=== PATIENT | male | born 1940 | race Caucasian/White ===

== ENCOUNTER → 2023-08-17 | Outpatient (CLI) | payer MEDICARE ==
[2023-08-17 09:48] LABS: Potassium 5.9 mmol/L (3.5-5.1)
== END | disposition home or self-care (01) ==
LOC: LABWHC1 08:18
PROVIDERS: ATTEND Family Medicine
DX: E87.5 Hyperkalemia (principal)
CPT/HCPCS: 36415; 80051

== ENCOUNTER 2023-11-08 14:11 | Inpatient (IN) | payer MEDICARE ==
--- NOTE | 2023-11-08 14:54 | ED ---
Recheck HPI - General Chief Complaint: Recheck/Abnormal Lab/Rx Stated Complaint: abn labs Time Seen by Provider: 11/08/23 14:37 Source: patient, family, RN notes reviewed Mode of arrival: wheelchair Limitations: no limitations - History of Present Illness Initial Comments: This is an 83-year-old male who presents to the emergency department for abnormal blood work. Patient had a follow-up appointment with his computer terminal operator today, and received a call stating that his hemoglobin was low, and he needed to come to the emergency department. Blood work was done earlier today. States that he has been feeling increasingly weak and dizzy over the last 1 to 2 weeks. He has started to use his walker at home again so he does not fall. He does report darker stools than normal. He had abdominal pain at one point that has since resolved. He has not had much of an appetite. Denies any history of blood transfusions. Patient does take warfarin. MD Complaint: abnormal lab - Related Data Home Medications Medication Instructions Recorded Confirmed Simvastatin [Zocor] 40 mg PO HS 10/26/14 11/08/23 Empagliflozin [Jardiance] 10 mg PO DAILY 11/08/23 11/08/23 Sacubitril/Valsartan [Entresto 24 1 tab PO BID 11/08/23 11/08/23 mg-26 mg Tablet] carvediloL [Coreg] 12.5 mg PO BID 11/08/23 11/08/23 Allergies Allergy/AdvReac Type Severity Reaction Status Date / Time cephalexin monohydrate Allergy Severe Rash/Hives Verified 11/08/23 17:24 [From Keflex] Penicillins Allergy Severe Rash/Hives Verified 11/08/23 17:24 propylene glycol Allergy Severe Anaphylaxis Verified 11/08/23 17:24 bacitracin Allergy Rash/Hives Verified 11/08/23 17:24 [From Neosporin ([id number])] bacitracin zinc Allergy Rash/Hives Verified 11/08/23 17:24 [From Neosporin ([id number])] chloramphenicol Allergy Rash/Hives Verified 11/08/23 17:24 [From Chloromycetin] chloramphenicol sod succ Allergy Rash/Hives Verified 11/08/23 17:24 [From Chloromycetin] ciprofloxacin [From Cipro] Allergy Rash/Hives Verified 11/08/23 17:24 ciprofloxacin HCl Allergy Rash/Hives Verified 11/08/23 17:24 [From Cipro] mercury (elemental) Allergy Rash/Hives Verified 11/08/23 17:24 neomycin Allergy Rash/Hives Verified 11/08/23 17:24 neomycin sulfate Allergy Rash/Hives Verified 11/08/23 17:24 [From Neosporin ([id number])] polymyxin B Allergy Rash/Hives Verified 11/08/23 17:24 [From Neosporin ([id number])] Review of Systems ROS Statement: Those systems with pertinent positive or pertinent negative responses have been documented in the HPI. ROS Other: All systems not noted in ROS Statement are negative. Past Medical History Past Medical History: Atrial Fibrillation, Coronary Artery Disease (CAD), Hyperlipidemia, Mitral Valve Prolapse (MVP), Osteoarthritis (OA) History of Any Multi-Drug Resistant Organisms: None Reported Past Surgical History: Cardiac Ablation, Cardiac Valve Replacement, Heart Catheterization Additional Past Surgical History / Comment(s): CARIOVERSIONS. AORTA VALVE REPLACED/MITRAL VALVE REPAIRED @ [facility] ON JANUARY [id number]. Past Anesthesia/Blood Transfusion Reactions: No Reported Reaction Past Psychological History: No Psychological Hx Reported Smoking Status: Never smoker Past Alcohol Use History: Rare Past Drug Use History: None Reported - Past Family History Mother Family Medical History: CVA/TIA, Myocardial Infarction ([place]) Father Family Medical History: Myocardial Infarction ([place]) Brother(s) Family Medical History: CVA/TIA General Exam Limitations: no limitations General appearance: alert, in no apparent distress Head exam: Present: atraumatic, normocephalic, normal inspection Respiratory exam: Present: normal lung sounds bilaterally. Absent: respiratory distress, wheezes, rales, rhonchi, stridor Cardiovascular Exam: Present: regular rate, normal rhythm, normal heart sounds. Absent: systolic murmur, diastolic murmur, rubs, gallop, clicks Neurological exam: Present: alert, oriented X3, CN II-XII intact Psychiatric exam: Present: normal affect, normal mood Skin exam: Present: warm, dry, intact Course Vital Signs 11/08/23 11/08/23 11/08/23 14:12 15:30 16:33 Temperature 97.5 F L 97.6 F Pulse Rate 68 75 75 Respiratory 18 16 18 Rate Blood Pressure 86/46 94/45 96/44 O2 Sat by Pulse 100 98 100 Oximetry 11/08/23 11/08/23 16:46 17:06 Temperature 97.7 F 97.8 F Pulse Rate 75 73 Respiratory 18 16 Rate Blood Pressure 93/44 99/49 O2 Sat by Pulse 100 100 Oximetry Medical Decision Making - Medical Decision Making This is an 83-year-old male who presents to the emergency department for weakness and low hemoglobin. Was pt. sent in by a medical professional or institution? @ -His computer terminal operator Did you speak to anyone other than the patient for history? @ -No Did you review nursing and triage notes? @ -Yes, and I agree, it is accurate with regards to the patient's symptoms. Were old charts reviewed? @ -No Differential Diagnosis? @ -Differential Weakness: Hypoglycemia, shock, sepsis, hyponatremia, anemia, infection, DC, ETOH, adverse medicine reaction, overdose, stroke, this is not meant to be an all-inclusive list. EKG interpreted by me (3pts min.)? @ -EKG interpreted by me demonstrating the following: Electronic ventricular pacemaker. Ventricular rate 61 bpm, QRS duration 167 ms, QTc 462 ms. X-rays interpreted by me (1pt min.)? @ -Not obtained CT interpreted by me (1pt min.)? @ -Not obtained U/S interpreted by me (1pt. min.)? @ -Not obtained What testing was considered but not performed? (CT, X-rays, U/S, labs)? Why? @ -None What meds were considered but not given? Why? @ -None Did you discuss the management of the patient with other professionals? @ -Yes, Dr. Coelho, who accepts the patient for admission. Did you reconcile home meds? @ -Yes Was smoking cessation discussed for >3mins.? @ -No Was critical care preformed (if so, how long)? @ -No Were there social determinants of health that impacted care today? How? (Dima elessness, low income, unemployed, alcoholism, drug addiction, transportation, low edu. Level, literacy, decrease access to med. care, fci, rehab)? @ -No Was there de-escalation of care discussed even if they declined? (Discuss DNR or withdrawal of care, Hospice)? @ -No What co-morbidities impacted this encounter? (DM, HTN, Smoking, COPD, CAD, C ancer, CVA, Hep., AIDS, mental health diagnosis, sleep apnea, morbid obesity)? @ -A-fib, CAD, HLD Was patient admitted / discharged? @ -Admitted. Lab work demonstrates a hemoglobin of 6.7 and INR of 6.5. He has mild hyperkalemia with a potassium of 5.3. Stool occult positive. Patient also hypotensive in the emergency department with blood pressures ranging from the 80s to 90s over 40s. 2.5 mg of vitamin K administered for warfarin reversal. He was also given 10 g of Lokelma for hyperkalemia. Patient transfused with one unit of packed red blood cells. Patient admitted to medicine for anemia, elevated INR, and positive stool occult. Consult placed for gastroenterology. Undiagnosed new problem with uncertain prognosis? @ -None Drug Therapy requiring intensive monitoring for toxicity (Heparin, Nitro, Insul in, Cardizem)? @ -None Were any procedures done? @ -None Diagnosis/symptom? @ -Anemia, elevated INR, positive stool occult Acute, or Chronic, or Acute on Chronic? @ -Acute Uncomplicated (without systemic symptoms) or Complicated (systemic symptoms)? @ -Complicated Side effects of treatment? @ -None Exacerbation, Progression, or Severe Exacerbation] @ -Not applicable Poses a threat to life or bodily function? @ -Yes This case was discussed in detail with the attending ED physician, Dr. Franklin. Presentation, findings, and treatment plan discussed in detail as well. - Lab Data Result diagrams: 11/08/23 14:54 11/08/23 14:54 Lab Results 11/08/23 11/08/23 11/08/23 Range/Units 14:29 14:54 14:54 WBC 7.9 (3.8-10.6) k/uL RBC 2.27 L (4.30-5.90) m/uL Hgb 6.7 L* (13.0-17.5) gm/dL Hct 21.6 L (39.0-53.0) % MCV 94.9 (80.0-100.0) fL MCH 29.5 (25.0-35.0) pg MCHC 31.1 (31.0-37.0) g/dL RDW 14.3 (11.5-15.5) % Plt Count 261 (150-450) k/uL MPV 7.4 Neutrophils % 75 % Lymphocytes % 10 % Monocytes % 7 % Eosinophils % 4 % Basophils % 1 % Neutrophils # 6.0 (1.3-7.7) k/uL Lymphocytes # 0.8 L (1.0-4.8) k/uL Monocytes # 0.5 (0-1.0) k/uL Eosinophils # 0.3 (0-0.7) k/uL Basophils # 0.1 (0-0.2) k/uL Hypochromasia Marked PT 64.0 H (10.0-12.5) sec INR 6.5 H* (<1.2) APTT 38.5 H (22.0-30.0) sec Sodium (137-145) mmol/L Potassium (3.5-5.1) mmol/L Chloride (98-107) mmol/L Carbon Dioxide (22-30) mmol/L Anion Gap mmol/L BUN (9-20) mg/dL Creatinine (0.66-1.25) mg/dL Est GFR (CKD-EPI)AfAm (>60 ml/min/1.73 sqM) Est GFR (CKD-EPI)NonAf (>60 ml/min/1.73 sqM) Glucose (74-99) mg/dL Calcium (8.4-10.2) mg/dL Phosphorus (2.5-4.5) mg/dL Magnesium (1.6-2.3) mg/dL Total Bilirubin (0.2-1.3) mg/dL AST (17-59) U/L ALT (4-49) U/L Alkaline Phosphatase (38-126) U/L Total Protein (6.3-8.2) g/dL Albumin (3.5-5.0) g/dL Stool Occult Blood (Negative) Blood Type Blood Type Confirm A Positive Blood Type Recheck Bld Type Recheck Status Antibody Screen Crossmatch Spec Expiration Date 11/08/23 11/08/23 11/08/23 Range/Units 14:54 14:54 15:22 WBC (3.8-10.6) k/uL RBC (4.30-5.90) m/uL Hgb (13.0-17.5) gm/dL Hct (39.0-53.0) % MCV (80.0-100.0) fL MCH (25.0-35.0) pg MCHC (31.0-37.0) g/dL RDW (11.5-15.5) % Plt Count (150-450) k/uL MPV Neutrophils % % Lymphocytes % % Monocytes % % Eosinophils % % Basophils % % Neutrophils # (1.3-7.7) k/uL Lymphocytes # (1.0-4.8) k/uL Monocytes # (0-1.0) k/uL Eosinophils # (0-0.7) k/uL Basophils # (0-0.2) k/uL Hypochromasia PT (10.0-12.5) sec INR (<1.2) APTT (22.0-30.0) sec Sodium 145 (137-145) mmol/L Potassium 5.3 H (3.5-5.1) mmol/L Chloride 117 H (98-107) mmol/L Carbon Dioxide 23 (22-30) mmol/L Anion Gap 5 mmol/L BUN 53 H (9-20) mg/dL Creatinine 2.28 H (0.66-1.25) mg/dL Est GFR (CKD-EPI)AfAm 29 (>60 ml/min/1.73 sqM) Est GFR (CKD-EPI)NonAf 25 (>60 ml/min/1.73 sqM) Glucose 157 H (74-99) mg/dL Calcium 8.4 (8.4-10.2) mg/dL Phosphorus 3.9 (2.5-4.5) mg/dL Magnesium 2.4 H (1.6-2.3) mg/dL Total Bilirubin 0.6 (0.2-1.3) mg/dL AST 18 (17-59) U/L ALT 11 (4-49) U/L Alkaline Phosphatase 80 (38-126) U/L Total Protein 6.1 L (6.3-8.2) g/dL Albumin 3.3 L (3.5-5.0) g/dL Stool Occult Blood Positive (Negative) Blood Type A Positive Blood Type Confirm Blood Type Recheck No Previous Record Bld Type Recheck Status CABO Indicated Antibody Screen NEGATIVE Crossmatch See Detail Spec Expiration Date 11/11/2023 - 8332 Disposition Clinical Impression: Anemia, Positive occult stool blood test, Elevated INR Disposition: ADMITTED IP TO THIS HOSP Referrals: Bruno Coelho DO [Primary Care Provider] - 1-2 days Time of Disposition: 16:38
[2023-11-08 15:10] LABS: Basophils # (A) 0.1 k/uL (0-0.2); Basophils % (A) 1 %; Eosinophils # (A) 0.3 k/uL (0-0.7); Eosinophils % (A) 4 %; HCT 21.6 % (39.0-53.0); Hypochromasia Marked; Lymphocytes # (A) 0.8 k/uL (1.0-4.8); Lymphocytes % (A) 10 %; MCH 29.5 pg (25.0-35.0); MCHC 31.1 g/dL (31.0-37.0); MCV 94.9 fL (80.0-100.0); Mean Platelet Volume 7.4; Monocytes # (A) 0.5 k/uL (0-1.0); Monocytes % (A) 7 %; Neutrophils % (A) 75 %; Platelet Count 261 k/uL (150-450); RBC 2.27 m/uL (4.30-5.90); RDW 14.3 % (11.5-15.5); WBC 7.9 k/uL (3.8-10.6)
[2023-11-08 15:15] LABS: HGB 6.7 gm/dL (13.0-17.5)
[2023-11-08 15:24] LABS: Partial Thromboplastin Time 38.5 sec (22.0-30.0)
[2023-11-08 15:28] LABS: INR 6.5 (<1.2)
[2023-11-08 15:34] LABS: ALT 11 U/L (4-49); AST 18 U/L (17-59); African American GFR (CKD) 29 (>60 ml/min/1.73 sqM); Albumin 3.3 g/dL (3.5-5.0); Alkaline Phosphatase 80 U/L (38-126); Anion Gap 5 mmol/L; Blood Urea Nitrogen 53 mg/dL (9-20); Calcium 8.4 mg/dL (8.4-10.2); Carbon Dioxide 23 mmol/L (22-30); Chloride 117 mmol/L (98-107); Glucose 157 mg/dL (74-99); Magnesium 2.4 mg/dL (1.6-2.3); Non-African American GFR(CKD) 25 (>60 ml/min/1.73 sqM); Phosphorus 3.9 mg/dL (2.5-4.5); Potassium 5.3 mmol/L (3.5-5.1); Sodium 145 mmol/L (137-145); Total Bilirubin 0.6 mg/dL (0.2-1.3); Total Protein 6.1 g/dL (6.3-8.2)
[2023-11-08] MEDS: SODIUM CHLORIDE 0.9% 1,000 ML IV STA (15:50)
[2023-11-08] MEDS: SODIUM ZIRCONIUM CYCLOSILICATE 10 GM PACKET PO ONE (15:50)
[2023-11-08] MEDS: PHYTONADIONE ORAL 5 MG/5 ML ORAL.SYRG PO STA (15:50)
[2023-11-08] MEDS ORDERED: NALOXONE 0.4 MG/ML 1 ML VIAL IV PRN (16:41)
[2023-11-08] MEDS ORDERED: ONDANSETRON 4 MG/2 ML VIAL IVP PRN (16:41)
[2023-11-08] MEDS: carvediloL 12.5 MG TAB PO SCH (17:54)
[2023-11-08] MEDS: ATORVASTATIN 20 MG TAB PO SCH (20:25)
[2023-11-08] MEDS: SACUBITRIL/VALSARTAN 24 MG-26 MG TABLET PO SCH (21:21)
[2023-11-09] MEDS: PANTOPRAZOLE 40 MG/10 ML VIAL IVP SCH (08:59)
[2023-11-09] MEDS: DAPAGLIFLOZIN PROPANEDIOL 5 MG TABLET PO SCH (08:59)
--- NOTE | 2023-11-09 10:02 | P.CONS ---
History of Present Illness - Reason for Consult Consult date: 11/09/23 Anemia Requesting physician: Yanni Miller - Chief Complaint Abnormal labs - History of Present Illness This is a pleasant 83-year-old male who presented to the emergency department directed by his transmitter tester. States that he was having blood work done and was noted to have a low hemoglobin and was told to come to the emergency department for further evaluation. He also reports that he has been feeling a little bit more weak and dizzy over the last week or 2. He denies any abdominal pain, nausea or vomiting. He states that his stools have been a little darker over the last week. He does not recall his last colonoscopy he states that he does recall having a more recent Cologuard which he believes was negative. He does take anticoagulation in the form of warfarin for atrial fibrillation history of coronary artery disease, hyperlipidemia, mitral valve prolapse with a cardiac valve replacement and history of heart cath authorization and cardiac ablation. Patient was admitted with a hemoglobin of 6.6 and was transfused 1 unit of blood. Admitting labs WBC 7.9 hemoglobin 6.7 hematocrit 21 platelet count 261,000 INR 6.5 sodium 145 potassium 5.3 BUN 53 creatinine 2.2 magnesium 2.4 total bilirubin 0.6 AST 18 ALT 11 alkaline phosphatase 80 stool occult blood positive Review of Systems REVIEW OF SYSTEMS: CARDIOPULMONARY: No chest pain or shortness of breath. Gastrointestinal: No abdominal pain. No nausea or vomiting. No hematemesis, coffee-ground emesis. Reports darker stools for last 1 week duration. GENITOURINARY: No dysuria or hematuria. MUSCULOSKELETAL: Reports normal range of motion., Joint pain. SKIN: No rashes. No jaundice. ENDOCRINE: No chills, fevers. No excessive weight gain or loss. No polydipsia or polyuria. PSYCHIATRIC: Unremarkable. NEUROLOGY: No change in mental status. Denies dizziness, headache. ENT: Vision unremarkable. CONSTITUTIONAL: No recent weight loss. No fever, chills, night sweats. Patient reports increased weakness and some lightheadedness/dizziness. Past Medical History Past Medical History: Atrial Fibrillation, Coronary Artery Disease (CAD), Hyperlipidemia, Mitral Valve Prolapse (MVP), Osteoarthritis (OA) History of Any Multi-Drug Resistant Organisms: None Reported Past Surgical History: Cardiac Ablation, Cardiac Valve Replacement, Heart Catheterization Additional Past Surgical History / Comment(s): CARIOVERSIONS. AORTA VALVE REPLACED/MITRAL VALVE REPAIRED @ [facility] ON JANUARY [id number]. pacer, EF 30% Past Anesthesia/Blood Transfusion Reactions: No Reported Reaction Past Psychological History: No Psychological Hx Reported Smoking Status: Never smoker Past Alcohol Use History: Rare Past Drug Use History: None Reported - Past Family History Mother Family Medical History: CVA/TIA, Myocardial Infarction ([place]) Father Family Medical History: Myocardial Infarction ([place]) Brother(s) Family Medical History: CVA/TIA Medications and Allergies Home Medications Medication Instructions Recorded Confirmed Type Simvastatin [Zocor] 40 mg PO HS 10/26/14 11/08/23 History Empagliflozin [Jardiance] 10 mg PO DAILY 11/08/23 11/08/23 History Sacubitril/Valsartan [Entresto 24 1 tab PO BID 11/08/23 11/08/23 History mg-26 mg Tablet] carvediloL [Coreg] 12.5 mg PO BID 11/08/23 11/08/23 History Allergies Allergy/AdvReac Type Severity Reaction Status Date / Time cephalexin monohydrate Allergy Severe Rash/Hives Verified 11/08/23 17:24 [From Keflex] Penicillins Allergy Severe Rash/Hives Verified 11/08/23 17:24 propylene glycol Allergy Severe Anaphylaxis Verified 11/08/23 17:24 bacitracin Allergy Rash/Hives Verified 11/08/23 17:24 [From Neosporin ([id number])] bacitracin zinc Allergy Rash/Hives Verified 11/08/23 17:24 [From Neosporin ([id number])] chloramphenicol Allergy Rash/Hives Verified 11/08/23 17:24 [From Chloromycetin] chloramphenicol sod succ Allergy Rash/Hives Verified 11/08/23 17:24 [From Chloromycetin] ciprofloxacin [From Cipro] Allergy Rash/Hives Verified 11/08/23 17:24 ciprofloxacin HCl Allergy Rash/Hives Verified 11/08/23 17:24 [From Cipro] mercury (elemental) Allergy Rash/Hives Verified 11/08/23 17:24 neomycin Allergy Rash/Hives Verified 11/08/23 17:24 neomycin sulfate Allergy Rash/Hives Verified 11/08/23 17:24 [From Neosporin ([id number])] polymyxin B Allergy Rash/Hives Verified 11/08/23 17:24 [From Neosporin ([id number]-[id number])] Physical Exam Vitals: Vital Signs Temp Pulse Pulse Resp BP BP Pulse Ox 11/09/23 03:28 98 F 65 19 90/49 100 11/08/23 23:38 98.0 F 59 L 19 90/48 97 11/08/23 21:01 98.1 F 55 L 19 112/64 100 11/08/23 19:13 55 L 18 108/54 100 11/08/23 19:08 97.6 F 61 18 105/52 11/08/23 17:30 97.6 F 80 18 103/60 100 11/08/23 17:06 97.8 F 73 16 99/49 100 11/08/23 16:46 97.7 F 75 18 93/44 100 11/08/23 16:33 97.6 F 75 18 96/44 100 11/08/23 15:30 75 16 94/45 98 11/08/23 14:12 97.5 F L 68 18 86/46 100 Intake and Output 11/08/23 11/09/23 11/09/23 22:59 06:59 14:59 Intake Total 310 Balance 310 Intake: Blood Product 310 Rc As-1 Unit 310 [id number] Other: Voiding Method Toilet Toilet # Voids 1 Weight 84.368 kg General appearance: The patient is alert, oriented, appears in no acute distress. HET: Head is normocephalic and atraumatic. Conjunctiva pink. Sclera anicteric. Neck: Supple without lymphadenopathy. Trachea midline. Heart: Regular. Lungs: Equal expansion, normal respiratory effort. Abdomen: Soft, nontender, nondistended with bowel sounds. No guarding or rigidity. Skin: No rashes. No jaundice. Extremities: Normal skin color and turgor. No pedal edema. Neurological: No focal deficits. Alert and oriented x3. Results CBC & Chem 7: 11/08/23 14:54 11/08/23 14:54 Labs: Abnormal Lab Results - Last 24 Hours (Table) 11/08/23 11/08/23 11/08/23 Range/Units 14:54 14:54 14:54 RBC 2.27 L (4.30-5.90) m/uL Hgb 6.7 L* (13.0-17.5) gm/dL Hct 21.6 L (39.0-53.0) % Lymphocytes # 0.8 L (1.0-4.8) k/uL PT 64.0 H (10.0-12.5) sec INR 6.5 H* (<1.2) APTT 38.5 H (22.0-30.0) sec Potassium 5.3 H (3.5-5.1) mmol/L Chloride 117 H (98-107) mmol/L BUN 53 H (9-20) mg/dL Creatinine 2.28 H (0.66-1.25) mg/dL Glucose 157 H (74-99) mg/dL Magnesium 2.4 H (1.6-2.3) mg/dL Total Protein 6.1 L (6.3-8.2) g/dL Albumin 3.3 L (3.5-5.0) g/dL Crossmatch 11/08/23 Range/Units 14:54 RBC (4.30-5.90) m/uL Hgb (13.0-17.5) gm/dL Hct (39.0-53.0) % Lymphocytes # (1.0-4.8) k/uL PT (10.0-12.5) sec INR (<1.2) APTT (22.0-30.0) sec Potassium (3.5-5.1) mmol/L Chloride (98-107) mmol/L BUN (9-20) mg/dL Creatinine (0.66-1.25) mg/dL Glucose (74-99) mg/dL Magnesium (1.6-2.3) mg/dL Total Protein (6.3-8.2) g/dL Albumin (3.5-5.0) g/dL Crossmatch See Detail Assessment and Plan (1) Anemia Narrative/Plan: 83-year-old man with coronary artery disease with a history of atrial fibrillation and heart valve replacement on Coumadin noted to have elevated INR and anemia. Patient does state that he has had some darker stools over the last 1 week duration. Denies any abdominal pain, nausea or vomiting. Unclear when last colonoscopy was no history of former GI bleed. Need to consider possible upper or lower GI bleed however with dark stools likely were dealing with an upper GI bleed. Recommend holding anticoagulation, repeat INR. Will schedule patient for EGD and colonoscopy on Sunday as there will be no GI present during the weekend. Need to consider possible etiologies including peptic ulcer disease, AVM, gastritis, esophagitis, or other possible etiologies. Current Visit: Yes Status: Acute Code(s): D64.9 - ANEMIA, UNSPECIFIED SNOMED Code(s): 429731713 (2) Coagulopathy Current Visit: Yes Status: Acute Code(s): D68.9 - COAGULATION DEFECT, UNSPECIFIED SNOMED Code(s): 68582885 (3) Atrial fibrillation by electrocardiography Current Visit: Yes Status: Acute Code(s): I48.91 - UNSPECIFIED ATRIAL FIBRILLATION SNOMED Code(s): 216847573 (4) History of heart valve replacement Current Visit: Yes Status: Acute Code(s): Z95.2 - PRESENCE OF PROSTHETIC HEART VALVE SNOMED Code(s): 824976787 Plan: 1. Continue symptomatic and supportive care 2. Daily CBC, transfuse for hemoglobin less than 7 3. Hold anticoagulation 4. Patient may have regular diet 5. N.p.o. after midnight on Sunday 6. Patient to start bowel prep Sunday afternoon 7. Plan for EGD and colonoscopy 11/12/2023 Thank you for allowing us to participate in the care of the patient, the GI service will sign off, gastroenterology will not be available at the hospital this weekend. If further evaluation by gastroenterology is required the patient will need transfer as per the primary team's discretion. Dr. Jose Shrestha I agree with the dictator's note, documented as a scribe by Earnestine Markham.
[2023-11-09 10:22] LABS: HCT 21.8 % (39.0-53.0); Hypochromasia Marked; MCH 29.5 pg (25.0-35.0); MCV 95.2 fL (80.0-100.0); Mean Platelet Volume 7.6; Platelet Count 217 k/uL (150-450); Poikilocytosis Slight; RBC 2.29 m/uL (4.30-5.90); RDW 14.7 % (11.5-15.5)
[2023-11-09 10:30] LABS: INR 2.4 (<1.2); Prothrombin Time 23.9 sec (10.0-12.5)
[2023-11-09 10:33] LABS: HGB 6.8 gm/dL (13.0-17.5)
[2023-11-09 10:46] LABS: African American GFR (CKD) 37 (>60 ml/min/1.73 sqM); Anion Gap 5 mmol/L; Blood Urea Nitrogen 44 mg/dL (9-20); Calcium 8.1 mg/dL (8.4-10.2); Carbon Dioxide 21 mmol/L (22-30); Chloride 116 mmol/L (98-107); Glucose 123 mg/dL (74-99); Non-African American GFR(CKD) 32 (>60 ml/min/1.73 sqM); Potassium 4.7 mmol/L (3.5-5.1); Sodium 142 mmol/L (137-145)
--- NOTE | 2023-11-09 13:12 | P.CRDCN ---
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 His INR was elevated and he was severely anemic. He was admitted to the hospital with evidence of GI bleeding. His echocardiogram performed June 2023 revealed an ejection fraction of 40 to 45% with moderate tricuspid regurgitation, his aortic valve had a mean gradient of 6 mmHg and his mitral valve repair showed mild valvular regurgitation. The patient denies any chest discomfort, he feels fatigue and mildly dyspneic. He has no significant peripheral edema no PND no orthopnea. He had an episode of diarrhea but no tiffanie blood. He has a prior permanent pacemaker implantation and his predominantly ventricular pacing. His current factors are positive for hyperlipidemia and hypertension he is a non- smoker, nondiabetic. He received transfusion yesterday as well as vitamin K. Medications: Carvedilol 12.5 twice daily, Farxiga 5 mg daily, Entresto 2426 twice a day, Protonix, simvastatin 40 mg daily Review of Systems: Respiratory: He has dyspnea on exertion but no recent wheezing or cough GI: No nausea or vomiting . No history of peptic ulcer disease. He had dark stool . : No hematuria or dysuria. Nervous System: No stroke or seizure. Physical Examination: 83-year-old male, pale, alert oriented no apparent distress,Blood pressure 91/50, Heart rate 57 Head: Normocephalic. Eyes: Sclerae nonicteric. Neck: Good carotid upstroke, no bruit, no jugular venous distention. Lungs: Clear to auscultation. Heart: Regular rate and rhythm, S1-S2, no S3, no rub. Systolic ejection murmur. Abdomen: Soft nontender, positive bowel sounds no organomegaly. Extremities: Trace edema, intact distal pulses. Chronic discoloration bilaterally Labs: INR on presentation 6.5, hemoglobin 6.7. His INR today is 2.4. BUN and creatinine yesterday 53 and 2.28, down to 44 and 1.9. Potassium 4.7. He is heme positive. EKG: Atrial fibrillation with 100% ventricular pacing Impression: 1. Acute GI bleeding with severe anemia 2. Chronic persistent atrial fibrillation with supra therapeutic INR 3. Status post mitral valve repair and aortic valve replacement 4. History of cardiomyopathy, nonischemic 5. Status post permanent pacemaker implantation 6. History of hyperlipidemia 7. History of hypertension Plan: 1. Continue to hold Coumadin, no need for IV heparin 2. Transfuse as needed 3. Endoscopy on Sunday 4. Follow hemoglobin 5. Decrease the dose of carvedilol because of low blood pressure. The drop in the blood pressure most likely secondary to the anemia 6. Continue other medications 7. Depending on his progress further recommendations will be made, thank you for this consult we will follow with you. Past Medical History Past Medical History: Atrial Fibrillation, Coronary Artery Disease (CAD), Hyperlipidemia, Mitral Valve Prolapse (MVP), Osteoarthritis (OA) History of Any Multi-Drug Resistant Organisms: None Reported Past Surgical History: Cardiac Ablation, Cardiac Valve Replacement, Heart C atheterization Additional Past Surgical History / Comment(s): CARIOVERSIONS. AORTA VALVE REPLACED/MITRAL VALVE REPAIRED @ [facility] ON JANUARY [id number]. pacer, EF 30% Past Anesthesia/Blood Transfusion Reactions: No Reported Reaction Past Psychological History: No Psychological Hx Reported Smoking Status: Never smoker Past Alcohol Use History: Rare Past Drug Use History: None Reported - Past Family History Mother Family Medical History: CVA/TIA, Myocardial Infarction ([place]) Father Family Medical History: Myocardial Infarction ([place]) Brother(s) Family Medical History: CVA/TIA Medications and Allergies Home Medications Medication Instructions Recorded Confirmed Type Simvastatin [Zocor] 40 mg PO HS 10/26/14 11/08/23 History Empagliflozin [Jardiance] 10 mg PO DAILY 11/08/23 11/08/23 History Sacubitril/Valsartan [Entresto 24 1 tab PO BID 11/08/23 11/08/23 History mg-26 mg Tablet] carvediloL [Coreg] 12.5 mg PO BID 11/08/23 11/08/23 History Allergies Allergy/AdvReac Type Severity Reaction Status Date / Time cephalexin monohydrate Allergy Severe Rash/Hives Verified 11/08/23 17:24 [From Keflex] Penicillins Allergy Severe Rash/Hives Verified 11/08/23 17:24 propylene glycol Allergy Severe Anaphylaxis Verified 11/08/23 17:24 bacitracin Allergy Rash/Hives Verified 11/08/23 17:24 [From Neosporin ([id number])] bacitracin zinc Allergy Rash/Hives Verified 11/08/23 17:24 [From Neosporin ([id number])] chloramphenicol Allergy Rash/Hives Verified 11/08/23 17:24 [From Chloromycetin] chloramphenicol sod succ Allergy Rash/Hives Verified 11/08/23 17:24 [From Chloromycetin] ciprofloxacin [From Cipro] Allergy Rash/Hives Verified 11/08/23 17:24 ciprofloxacin HCl Allergy Rash/Hives Verified 11/08/23 17:24 [From Cipro] mercury (elemental) Allergy Rash/Hives Verified 11/08/23 17:24 neomycin Allergy Rash/Hives Verified 11/08/23 17:24 neomycin sulfate Allergy Rash/Hives Verified 11/08/23 17:24 [From Neosporin ([id number])] polymyxin B Allergy Rash/Hives Verified 11/08/23 17:24 [From Neosporin ([id number])] Physical Exam Vitals: Vital Signs Temp Pulse Pulse Resp BP BP Pulse Ox 11/09/23 12:04 54 L 18 91/49 98 11/09/23 10:18 57 L 18 11/09/23 08:00 98.2 F 57 L 18 101/59 99 11/09/23 03:28 98 F 65 19 90/49 100 11/08/23 23:38 98.0 F 59 L 19 90/48 97 11/08/23 21:01 98.1 F 55 L 19 112/64 100 11/08/23 19:13 55 L 18 108/54 100 11/08/23 19:08 97.6 F 61 18 105/52 11/08/23 17:30 97.6 F 80 18 103/60 100 11/08/23 17:06 97.8 F 73 16 99/49 100 11/08/23 16:46 97.7 F 75 18 93/44 100 11/08/23 16:33 97.6 F 75 18 96/44 100 11/08/23 15:30 75 16 94/45 98 11/08/23 14:12 97.5 F L 68 18 86/46 100 Intake and Output 11/08/23 11/09/23 11/09/23 22:59 06:59 14:59 Intake Total 310 240 Balance 310 240 Intake: Oral 240 Blood Product 310 Rc As-1 Unit 310 [id number] Other: Voiding Method Toilet Toilet Toilet # Voids 1 Weight 84.368 kg Results 11/09/23 10:08 11/09/23 10:08 Cardiac Enzymes 11/08/23 Range/Units 14:54 AST 18 (17-59) U/L Coagulation 11/08/23 11/09/23 Range/Units 14:54 10:08 PT 64.0 H 23.9 H (10.0-12.5) sec APTT 38.5 H (22.0-30.0) sec CBC 11/08/23 11/09/23 Range/Units 14:54 10:08 WBC 7.9 7.0 (3.8-10.6) k/uL RBC 2.27 L 2.29 L (4.30-5.90) m/uL Hgb 6.7 L* 6.8 L* (13.0-17.5) gm/dL Hct 21.6 L 21.8 L (39.0-53.0) % Plt Count 261 217 (150-450) k/uL Comprehensive Metabolic Panel 11/08/23 11/09/23 Range/Units 14:54 10:08 Sodium 145 142 (137-145) mmol/L Potassium 5.3 H 4.7 (3.5-5.1) mmol/L Chloride 117 H 116 H (98-107) mmol/L Carbon Dioxide 23 21 L (22-30) mmol/L BUN 53 H 44 H (9-20) mg/dL Creatinine 2.28 H 1.90 H (0.66-1.25) mg/dL Glucose 157 H 123 H (74-99) mg/dL Calcium 8.4 8.1 L (8.4-10.2) mg/dL AST 18 (17-59) U/L ALT 11 (4-49) U/L Alkaline Phosphatase 80 (38-126) U/L Total Protein 6.1 L (6.3-8.2) g/dL Albumin 3.3 L (3.5-5.0) g/dL Current Medications Generic Name Dose Route Start Last Admin Trade Name Freq PRN Reason Stop Dose Admin Acetaminophen 650 mg 11/08/23 16:41 Acetaminophen Tab 325 Mg Tab PO Q6HR PRN Mild Pain or Fever > 100.5 Hydrocodone Bitart/Acetaminophen 1 each 11/08/23 16:41 Hydrocodone/Apap 5-325mg 1 Each Tab PO Q4HR PRN Moderate Pain (Scale 4 to 6) Atorvastatin Calcium 20 mg 11/08/23 21:00 11/08/23 20:25 Atorvastatin 20 Mg Tab PO Not Given HS ALONDRA Carvedilol 12.5 mg 11/08/23 17:30 11/09/23 06:00 Carvedilol 12.5 Mg Tab PO Not Given AC-BID ALONDRA Dapagliflozin 5 mg 11/09/23 09:00 11/09/23 08:59 Dapagliflozin Propanediol 5 Mg Tablet PO 5 mg DAILY ALONDRA Administration Morphine Sulfate 4 mg 11/08/23 16:41 Morphine Sulfate 4 Mg/Ml Syringe IV Q4HR PRN Severe Pain (Scale 7 to 10) Naloxone HCl 0.2 mg 11/08/23 16:41 Naloxone 0.4 Mg/Ml 1 Ml Vial IV Q2M PRN Opioid Reversal Ondansetron HCl 4 mg 11/08/23 16:41 Ondansetron 4 Mg/2 Ml Vial IVP Q8HR PRN Nausea And Vomiting Pantoprazole Sodium 40 mg 11/09/23 09:00 11/09/23 08:59 Pantoprazole 40 Mg/10 Ml Vial IVP 40 mg BID ALONDRA Administration Polyethylene Glycol/Electrolytes 4,000 ml 11/11/23 16:00 Peg 3350 (236 Gm/Btl) + Lytes 4,000 Ml Bottle PO 11/11/23 16:01 ONCE ONE Sacubitril/Valsartan 1 each 11/08/23 21:00 11/09/23 09:00 Sacubitril/Valsartan 24 Mg-26 Mg Tablet PO 1 each BID [facility] Administration Intake and Output 11/08/23 11/09/23 11/09/23 22:59 06:59 14:59 Intake Total 310 240 Balance 310 240 Intake: Oral 240 Blood Product 310 Rc As-1 Unit 310 [id number] Other: Voiding Method Toilet Toilet Toilet # Voids 1 Weight 84.368 kg 11/09/23 10:08 11/09/23 10:08
--- NOTE | 2023-11-09 14:35 | P.HPIM ---
History of Present Illness H&P Date: 11/09/23 Chief Complaint: Anemia, hypercoagulopathy This is an 83-year-old female past medical history significant for chronic persistent atrial fibrillation, CAD, hyperlipidemia, mitral valve prolapse, aortic valve replacement,PPM, cardiac ablation, cardiomyopathy, presented to the hospital with complaints of increasing generalized weakness, mild shortness of breath ;vague historian. discovered to have a hemoglobin of 6.7, INR 6.5. BUN 53, creatinine 2.28, bicarb 23 transfused with 1 unit packed RBCs as well as vitamin K in the ER. Repeat labs pending. denies nausea or vomiting but reported diarrhea dark black stools X months. Blood pressure soft, maintain O2 sats in the 90s on room air. Denies chest pain, palpitations or shortness of breath. Review of Systems ROS Statement: Those systems with pertinent positive or pertinent negative responses have been documented in the HPI. ROS Other: All systems not noted in ROS Statement are negative. Past Medical History Past Medical History: Atrial Fibrillation, Coronary Artery Disease (CAD), Hyperlipidemia, Mitral Valve Prolapse (MVP), Osteoarthritis (OA) History of Any Multi-Drug Resistant Organisms: None Reported Past Surgical History: Cardiac Ablation, Cardiac Valve Replacement, Heart Catheterization Additional Past Surgical History / Comment(s): CARIOVERSIONS. AORTA VALVE REPLACED/MITRAL VALVE REPAIRED @ [facility] ON JANUARY [id number]. pacer, EF 30% Past Anesthesia/Blood Transfusion Reactions: No Reported Reaction Past Psychological History: No Psychological Hx Reported Smoking Status: Never smoker Past Alcohol Use History: Rare Past Drug Use History: None Reported - Past Family History Mother Family Medical History: CVA/TIA, Myocardial Infarction ([place]) Father Family Medical History: Myocardial Infarction ([place]) Brother(s) Family Medical History: CVA/TIA Medications and Allergies Home Medications Medication Instructions Recorded Confirmed Type Simvastatin [Zocor] 40 mg PO HS 10/26/14 11/08/23 History Empagliflozin [Jardiance] 10 mg PO DAILY 11/08/23 11/08/23 History Sacubitril/Valsartan [Entresto 24 1 tab PO BID 11/08/23 11/08/23 History mg-26 mg Tablet] carvediloL [Coreg] 12.5 mg PO BID 11/08/23 11/08/23 History Allergies Allergy/AdvReac Type Severity Reaction Status Date / Time cephalexin monohydrate Allergy Severe Rash/Hives Verified 11/08/23 17:24 [From Keflex] Penicillins Allergy Severe Rash/Hives Verified 11/08/23 17:24 propylene glycol Allergy Severe Anaphylaxis Verified 11/08/23 17:24 bacitracin Allergy Rash/Hives Verified 11/08/23 17:24 [From Neosporin ([id number])] bacitracin zinc Allergy Rash/Hives Verified 11/08/23 17:24 [From Neosporin ([id number])] chloramphenicol Allergy Rash/Hives Verified 11/08/23 17:24 [From Chloromycetin] chloramphenicol sod succ Allergy Rash/Hives Verified 11/08/23 17:24 [From Chloromycetin] ciprofloxacin [From Cipro] Allergy Rash/Hives Verified 11/08/23 17:24 ciprofloxacin HCl Allergy Rash/Hives Verified 11/08/23 17:24 [From Cipro] mercury (elemental) Allergy Rash/Hives Verified 11/08/23 17:24 neomycin Allergy Rash/Hives Verified 11/08/23 17:24 neomycin sulfate Allergy Rash/Hives Verified 11/08/23 17:24 [From Neosporin ([id number])] polymyxin B Allergy Rash/Hives Verified 11/08/23 17:24 [From Neosporin ([id number])] Physical Exam Vitals: Vital Signs Temp Pulse Pulse Resp BP BP Pulse Ox 11/09/23 13:42 54 L 18 11/09/23 12:04 54 L 18 91/49 98 11/09/23 10:18 57 L 18 11/09/23 08:00 98.2 F 57 L 18 101/59 99 11/09/23 03:28 98 F 65 19 90/49 100 11/08/23 23:38 98.0 F 59 L 19 90/48 97 11/08/23 21:01 98.1 F 55 L 19 112/64 100 11/08/23 19:13 55 L 18 108/54 100 11/08/23 19:08 97.6 F 61 18 105/52 11/08/23 17:30 97.6 F 80 18 103/60 100 11/08/23 17:06 97.8 F 73 16 99/49 100 11/08/23 16:46 97.7 F 75 18 93/44 100 11/08/23 16:33 97.6 F 75 18 96/44 100 11/08/23 15:30 75 16 94/45 98 Intake and Output 11/08/23 11/09/23 11/09/23 22:59 06:59 14:59 Intake Total 310 598 Balance 310 598 Intake: Oral 598 Blood Product 310 Rc As-1 Unit 310 [id number] Other: Voiding Method Toilet Toilet Toilet # Voids 1 1 Weight 84.368 kg PHYSICAL EXAM: VITAL SIGNS: [As above] GENERAL: Alert and oriented x 3, sitting up in bed, no acute distress HEENT: Normocephalic, conjunctivae normal. eyes normal. NECK: Supple, no JVD. No thyroid enlargement. No LNs CARDIOVASCULAR: S1, S2 regular. Systolic murmur RESPIRATION: Unlabored, equal air entry, essentially clear with breath sounds diminished in the bases. No rhonchi or crackles. No bronchial breathing. ABDOMEN: Soft, nondistended, nontender . No guarding. no masses palpable. No ascites, No hepatosplenomegaly.Bowel sounds heard. LEGS: No edema. no swelling NERVOUS SYSTEM: Cranial N 2-12 grossly normal.Diffuse weakness No focal deficits. Strength and sensation grossly intact.. Skin: Warm and dry, no rash Results CBC & Chem 7: 11/09/23 10:08 11/09/23 10:08 Labs: Abnormal Lab Results - Last 24 Hours (Table) 11/08/23 11/08/23 11/08/23 Range/Units 14:54 14:54 14:54 RBC 2.27 L (4.30-5.90) m/uL Hgb 6.7 L* (13.0-17.5) gm/dL Hct 21.6 L (39.0-53.0) % Lymphocytes # 0.8 L (1.0-4.8) k/uL PT 64.0 H (10.0-12.5) sec INR 6.5 H* (<1.2) APTT 38.5 H (22.0-30.0) sec Potassium 5.3 H (3.5-5.1) mmol/L Chloride 117 H (98-107) mmol/L Carbon Dioxide (22-30) mmol/L BUN 53 H (9-20) mg/dL Creatinine 2.28 H (0.66-1.25) mg/dL Glucose 157 H (74-99) mg/dL Calcium (8.4-10.2) mg/dL Magnesium 2.4 H (1.6-2.3) mg/dL Total Protein 6.1 L (6.3-8.2) g/dL Albumin 3.3 L (3.5-5.0) g/dL Crossmatch 11/08/23 11/09/23 11/09/23 Range/Units 14:54 10:08 10:08 RBC 2.29 L (4.30-5.90) m/uL Hgb 6.8 L* (13.0-17.5) gm/dL Hct 21.8 L (39.0-53.0) % Lymphocytes # (1.0-4.8) k/uL PT 23.9 H (10.0-12.5) sec INR 2.4 H (<1.2) APTT (22.0-30.0) sec Potassium (3.5-5.1) mmol/L Chloride (98-107) mmol/L Carbon Dioxide (22-30) mmol/L BUN (9-20) mg/dL Creatinine (0.66-1.25) mg/dL Glucose (74-99) mg/dL Calcium (8.4-10.2) mg/dL Magnesium (1.6-2.3) mg/dL Total Protein (6.3-8.2) g/dL Albumin (3.5-5.0) g/dL Crossmatch See Detail 11/09/23 Range/Units 10:08 RBC (4.30-5.90) m/uL Hgb (13.0-17.5) gm/dL Hct (39.0-53.0) % Lymphocytes # (1.0-4.8) k/uL PT (10.0-12.5) sec INR (<1.2) APTT (22.0-30.0) sec Potassium (3.5-5.1) mmol/L Chloride 116 H (98-107) mmol/L Carbon Dioxide 21 L (22-30) mmol/L BUN 44 H (9-20) mg/dL Creatinine 1.90 H (0.66-1.25) mg/dL Glucose 123 H (74-99) mg/dL Calcium 8.1 L (8.4-10.2) mg/dL Magnesium (1.6-2.3) mg/dL Total Protein (6.3-8.2) g/dL Albumin (3.5-5.0) g/dL Crossmatch Thrombosis Risk Factor Assmnt - Choose All That Apply Any of the Below Risk Factors Present?: Yes Each Factor Represents 1 point: Obesity (BMI >25) Each Risk Factor Represents 3 Points: Age 75 years or older Thrombosis Risk Factor Assessment Total Risk Factor Score: 4 Thrombosis Risk Factor Assessment Level: Moderate Risk Assessment and Plan Assessment: Severe anemia secondary to acute GI bleed Chronic persistent atrial fibrillation, INR supra therapeutic History of mitral valve repair and aortic valve replacement Cardiomyopathy, nonischemic PPM Hypertension Hyperlipidemia Plan: Continue on current medication regimen ,monitoring and symptomatic treatment. Anticoagulation on hold with further recommendations regarding heparin drip as per cardiology. PPI for GI prophylaxis. Transfuse for hemoglobin less than 7. Repeat labs ordered and pending. Close monitoring of hemoglobin, platelets, renal function with repeat labs ordered for a.m. GI and cardiology consult in place with recommendations pending, including EGD and colonoscopy on Sunday. The impression and plan of care has been dictated as directed. : I performed a history and examination of this patient, discussed the same with the dictator. I agree with the dictator's note ,documented as a scribe. Any additional findings or plans will be noted.
[2023-11-09] MEDS: carvediloL 6.25 MG TAB PO SCH (17:14)
[2023-11-10 09:26] LABS: African American GFR (CKD) 35 (>60 ml/min/1.73 sqM); Anion Gap 8 mmol/L; Blood Urea Nitrogen 39 mg/dL (9-20); Carbon Dioxide 17 mmol/L (22-30); Chloride 114 mmol/L (98-107); Glucose 125 mg/dL (74-99); Non-African American GFR(CKD) 31 (>60 ml/min/1.73 sqM); Sodium 139 mmol/L (137-145)
[2023-11-10 09:27] LABS: INR 1.5 (<1.2); Prothrombin Time 15.5 sec (10.0-12.5)
[2023-11-10 12:51] LABS: HCT 22.8 % (39.0-53.0); Hypochromasia Marked; MCH 29.1 pg (25.0-35.0); MCHC 29.9 g/dL (31.0-37.0); MCV 97.4 fL (80.0-100.0); Mean Platelet Volume 8.2; Platelet Count 232 k/uL (150-450); RBC 2.34 m/uL (4.30-5.90); RDW 14.5 % (11.5-15.5); WBC 7.6 k/uL (3.8-10.6)
[2023-11-10 12:52] LABS: HGB 6.8 gm/dL (13.0-17.5)
--- NOTE | 2023-11-10 13:26 | P.PN ---
Subjective Progress Note Date: 11/10/23 * 83-year-old female past medical history significant for chronic persistent atrial fibrillation, CAD, hyperlipidemia, mitral valve prolapse, aortic valve replacement,PPM, cardiac ablation, cardiomyopathy, presented to the hospital with complaints of increasing generalized weakness, mild shortness of breath ;vague historian. discovered to have a hemoglobin of 6.7, INR 6.5. BUN 53, creatinine 2.28, bicarb 23 transfused with 1 unit packed RBCs as well as vitamin K in the ER. * 11/10/23: Patient seen and evaluated bedside, blood work reviewed, hemoglobin less than 7, patient denies active gastrointestinal bleed at this point. Abdominal pain has improved. Patient to be transfused additional 1 unit of packed RBC and follow-up H&H ordered hemodynamically patient appears stable we will follow-up on INR PHYSICAL EXAMINATION: GENERAL: The patient is alert and oriented x3, ill appearance, pale appearance HEENT: Pupils are round and equally reacting to light. EOMI. CARDIOVASCULAR: S1 and S2 present. No murmurs, rubs, or gallops. PULMONARY: Chest is clear to auscultation, no wheezing or crackles. ABDOMEN: Soft, nontender, nondistended, normoactive bowel sounds. No palpable organomegaly. MUSCULOSKELETAL: No joint swelling or deformity. EXTREMITIES: No cyanosis, clubbing, or pedal edema. NEUROLOGICAL: Gross neurological examination did not reveal any focal deficits. SKIN: No rashes. Assessment and plan * Acute gastrointestinal bleed with severe anemia * Supratherapeutic INR on presentation * Persistent chronic atrial fibrillation * Valvular heart disease s/p aortic valve replacement, mitral valve repair * Nonischemic cardiomyopathy, s/p pacemaker in place * History of hypertension history of hyperlipidemia * In regards to gastrointestinal bleed, Coumadin on hold, continue to monitor H&H, continue patient on Protonix * Gastroenterology consulted plan for EGD and colonoscopy scheduled for 11/12/2023 * In regards to atrial fibrillation continue patient on Coreg, * secondary to hypotension Entresto placed on hold * Continue to hold Coumadin, follow-up on INR levels Objective - Vital Signs Vital signs: Vital Signs Temp 98.4 F 11/10/23 08:08 Pulse 58 L 11/10/23 09:12 Resp 18 11/10/23 09:12 BP 107/66 11/10/23 09:47 Pulse Ox 99 11/10/23 08:08 FiO2 Intake & Output 11/09/23 11/10/23 11/10/23 18:59 06:59 18:59 Intake Total 838 240 Output Total 450 Balance 838 -450 240 Weight 85.1 kg Intake: Oral 838 240 Output: Urine 450 Other: Voiding Method Toilet Toilet Toilet # Voids 1 1 - Labs CBC & Chem 7: 11/10/23 07:46 11/10/23 07:46 Labs: Abnormal Lab Results - Last 24 Hours (Table) 11/09/23 11/09/23 11/09/23 Range/Units 10:08 10:08 10:08 RBC 2.29 L (4.30-5.90) m/uL Hgb 6.8 L* (13.0-17.5) gm/dL Hct 21.8 L (39.0-53.0) % PT 23.9 H (10.0-12.5) sec INR 2.4 H (<1.2) Chloride 116 H (98-107) mmol/L Carbon Dioxide 21 L (22-30) mmol/L BUN 44 H (9-20) mg/dL Creatinine 1.90 H (0.66-1.25) mg/dL Glucose 123 H (74-99) mg/dL Calcium 8.1 L (8.4-10.2) mg/dL 11/10/23 11/10/23 Range/Units 07:46 07:46 RBC (4.30-5.90) m/uL Hgb (13.0-17.5) gm/dL Hct (39.0-53.0) % PT 15.5 H (10.0-12.5) sec INR 1.5 H (<1.2) Chloride 114 H (98-107) mmol/L Carbon Dioxide 17 L (22-30) mmol/L BUN 39 H (9-20) mg/dL Creatinine 1.96 H (0.66-1.25) mg/dL Glucose 125 H (74-99) mg/dL Calcium 8.0 L (8.4-10.2) mg/dL
--- NOTE | 2023-11-10 13:49 | P.PN ---
Subjective Progress Note Date: 11/10/23 The patient is an 83-year-old male with a known history of chronic persistent atrial fibrillation, history of nonischemic or myopathy status post aortic valve replacement and mitral valve repair in 2014 who presented to the office yesterday with symptoms of progressive fatigue and dyspnea. His INR was destinee vated and he was severely anemic. He was admitted to the hospital with evidence of GI bleeding. His echocardiogram performed June 2023 revealed an ejection fraction of 40 to 45% with moderate tricuspid regurgitation, his aortic valve had a mean gradient of 6 mmHg and his mitral valve repair showed mild valvular regurgitation. The patient denies any chest discomfort, he feels fatigue and mildly dyspneic. He has no significant peripheral edema no PND no orthopnea. He had an episode of diarrhea but no tiffanie blood. He has a prior permanent pacemaker implantation and his predominantly ventricular pacing. His current factors are positive for hyperlipidemia and hypertension he is a non-smoker, nondiabetic. He received transfusion yesterday as well as vitamin K. Medications: Carvedilol 12.5 twice daily, Farxiga 5 mg daily, Entresto 2426 twice a day, Protonix, simvastatin 40 mg daily 11/10/2023 The patient was seen and examined resting comfortably in bed with the at the bedside. He is overall feeling a bit better. Blood pressure remains low and carvedilol was decreased. Home dose of Aldactone remains on hold. We are awaiting endoscopy to be done on Sunday. Labs from this morning are pending. Objective - Vital Signs Vital signs: Vital Signs Temp 98.4 F 11/10/23 08:08 Pulse 52 L 11/10/23 11:03 Resp 18 11/10/23 11:03 BP 96/48 11/10/23 11:03 Pulse Ox 100 11/10/23 11:03 FiO2 Intake & Output 11/09/23 11/10/23 11/10/23 18:59 06:59 18:59 Intake Total 838 240 Output Total 450 Balance 838 -450 240 Weight 85.1 kg Intake: Oral 838 240 Output: Urine 450 Other: Voiding Method Toilet Toilet Toilet # Voids 1 1 - Exam Head: Normocephalic. Eyes: Sclerae nonicteric. Neck: Good carotid upstroke, no bruit, no jugular venous distention. Lungs: Clear to auscultation. Heart: Regular rate and rhythm, S1-S2, no S3, no rub. Systolic ejection murmur. Abdomen: Soft nontender, positive bowel sounds no organomegaly. Extremities: Trace edema, intact distal pulses. Chronic discoloration bilate rally - Labs CBC & Chem 7: 11/10/23 07:46 11/10/23 07:46 Labs: Abnormal Lab Results - Last 24 Hours (Table) 11/08/23 11/10/23 11/10/23 Range/Units 14:54 07:46 07:46 RBC (4.30-5.90) m/uL Hgb (13.0-17.5) gm/dL Hct (39.0-53.0) % MCHC (31.0-37.0) g/dL PT 15.5 H (10.0-12.5) sec INR 1.5 H (<1.2) Chloride 114 H (98-107) mmol/L Carbon Dioxide 17 L (22-30) mmol/L BUN 39 H (9-20) mg/dL Creatinine 1.96 H (0.66-1.25) mg/dL Glucose 125 H (74-99) mg/dL Calcium 8.0 L (8.4-10.2) mg/dL Crossmatch See Detail 11/10/23 Range/Units 07:46 RBC 2.34 L (4.30-5.90) m/uL Hgb 6.8 L* (13.0-17.5) gm/dL Hct 22.8 L (39.0-53.0) % MCHC 29.9 L (31.0-37.0) g/dL PT (10.0-12.5) sec INR (<1.2) Chloride (98-107) mmol/L Carbon Dioxide (22-30) mmol/L BUN (9-20) mg/dL Creatinine (0.66-1.25) mg/dL Glucose (74-99) mg/dL Calcium (8.4-10.2) mg/dL Crossmatch Assessment and Plan Assessment: 1. Acute GI bleeding with severe anemia 2. Chronic persistent atrial fibrillation with supra therapeutic INR 3. Status post mitral valve repair and aortic valve replacement 4. History of cardiomyopathy, nonischemic 5. Status post permanent pacemaker implantation 6. History of hyperlipidemia 7. History of hypertension Plan: From cardiology's perspective we will continue to hold Coumadin. No need for IV heparin. Continue to transfuse as needed. Endoscopy scheduled to be done on Sunday. We will resume o. Continue to follow the patient and provide further recommendations accordingly. MANAGER DATABASE note has been reviewed, I agree with a documented findings and plan of care. Patient was seen and examined.
[2023-11-10] MEDS: SACUBITRIL/VALSARTAN 24 MG-26 MG TABLET PO SCH (22:14)
[2023-11-11 07:58] LABS: HCT 25.2 % (39.0-53.0); HGB 7.7 gm/dL (13.0-17.5); Hypochromasia Marked; MCH 28.9 pg (25.0-35.0); MCHC 30.4 g/dL (31.0-37.0); MCV 94.9 fL (80.0-100.0); Platelet Count 207 k/uL (150-450); Poikilocytosis Slight; RBC 2.65 m/uL (4.30-5.90); RDW 14.6 % (11.5-15.5); WBC 7.3 k/uL (3.8-10.6)
[2023-11-11 08:06] LABS: INR 1.4 (<1.2); Prothrombin Time 14.4 sec (10.0-12.5)
[2023-11-11 08:20] LABS: African American GFR (CKD) 40 (>60 ml/min/1.73 sqM); Anion Gap 6 mmol/L; Blood Urea Nitrogen 30 mg/dL (9-20); Calcium 8.3 mg/dL (8.4-10.2); Carbon Dioxide 18 mmol/L (22-30); Chloride 113 mmol/L (98-107); Glucose 93 mg/dL (74-99); Non-African American GFR(CKD) 34 (>60 ml/min/1.73 sqM); Potassium 5.2 mmol/L (3.5-5.1); Sodium 137 mmol/L (137-145)
--- NOTE | 2023-11-11 12:20 | P.PN ---
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 His INR was destinee vated and he was severely anemic. He was admitted to the hospital with evidence of GI bleeding. His echocardiogram performed June 2023 revealed an ejection fraction of 40 to 45% with moderate tricuspid regurgitation, his aortic valve had a mean gradient of 6 mmHg and his mitral valve repair showed mild valvular regurgitation. The patient denies any chest discomfort, he feels fatigue and mildly dyspneic. He has no significant peripheral edema no PND no orthopnea. He had an episode of diarrhea but no tiffanie blood. He has a prior permanent pacemaker implantation and his predominantly ventricular pacing. His current factors are positive for hyperlipidemia and hypertension he is a non-smoker, nondiabetic. He received transfusion yesterday as well as vitamin K. Medications: Carvedilol 12.5 twice daily, Farxiga 5 mg daily, Entresto 2426 twice a day, Protonix, simvastatin 40 mg daily 11/10/2023 The patient was seen and examined resting comfortably in bed with the at the bedside. He is overall feeling a bit better. Blood pressure remains low and carvedilol was decreased. Home dose of Aldactone remains on hold. We are awaiting endoscopy to be done on Sunday. Labs from this morning are pending. 11/11/2023 The patient was seen and examined sitting up in a chair. He is feeling a bit better. Hemoglobin is stable. Renal function shows some improvement. Objective - Vital Signs Vital signs: Vital Signs Temp 98.2 F 11/11/23 04:00 Pulse 64 11/11/23 11:37 Resp 18 11/11/23 11:37 BP 101/53 11/11/23 11:37 Pulse Ox 97 11/11/23 11:37 FiO2 Intake & Output 11/10/23 11/11/23 11/11/23 18:59 06:59 18:59 Intake Total 1266 Output Total 225 Balance 1041 Intake: Oral 956 Blood Product 310 Rc As-1 Unit 310 [id number] Output: Urine 225 Other: Voiding Method Toilet Toilet Toilet # Voids 3 1 1 # Bowel Movements 2 - Exam Head: Normocephalic. Eyes: Sclerae nonicteric. Neck: Good carotid upstroke, no bruit, no jugular venous distention. Lungs: Clear to auscultation. Heart: Regular rate and rhythm, S1-S2, no S3, no rub. Systolic ejection murmur. Abdomen: Soft nontender, positive bowel sounds no organomegaly. Extremities: Trace edema, intact distal pulses. Chronic discoloration bilaterally - Labs CBC & Chem 7: 11/11/23 07:19 11/11/23 07:19 Labs: Abnormal Lab Results - Last 24 Hours (Table) 11/08/23 11/10/23 11/11/23 Range/Units 14:54 07:46 07:19 RBC 2.34 L 2.65 L (4.30-5.90) m/uL Hgb 6.8 L* 7.7 L (13.0-17.5) gm/dL Hct 22.8 L 25.2 L (39.0-53.0) % MCHC 29.9 L 30.4 L (31.0-37.0) g/dL PT (10.0-12.5) sec INR (<1.2) Potassium (3.5-5.1) mmol/L Chloride (98-107) mmol/L Carbon Dioxide (22-30) mmol/L BUN (9-20) mg/dL Creatinine (0.66-1.25) mg/dL Calcium (8.4-10.2) mg/dL Crossmatch See Detail 11/11/23 11/11/23 Range/Units 07:19 07:19 RBC (4.30-5.90) m/uL Hgb (13.0-17.5) gm/dL Hct (39.0-53.0) % MCHC (31.0-37.0) g/dL PT 14.4 H (10.0-12.5) sec INR 1.4 H (<1.2) Potassium 5.2 H (3.5-5.1) mmol/L Chloride 113 H (98-107) mmol/L Carbon Dioxide 18 L (22-30) mmol/L BUN 30 H (9-20) mg/dL Creatinine 1.79 H (0.66-1.25) mg/dL Calcium 8.3 L (8.4-10.2) mg/dL Crossmatch Assessment and Plan Assessment: 1. Acute GI bleeding with severe anemia 2. Chronic persistent atrial fibrillation with supra therapeutic INR 3. Status post mitral valve repair and aortic valve replacement 4. History of cardiomyopathy, nonischemic 5. Status post permanent pacemaker implantation 6. History of hyperlipidemia 7. History of hypertension Plan: From cardiology's perspective we will continue to hold Coumadin. Continue to transfuse as needed. Endoscopy scheduled to be done tomorrow. Further recommendations regarding anticoagulation depending on the findings. Continue to follow the patient and provide further recommendations accordingly. [employer] note has been reviewed, I agree with a documented findings and plan of care. Patient was seen and examined.
--- NOTE | 2023-11-11 12:29 | P.PN ---
Subjective Progress Note Date: 11/11/23 * 83-year-old female past medical history significant for chronic persistent atrial fibrillation, CAD, hyperlipidemia, mitral valve prolapse, aortic valve replacement,PPM, cardiac ablation, cardiomyopathy, presented to the hospital with complaints of increasing generalized weakness, mild shortness of breath ;vague historian. discovered to have a hemoglobin of 6.7, INR 6.5. BUN 53, creatinine 2.28, bicarb 23 transfused with 1 unit packed RBCs as well as vitamin K in the ER. * 11/10/23: Patient seen and evaluated bedside, blood work reviewed, hemoglobin less than 7, patient denies active gastrointestinal bleed at this point. Abdominal pain has improved. Patient to be transfused additional 1 unit of packed RBC and follow-up H&H ordered hemodynamically patient appears stable we will follow-up on INR * 11/11/2023: Patient seen and evaluated bedside. Patient will go for EGD colonoscopy tomorrow. Confirmed with pharmacy patient okay to take prep for colonoscopy. However secondary to history of allergy to propylene glycol pharmacy recommends not to use HurriCaine spray. Hemoglobin noted to be 7.7 patient denies gastrointestinal bleed as of now PHYSICAL EXAMINATION: GENERAL: The patient is alert and oriented x3, ill appearance, pale appearance HEENT: Pupils are round and equally reacting to light. EOMI. CARDIOVASCULAR: S1 and S2 present. No murmurs, rubs, or gallops. PULMONARY: Chest is clear to auscultation, no wheezing or crackles. ABDOMEN: Soft, nontender, nondistended, normoactive bowel sounds. No palpable organomegaly. MUSCULOSKELETAL: No joint swelling or deformity. EXTREMITIES: No cyanosis, clubbing, or pedal edema. NEUROLOGICAL: Gross neurological examination did not reveal any focal deficits. SKIN: No rashes. Assessment and plan * Acute gastrointestinal bleed with severe anemia * Supratherapeutic INR on presentation * Persistent chronic atrial fibrillation * Valvular heart disease s/p aortic valve replacement, mitral valve repair * Nonischemic cardiomyopathy, s/p pacemaker in place * History of hypertension history of hyperlipidemia * In regards to gastrointestinal bleed, Coumadin on hold, continue to monitor H&H, continue patient on Protonix * Gastroenterology consulted plan for EGD and colonoscopy scheduled for 11/12/2023 * In regards to atrial fibrillation continue patient on Coreg, * In regards to congestive heart failure continue to monitor for hypotension, hold Entresto if blood pressure drops * Continue to hold Coumadin, follow-up on INR levels Objective - Vital Signs Vital signs: Vital Signs Temp 98.2 F 11/11/23 04:00 Pulse 64 11/11/23 11:37 Resp 18 11/11/23 11:37 BP 101/53 11/11/23 11:37 Pulse Ox 97 11/11/23 11:37 FiO2 Intake & Output 11/10/23 11/11/23 11/11/23 18:59 06:59 18:59 Intake Total 1266 Output Total 225 Balance 1041 Intake: Oral 956 Blood Product 310 Rc As-1 Unit 310 [id number] Output: Urine 225 Other: Voiding Method Toilet Toilet Toilet # Voids 3 1 1 # Bowel Movements 2 - Labs CBC & Chem 7: 11/11/23 07:19 11/11/23 07:19 Labs: Abnormal Lab Results - Last 24 Hours (Table) 11/08/23 11/10/23 11/11/23 Range/Units 14:54 07:46 07:19 RBC 2.34 L 2.65 L (4.30-5.90) m/uL Hgb 6.8 L* 7.7 L (13.0-17.5) gm/dL Hct 22.8 L 25.2 L (39.0-53.0) % MCHC 29.9 L 30.4 L (31.0-37.0) g/dL PT (10.0-12.5) sec INR (<1.2) Potassium (3.5-5.1) mmol/L Chloride (98-107) mmol/L Carbon Dioxide (22-30) mmol/L BUN (9-20) mg/dL Creatinine (0.66-1.25) mg/dL Calcium (8.4-10.2) mg/dL Crossmatch See Detail 11/11/23 11/11/23 Range/Units 07:19 07:19 RBC (4.30-5.90) m/uL Hgb (13.0-17.5) gm/dL Hct (39.0-53.0) % MCHC (31.0-37.0) g/dL PT 14.4 H (10.0-12.5) sec INR 1.4 H (<1.2) Potassium 5.2 H (3.5-5.1) mmol/L Chloride 113 H (98-107) mmol/L Carbon Dioxide 18 L (22-30) mmol/L BUN 30 H (9-20) mg/dL Creatinine 1.79 H (0.66-1.25) mg/dL Calcium 8.3 L (8.4-10.2) mg/dL Crossmatch
[2023-11-11] MEDS: PEG 3350 (236 GM/BTL) + LYTES 4,000 ML BOTTLE PO ONE (17:49)
[2023-11-12 08:03] LABS: INR 1.4 (<1.2); Prothrombin Time 14.7 sec (10.0-12.5)
[2023-11-12 08:08] LABS: HCT 24.4 % (39.0-53.0); HGB 7.6 gm/dL (13.0-17.5); Hypochromasia Marked; MCH 29.2 pg (25.0-35.0); MCHC 31.1 g/dL (31.0-37.0); Mean Platelet Volume 7.5; Platelet Count 182 k/uL (150-450); Poikilocytosis Slight; RBC 2.59 m/uL (4.30-5.90); RDW 14.5 % (11.5-15.5); WBC 6.8 k/uL (3.8-10.6)
[2023-11-12 08:12] LABS: African American GFR (CKD) 44 (>60 ml/min/1.73 sqM); Anion Gap 7 mmol/L; Blood Urea Nitrogen 24 mg/dL (9-20); Calcium 8.3 mg/dL (8.4-10.2); Carbon Dioxide 18 mmol/L (22-30); Chloride 112 mmol/L (98-107); Glucose 84 mg/dL (74-99); Non-African American GFR(CKD) 38 (>60 ml/min/1.73 sqM); Potassium 5.3 mmol/L (3.5-5.1); Sodium 137 mmol/L (137-145)
--- NOTE | 2023-11-12 11:00 | P.PN ---
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 His INR was elevated and he was severely anemic. He was admitted to the hospital with evidence of GI bleeding. His echocardiogram performed June 2023 revealed an ejection fraction of 40 to 45% with moderate tricuspid regurgitation, his aortic valve had a mean gradient of 6 mmHg and his mitral valve repair showed mild v alvular regurgitation. The patient denies any chest discomfort, he feels fatigue and mildly dyspneic. He has no significant peripheral edema no PND no orthopnea. He had an episode of diarrhea but no tiffanie blood. He has a prior permanent pacemaker implantation and his predominantly ventricular pacing. His current factors are positive for hyperlipidemia and hypertension he is a non- smoker, nondiabetic. He received transfusion yesterday as well as vitamin K. Medications: Carvedilol 12.5 twice daily, Farxiga 5 mg daily, Entresto 2426 twice a day, Protonix, simvastatin 40 mg daily 11/10/2023 The patient was seen and examined resting comfortably in bed with the at the bedside. He is overall feeling a bit better. Blood pressure remains low and carvedilol was decreased. Home dose of Aldactone remains on hold. We are awaiting endoscopy to be done on Sunday. Labs from this morning are pending. 11/11/2023 The patient was seen and examined sitting up in a chair. He is feeling a bit better. Hemoglobin is stable. Renal function shows some improvement. 11/12/2023 Patient examined this morning at the bedside. Patient denies chest pain or pressure. Denies SOB. Patient's Coumadin remains on hold. INR today is 1.4. PHYSICAL EXAM: VITAL SIGNS: Reviewed. GENERAL: Well-developed in no acute distress. NECK: Supple. No JVD or thyromegaly LUNGS: Respirations even and unlabored. Lungs essentially clear to auscultation bilaterally. HEART: Regular rate and rhythm. S1 and S2 heard. Systolic murmur noted. EXTREMITIES: Normal range of motion. No clubbing or cyanosis. Peripheral pulses intact. Trace bilateral lower extremity edema ASSESSMENT: 1. Acute GI bleeding with severe anemia 2. Persistent atrial fibrillation with supra therapeutic INR 3. 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 History of cardiomyopathy, nonischemic 5. Status post permanent pacemaker implantation 6. History of hyperlipidemia 7. History of hypertension PLAN: Coumadin remains on hold Continue additional cardiac medications Patient scheduled for endoscopy today Further recommendations pending patient course Nurse practitioner note has been reviewed by physician. Signing provider agrees with the documented findings, assessment, and plan of care documented by BANK TELLER as a scribe. Objective - Vital Signs Vital signs: Vital Signs Temp 98.2 F 11/12/23 07:53 Pulse 55 L 11/12/23 07:58 Resp 16 11/12/23 07:58 BP 101/58 11/12/23 07:53 Pulse Ox 98 11/12/23 07:53 FiO2 Intake & Output 11/11/23 11/12/23 11/12/23 18:59 06:59 18:59 Other: Voiding Method Toilet Toilet Toilet # Voids 1 2 # Bowel Movements 2 1 - Labs CBC & Chem 7: 11/12/23 07:18 11/12/23 07:18 Labs: Abnormal Lab Results - Last 24 Hours (Table) 11/12/23 11/12/23 11/12/23 Range/Units 07:18 07:18 07:18 RBC 2.59 L (4.30-5.90) m/uL Hgb 7.6 L (13.0-17.5) gm/dL Hct 24.4 L (39.0-53.0) % PT 14.7 H (10.0-12.5) sec INR 1.4 H (<1.2) Potassium 5.3 H (3.5-5.1) mmol/L Chloride 112 H (98-107) mmol/L Carbon Dioxide 18 L (22-30) mmol/L BUN 24 H (9-20) mg/dL Creatinine 1.64 H (0.66-1.25) mg/dL Calcium 8.3 L (8.4-10.2) mg/dL
[2023-11-12] MEDS ORDERED: PROPOFOL 10 MG/ML 20 ML VIAL IV ONE (12:07)
[2023-11-12] MEDS ORDERED: LIDOCAINE 1% INJ 10MG/ML (20 ML MDV) ONE (12:07)
[2023-11-12] MEDS ORDERED: ONDANSETRON 4 MG/2 ML VIAL ONE (12:07)
[2023-11-12] MEDS: LACTATED RINGERS 1,000 ML IV ONE (12:13)
--- NOTE | 2023-11-12 12:44 | P.PCN ---
Date of Procedure: 11/12/23 Procedure(s) Performed: Brief history: Patient is a pleasant 83-year-old white male admitted to the hospital with severe synthetic anemia and hemoglobin of 6.4 g/dL. He is on Coumadin for history of right valve replacement and INR was 6.5. The Coumadin is on hold and he was given 2 units of PRBC transition. Last hemoglobin is 8 g/dL. Last INR is 1.4. He scheduled for an upper endoscopy as well as colonoscopy to evaluate further. Procedure performed: Esophagogastroduodenoscopy with snare polypectomy Colonoscopy with biopsy and tattooing with Pao ink Preoperative diagnosis: Anesthesia: MAC Procedure: After informed consent was obtained from the patient was brought into the endoscopy unit and IV sedation was administered by anesthesia under continuous monitoring. Initially upper endoscopy was done. The Olympus GF 160 video endoscope was inserted inserted into the mouth and esophagus intubated without any difficulty and was gradually advanced into the stomach and duodenum and carefully examined. The bulb of the duodenum appeared normal. In the second part of the duodenum just opposite to the major papula there was a 2.5 and admitted broad-based polyp identified and this was removed in a piecemeal fashion by snare polypectomy. Almost complete polypectomy performed. The scope was then withdrawn into the stomach adequately insufflated with air and upon careful examination the antrum and body, cardia and fundus appeared normal. The scope was then withdrawn into the esophagus. Small hiatal hernia noted. The GE junction was located at 40 cm to the incisors. It appeared regular with no erythema erosions or ulcerations. Rest of the esophagus appeared normal. Patient tolerated the procedure well. At this time the patient continued to remain sedation. Initial digital rectal examination was normal. Olympus CF 160 video colonoscope was then inserted into the rectum and gradually advanced to the mid transverse colon where there was an ulcerated apple core lesion identified with a tight stricture. The scope could not be advanced beyond the lesion. At this time multiple biopsies were done from the ulcerated lesion followed by tattooing with Pao ink. Rest of the , descending colon, sigmoid colon and rectum appeared normal. Retroflexion was performed in the rectum and no lesions were noted. Patient tolerated the procedure well. Impression: 1. Upper endoscopy revealed 2.5 cm broad-based duodenal polyp in the second part of the duodenum opposite to the i ampullary orifice status post snare polypectomy and almost complete polypectomy performed. Small hiatal hernia 2. Colonoscopy revealed an tightapple core ulcerated lesion in the mid transver se colon with significant luminal narrowing status post multiple biopsies followed by tattooing with Pao ink. The scope could not be advanced beyond the lesion. Recommendations: Findings of this examination were discussed with the patient as well as his family. He was advised to follow with the biopsy results. will obtain CT of abdomen and pelvis and obtain surgical consultation with Dr Brewer. Patient will be placed on clear liquid diet.
[2023-11-12] MEDS: METOCLOPRAMIDE 5 MG/ML 2 ML VIAL IVP ONE (13:09)
--- NOTE | 2023-11-12 14:02 | P.PN ---
Subjective Progress Note Date: 11/12/23 H&P Date: 11/09/23 Chief Complaint: Anemia, hypercoagulopathy This is an 83-year-old female past medical history significant for chronic persistent atrial fibrillation, CAD, hyperlipidemia, mitral valve prolapse, aortic valve replacement,PPM, cardiac ablation, cardiomyopathy, presented to the hospital with complaints of increasing generalized weakness, mild shortness of breath ;vague historian. discovered to have a hemoglobin of 6.7, INR 6.5. BUN 53, creatinine 2.28, bicarb 23 transfused with 1 unit packed RBCs as well as vitamin K in the ER. Repeat labs pending. denies nausea or vomiting but reported diarrhea dark black stools X months. Blood pressure soft, maintain O2 sats in the 90s on room air. Denies chest pain, palpitations or shortness of breath. 11/12/2023 NPO, completed prep, EGD and colonoscopy scheduled for early this afternoon. Anticoagulation remains on hold, continues on PPI. Reports no further bleeding or black, dark rectal output. Reports over the last 2 years he has lost 50 pounds, on a healthier diet. Hemoglobin with 7.6, platelet 182. renal function slowly improving, BUN 24, creatinine 1.64 denies chest pain, p alpitations or shortness of breath. Objective - Vital Signs Vital signs: Vital Signs Temp 98.2 F 11/12/23 07:53 Pulse 57 L 11/12/23 11:27 Resp 16 11/12/23 11:27 BP 123/54 11/12/23 11:27 Pulse Ox 100 11/12/23 11:27 FiO2 Intake & Output 11/11/23 11/12/23 11/12/23 18:59 06:59 18:59 Other: Voiding Method Toilet Toilet Toilet # Voids 1 2 # Bowel Movements 2 1 - Exam PHYSICAL EXAM: VITAL SIGNS: [As above] GENERAL: Alert and oriented x 3, sitting up in chair, no acute distress HEENT: Normocephalic, conjunctivae normal. eyes normal. NECK: Supple, no JVD. No thyroid enlargement. No LNs CARDIOVASCULAR: S1, S2 regular. Systolic murmur RESPIRATION: Unlabored, equal air entry, essentially clear with breath sounds diminished in the bases. ABDOMEN: Soft, nondistended, nontender . No guarding. Positive bowel sounds. LEGS: No edema. no swelling NERVOUS SYSTEM: Cranial N 2-12 grossly normal. No focal deficits. Strength and sensation grossly intact.. Skin: Warm and dry, no rash - Labs CBC & Chem 7: 11/12/23 07:18 11/12/23 07:18 Labs: Abnormal Lab Results - Last 24 Hours (Table) 11/12/23 11/12/23 11/12/23 Range/Units 07:18 07:18 07:18 RBC 2.59 L (4.30-5.90) m/uL Hgb 7.6 L (13.0-17.5) gm/dL Hct 24.4 L (39.0-53.0) % PT 14.7 H (10.0-12.5) sec INR 1.4 H (<1.2) Potassium 5.3 H (3.5-5.1) mmol/L Chloride 112 H (98-107) mmol/L Carbon Dioxide 18 L (22-30) mmol/L BUN 24 H (9-20) mg/dL Creatinine 1.64 H (0.66-1.25) mg/dL Calcium 8.3 L (8.4-10.2) mg/dL Assessment and Plan Assessment: Severe anemia secondary to acute GI bleed Chronic persistent atrial fibrillation, INR supra therapeutic History of mitral valve repair and aortic valve replacement Cardiomyopathy, nonischemic PPM Hypertension Hyperlipidemia Plan: Continue on current medication regimen ,monitoring and symptomatic treatment. Anticoagulation on hold . Continues on PPI . N.p.o., EGD and colonoscopy pending. The impression and plan of care has been dictated as directed. : I performed a history and examination of this patient, discussed the same with the dictator. I agree with the dictator's note ,documented as a scribe. Any additional findings or plans will be noted.
[2023-11-12] MEDS ORDERED: IOPAMIDOL CONTRAST (ORAL USE) VIAL PO PRN (15:18)
--- NOTE | 2023-11-12 15:29 | P.GSCN ---
History of Present Illness Consult date: 11/12/23 Reason for Consult: Colon obstruction History of present illness: This is an 83-year-old male who underwent colonoscopy by Dr. Shrestha. I was ca lled to the room during his procedure. Patient has a near obstructing colon lesion described in the mid transverse colon. The patient states that he has had constipation symptoms for the last several months. The patient states he has never had a colonoscopy. Past Medical History Past Medical History: Atrial Fibrillation, Coronary Artery Disease (CAD), Hyp erlipidemia, Mitral Valve Prolapse (MVP), Osteoarthritis (OA) History of Any Multi-Drug Resistant Organisms: None Reported Past Surgical History: Cardiac Ablation, Cardiac Valve Replacement, Heart Catheterization Additional Past Surgical History / Comment(s): CARIOVERSIONS. AORTA VALVE REPLACED/MITRAL VALVE REPAIRED @ [facility] ON JANUARY [id number]. pacer, EF 30% Past Anesthesia/Blood Transfusion Reactions: No Reported Reaction Past Psychological History: No Psychological Hx Reported Smoking Status: Never smoker Past Alcohol Use History: Rare Past Drug Use History: None Reported - Past Family History Mother Family Medical History: CVA/TIA, Myocardial Infarction ([place]) Father Family Medical History: Myocardial Infarction ([place]) Brother(s) Family Medical History: CVA/TIA Medications and Allergies Home Medications Medication Instructions Recorded Confirmed Type Simvastatin [Zocor] 40 mg PO HS 10/26/14 11/08/23 History Empagliflozin [Jardiance] 10 mg PO DAILY 11/08/23 11/08/23 History Sacubitril/Valsartan [Entresto 24 1 tab PO BID 11/08/23 11/08/23 History mg-26 mg Tablet] carvediloL [Coreg] 12.5 mg PO BID 11/08/23 11/08/23 History Allergies Allergy/AdvReac Type Severity Reaction Status Date / Time cephalexin monohydrate Allergy Severe Rash/Hives Verified 11/08/23 17:24 [From Keflex] Penicillins Allergy Severe Rash/Hives Verified 11/08/23 17:24 propylene glycol Allergy Severe Anaphylaxis Verified 11/08/23 17:24 bacitracin Allergy Rash/Hives Verified 11/08/23 17:24 [From Neosporin ([id number])] bacitracin zinc Allergy Rash/Hives Verified 11/08/23 17:24 [From Neosporin ([id number])] chloramphenicol Allergy Rash/Hives Verified 11/08/23 17:24 [From Chloromycetin] chloramphenicol sod succ Allergy Rash/Hives Verified 11/08/23 17:24 [From Chloromycetin] ciprofloxacin [From Cipro] Allergy Rash/Hives Verified 11/08/23 17:24 ciprofloxacin HCl Allergy Rash/Hives Verified 11/08/23 17:24 [From Cipro] mercury (elemental) Allergy Rash/Hives Verified 11/08/23 17:24 neomycin Allergy Rash/Hives Verified 11/08/23 17:24 neomycin sulfate Allergy Rash/Hives Verified 11/08/23 17:24 [From Neosporin ([id number])] polymyxin B Allergy Rash/Hives Verified 11/08/23 17:24 [From Neosporin ([id number])] Surgical - Exam Vital Signs Temp Pulse Resp BP Pulse Ox 97.5 F L 68 18 86/46 100 11/08/23 14:12 11/08/23 14:12 11/08/23 14:12 11/08/23 14:12 11/08/23 14:12 - General well developed, well nourished, no distress - Eyes PERRL - ENT normal pinna, normal nares - Neck no masses - Respiratory normal expansion - Cardiovascular Rhythm: regular - Abdomen Obese Abdomen: soft, non tender Results - Labs 11/12/23 07:18 11/12/23 07:18 Abnormal Lab Results - Last 24 Hours (Table) 11/12/23 11/12/23 11/12/23 Range/Units 07:18 07:18 07:18 RBC 2.59 L (4.30-5.90) m/uL Hgb 7.6 L (13.0-17.5) gm/dL Hct 24.4 L (39.0-53.0) % PT 14.7 H (10.0-12.5) sec INR 1.4 H (<1.2) Potassium 5.3 H (3.5-5.1) mmol/L Chloride 112 H (98-107) mmol/L Carbon Dioxide 18 L (22-30) mmol/L BUN 24 H (9-20) mg/dL Creatinine 1.64 H (0.66-1.25) mg/dL Calcium 8.3 L (8.4-10.2) mg/dL Diabetes panel 11/12/23 Range/Units 07:18 Sodium 137 (137-145) mmol/L Potassium 5.3 H (3.5-5.1) mmol/L Chloride 112 H (98-107) mmol/L Carbon Dioxide 18 L (22-30) mmol/L BUN 24 H (9-20) mg/dL Creatinine 1.64 H (0.66-1.25) mg/dL Glucose 84 (74-99) mg/dL Calcium 8.3 L (8.4-10.2) mg/dL Calcium panel 11/12/23 Range/Units 07:18 Calcium 8.3 L (8.4-10.2) mg/dL Pituitary panel 11/12/23 Range/Units 07:18 Sodium 137 (137-145) mmol/L Potassium 5.3 H (3.5-5.1) mmol/L Chloride 112 H (98-107) mmol/L Carbon Dioxide 18 L (22-30) mmol/L BUN 24 H (9-20) mg/dL Creatinine 1.64 H (0.66-1.25) mg/dL Glucose 84 (74-99) mg/dL Calcium 8.3 L (8.4-10.2) mg/dL Adrenal panel 11/12/23 Range/Units 07:18 Sodium 137 (137-145) mmol/L Potassium 5.3 H (3.5-5.1) mmol/L Chloride 112 H (98-107) mmol/L Carbon Dioxide 18 L (22-30) mmol/L BUN 24 H (9-20) mg/dL Creatinine 1.64 H (0.66-1.25) mg/dL Glucose 84 (74-99) mg/dL Calcium 8.3 L (8.4-10.2) mg/dL - Imaging Comments: Computed tomography scan of the abdomen is pending Assessment and Plan Assessment: Transverse near obstructing colon lesion. Patient undergo computed tomography scan the abdomen with oral contrast in a. We will tentatively plan for possible surgery tomorrow.
[2023-11-12] MEDS: IOPAMIDOL CONTRAST (ORAL USE) VIAL PO PRN (15:32)
--- NOTE | 2023-11-12 17:48 | CT ---
EXAMINATION TYPE: CT abdomen pelvis wo con CT DLP: 772 mGycm, Automated exposure control for dose reduction was used. DATE OF EXAM: 11/12/2023 4:59 PM COMPARISON: 09/17/2013 CLINICAL INDICATION:Male, 83 years old with history of mid transverse lesion; abdominal pain TECHNIQUE: Axial CT abdomen pelvis wo con;Sagittal and coronal reformats were created on a separate workstation. Contrast used: mL of , (none if empty) Oral contrast used: with Oral Contrast (none if empty) FINDINGS: LOWER CHEST: Mild cardiomegaly with cardiac conduction leads present. Mitral valve annular cusp patie nt's are present. Trace bilateral pleural effusions. ABDOMEN LIVER: Unremarkable GALLBLADDER AND BILE DUCTS: Layering increased densities within the lumen consistent with gallstones are present. PANCREAS: Unremarkable. SPLEEN: Unremarkable. ADRENAL GLANDS: Unremarkable. KIDNEYS AND URETERS: No evidence of hydronephrosis or renal calculus. The ureters are unremarkable. Simple appearing right renal cyst in the inferior margin of the kidney. PELVIS BLADDER: Unremarkable REPRODUCTIVE: Unremarkable. ABDOMEN & PELVIS STOMACH AND BOWEL: Focal area of circumferential wall thickening of the transverse colon best appreci ated on series 202 image 18 with adjacent free air. Multiple prominent lymph nodes are immediate near by mesentery. PERITONEUM/RETROPERITONEUM: No evidence of pneumoperitoneum or free fluid. VASCULATURE: Moderate atherosclerotic calcifications are present throughout the abdominal aorta and i ts branches. Infrarenal abdominal aorta dilation up to 3.2 cm. MUSCULOSKELETAL: No acute osseous abnormalities LYMPH NODES: Lymph nodes next to the transverse colon in area of circumferential apple core bowel wal l thickening. Measuring up to 9 mm in short axis. SOFT TISSUE/ABDOMINAL WALL: Unremarkable IMPRESSION: 1. Apple core lesion in the mid transverse colon with adjacent lymph nodes which are prominent kevon rning for primary adenocarcinoma with local metastatic disease. There is free air immediately adjacen t to the lumen compatible with recent catheter tattoo during colonoscopy. Surgical consultation recom mended. Correlation for metastases in the liver is limited due to lack of IV contrast. 2. Circumferential Duodenal wall thickening correlate for duodenitis. 3. Cholelithiasis. 4. Infrarenal abdominal aortic aneurysm up to 3.2 cm. 5. Right renal cyst. Findings communicated to Dr. Bruno Coelho DO on 11/12/2023 5:[address] Wayne Kennedy.
[2023-11-13 09:03] LABS: Basophils # (A) 0.1 k/uL (0-0.2); Basophils % (A) 1 %; Eosinophils # (A) 0.2 k/uL (0-0.7); Eosinophils % (A) 3 %; HCT 24.4 % (39.0-53.0); HGB 7.4 gm/dL (13.0-17.5); Hypochromasia Marked; Lymphocytes # (A) 0.7 k/uL (1.0-4.8); Lymphocytes % (A) 9 %; MCH 28.6 pg (25.0-35.0); MCHC 30.4 g/dL (31.0-37.0); MCV 93.9 fL (80.0-100.0); Mean Platelet Volume 7.8; Monocytes # (A) 0.6 k/uL (0-1.0); Monocytes % (A) 7 %; Neutrophils # (A) 6.2 k/uL (1.3-7.7); Neutrophils % (A) 78 %; Platelet Count 213 k/uL (150-450); Poikilocytosis Slight; RDW 14.5 % (11.5-15.5)
[2023-11-13 09:13] LABS: African American GFR (CKD) 38 (>60 ml/min/1.73 sqM); Anion Gap 8 mmol/L; Blood Urea Nitrogen 19 mg/dL (9-20); Calcium 8.4 mg/dL (8.4-10.2); Carbon Dioxide 18 mmol/L (22-30); Chloride 112 mmol/L (98-107); Glucose 87 mg/dL (74-99); Non-African American GFR(CKD) 33 (>60 ml/min/1.73 sqM); Potassium 5.3 mmol/L (3.5-5.1); Sodium 138 mmol/L (137-145)
[2023-11-13 09:17] LABS: INR 1.3 (<1.2); Partial Thromboplastin Time 26.1 sec (22.0-30.0); Prothrombin Time 13.3 sec (10.0-12.5)
--- NOTE | 2023-11-13 09:41 | P.PN ---
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 His INR was elevated and he was severely anemic. He was admitted to the hospital with evidence of GI bleeding. His echocardiogram performed June 2023 revealed an ejection fraction of 40 to 45% with moderate tricuspid regurgitation, his aortic valve had a mean gradient of 6 mmHg and his mitral valve repair showed mild v alvular regurgitation. The patient denies any chest discomfort, he feels fatigue and mildly dyspneic. He has no significant peripheral edema no PND no orthopnea. He had an episode of diarrhea but no tiffanie blood. He has a prior permanent pacemaker implantation and his predominantly ventricular pacing. His current factors are positive for hyperlipidemia and hypertension he is a non- smoker, nondiabetic. He received transfusion yesterday as well as vitamin K. Medications: Carvedilol 12.5 twice daily, Farxiga 5 mg daily, Entresto 2426 twice a day, Protonix, simvastatin 40 mg daily 11/10/2023 The patient was seen and examined resting comfortably in bed with the at the bedside. He is overall feeling a bit better. Blood pressure remains low and carvedilol was decreased. Home dose of Aldactone remains on hold. We are awaiting endoscopy to be done on Sunday. Labs from this morning are pending. 11/11/2023 The patient was seen and examined sitting up in a chair. He is feeling a bit better. Hemoglobin is stable. Renal function shows some improvement. 11/12/2023 Patient examined this morning at the bedside. Patient denies chest pain or pressure. Denies SOB. Patient's Coumadin remains on hold. INR today is 1.4. 11/13/2023 Patient is status post EGD revealing 2.5 cm broad-based duodenal polyp in the second part of the duodenum, small hiatal hernia. Patient also underwent colonoscopy revealing a tight apple core ulcerated lesion in the mid transverse colon with significant lumen or narrowing status post multiple biopsies. The scope could not be advanced beyond this lesion. General surgery was consulted for evaluation and the patient is scheduled for transverse colectomy today with Dr. Brewer. Patient currently denies shortness of breath. He denies chest pain or pressure. Vital signs are stable. PHYSICAL EXAM: VITAL SIGNS: Reviewed. GENERAL: Well-developed in no acute distress. NECK: Supple. No JVD or thyromegaly LUNGS: Respirations even and unlabored. Lungs essentially clear to auscultation bilaterally. HEART: Regular rate and rhythm. S1 and S2 heard. Systolic murmur noted. EXTREMITIES: Normal range of motion. No clubbing or cyanosis. Peripheral pulses intact. Trace bilateral lower extremity edema ASSESSMENT: 1. Acute GI bleeding with severe anemia 2. Persistent atrial fibrillation with supra therapeutic INR 3. 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 Status post permanent pacemaker implantation 6. History of hyperlipidemia 7. History of hypertension 8. Status post EGD and colonoscopy 9. Bowel obstruction secondary to transverse colon lesion PLAN: Coumadin remains on hold Patient scheduled for transverse colectomy today with general surgery There are no absolute contraindications for patient to proceed with surgery today from a cardiac standpoint Further recommendations pending patient course Nurse practitioner note has been reviewed by physician. Signing provider agrees with the documented findings, assessment, and plan of care documented by PRODUCTION ENGINE REPAIRER as a scribe. Objective - Vital Signs Vital signs: Vital Signs Temp 98.3 F 11/13/23 08:00 Pulse 68 11/13/23 08:19 Resp 18 11/13/23 08:19 BP 93/56 11/13/23 08:00 Pulse Ox 99 11/13/23 08:00 FiO2 Intake & Output 11/12/23 11/13/23 11/13/23 18:59 06:59 18:59 Intake Total 250 Balance 250 Intake: IV 250 Other: Voiding Method Toilet Toilet Toilet # Voids 1 1 # Bowel Movements 1 - Labs CBC & Chem 7: 11/13/23 08:43 11/13/23 08:43
[2023-11-13] MEDS: CALCIUM GLUCONATE IN NACL 1 GM in SALINE 1 100ML.BAG IVPB ONE (09:55)
[2023-11-13] MEDS: INSULIN REGULAR 100 UNIT/ML VIAL (IV) IV ONE (10:56)
[2023-11-13] MEDS: DEXTROSE 50% SYRINGE 50 ML IVP STA (10:56)
--- NOTE | 2023-11-13 11:25 | P.PN ---
Subjective Progress Note Date: 11/13/23 Principal diagnosis: Anemia This is a pleasant 83-year-old male who presented to the emergency department directed by his title one reading teacher. States that he was having blood work done and was noted to have a low hemoglobin and was told to come to the emergency department for further evaluation. He also reports that he has been feeling a little bit more weak and dizzy over the last week or 2. He denies any abdominal pain, nausea or vomiting. He states that his stools have been a little darker over the last week. He does not recall his last colonoscopy he states that he does recall having a more recent Cologuard which he believes was negative. He does take anticoagulation in the form of warfarin for atrial fibrillation history of coronary artery disease, hyperlipidemia, mitral valve prolapse with a cardiac valve replacement and history of heart cath authorization and cardiac ablation. Patient was admitted with a hemoglobin of 6.6 and was transfused 1 unit of blood. Admitting labs WBC 7.9 hemoglobin 6.7 hematocrit 21 platelet count 261,000 INR 6.5 sodium 145 potassium 5.3 BUN 53 creatinine 2.2 magnesium 2.4 total bilirubin 0.6 AST 18 ALT 11 alkaline phosphatase 80 stool occult blood positive 11/13/2023 Patient seen and examined today as a follow-up. Yesterday he underwent upper and lower endoscopy. Upper endoscopy revealed 2.5 cm broad-based duodenal polyp in the second part of the duodenum opposite the ampullary orifice status post snare polypectomy and almost complete polypectomy performed. Small hiatal hernia. Colonoscopy revealed tight apple core ulcerated lesion in the mid transverse colon with significant luminal narrowing status post biopsy and tattooing. Scope could not be advanced beyond the lesion. General surgery was consulted and a CT of the abdomen pelvis was ordered without contrast due to patient's kidney function. 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 There is free air immediately adjacent to the lumen compatible with recent catheter tattoo during colonoscopy. Surgical consultation recommended. Correlation for metastasis in the liver is limited due to lack of IV contrast. Circumferential duodenal wall thickening correlate for duodenitis. Cholelit hiasis. Infrarenal abdominal aortic aneurysm up to 3.2 cm. Right renal cyst. He denies any abdominal pain, nausea or vomiting at this time. He is scheduled to undergo transverse colectomy with Dr. Brewer today. Today's hemoglobin stable at 7.4. Objective - Vital Signs Vital signs: Vital Signs Temp 98.3 F 11/13/23 08:00 Pulse 68 11/13/23 08:19 Resp 18 11/13/23 08:19 BP 93/56 11/13/23 08:00 Pulse Ox 99 11/13/23 08:00 FiO2 Intake & Output 11/12/23 11/13/23 11/13/23 18:59 06:59 18:59 Intake Total 250 Balance 250 Intake: IV 250 Other: Voiding Method Toilet Toilet Toilet # Voids 1 1 # Bowel Movements 1 - Exam General appearance: The patient is alert, oriented, appears in no acute distress. HET: Head is normocephalic and atraumatic. Conjunctiva pink. Sclera anicteric. Neck: Supple without lymphadenopathy. Abdomen: Soft, nontender, nondistended with bowel sounds. No guarding or rigidity. Extremities: Normal skin color and turgor. No pedal edema Skin: No rashes, no jaundice Neurological: No focal deficits. Alert and oriented. - Labs CBC & Chem 7: 11/13/23 08:43 11/13/23 08:43 Labs: Abnormal Lab Results - Last 24 Hours (Table) 11/13/23 11/13/23 11/13/23 Range/Units 08:43 08:43 08:43 RBC 2.60 L (4.30-5.90) m/uL Hgb 7.4 L (13.0-17.5) gm/dL Hct 24.4 L (39.0-53.0) % MCHC 30.4 L (31.0-37.0) g/dL Lymphocytes # 0.7 L (1.0-4.8) k/uL PT 13.3 H (10.0-12.5) sec INR 1.3 H (<1.2) Potassium 5.3 H (3.5-5.1) mmol/L Chloride 112 H (98-107) mmol/L Carbon Dioxide 18 L (22-30) mmol/L Creatinine 1.84 H (0.66-1.25) mg/dL Assessment and Plan (1) Anemia Narrative/Plan: 83-year-old man with coronary artery disease with a history of atrial fibrillation and heart valve replacement on Coumadin noted to have elevated INR and anemia. Patient does state that he has had some darker stools over the last 1 week duration. Denies any abdominal pain, nausea or vomiting. Unclear when last colonoscopy was no history of former GI bleed. Need to consider possible upper or lower GI bleed however with dark stools likely were dealing with an upper GI bleed. Recommend holding anticoagulation, repeat INR. Will schedule patient for EGD and colonoscopy on Sunday as there will be no GI present during the weekend. Need to consider possible etiologies including peptic ulcer disease, AVM, gastritis, esophagitis, or other possible etiologies. 04/14/2024 patient status post EGD and colonoscopy. See HPI for details. Patient was noted to have apple core lesion in the transverse colon. Anemia likely secondary to lesion. General surgery consulted and a CT abdomen and pelvis without contrast completed with concerns for transverse: Lesion with surrounding enlarged lymph nodes. Patient to undergo transverse colectomy with general surgery today. Current Visit: Yes Status: Acute Code(s): D64.9 - ANEMIA, UNSPECIFIED SNOMED Code(s): 484376810 (2) Coagulopathy Current Visit: Yes Status: Acute Code(s): D68.9 - COAGULATION DEFECT, UNSPECIFIED SNOMED Code(s): 09129594 (3) Atrial fibrillation by electrocardiography Current Visit: Yes Status: Acute Code(s): I48.91 - UNSPECIFIED ATRIAL FIBRILLATION SNOMED Code(s): 503548567 (4) History of heart valve replacement Current Visit: Yes Status: Acute Code(s): Z95.2 - PRESENCE OF PROSTHETIC HEART VALVE SNOMED Code(s): 419082965 (5) Lesion of colon Current Visit: Yes Status: Acute Code(s): K63.9 - DISEASE OF INTESTINE, UNSPECIFIED SNOMED Code(s): 76696899012258 (6) Polyp of duodenum Current Visit: Yes Status: Acute Code(s): K31.7 - POLYP OF STOMACH AND DU ODENUM SNOMED Code(s): 43574802 Plan: 1. Continue symptomatic and supportive care 2. Daily CBC, transfuse for hemoglobin less than 7 3. Patient is scheduled for transverse colectomy today with general surgery 4. Patient will need outpatient follow-up to review duodenal polyp biopsies 5. Patient will need consultation with oncology 6. Continue with further recommendations from general surgery Thank you for this consultation, we will continue to follow. Dr. Jose Shrestha I agree with the dictator's note, documented as a scribe by Earnestine Markham.
--- NOTE | 2023-11-13 11:54 | P.PN ---
Subjective Progress Note Date: 11/13/23 CHIEF COMPLAINT: Colon obstruction HISTORY OF PRESENT ILLNESS: Patient status post colonoscopy with Dr. Shrestha that had reported a near obstructing colon lesion at the mid transverse colon. Patient has been cleared by cardiology for surgery today. He is currently in the shower. He has received medication to correct his potassium. Afebrile. WBC 8.0 Hgb 7.4 platelets 213 INR 1.3 sodium is 138 potassium 5.3 creatinine 1.84 PHYSICAL EXAM: VITAL SIGNS: Reviewed. GENERAL: Well-developed in no acute distress. ABDOMEN: Soft. Nondistended. NEUROLOGIC: Alert and oriented. Cranial nerves II through XII grossly intact. ASSESSMENT: 1. Transverse near obstructing colon lesion PLAN: -Patient scheduled for transverse colectomy today with Dr. Brewer -Correcting hyperkalemia. Repeat potassium level pending -Hemoglobin 7.3 prior to surgery. Patient receiving 1 unit of blood Physician Multi Operation Forming Machine Setter note has been reviewed by physician. Signing provider agrees with the documented findings, assessment, and plan of care. Objective - Vital Signs Vital signs: Vital Signs Temp 98.3 F 11/13/23 11:37 Pulse 68 11/13/23 11:37 Resp 18 11/13/23 11:37 BP 93/56 11/13/23 11:37 Pulse Ox 99 11/13/23 11:37 FiO2 Intake & Output 11/12/23 11/13/23 11/13/23 18:59 06:59 18:59 Intake Total 250 Balance 250 Intake: IV 250 Other: Voiding Method Toilet Toilet Toilet # Voids 1 1 # Bowel Movements 1 - Labs CBC & Chem 7: 11/13/23 08:43 11/13/23 08:43 Labs: Abnormal Lab Results - Last 24 Hours (Table) 11/13/23 11/13/23 11/13/23 Range/Units 08:43 08:43 08:43 RBC 2.60 L (4.30-5.90) m/uL Hgb 7.4 L (13.0-17.5) gm/dL Hct 24.4 L (39.0-53.0) % MCHC 30.4 L (31.0-37.0) g/dL Lymphocytes # 0.7 L (1.0-4.8) k/uL PT 13.3 H (10.0-12.5) sec INR 1.3 H (<1.2) Potassium 5.3 H (3.5-5.1) mmol/L Chloride 112 H (98-107) mmol/L Carbon Dioxide 18 L (22-30) mmol/L Creatinine 1.84 H (0.66-1.25) mg/dL
[2023-11-13 13:11] LABS: African American GFR (CKD) 38 (>60 ml/min/1.73 sqM); Anion Gap 5 mmol/L; Blood Urea Nitrogen 20 mg/dL (9-20); Calcium 8.6 mg/dL (8.4-10.2); Carbon Dioxide 17 mmol/L (22-30); Chloride 114 mmol/L (98-107); Non-African American GFR(CKD) 33 (>60 ml/min/1.73 sqM); Potassium 5.1 mmol/L (3.5-5.1); Sodium 136 mmol/L (137-145)
[2023-11-13 13:54] LABS: Glucose 37 mg/dL (74-99)
[2023-11-13 13:59] LABS: Glucose,Whole Blood 67 mg/dL (70-110)
[2023-11-13] MEDS: DEXTROSE 50% SYRINGE 50 ML IVP ONE (14:03)
[2023-11-13 14:42] LABS: Glucose,Whole Blood 113 mg/dL (70-110)
[2023-11-13 14:43] LABS: INR 1.3 (<1.2); Prothrombin Time 13.6 sec (10.0-12.5)
[2023-11-13] MEDS: MIDAZOLAM 2 MG/2 ML VIAL IVP ONE (15:15)
[2023-11-13 15:37] LABS: Glucose,Whole Blood 111 mg/dL (70-110)
[2023-11-13] MEDS: LACTATED RINGERS 1,000 ML IV ONE (15:39)
--- NOTE | 2023-11-13 15:40 | P.ANPRN ---
Procedure Note - Anesthesia - Invasive Line Left Arterial Line Time Out Performed: Yes Date of Procedure: 11/13/23 Time of Procedure: 15:15 Location of Patient: PreOp Preparation: Sterile Prep Arterial Line Location: Briachial Image Stored and Saved: Yes Narrative: Invasive line placement per sterile protocol utilized. very narrow and unthreadable lumen of radial artery both side even with ultrasound. Decided to go for bracheal artery.
[2023-11-13] MEDS ORDERED: ceFAZolin 1 GM/50 ML BAG (PMX) ONE (16:06)
[2023-11-13] MEDS ORDERED: LIDOCAINE 1% INJ 10MG/ML (20 ML MDV) ONE (16:06)
[2023-11-13] MEDS ORDERED: HEPARIN SODIUM,PORCINE 5,000 UNIT/ML 1 ML VIAL ONE (16:06)
[2023-11-13] MEDS ORDERED: HYDROmorphone (PF) 1 MG/ML ONE (16:06)
[2023-11-13] MEDS ORDERED: GLYCOPYRROLATE 0.2 MG/ML 2 ML VIAL ONE (16:06)
[2023-11-13] MEDS ORDERED: fentaNYL (PF) 50 MCG/ML 2 ML AMP ONE (16:06)
[2023-11-13] MEDS ORDERED: ROCURONIUM 10 MG/ML (5 ML VIAL) IV ONE (16:06)
[2023-11-13] MEDS ORDERED: ePHEDrine 50 MG/ML 1 ML VIAL ONE (16:06)
[2023-11-13] MEDS ORDERED: NEOSTIGMINE 1 MG/ML 10 ML VIAL ONE (16:06)
[2023-11-13] MEDS ORDERED: PROPOFOL 10 MG/ML 20 ML VIAL IV ONE (16:06)
[2023-11-13] MEDS ORDERED: SUCCINYLCHOLINE CHLORIDE 200 MG/10 ML VIAL IV ONE (16:06)
[2023-11-13] MEDS ORDERED: ALBUMIN HUMAN 5% (25gm) 500 ML VIAL IVPB ONE (16:06)
[2023-11-13] MEDS ORDERED: PHENYLEPHRINE-0.9% NACL SYG 1,000 MCG/10 ML SYRINGE ONE (16:06)
[2023-11-13] MEDS: SODIUM CHLORIDE 0.9% 50 ML with ceFAZolin 2 GM IV ONE (16:24)
[2023-11-13] MEDS ORDERED: ONDANSETRON 4 MG/2 ML VIAL IVP PRN (17:04)
--- NOTE | 2023-11-13 17:04 | P.OP ---
Date of Procedure: 11/13/23 Preoperative Diagnosis: Colon mass obstructing Postoperative Diagnosis: Colon mass obstructing suspicious for adenocarcinoma Procedure(s) Performed: Transverse colectomy Partial omentectomy Anesthesia: JANEE Surgeon: Rell Brewer Estimated Blood Loss (ml): 50 Pathology: other (Transverse colon, omentum) Condition: stable Disposition: PACU Description of Procedure: The patient's placed on the operating table in the supine position. He received general endotracheal tube anesthesia. His abdomen was prepped and draped in usual sterile fashion. And was entered through midline incision. The abdominal wall was divided with left cautery. The Bookwalter tract with wound. Abdomen was explored. There is an obstructing tumor seen in the mid transverse colon. This was previously tattooed by the endoscopist. The liver is palpated this appeared normal. There appeared to be no other lesions of the colon or small bowel. At this point the right colon was mobilized by dividing the white line of Toldt. And then the transverse colon was transected proximally and distally with the CHERIE stapler. The sutures placed on the proximal end. The mesentery the colon was then divided with the LigaSure device. The specimens of pathology. The transverse omentum was also dissected and sent with the specimen. The abdomen was irrigated there is no bleeding seen. A [id number] functional end-to-end staple anastomosis was then created using CHERIE and TA staplers. 3-0 GI silk sutures using a crotch stitch. The abdomen was irrigated there is no bleeding seen. The fascia was then closed with looped #1 PDS suture. The skin was closed saran. Patient top she will was sent to recovery room in stable condition.
[2023-11-13 17:12] LABS: Basophils % (A) 1 %; Eosinophils # (A) 0.2 k/uL (0-0.7); Eosinophils % (A) 2 %; HCT 24.8 % (39.0-53.0); Hypochromasia Moderate; Lymphocytes # (A) 1.1 k/uL (1.0-4.8); Lymphocytes % (A) 15 %; MCH 29.2 pg (25.0-35.0); MCHC 32.2 g/dL (31.0-37.0); MCV 90.6 fL (80.0-100.0); Mean Platelet Volume 7.8; Monocytes # (A) 0.6 k/uL (0-1.0); Monocytes % (A) 8 %; Neutrophils # (A) 5.3 k/uL (1.3-7.7); Neutrophils % (A) 71 %; Platelet Count 207 k/uL (150-450); Poikilocytosis Slight; RBC 2.73 m/uL (4.30-5.90); RDW 15.2 % (11.5-15.5); WBC 7.5 k/uL (3.8-10.6)
[2023-11-13] MEDS: HYDROmorphone 0.5 MG/0.5 ML SYRINGE IVP ONE (17:21)
[2023-11-13] MEDS: D5-0.45% NACL WITH KCL 20MEQ/L 1,000 ML IV SCH (18:24)
[2023-11-13] MEDS: ACETAMINOPHEN TAB 325 MG TAB PO PRN (20:48)
[2023-11-13] MEDS: MORPHINE SULFATE 4 MG/ML SYRINGE IV PRN (20:49)
[2023-11-13 21:06] LABS: Glucose,Whole Blood 131 mg/dL (70-110)
[2023-11-13] MEDS: HEPARIN SODIUM,PORCINE 5,000 UNIT/ML 1 ML VIAL SQ SCH (23:28)
[2023-11-14] MEDS: HYDROcodone/APAP 5-325MG 1 EACH TAB PO PRN (06:21)
[2023-11-14 06:28] LABS: Glucose,Whole Blood 180 mg/dL (70-110)
[2023-11-14 08:40] LABS: African American GFR (CKD) 39 (>60 ml/min/1.73 sqM); Anion Gap 6 mmol/L; Blood Urea Nitrogen 18 mg/dL (9-20); Calcium 8.3 mg/dL (8.4-10.2); Carbon Dioxide 17 mmol/L (22-30); Chloride 113 mmol/L (98-107); Glucose 164 mg/dL (74-99); Non-African American GFR(CKD) 33 (>60 ml/min/1.73 sqM); Potassium 5.7 mmol/L (3.5-5.1); Sodium 136 mmol/L (137-145)
[2023-11-14 08:44] LABS: HCT 28.2 % (39.0-53.0); HGB 8.9 gm/dL (13.0-17.5); Hypochromasia Marked; MCH 29.8 pg (25.0-35.0); MCHC 31.4 g/dL (31.0-37.0); MCV 94.9 fL (80.0-100.0); Mean Platelet Volume 8.1; Platelet Count 195 k/uL (150-450); Poikilocytosis Slight; RBC 2.97 m/uL (4.30-5.90); RDW 15.6 % (11.5-15.5); WBC 10.7 k/uL (3.8-10.6)
[2023-11-14] MEDS: ALVIMOPAN 12 MG CAPSULE PO SCH (09:02)
--- NOTE | 2023-11-14 11:45 | P.PN ---
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 His INR was elevated and he was severely anemic. He was admitted to the hospital with evidence of GI bleeding. His echocardiogram performed June 2023 revealed an ejection fraction of 40 to 45% with moderate tricuspid regurgitation, his aortic valve had a mean gradient of 6 mmHg and his mitral valve repair showed mild v alvular regurgitation. The patient denies any chest discomfort, he feels fatigue and mildly dyspneic. He has no significant peripheral edema no PND no orthopnea. He had an episode of diarrhea but no tiffanie blood. He has a prior permanent pacemaker implantation and his predominantly ventricular pacing. His current factors are positive for hyperlipidemia and hypertension he is a non- smoker, nondiabetic. He received transfusion yesterday as well as vitamin K. Medications: Carvedilol 12.5 twice daily, Farxiga 5 mg daily, Entresto 2426 twice a day, Protonix, simvastatin 40 mg daily 11/10/2023 The patient was seen and examined resting comfortably in bed with the at the bedside. He is overall feeling a bit better. Blood pressure remains low and carvedilol was decreased. Home dose of Aldactone remains on hold. We are awaiting endoscopy to be done on Sunday. Labs from this morning are pending. 11/11/2023 The patient was seen and examined sitting up in a chair. He is feeling a bit better. Hemoglobin is stable. Renal function shows some improvement. 11/12/2023 Patient examined this morning at the bedside. Patient denies chest pain or pressure. Denies SOB. Patient's Coumadin remains on hold. INR today is 1.4. 11/13/2023 Patient is status post EGD revealing 2.5 cm broad-based duodenal polyp in the second part of the duodenum, small hiatal hernia. Patient also underwent colonoscopy revealing a tight apple core ulcerated lesion in the mid transverse colon with significant lumen or narrowing status post multiple biopsies. The scope could not be advanced beyond this lesion. General surgery was consulted for evaluation and the patient is scheduled for transverse colectomy today with Dr. Brewer. Patient currently denies shortness of breath. He denies chest pain or pressure. Vital signs are stable. 11/14/2023 Patient is status post transverse colectomy and partial omentectomy. Postop day #1. Patient is evaluated today sitting up in the chair. Patient denies chest pain or pressure. He denies shortness of breath. He remains on IV fluids. He is tolerating clear liquid diet. His Coumadin remains on hold. PHYSICAL EXAM: VITAL SIGNS: Reviewed. GENERAL: Well-developed in no acute distress. NECK: Supple. No JVD or thyromegaly LUNGS: Respirations even and unlabored. Lungs essentially clear to auscultation bilaterally. HEART: Regular rate and rhythm. S1 and S2 heard. Systolic murmur noted. EXTREMITIES: Normal range of motion. No clubbing or cyanosis. Peripheral pulses intact. Trace bilateral lower extremity edema ASSESSMENT: 1. Acute GI bleeding with severe anemia 2. Persistent atrial fibrillation with supra therapeutic INR 3. 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 Status post permanent pacemaker implantation 6. History of hyperlipidemia 7. History of hypertension 8. Status post EGD and colonoscopy 9. Bowel obstruction secondary to transverse colon lesion PLAN: Continue current cardiac medications Case discussed with general surgery. Dr. Brewer states okay to resume Coumadin tomorrow. From a cardiology standpoint recommend discontinuation of IV fluids. However Dr. Brewer would like to continue these at this time. Will defer IVF management to general surgery. Further recommendations pending patient course Nurse practitioner note has been reviewed by physician. Signing provider agrees with the documented findings, assessment, and plan of care documented by CRYSTAL GAZER as a scribe. Objective - Vital Signs Vital signs: Vital Signs Temp 98.0 F 11/14/23 11:18 Pulse 70 11/14/23 11:18 Resp 17 11/14/23 11:18 BP 91/56 11/14/23 11:18 Pulse Ox 99 11/14/23 11:18 FiO2 Intake & Output 11/13/23 11/14/23 11/14/23 18:59 06:59 18:59 Intake Total 1060 Output Total 450 200 Balance 610 -200 Intake: IV 750 Blood Product 310 Rc As-1 Unit 310 [id number] Output: Urine 400 200 Estimated Blood Loss 50 Other: Voiding Method Toilet Indwelling Catheter Indwelling Catheter # Voids 1 - Labs CBC & Chem 7: 11/14/23 07:11 11/14/23 07:11 Labs: Abnormal Lab Results - Last 24 Hours (Table) 11/13/23 11/13/23 11/13/23 Range/Units 08:45 12:37 13:58 WBC (3.8-10.6) k/uL RBC (4.30-5.90) m/uL Hgb (13.0-17.5) gm/dL Hct (39.0-53.0) % RDW (11.5-15.5) % PT (10.0-12.5) sec INR (<1.2) Sodium 136 L (137-145) mmol/L Potassium (3.5-5.1) mmol/L Chloride 114 H (98-107) mmol/L Carbon Dioxide 17 L (22-30) mmol/L Creatinine 1.83 H (0.66-1.25) mg/dL Glucose 37 L* (74-99) mg/dL POC Glucose (mg/dL) 67 L (70-110) mg/dL Calcium (8.4-10.2) mg/dL Crossmatch See Detail 11/13/23 11/13/23 11/13/23 Range/Units 14:31 14:40 15:35 WBC (3.8-10.6) k/uL RBC (4.30-5.90) m/uL Hgb (13.0-17.5) gm/dL Hct (39.0-53.0) % RDW (11.5-15.5) % PT 13.6 H (10.0-12.5) sec INR 1.3 H (<1.2) Sodium (137-145) mmol/L Potassium (3.5-5.1) mmol/L Chloride (98-107) mmol/L Carbon Dioxide (22-30) mmol/L Creatinine (0.66-1.25) mg/dL Glucose (74-99) mg/dL POC Glucose (mg/dL) 113 H 111 H (70-110) mg/dL Calcium (8.4-10.2) mg/dL Crossmatch 11/13/23 11/13/23 11/14/23 Range/Units 16:57 21:04 06:27 WBC (3.8-10.6) k/uL RBC 2.73 L (4.30-5.90) m/uL Hgb 8.0 L (13.0-17.5) gm/dL Hct 24.8 L (39.0-53.0) % RDW (11.5-15.5) % PT (10.0-12.5) sec INR (<1.2) Sodium (137-145) mmol/L Potassium (3.5-5.1) mmol/L Chloride (98-107) mmol/L Carbon Dioxide (22-30) mmol/L Creatinine (0.66-1.25) mg/dL Glucose (74-99) mg/dL POC Glucose (mg/dL) 131 H 180 H (70-110) mg/dL Calcium (8.4-10.2) mg/dL Crossmatch 11/14/23 11/14/23 Range/Units 07:11 07:11 WBC 10.7 H (3.8-10.6) k/uL RBC 2.97 L (4.30-5.90) m/uL Hgb 8.9 L (13.0-17.5) gm/dL Hct 28.2 L (39.0-53.0) % RDW 15.6 H (11.5-15.5) % PT (10.0-12.5) sec INR (<1.2) Sodium 136 L (137-145) mmol/L Potassium 5.7 H (3.5-5.1) mmol/L Chloride 113 H (98-107) mmol/L Carbon Dioxide 17 L (22-30) mmol/L Creatinine 1.82 H (0.66-1.25) mg/dL Glucose 164 H (74-99) mg/dL POC Glucose (mg/dL) (70-110) mg/dL Calcium 8.3 L (8.4-10.2) mg/dL Crossmatch
--- NOTE | 2023-11-14 12:54 | P.PN ---
Subjective Progress Note Date: 11/14/23 Principal diagnosis: Anemia This is a pleasant 83-year-old male who presented to the emergency department directed by his managing consultant. States that he was having blood work done and was noted to have a low hemoglobin and was told to come to the emergency department for further evaluation. He also reports that he has been feeling a little bit more weak and dizzy over the last week or 2. He denies any abdominal pain, nausea or vomiting. He states that his stools have been a little darker over the last week. He does not recall his last colonoscopy he states that he does recall having a more recent Cologuard which he believes was negative. He does take anticoagulation in the form of warfarin for atrial fibrillation history of coronary artery disease, hyperlipidemia, mitral valve prolapse with a cardiac valve replacement and history of heart cath authorization and cardiac ablation. Patient was admitted with a hemoglobin of 6.6 and was transfused 1 unit of blood. Admitting labs WBC 7.9 hemoglobin 6.7 hematocrit 21 platelet count 261,000 INR 6.5 sodium 145 potassium 5.3 BUN 53 creatinine 2.2 magnesium 2.4 total bilirubin 0.6 AST 18 ALT 11 alkaline phosphatase 80 stool occult blood positive 11/13/2023 Patient seen and examined today as a follow-up. Yesterday he underwent upper and lower endoscopy. Upper endoscopy revealed 2.5 cm broad-based duodenal polyp in the second part of the duodenum opposite the ampullary orifice status post snare polypectomy and almost complete polypectomy performed. Small hiatal hernia. Colonoscopy revealed tight apple core ulcerated lesion in the mid transverse colon with significant luminal narrowing status post biopsy and tattooing. Scope could not be advanced beyond the lesion. General surgery was consulted and a CT of the abdomen pelvis was ordered without contrast due to patient's kidney function. 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 There is free air immediately adjacent to the lumen compatible with recent catheter tattoo during colonoscopy. Surgical consultation recommended. Correlation for metastasis in the liver is limited due to lack of IV contrast. Circumferential duodenal wall thickening correlate for duodenitis. Cholelit hiasis. Infrarenal abdominal aortic aneurysm up to 3.2 cm. Right renal cyst. He denies any abdominal pain, nausea or vomiting at this time. He is scheduled to undergo transverse colectomy with Dr. Brewer today. Today's hemoglobin stable at 7.4. 11/14/2023 Patient seen and examined today as a follow-up. Yesterday he underwent surgery and had transverse colectomy done. He is currently sitting up in the bedside chair. He is on clear liquid diet and tolerating well. No nausea or vomiting. No complaints at this time. He is afebrile. Objective - Vital Signs Vital signs: Vital Signs Temp 98.6 F 11/14/23 07:50 Pulse 75 11/14/23 07:50 Resp 17 11/14/23 07:50 BP 94/54 11/14/23 07:50 Pulse Ox 97 11/14/23 07:50 FiO2 Intake & Output 11/13/23 11/14/23 11/14/23 18:59 06:59 18:59 Intake Total 1060 Output Total 450 200 Balance 610 -200 Intake: IV 750 Blood Product 310 Rc As-1 Unit 310 [id number] Output: Urine 400 200 Estimated Blood Loss 50 Other: Voiding Method Toilet Indwelling Catheter Indwelling Catheter # Voids 1 - Exam General appearance: The patient is alert, oriented, appears in no acute distress. HET: Head is normocephalic and atraumatic. Conjunctiva pink. Sclera anicteric. Neck: Supple without lymphadenopathy. Abdomen: Soft, nontender, nondistended with bowel sounds. No guarding or rigidity. Extremities: Normal skin color and turgor. No pedal edema Skin: No rashes, no jaundice Neurological: No focal deficits. Alert and oriented. - Labs CBC & Chem 7: 11/14/23 07:11 11/14/23 07:11 Labs: Abnormal Lab Results - Last 24 Hours (Table) 11/13/23 11/13/23 11/13/23 Range/Units 08:43 08:45 12:37 WBC (3.8-10.6) k/uL RBC (4.30-5.90) m/uL Hgb (13.0-17.5) gm/dL Hct (39.0-53.0) % RDW (11.5-15.5) % PT 13.3 H (10.0-12.5) sec INR 1.3 H (<1.2) Sodium 136 L (137-145) mmol/L Potassium (3.5-5.1) mmol/L Chloride 114 H (98-107) mmol/L Carbon Dioxide 17 L (22-30) mmol/L Creatinine 1.83 H (0.66-1.25) mg/dL Glucose 37 L* (74-99) mg/dL POC Glucose (mg/dL) (70-110) mg/dL Calcium (8.4-10.2) mg/dL Crossmatch See Detail 11/13/23 11/13/23 11/13/23 Range/Units 13:58 14:31 14:40 WBC (3.8-10.6) k/uL RBC (4.30-5.90) m/uL Hgb (13.0-17.5) gm/dL Hct (39.0-53.0) % RDW (11.5-15.5) % PT 13.6 H (10.0-12.5) sec INR 1.3 H (<1.2) Sodium (137-145) mmol/L Potassium (3.5-5.1) mmol/L Chloride (98-107) mmol/L Carbon Dioxide (22-30) mmol/L Creatinine (0.66-1.25) mg/dL Glucose (74-99) mg/dL POC Glucose (mg/dL) 67 L 113 H (70-110) mg/dL Calcium (8.4-10.2) mg/dL Crossmatch 11/13/23 11/13/23 11/13/23 Range/Units 15:35 16:57 21:04 WBC (3.8-10.6) k/uL RBC 2.73 L (4.30-5.90) m/uL Hgb 8.0 L (13.0-17.5) gm/dL Hct 24.8 L (39.0-53.0) % RDW (11.5-15.5) % PT (10.0-12.5) sec INR (<1.2) Sodium (137-145) mmol/L Potassium (3.5-5.1) mmol/L Chloride (98-107) mmol/L Carbon Dioxide (22-30) mmol/L Creatinine (0.66-1.25) mg/dL Glucose (74-99) mg/dL POC Glucose (mg/dL) 111 H 131 H (70-110) mg/dL Calcium (8.4-10.2) mg/dL Crossmatch 11/14/23 11/14/23 11/14/23 Range/Units 06:27 07:11 07:11 WBC 10.7 H (3.8-10.6) k/uL RBC 2.97 L (4.30-5.90) m/uL Hgb 8.9 L (13.0-17.5) gm/dL Hct 28.2 L (39.0-53.0) % RDW 15.6 H (11.5-15.5) % PT (10.0-12.5) sec INR (<1.2) Sodium 136 L (137-145) mmol/L Potassium 5.7 H (3.5-5.1) mmol/L Chloride 113 H (98-107) mmol/L Carbon Dioxide 17 L (22-30) mmol/L Creatinine 1.82 H (0.66-1.25) mg/dL Glucose 164 H (74-99) mg/dL POC Glucose (mg/dL) 180 H (70-110) mg/dL Calcium 8.3 L (8.4-10.2) mg/dL Crossmatch Assessment and Plan (1) Anemia Narrative/Plan: 83-year-old man with coronary artery disease with a history of atrial fibrillation and heart valve replacement on Coumadin noted to have elevated INR and anemia. Patient does state that he has had some darker stools over the last 1 week duration. Denies any abdominal pain, nausea or vomiting. Unclear when last colonoscopy was no history of former GI bleed. Need to consider possible upper or lower GI bleed however with dark stools likely were dealing with an upper GI bleed. Recommend holding anticoagulation, repeat INR. Will schedule patient for EGD and colonoscopy on Sunday as there will be no GI present during the weekend. Need to consider possible etiologies including peptic ulcer d isease, AVM, gastritis, esophagitis, or other possible etiologies. 04/14/2024 patient status post EGD and colonoscopy. See HPI for details. Patient was noted to have apple core lesion in the transverse colon. Anemia likely secondary to lesion. General surgery consulted and a CT abdomen and pelvis without contrast completed with concerns for transverse: Lesion with surrounding enlarged lymph nodes. Patient to undergo transverse colectomy with general surgery today. Current Visit: Yes Status: Acute Code(s): D64.9 - ANEMIA, UNSPECIFIED SNOMED Code(s): 482472894 (2) Coagulopathy Current Visit: Yes Status: Acute Code(s): D68.9 - COAGULATION DEFECT, UNSPECIFIED SNOMED Code(s): 20019795 (3) Atrial fibrillation by electrocardiography Current Visit: Yes Status: Acute Code(s): I48.91 - UNSPECIFIED ATRIAL FIBRILLATION SNOMED Code(s): 968940713 (4) History of heart valve replacement Current Visit: Yes Status: Acute Code(s): Z95.2 - PRESENCE OF PROSTHETIC HEART VALVE SNOMED Code(s): 934122850 (5) Lesion of colon Current Visit: Yes Status: Acute Code(s): K63.9 - DISEASE OF INTESTINE, UNSPECIFIED SNOMED Code(s): 40143721969976 (6) Polyp of duodenum Current Visit: Yes Status: Acute Code(s): K31.7 - POLYP OF STOMACH AND DUODENUM SNOMED Code(s): 11300480 Plan: 1. Continue symptomatic and supportive care 2. Patient is status post transverse colectomy 3. Diet per recommendations from surgical team 4. Patient and instructed to follow-up with gastroenterology for biopsy results thank you for this consultation, we will sign off at this time. Dr. Jose Shrestha I agree with the dictator's note, documented as a scribe by Earnestine Markham.
--- NOTE | 2023-11-14 15:11 | P.PN ---
Subjective Progress Note Date: 11/14/23 CHIEF COMPLAINT: Colon obstruction HISTORY OF PRESENT ILLNESS: Patient is postop day #1 status post transverse colectomy and partial omentectomy. Patient sitting at bedside chair. He reports his pain is controlled. Denies any nausea or vomiting. He is tolerating clear liquids. Afebrile. Urine output is marginal. WBC 10.7 Hgb 8.9 platelets 195 sodium is 136 potassium is 5.7 creatinine 1.82 patient received 1 unit of blood yesterday PHYSICAL EXAM: VITAL SIGNS: Reviewed. GENERAL: Well-developed in no acute distress. ABDOMEN: Soft. Nondistended. Incisional dressing with blood saturation noted NEUROLOGIC: Alert and oriented. Cranial nerves II through XII grossly intact. ASSESSMENT: 1. Colon mass obstructing suspicious for adenocarcinoma PLAN: -Continue liquid diet -Continue IV fluids but change to normal saline. Remove potassium from fluids -Continue to hold Coumadin -Hyperkalemia management per medicine service Physician Panelboard Operator note has been reviewed by physician. Signing provider agrees with the documented findings, assessment, and plan of care. Objective - Vital Signs Vital signs: Vital Signs Temp 98.0 F 11/14/23 11:18 Pulse 70 11/14/23 11:18 Resp 17 11/14/23 11:18 BP 91/56 11/14/23 11:18 Pulse Ox 99 11/14/23 11:18 FiO2 Intake & Output 11/13/23 11/14/23 11/14/23 18:59 06:59 18:59 Intake Total 1060 Output Total 450 200 Balance 610 -200 Intake: IV 750 Blood Product 310 Rc As-1 Unit 310 [id number] Output: Urine 400 200 Estimated Blood Loss 50 Other: Voiding Method Toilet Indwelling Catheter Indwelling Catheter # Voids 1 - Labs CBC & Chem 7: 11/14/23 07:11 11/14/23 07:11 Labs: Abnormal Lab Results - Last 24 Hours (Table) 11/13/23 11/13/23 11/13/23 Range/Units 08:45 15:35 16:57 WBC (3.8-10.6) k/uL RBC 2.73 L (4.30-5.90) m/uL Hgb 8.0 L (13.0-17.5) gm/dL Hct 24.8 L (39.0-53.0) % RDW (11.5-15.5) % Sodium (137-145) mmol/L Potassium (3.5-5.1) mmol/L Chloride (98-107) mmol/L Carbon Dioxide (22-30) mmol/L Creatinine (0.66-1.25) mg/dL Glucose (74-99) mg/dL POC Glucose (mg/dL) 111 H (70-110) mg/dL Calcium (8.4-10.2) mg/dL Crossmatch See Detail 11/13/23 11/14/23 11/14/23 Range/Units 21:04 06:27 07:11 WBC 10.7 H (3.8-10.6) k/uL RBC 2.97 L (4.30-5.90) m/uL Hgb 8.9 L (13.0-17.5) gm/dL Hct 28.2 L (39.0-53.0) % RDW 15.6 H (11.5-15.5) % Sodium (137-145) mmol/L Potassium (3.5-5.1) mmol/L Chloride (98-107) mmol/L Carbon Dioxide (22-30) mmol/L Creatinine (0.66-1.25) mg/dL Glucose (74-99) mg/dL POC Glucose (mg/dL) 131 H 180 H (70-110) mg/dL Calcium (8.4-10.2) mg/dL Crossmatch 11/14/23 Range/Units 07:11 WBC (3.8-10.6) k/uL RBC (4.30-5.90) m/uL Hgb (13.0-17.5) gm/dL Hct (39.0-53.0) % RDW (11.5-15.5) % Sodium 136 L (137-145) mmol/L Potassium 5.7 H (3.5-5.1) mmol/L Chloride 113 H (98-107) mmol/L Carbon Dioxide 17 L (22-30) mmol/L Creatinine 1.82 H (0.66-1.25) mg/dL Glucose 164 H (74-99) mg/dL POC Glucose (mg/dL) (70-110) mg/dL Calcium 8.3 L (8.4-10.2) mg/dL Crossmatch
[2023-11-14] MEDS: SODIUM CHLORIDE 0.9% 1,000 ML IV SCH (15:38)
[2023-11-14] MEDS ORDERED: IPRATROPIUM-ALBUTEROL 3 ML NEB INHALATION STA (16:13)
[2023-11-14] MEDS: CALCIUM GLUCONATE IN NACL 1 GM in SALINE 1 100ML.BAG IVPB ONE (17:52)
[2023-11-14] MEDS: TAMSULOSIN 0.4 MG CAP.ER.24H PO SCH (17:52)
[2023-11-14] MEDS: DEXTROSE 50% SYRINGE 50 ML IVP STA (17:53)
[2023-11-14] MEDS: SODIUM BICARB 8.4% 50 ML SYR (1 MEQ/ML) IV STA (17:53)
--- NOTE | 2023-11-14 18:01 | P.PN ---
Subjective Progress Note Date: 11/14/23 H&P Date: 11/09/23 Chief Complaint: Anemia, hypercoagulopathy This is an 83-year-old female past medical history significant for chronic persistent atrial fibrillation, CAD, hyperlipidemia, mitral valve prolapse, aortic valve replacement,PPM, cardiac ablation, cardiomyopathy, presented to the hospital with complaints of increasing generalized weakness, mild shortness of breath ;vague historian. discovered to have a hemoglobin of 6.7, INR 6.5. BUN 53, creatinine 2.28, bicarb 23 transfused with 1 unit packed RBCs as well as vitamin K in the ER. Repeat labs pending. denies nausea or vomiting but reported diarrhea dark black stools X months. Blood pressure soft, maintain O2 sats in the 90s on room air. Denies chest pain, palpitations or shortness of breath. 11/12/2023 NPO, completed prep, EGD and colonoscopy scheduled for early this afternoon. Anticoagulation remains on hold, continues on PPI. Reports no further bleeding or black, dark rectal output. Reports over the last 2 years he has lost 50 pounds, on a healthier diet. Hemoglobin with 7.6, platelet 182. renal function slowly improving, BUN 24, creatinine 1.64 denies chest pain, p alpitations or shortness of breath. 11/14/2023 status post transverse colectomy and partial omentectomy, postop day #1. Reports "sore abdomen". Anticoagulation remains on hold. Receiving IV fluid hydration .reports occasional productive cough of phlegm .sitting up in chair.not passing flatus, advanced to clear liquids. Denies nausea or vomiting. Villasenor catheter recently DC'd this morning at 0600, not yet spontaneous voiding, bladder scan pending. BUN 18, creatinine 1.82. Received 1 unit packed RBCs yesterday for hemoglobin of 7.4, hemoglobin currently 8.9. Afebrile, WBC increased to 10.7. Sodium 136, potassium 5.7, bicarb 17. Pathology pending. Objective - Vital Signs Vital signs: Vital Signs Temp 98.0 F 11/14/23 11:18 Pulse 70 11/14/23 15:48 Resp 17 11/14/23 15:48 BP 109/61 11/14/23 15:28 Pulse Ox 99 11/14/23 15:28 FiO2 Intake & Output 11/13/23 11/14/2311/13/24 18:59 06:59 18:59 Intake Total 1060 Output Total 450 200 500 Balance 610 -200 -500 Intake: IV 750 Blood Product 310 Rc As-1 Unit 310 [id number] Output: Urine 400 200 500 Uretheral (Villasenor) 250 Estimated Blood Loss 50 Other: Voiding Method Toilet Indwelling Catheter Indwelling Catheter # Voids 1 - Exam PHYSICAL EXAM: VITAL SIGNS: [As above] GENERAL: Alert and oriented x 3, sitting up in chair, no acute distress HEENT: Normocephalic, conjunctivae normal. eyes normal. NECK: Supple, no JVD. No thyroid enlargement. No LNs CARDIOVASCULAR: S1, S2 regular. Systolic murmur RESPIRATION: Unlabored, equal air entry, essentially clear with breath sounds diminished in the bases. ABDOMEN: Soft, status post surgery, midline surgical dressing with shadowing ,no guarding. LEGS: No edema. no swelling NERVOUS SYSTEM: Cranial N 2-12 grossly normal. No focal deficits. Strength and sensation grossly intact. Skin: Warm and dry, no rash - Labs CBC & Chem 7: 11/14/23 07:11 11/14/23 07:11 Labs: Abnormal Lab Results - Last 24 Hours (Table) 11/13/23 11/14/23 11/14/23 Range/Units 21:04 06:27 07:11 WBC 10.7 H (3.8-10.6) k/uL RBC 2.97 L (4.30-5.90) m/uL Hgb 8.9 L (13.0-17.5) gm/dL Hct 28.2 L (39.0-53.0) % RDW 15.6 H (11.5-15.5) % Sodium (137-145) mmol/L Potassium (3.5-5.1) mmol/L Chloride (98-107) mmol/L Carbon Dioxide (22-30) mmol/L Creatinine (0.66-1.25) mg/dL Glucose (74-99) mg/dL POC Glucose (mg/dL) 131 H 180 H (70-110) mg/dL Calcium (8.4-10.2) mg/dL 11/14/23 Range/Units 07:11 WBC (3.8-10.6) k/uL RBC (4.30-5.90) m/uL Hgb (13.0-17.5) gm/dL Hct (39.0-53.0) % RDW (11.5-15.5) % Sodium 136 L (137-145) mmol/L Potassium 5.7 H (3.5-5.1) mmol/L Chloride 113 H (98-107) mmol/L Carbon Dioxide 17 L (22-30) mmol/L Creatinine 1.82 H (0.66-1.25) mg/dL Glucose 164 H (74-99) mg/dL POC Glucose (mg/dL) (70-110) mg/dL Calcium 8.3 L (8.4-10.2) mg/dL Assessment and Plan Assessment: Severe anemia secondary to acute GI bleed, status post EGD and colonoscopy; Upper endoscopy revealed 2.5 cm broad-based duodenal polyp in the second part of the duodenum opposite the ampullary orifice status post snare polypectomy and almost complete polypectomy performed. Small hiatal hernia. Colonoscopy revealed tight apple core ulcerated lesion in the mid transverse colon with significant luminal narrowing status post biopsy and tattooing. Scope could not be advanced beyond the lesion. 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 There is free air immediately adjacent to the lumen compatible with recent catheter tattoo during colonoscopy. Correlation for metastasis in the liver limited due to lack of IV contrast.Circumferential duodenal wall thick ening correlate for duodenitis. Cholelithiasis. Infrarenal abdominal aortic aneurysm up to 3.2 cm. Right renal cyst. Status post transverse colectomy and partial omentectomy. Pathology pending. Chronic persistent atrial fibrillation, INR supra therapeutic History of mitral valve repair and aortic valve replacement Cardiomyopathy, nonischemic, EF 40 to 45% PPM Hypertension Hyperlipidemia Plan: Continue on current medication regimen ,monitoring and symptomatic treatment. Hyperkalemic, remove potassium from IV bag, hyperkalemic cocktail ordered. Villasenor catheter recently removed , close monitoring of spontaneous voiding with bladder scan pending .Flomax added to med regimen .close monitoring of hemoglobin, renal function and electrolytes with repeat potassium level later this afternoon and repeat labs ordered for a.m.Anticoagulation on hold as per surgery. Continues on PPI . Pathology pending The impression and plan of care has been dictated as directed. : I performed a history and examination of this patient, discussed the same with the dictator. I agree with the dictator's note ,documented as a scribe. Any additional findings or plans will be noted.
[2023-11-14] MEDS: INSULIN REGULAR 100 UNIT/ML VIAL (IV) IV ONE (18:16)
[2023-11-14] MEDS: ALBUTEROL NEBULIZED 2.5 MG/3 ML INHALATION STA (22:09)
[2023-11-15 08:42] LABS: Basophils % (A) 0 %; Eosinophils # (A) 0.1 k/uL (0-0.7); Eosinophils % (A) 1 %; HCT 25.2 % (39.0-53.0); HGB 7.9 gm/dL (13.0-17.5); Hypochromasia Marked; Lymphocytes # (A) 0.5 k/uL (1.0-4.8); Lymphocytes % (A) 8 %; MCH 29.1 pg (25.0-35.0); MCHC 31.3 g/dL (31.0-37.0); MCV 93.2 fL (80.0-100.0); Mean Platelet Volume 7.7; Monocytes # (A) 0.6 k/uL (0-1.0); Monocytes % (A) 10 %; Neutrophils # (A) 5.1 k/uL (1.3-7.7); Neutrophils % (A) 78 %; Platelet Count 187 k/uL (150-450); Poikilocytosis Slight; RDW 15.3 % (11.5-15.5); WBC 6.5 k/uL (3.8-10.6)
[2023-11-15 08:54] LABS: African American GFR (CKD) 36 (>60 ml/min/1.73 sqM); Anion Gap 5 mmol/L; Blood Urea Nitrogen 17 mg/dL (9-20); Calcium 8.1 mg/dL (8.4-10.2); Carbon Dioxide 16 mmol/L (22-30); Chloride 112 mmol/L (98-107); Glucose 105 mg/dL (74-99); Magnesium 1.9 mg/dL (1.6-2.3); Non-African American GFR(CKD) 31 (>60 ml/min/1.73 sqM); Potassium 5.9 mmol/L (3.5-5.1); Sodium 133 mmol/L (137-145)
--- NOTE | 2023-11-15 12:46 | P.PN ---
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 His INR was elevated and he was severely anemic. He was admitted to the hospital with evidence of GI bleeding. His echocardiogram performed June 2023 revealed an ejection fraction of 40 to 45% with moderate tricuspid regurgitation, his aortic valve had a mean gradient of 6 mmHg and his mitral valve repair showed mild v alvular regurgitation. The patient denies any chest discomfort, he feels fatigue and mildly dyspneic. He has no significant peripheral edema no PND no orthopnea. He had an episode of diarrhea but no tiffanie blood. He has a prior permanent pacemaker implantation and his predominantly ventricular pacing. His current factors are positive for hyperlipidemia and hypertension he is a non- smoker, nondiabetic. He received transfusion yesterday as well as vitamin K. Medications: Carvedilol 12.5 twice daily, Farxiga 5 mg daily, Entresto 2426 twice a day, Protonix, simvastatin 40 mg daily 11/10/2023 The patient was seen and examined resting comfortably in bed with the at the bedside. He is overall feeling a bit better. Blood pressure remains low and carvedilol was decreased. Home dose of Aldactone remains on hold. We are awaiting endoscopy to be done on Sunday. Labs from this morning are pending. 11/11/2023 The patient was seen and examined sitting up in a chair. He is feeling a bit better. Hemoglobin is stable. Renal function shows some improvement. 11/12/2023 Patient examined this morning at the bedside. Patient denies chest pain or pressure. Denies SOB. Patient's Coumadin remains on hold. INR today is 1.4. 11/13/2023 Patient is status post EGD revealing 2.5 cm broad-based duodenal polyp in the second part of the duodenum, small hiatal hernia. Patient also underwent colonoscopy revealing a tight apple core ulcerated lesion in the mid transverse colon with significant lumen or narrowing status post multiple biopsies. The scope could not be advanced beyond this lesion. General surgery was consulted for evaluation and the patient is scheduled for transverse colectomy today with Dr. Brewer. Patient currently denies shortness of breath. He denies chest pain or pressure. Vital signs are stable. 11/14/2023 Patient is status post transverse colectomy and partial omentectomy. Postop day #1. Patient is evaluated today sitting up in the chair. Patient denies chest pain or pressure. He denies shortness of breath. He remains on IV fluids. He is tolerating clear liquid diet. His Coumadin remains on hold. 11/15/2023 Patient examined this morning. Patient is sitting up in the chair. Patient currently denies any chest pain or pressure. He denies any shortness of breath. Telemetry reveals paced rhythm. Potassium today 5.9. Creatinine 1.94. Patie nt states he has been having issues urinating and required straight catheterization x 2. Blood pressures are on the soft side with a recent reading of 96/52. PHYSICAL EXAM: VITAL SIGNS: Reviewed. GENERAL: Well-developed in no acute distress. NECK: Supple. No JVD or thyromegaly LUNGS: Respirations even and unlabored. Lungs essentially clear to auscultation bilaterally. HEART: Regular rate and rhythm. S1 and S2 heard. Systolic murmur noted. EXTREMITIES: Normal range of motion. No clubbing or cyanosis. Peripheral pulses intact. Trace bilateral lower extremity edema ASSESSMENT: 1. Acute GI bleeding with severe anemia 2. Persistent atrial fibrillation with supra therapeutic INR 3. 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 Status post permanent pacemaker implantation 6. History of hyperlipidemia 7. History of hypertension 8. Status post EGD and colonoscopy 9. Bowel obstruction secondary to transverse colon lesion 10. Acute on chronic kidney disease 11. Hyperkalemia 12. Urinary retention requiring straight cath PLAN: Continue current cardiac medications Resume Coumadin tonight Decrease IV fluids down to 60 cc an hour secondary to bilateral crackles Will temporarily hold Entresto secondary to hyperkalemia Further recommendations pending patient course Nurse practitioner note has been reviewed by physician. Signing provider agrees with the documented findings, assessment, and plan of care documented by INVOICING SPECIALIST as a scribe. Objective - Vital Signs Vital signs: Vital Signs Temp 98.1 F 11/15/23 11:02 Pulse 71 11/15/23 11:02 Resp 18 11/15/23 11:02 BP 96/52 11/15/23 11:02 Pulse Ox 92 L 11/15/23 11:02 FiO2 Intake & Output 11/14/23 11/15/23 11/15/23 18:59 06:59 18:59 Intake Total 300 Output Total 500 500 Balance -500 -500 300 Intake: Oral 300 Output: Urine 500 500 Uretheral (Villasenor) 250 500 Other: Voiding Method Toilet Toilet - Labs CBC & Chem 7: 11/15/23 07:50 11/15/23 07:50 Labs: Abnormal Lab Results - Last 24 Hours (Table) 11/14/23 11/15/23 11/15/23 Range/Units 17:41 07:50 07:50 RBC 2.70 L (4.30-5.90) m/uL Hgb 7.9 L (13.0-17.5) gm/dL Hct 25.2 L (39.0-53.0) % Lymphocytes # 0.5 L (1.0-4.8) k/uL Sodium 133 L (137-145) mmol/L Potassium 6.0 H 5.9 H (3.5-5.1) mmol/L Chloride 112 H (98-107) mmol/L Carbon Dioxide 16 L (22-30) mmol/L Creatinine 1.94 H (0.66-1.25) mg/dL Glucose 105 H (74-99) mg/dL Calcium 8.1 L (8.4-10.2) mg/dL
--- NOTE | 2023-11-15 14:32 | P.PN ---
Subjective Progress Note Date: 11/15/23 CHIEF COMPLAINT: Colon obstruction HISTORY OF PRESENT ILLNESS: Patient is postop day #2 status post transverse colectomy and partial omentectomy. Patient sitting at bedside chair. He reports his pain is controlled. Denies any nausea or vomiting. He is tolerating clear liquids. Surgical incision dressing changed yesterday to Optifoam. Afebrile. Patient having issues with urinary retention. Had to be straight cathed x 2. Patient denies any flatus. WBC 6.5 Hgb 7.9 platelets 187 sodium is 133 potassium is 5.9 creatinine 1.94. Cardiology decreased rate of IV fluids due to fluid overload PHYSICAL EXAM: VITAL SIGNS: Reviewed. GENERAL: Well-developed in no acute distress. ABDOMEN: Soft. Nondistended. Minimal tenderness with palpation around incision site Optifoam incisional dressing with small area of saturation noted NEUROLOGIC: Alert and oriented. Cranial nerves II through XII grossly intact. ASSESSMENT: 1. Colon mass obstructing suspicious for adenocarcinoma 2. Urinary retention PLAN: -Continue clear liquid diet -Continue IV fluids -Hyperkalemia management per medicine service -Continue to monitor for urinary retention Physician Wood Gouger note has been reviewed by physician. Signing provider agrees with the documented findings, assessment, and plan of care. Objective - Vital Signs Vital signs: Vital Signs Temp 98.1 F 11/15/23 11:02 Pulse 71 11/15/23 11:02 Resp 18 11/15/23 11:02 BP 96/52 11/15/23 11:02 Pulse Ox 92 L 11/15/23 11:02 FiO2 Intake & Output 11/14/23 11/15/23 11/15/23 18:59 06:59 18:59 Intake Total 300 Output Total 500 500 Balance -500 -500 300 Intake: Oral 300 Output: Urine 500 500 Uretheral (Villasenor) 250 500 Other: Voiding Method Toilet Toilet - Labs CBC & Chem 7: 11/15/23 07:50 11/15/23 07:50 Labs: Abnormal Lab Results - Last 24 Hours (Table) 11/14/23 11/15/23 11/15/23 Range/Units 17:41 07:50 07:50 RBC 2.70 L (4.30-5.90) m/uL Hgb 7.9 L (13.0-17.5) gm/dL Hct 25.2 L (39.0-53.0) % Lymphocytes # 0.5 L (1.0-4.8) k/uL Sodium 133 L (137-145) mmol/L Potassium 6.0 H 5.9 H (3.5-5.1) mmol/L Chloride 112 H (98-107) mmol/L Carbon Dioxide 16 L (22-30) mmol/L Creatinine 1.94 H (0.66-1.25) mg/dL Glucose 105 H (74-99) mg/dL Calcium 8.1 L (8.4-10.2) mg/dL
--- NOTE | 2023-11-15 17:29 | P.PN ---
Subjective Progress Note Date: 11/15/23 H&P Date: 11/09/23 Chief Complaint: Anemia, hypercoagulopathy This is an 83-year-old female past medical history significant for chronic persistent atrial fibrillation, CAD, hyperlipidemia, mitral valve prolapse, aortic valve replacement,PPM, cardiac ablation, cardiomyopathy, presented to the hospital with complaints of increasing generalized weakness, mild shortness of breath ;vague historian. discovered to have a hemoglobin of 6.7, INR 6.5. BUN 53, creatinine 2.28, bicarb 23 transfused with 1 unit packed RBCs as well as vitamin K in the ER. Repeat labs pending. denies nausea or vomiting but reported diarrhea dark black stools X months. Blood pressure soft, maintain O2 sats in the 90s on room air. Denies chest pain, palpitations or shortness of breath. 11/12/2023 NPO, completed prep, EGD and colonoscopy scheduled for early this afternoon. Anticoagulation remains on hold, continues on PPI. Reports no further bleeding or black, dark rectal output. Reports over the last 2 years he has lost 50 pounds, on a healthier diet. Hemoglobin with 7.6, platelet 182. renal function slowly improving, BUN 24, creatinine 1.64 denies chest pain, p alpitations or shortness of breath. 11/14/2023 status post transverse colectomy and partial omentectomy, postop day #1. Reports "sore abdomen". Anticoagulation remains on hold. Receiving IV fluid hydration .reports occasional productive cough of phlegm .sitting up in chair.not passing flatus, advanced to clear liquids. Denies nausea or vomiting. Villasenor catheter recently DC'd this morning at 0600, not yet spontaneous voiding, bladder scan pending. BUN 18, creatinine 1.82. Received 1 unit packed RBCs yesterday for hemoglobin of 7.4, hemoglobin currently 8.9. Afebrile, WBC increased to 10.7. Sodium 136, potassium 5.7, bicarb 17. Pathology pending. 11/15/2023 IV fluid hydration. Blood pressure soft. Urinary retention, straight cath x 2 ,worsening renal function, creatinine up to 1.94, nephrology consulted. Hyperkalemic, potassium 5.9. Pain controlled. Reports not passing flatus. No bowel movement. Telemetry reporting paced rhythm .anticoagulation/Coumadin resuming tonight. 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 Objective - Vital Signs Vital signs: Vital Signs Temp 98 F 11/15/23 16:38 Pulse 80 11/15/23 16:38 Resp 16 11/15/23 16:38 BP 105/67 11/15/23 16:38 Pulse Ox 99 11/15/23 16:26 FiO2 Intake & Output 11/14/23 11/15/23 11/15/23 18:59 06:59 18:59 Intake Total 300 Output Total 500 500 150 Balance -500 -500 150 Weight 85.1 kg Intake: Oral 300 Output: Urine 500 500 150 Uretheral (Villasenor) 250 500 Other: Voiding Method Toilet Indwelling Catheter # Voids 0 # Bowel Movements 0 - Labs CBC & Chem 7: 11/15/23 07:50 11/15/23 07:50 Labs: Abnormal Lab Results - Last 24 Hours (Table) 11/14/23 11/15/23 11/15/23 Range/Units 17:41 07:50 07:50 RBC 2.70 L (4.30-5.90) m/uL Hgb 7.9 L (13.0-17.5) gm/dL Hct 25.2 L (39.0-53.0) % Lymphocytes # 0.5 L (1.0-4.8) k/uL Sodium 133 L (137-145) mmol/L Potassium 6.0 H 5.9 H (3.5-5.1) mmol/L Chloride 112 H (98-107) mmol/L Carbon Dioxide 16 L (22-30) mmol/L Creatinine 1.94 H (0.66-1.25) mg/dL Glucose 105 H (74-99) mg/dL Calcium 8.1 L (8.4-10.2) mg/dL Assessment and Plan Assessment: Severe anemia secondary to acute GI bleed, status post EGD and colonoscopy; Upper endoscopy revealed 2.5 cm broad-based duodenal polyp in the second part of the duodenum opposite the ampullary orifice status post snare polypectomy and almost complete polypectomy performed. Small hiatal hernia. Colonoscopy revealed tight apple core ulcerated lesion in the mid transverse colon with significant luminal narrowing status post biopsy and tattooing. Scope could not be advanced beyond the lesion. 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 There is free air immediately adjacent to the lumen compatible with recent catheter tattoo during colonoscopy. Correlation for metastasis in the liver limited due to lack of IV contrast.Circumferential duodenal wall thickening correlate for duodenitis. Cholelithiasis. Infrarenal abdominal aortic aneurysm up to 3.2 cm. Right renal cyst. Status post transverse colectomy and partial omentectomy. 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 Urinary retention, post operative Chronic persistent atrial fibrillation, INR supra therapeutic History of mitral valve repair and aortic valve replacement Cardiomyopathy, nonischemic, EF 40 to 45% PPM Hypertension Hyperlipidemia Plan: Continue on current medication regimen ,monitoring and symptomatic treatment. Maintain IV fluid hydration. Soft blood pressures, worsening renal function, nephrology consulted. hyperkalemic cocktail ordered, Entresto on hold. Repeat potassium level in 5 hours with repeat labs to be called -ordered in "communication". close monitoring of hemoglobin, renal function and electrolytes with repeat labs ordered for a.m. Anticoagulation resumed as per cardiology. Maintain PPI. Endoscopy pathology noted, surgical pathology pending. The impression and plan of care has been dictated as directed. : I performed a history and examination of this patient, discussed the same with the dictator. I agree with the dictator's note ,documented as a scribe. Any additional findings or plans will be noted.
[2023-11-15] MEDS: CALCIUM GLUCONATE IN NACL 1 GM in SALINE 1 100ML.BAG IVPB ONE (18:43)
[2023-11-15] MEDS: WARFARIN 5 MG TAB PO ONE (18:44)
[2023-11-15] MEDS: INSULIN REGULAR 100 UNIT/ML VIAL (IV) IV ONE ×2 (18:44→20:13)
[2023-11-15] MEDS: SODIUM BICARB 8.4% 50 ML SYR (1 MEQ/ML) IV STA (18:45)
[2023-11-15] MEDS: DEXTROSE 50% SYRINGE 50 ML IVP STA (18:45)
--- NOTE | 2023-11-15 20:27 | US ---
EXAMINATION TYPE: US kidneys/renal and bladder DATE OF EXAM: 11/15/2023 COMPARISON: CT:11/12/23 CLINICAL INDICATION: Male, 83 years old with history of Worsening renal function; worsening renal fun ction FINDINGS: RIGHT KIDNEY: 10.9 x 6.7 x 5.7 cm. Renal parenchyma isoechoic to liver parenchyma. There is no hydron ephrosis. Large cyst seen in lower pole measuring 7.3 x 6.0 x 7.8 cm. No calcifications. LEFT KIDNEY: 11.2 x 4.9 x 6.6 cm. Renal parenchyma isoechoic to splenic parenchyma. No hydronephrosis or masses. No calcifications. BLADDER: Not seen. Pt has a valencia catheter in place. Bilateral Doppler ureteral jets seen during the examination: No IMPRESSION: Negative for obstructive uropathy.
[2023-11-15] MEDS: ALBUTEROL NEBULIZED 2.5 MG/3 ML INHALATION STA (21:14)
[2023-11-15 21:34] LABS: Glucose,Whole Blood 139 mg/dL (70-110)
[2023-11-16 08:56] LABS: INR 1.5 (<1.2); Prothrombin Time 15.5 sec (10.0-12.5)
--- NOTE | 2023-11-16 08:56 | P.PN ---
Subjective Progress Note Date: 11/16/23 Patient's complaints of some nausea. He's had no significant flatus. On exam vital signs appear stable. Abdomen soft. Incisions clean dry intact. Status post transverse colectomy. Patient will continue receive supportive care. We'll advance his diet once his bowel function returns. Objective - Vital Signs Vital signs: Vital Signs Temp 98.3 F 11/16/23 04:00 Pulse 89 11/16/23 04:00 Resp 22 11/16/23 04:00 BP 106/68 11/16/23 04:00 Pulse Ox 95 11/16/23 04:00 FiO2 Intake & Output 11/15/23 11/16/23 11/16/23 18:59 06:59 18:59 Intake Total 300 Output Total 150 400 250 Balance 150 -400 -250 Weight 85.1 kg Intake: Oral 300 Output: Urine 150 400 250 Other: Voiding Method Indwelling Catheter Indwelling Catheter # Voids 0 # Bowel Movements 0 0 - Labs CBC & Chem 7: 11/15/23 07:50 11/15/23 22:11 Labs: Abnormal Lab Results - Last 24 Hours (Table) 11/15/23 11/15/23 11/15/23 Range/Units 07:50 21:32 22:11 Sodium 133 L (137-145) mmol/L Potassium 5.9 H 5.5 H (3.5-5.1) mmol/L Chloride 112 H (98-107) mmol/L Carbon Dioxide 16 L (22-30) mmol/L Creatinine 1.94 H (0.66-1.25) mg/dL Glucose 105 H (74-99) mg/dL POC Glucose (mg/dL) 139 H (70-110) mg/dL Calcium 8.1 L (8.4-10.2) mg/dL
[2023-11-16 08:59] LABS: Basophils % (A) 0 %; Eosinophils % (A) 1 %; HCT 25.6 % (39.0-53.0); HGB 7.9 gm/dL (13.0-17.5); Hypochromasia Marked; Lymphocytes # (A) 0.4 k/uL (1.0-4.8); Lymphocytes % (A) 14 %; MCH 28.7 pg (25.0-35.0); MCHC 30.8 g/dL (31.0-37.0); Monocytes # (A) 0.3 k/uL (0-1.0); Monocytes % (A) 10 %; Neutrophils # (A) 2.1 k/uL (1.3-7.7); Neutrophils % (A) 70 %; Platelet Count 210 k/uL (150-450); Poikilocytosis Slight; RBC 2.75 m/uL (4.30-5.90); RDW 15.2 % (11.5-15.5)
[2023-11-16 09:21] LABS: African American GFR (CKD) 32 (>60 ml/min/1.73 sqM); Anion Gap 7 mmol/L; Blood Urea Nitrogen 22 mg/dL (9-20); Calcium 8.1 mg/dL (8.4-10.2); Carbon Dioxide 15 mmol/L (22-30); Chloride 114 mmol/L (98-107); Glucose 112 mg/dL (74-99); Non-African American GFR(CKD) 28 (>60 ml/min/1.73 sqM); Potassium 5.7 mmol/L (3.5-5.1); Sodium 136 mmol/L (137-145)
[2023-11-16] MEDS: ZINC OXIDE PASTE (Z-GUARD) 1 APPLIC TOPICAL SCH (10:10)
--- NOTE | 2023-11-16 10:43 | P.NPCON ---
History of Present Illness - Reason for Consult acute renal failure - History of Present Illness Patient is an 83-year-old male with history of chronic A. fib, Coronary Artery Disease, Valvular Heart Disease Who Was Admitted to the Hospital with Increased Weakness and Shortness of Breath. Patient Was Noted to Have GI Bleed with a Hemoglobin of 6.5 on Admission. He Has Been Transfused Packed RBCs. Status post EGD which did not show any evidence of active bleeding. Colonoscopy showed tight apple core ulcerated lesion which has been biopsied. CT of the abdomen suggests underlying metastatic process. Patient is status post transverse colectomy and partial omentectomy on 11/13/2023 for colon mass. Serum creatinine was 2.2 on initial admission and decreased to about 1.8 mg/dL. Today it is up to 2.1. 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 Most recently blood pressure noted to be low with systolic in the 90s. Patient was also noted to have urine retention and he has an indwelling Villasenor catheter. Maintained on IV fluids at 60 mL an hour. Serum potassium was elevated at 6.0 and down to 5.7 now. Blood sugar not significantly elevated. Hemoglobin staying at 7.9 g/dL. Review of Systems As per HPI Past Medical History Past Medical History: Atrial Fibrillation, Coronary Artery Disease (CAD), Hyperlipidemia, Mitral Valve Prolapse (MVP), Osteoarthritis (OA) History of Any Multi-Drug Resistant Organisms: None Reported Past Surgical History: Cardiac Ablation, Cardiac Valve Replacement, Heart Catheterization Additional Past Surgical History / Comment(s): CARIOVERSIONS. AORTA VALVE REPLACED/MITRAL VALVE REPAIRED @ [facility] ON JANUARY [id number]. pacer, EF 30% Past Anesthesia/Blood Transfusion Reactions: No Reported Reaction Past Psychological History: No Psychological Hx Reported Smoking Status: Never smoker Past Alcohol Use History: Rare Past Drug Use History: None Reported - Past Family History Mother Family Medical History: CVA/TIA, Myocardial Infarction ([place]) Father Family Medical History: Myocardial Infarction ([place]) Brother(s) Family Medical History: CVA/TIA Medications and Allergies Home Medications Medication Instructions Recorded Confirmed Type Simvastatin [Zocor] 40 mg PO HS 10/26/14 11/08/23 History Empagliflozin [Jardiance] 10 mg PO DAILY 11/08/23 11/08/23 History Sacubitril/Valsartan [Entresto 24 1 tab PO BID 11/08/23 11/08/23 History mg-26 mg Tablet] carvediloL [Coreg] 12.5 mg PO BID 11/08/23 11/08/23 History Allergies Allergy/AdvReac Type Severity Reaction Status Date / Time cephalexin monohydrate Allergy Severe Rash/Hives Verified 11/13/23 14:43 [From Keflex] Penicillins Allergy Severe Rash/Hives Verified 11/13/23 14:43 propylene glycol Allergy Severe Anaphylaxis Verified 11/13/23 14:43 bacitracin Allergy Rash/Hives Verified 11/13/23 14:43 [From Neosporin ([id number])] bacitracin zinc Allergy Rash/Hives Verified 11/13/23 14:43 [From Neosporin ([id number])] chloramphenicol Allergy Rash/Hives Verified 11/13/23 14:43 [From Chloromycetin] chloramphenicol sod succ Allergy Rash/Hives Verified 11/13/23 14:43 [From Chloromycetin] ciprofloxacin [From Cipro] Allergy Rash/Hives Verified 11/13/23 14:43 ciprofloxacin HCl Allergy Rash/Hives Verified 11/13/23 14:43 [From Cipro] mercury (elemental) Allergy Rash/Hives Verified 11/13/23 14:43 neomycin Allergy Rash/Hives Verified 11/13/23 14:43 neomycin sulfate Allergy Rash/Hives Verified 11/13/23 14:43 [From Neosporin ([id number])] polymyxin B Allergy Rash/Hives Verified 11/13/23 14:43 [From Neosporin ([id number])] Physical Exam Vitals: Vital Signs Temp Pulse Resp BP BP Pulse Ox 11/16/23 10:31 97.9 F 87 18 102/61 99 11/16/23 04:00 98.3 F 89 22 106/68 95 11/16/23 00:00 98.4 F 70 15 119/57 96 11/15/23 20:00 98.6 F 79 20 115/67 97 11/15/23 18:19 98 F 88 16 106/70 98 11/15/23 16:38 98 F 80 16 105/67 11/15/23 16:26 98 F 80 16 105/67 99 11/15/23 11:02 98.1 F 71 18 96/52 92 L Intake and Output 11/15/23 11/16/23 11/16/23 22:59 06:59 14:59 Intake Total 5 Output Total 400 250 Balance -400 -245 Intake: IV 5 Invasive Line 4 5 Output: Urine 400 250 Other: Voiding Method Indwelling Catheter Indwelling Catheter # Bowel Movements 0 0 Patient is awake and comfortable. No acute distress Examination of the heart S1 and S2 Examination of the lungs bilateral breath sounds are heard Abdomen is soft nontender Examination of lower extremities shows no significant edema ELECTRICAL INSTRUMENT TECHNICIAN exam grossly intact Results - Lab Results Most recent lab results Calcium 8.1 mg/dL (8.4-10.2) L 11/16/23 07:51 Phosphorus 3.9 mg/dL (2.5-4.5) 11/08/23 14:54 Magnesium 1.9 mg/dL (1.6-2.3) 11/15/23 07:50 11/16/23 07:51 11/16/23 07:51 Assessment and Plan Assessment: 1. Acute kidney injury ATN secondary to hypotension and urine retention. Currently with indwelling Villasenor catheter and maintained on IV fluids. Blood pressure has improved. No evidence of obstruction noted on CT of the abdomen. 2. Hyperkalemia associated with acute kidney injury and metabolic acidosis and urine retention. Also related to underlying GI bleed. 3. Metabolic acidosis non-gap secondary to acute kidney injury 4. Colon mass status post transverse colectomy and partial omentectomy Plan: Continue with IV fluids. Change to IV bicarb Check UA Continue with Villasenor catheter Add lokelma if patient can take oral meds Repeat labs in a.m. Thank you for the consultation. We will continue to follow the patient with you during his hospitalization.
--- NOTE | 2023-11-16 11:36 | P.PN ---
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 His INR was elevated and he was severely anemic. He was admitted to the hospital with evidence of GI bleeding. His echocardiogram performed June 2023 revealed an ejection fraction of 40 to 45% with moderate tricuspid regurgitation, his aortic valve had a mean gradient of 6 mmHg and his mitral valve repair showed mild v alvular regurgitation. The patient denies any chest discomfort, he feels fatigue and mildly dyspneic. He has no significant peripheral edema no PND no orthopnea. He had an episode of diarrhea but no tiffanie blood. He has a prior permanent pacemaker implantation and his predominantly ventricular pacing. His current factors are positive for hyperlipidemia and hypertension he is a non- smoker, nondiabetic. He received transfusion yesterday as well as vitamin K. Medications: Carvedilol 12.5 twice daily, Farxiga 5 mg daily, Entresto 2426 twice a day, Protonix, simvastatin 40 mg daily 11/10/2023 The patient was seen and examined resting comfortably in bed with the at the bedside. He is overall feeling a bit better. Blood pressure remains low and carvedilol was decreased. Home dose of Aldactone remains on hold. We are awaiting endoscopy to be done on Sunday. Labs from this morning are pending. 11/11/2023 The patient was seen and examined sitting up in a chair. He is feeling a bit better. Hemoglobin is stable. Renal function shows some improvement. 11/12/2023 Patient examined this morning at the bedside. Patient denies chest pain or pressure. Denies SOB. Patient's Coumadin remains on hold. INR today is 1.4. 11/13/2023 Patient is status post EGD revealing 2.5 cm broad-based duodenal polyp in the second part of the duodenum, small hiatal hernia. Patient also underwent colonoscopy revealing a tight apple core ulcerated lesion in the mid transverse colon with significant lumen or narrowing status post multiple biopsies. The scope could not be advanced beyond this lesion. General surgery was consulted for evaluation and the patient is scheduled for transverse colectomy today with Dr. Brewer. Patient currently denies shortness of breath. He denies chest pain or pressure. Vital signs are stable. 11/14/2023 Patient is status post transverse colectomy and partial omentectomy. Postop day #1. Patient is evaluated today sitting up in the chair. Patient denies chest pain or pressure. He denies shortness of breath. He remains on IV fluids. He is tolerating clear liquid diet. His Coumadin remains on hold. 11/15/2023 Patient examined this morning. Patient is sitting up in the chair. Patient currently denies any chest pain or pressure. He denies any shortness of breath. Telemetry reveals paced rhythm. Potassium today 5.9. Creatinine 1.94. Patie nt states he has been having issues urinating and required straight catheterization x 2. Blood pressures are on the soft side with a recent reading of 96/52. 11/16/2023 Patient examined this morning at the bedside. Patient currently denies chest pain or pressure. He denies shortness of breath. Patient remains on a liquid diet and does not report any significant flatus. Patient's Coumadin was resumed yesterday. INR this morning 1.5. Creatinine today 2.1. PHYSICAL EXAM: VITAL SIGNS: Reviewed. GENERAL: Well-developed in no acute distress. NECK: Supple. No JVD or thyromegaly LUNGS: Respirations even and unlabored. Lungs essentially clear to auscultation bilaterally. HEART: Regular rate and rhythm. S1 and S2 heard. Systolic murmur noted. EXTREMITIES: Normal range of motion. No clubbing or cyanosis. Peripheral pulses intact. Trace bilateral lower extremity edema ASSESSMENT: 1. Acute GI bleeding with severe anemia 2. Persistent atrial fibrillation with supra therapeutic INR 3. 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 Status post permanent pacemaker implantation 6. History of hyperlipidemia 7. History of hypertension 8. Status post EGD and colonoscopy 9. Bowel obstruction secondary to transverse colon lesion 10. Acute on chronic kidney disease 11. Hyperkalemia 12. Urinary retention requiring straight cath PLAN: Continue current cardiac medications Continue Coumadin. Pharmacy to dose. Monitor INR. Continue IV fluids. Continue to temporarily hold Entresto secondary to hyperkalemia. May reevaluate on an outpatient basis to resume Entresto No further inpatient recommendations from a cardiac standpoint. We will sign off. Please reconsult if needed. Nurse practitioner note has been reviewed by physician. Signing provider agrees with the documented findings, assessment, and plan of care documented by [employer] as a scribe. Objective - Vital Signs Vital signs: Vital Signs Temp 98.3 F 11/16/23 04:00 Pulse 89 11/16/23 04:00 Resp 22 11/16/23 04:00 BP 106/68 11/16/23 04:00 Pulse Ox 95 11/16/23 04:00 FiO2 Intake & Output 11/15/23 11/16/23 11/16/23 18:59 06:59 18:59 Intake Total 300 Output Total 150 400 250 Balance 150 -400 -250 Weight 85.1 kg Intake: Oral 300 Output: Urine 150 400 250 Other: Voiding Method Indwelling Catheter Indwelling Catheter # Voids 0 # Bowel Movements 0 0 - Labs CBC & Chem 7: 11/16/23 07:51 11/16/23 07:51 Labs: Abnormal Lab Results - Last 24 Hours (Table) 11/15/23 11/15/23 11/16/23 Range/Units 21:32 22:11 07:51 WBC (3.8-10.6) k/uL RBC (4.30-5.90) m/uL Hgb (13.0-17.5) gm/dL Hct (39.0-53.0) % MCHC (31.0-37.0) g/dL Lymphocytes # (1.0-4.8) k/uL PT 15.5 H (10.0-12.5) sec INR 1.5 H (<1.2) Potassium 5.5 H (3.5-5.1) mmol/L POC Glucose (mg/dL) 139 H (70-110) mg/dL 11/16/23 Range/Units 07:51 WBC 3.0 L (3.8-10.6) k/uL RBC 2.75 L (4.30-5.90) m/uL Hgb 7.9 L (13.0-17.5) gm/dL Hct 25.6 L (39.0-53.0) % MCHC 30.8 L (31.0-37.0) g/dL Lymphocytes # 0.4 L (1.0-4.8) k/uL PT (10.0-12.5) sec INR (<1.2) Potassium (3.5-5.1) mmol/L POC Glucose (mg/dL) (70-110) mg/dL
--- NOTE | 2023-11-16 12:07 | XR ---
EXAMINATION TYPE: XR chest 1V DATE OF EXAM: 11/16/2023 COMPARISON: 09/15/2014 HISTORY: Shortness of breath TECHNIQUE: Single frontal view of the chest is obtained. FINDINGS: Aortic valve replacement surgery with single lead cardiac device in post sternotomy change s. Limited inspiration with basilar subsegmental consolidation. No overt failure pneumothorax. Diffus e osteopenia and arthropathy of the shoulders. IMPRESSION: 1. Bibasilar atelectasis favored over pneumonia correlate clinically.
[2023-11-16] MEDS: DEXTROSE 5% IN WATER 1,000 ML with SODIUM BICARB (1 MEQ/ML) 150 ML IV SCH (12:54)
[2023-11-16] MEDS: SODIUM ZIRCONIUM CYCLOSILICATE 10 GM PACKET PO ONE (12:56)
--- NOTE | 2023-11-16 15:52 | P.PN ---
Subjective Progress Note Date: 11/16/23 H&P Date: 11/09/23 Chief Complaint: Anemia, hypercoagulopathy This is an 83-year-old female past medical history significant for chronic persistent atrial fibrillation, CAD, hyperlipidemia, mitral valve prolapse, aortic valve replacement,PPM, cardiac ablation, cardiomyopathy, presented to the hospital with complaints of increasing generalized weakness, mild shortness of breath ;vague historian. discovered to have a hemoglobin of 6.7, INR 6.5. BUN 53, creatinine 2.28, bicarb 23 transfused with 1 unit packed RBCs as well as vitamin K in the ER. Repeat labs pending. denies nausea or vomiting but reported diarrhea dark black stools X months. Blood pressure soft, maintain O2 sats in the 90s on room air. Denies chest pain, palpitations or shortness of breath. 11/12/2023 NPO, completed prep, EGD and colonoscopy scheduled for early this afternoon. Anticoagulation remains on hold, continues on PPI. Reports no further bleeding or black, dark rectal output. Reports over the last 2 years he has lost 50 pounds, on a healthier diet. Hemoglobin with 7.6, platelet 182. renal function slowly improving, BUN 24, creatinine 1.64 denies chest pain, p alpitations or shortness of breath. 11/14/2023 status post transverse colectomy and partial omentectomy, postop day #1. Reports "sore abdomen". Anticoagulation remains on hold. Receiving IV fluid hydration .reports occasional productive cough of phlegm .sitting up in chair.not passing flatus, advanced to clear liquids. Denies nausea or vomiting. Villasenor catheter recently DC'd this morning at 0600, not yet spontaneous voiding, bladder scan pending. BUN 18, creatinine 1.82. Received 1 unit packed RBCs yesterday for hemoglobin of 7.4, hemoglobin currently 8.9. Afebrile, WBC increased to 10.7. Sodium 136, potassium 5.7, bicarb 17. Pathology pending. 11/15/2023 IV fluid hydration. Blood pressure soft. Urinary retention, straight cath x 2 ,worsening renal function, creatinine up to 1.94, nephrology consulted. Hyperkalemic, potassium 5.9. Pain controlled. Reports not passing flatus. No bowel movement. Telemetry reporting paced rhythm .anticoagulation/Coumadin resuming tonight. 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 11/16/2023 Hemoglobin remains 7.9. Continues on IV fluid hydration .Maintained on Clear Liquid Diet, nauseated this morning. Blood sugars controlled. pain controlled. Passing minimal flatus, no bowel movement. Villasenor catheter placed yesterday secondary to urinary retention .renal ultrasound reported negative for obstructive uropathy, no hydronephrosis .blood pressures soft, improving. Renal function worsening, bicarb 15, BUN 22, creatinine 2.1, potassium decreased to currently 5.7. Anticoagulation with Coumadin resumed yesterday, INR 1.5. Objective - Vital Signs Vital signs: Vital Signs Temp 98.2 F 11/16/23 13:35 Pulse 86 11/16/23 13:35 Resp 18 11/16/23 13:35 BP 107/68 11/16/23 13:35 Pulse Ox 97 11/16/23 13:35 FiO2 Intake & Output 11/15/23 11/16/23 11/16/23 18:59 06:59 18:59 Intake Total 300 10 Output Total 150 400 250 Balance 150 -400 -240 Weight 85.1 kg Intake: IV 10 Invasive Line 4 10 Oral 300 Output: Urine 150 400 250 Other: Voiding Method Indwelling Catheter Indwelling Catheter Indwelling Catheter # Voids 0 # Bowel Movements 0 0 - Exam PHYSICAL EXAM: VITAL SIGNS: [As above] GENERAL: Alert and oriented x 3, sitting up in bed, no acute distress HEENT: Normocephalic, conjunctivae normal. eyes normal. NECK: Supple, no JVD. No thyroid enlargement. No LNs CARDIOVASCULAR: S1, S2 regular. Systolic murmur RESPIRATION: Unlabored, equal air entry, essentially clear with breath sounds diminished in the bases. ABDOMEN: Soft, status post surgery, midline surgical dressing with shadowing ,no guarding. LEGS: No edema. no swelling NERVOUS SYSTEM: Cranial N 2-12 grossly normal. No focal deficits. Strength and sensation grossly intact. Skin: Warm and dry, no rash - Labs CBC & Chem 7: 11/16/23 07:51 11/16/23 07:51 Labs: Abnormal Lab Results - Last 24 Hours (Table) 11/15/23 11/15/23 11/16/23 Range/Units 21:32 22:11 07:51 WBC (3.8-10.6) k/uL RBC (4.30-5.90) m/uL Hgb (13.0-17.5) gm/dL Hct (39.0-53.0) % MCHC (31.0-37.0) g/dL Lymphocytes # (1.0-4.8) k/uL PT 15.5 H (10.0-12.5) sec INR 1.5 H (<1.2) Sodium (137-145) mmol/L Potassium 5.5 H (3.5-5.1) mmol/L Chloride (98-107) mmol/L Carbon Dioxide (22-30) mmol/L BUN (9-20) mg/dL Creatinine (0.66-1.25) mg/dL Glucose (74-99) mg/dL POC Glucose (mg/dL) 139 H (70-110) mg/dL Calcium (8.4-10.2) mg/dL 11/16/23 11/16/23 Range/Units 07:51 07:51 WBC 3.0 L (3.8-10.6) k/uL RBC 2.75 L (4.30-5.90) m/uL Hgb 7.9 L (13.0-17.5) gm/dL Hct 25.6 L (39.0-53.0) % MCHC 30.8 L (31.0-37.0) g/dL Lymphocytes # 0.4 L (1.0-4.8) k/uL PT (10.0-12.5) sec INR (<1.2) Sodium 136 L (137-145) mmol/L Potassium 5.7 H (3.5-5.1) mmol/L Chloride 114 H (98-107) mmol/L Carbon Dioxide 15 L (22-30) mmol/L BUN 22 H (9-20) mg/dL Creatinine 2.10 H (0.66-1.25) mg/dL Glucose 112 H (74-99) mg/dL POC Glucose (mg/dL) (70-110) mg/dL Calcium 8.1 L (8.4-10.2) mg/dL Assessment and Plan Assessment: Severe anemia secondary to acute GI bleed, status post EGD and colonoscopy; Upper endoscopy revealed 2.5 cm broad-based duodenal polyp in the second part of the duodenum opposite the ampullary orifice status post snare polypectomy and almost complete polypectomy performed. Small hiatal hernia. Colonoscopy revealed tight apple core ulcerated lesion in the mid transverse colon with significant luminal narrowing status post biopsy and tattooing. Scope could not be advanced beyond the lesion. CT abdomen pelvis without contrast reported a pple core lesion in the mid transverse colon with adjacent lymph nodes which are prominent concerning for primary adenocarcinoma with local metastatic disease. There is free air immediately adjacent to the lumen compatible with recent catheter tattoo during colonoscopy. Correlation for metastasis in the liver limited due to lack of IV contrast.Circumferential duodenal wall thickening correlate for duodenitis. Cholelithiasis. Infrarenal abdominal aortic aneurysm up to 3.2 cm. Right renal cyst. Status post transverse colectomy and partial omentectomy. 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 Surgical pathology pending. Urinary retention, post operative, requiring Villasenor catheter Acute renal failure, ATN secondary to the above as well as hypotension. Hyperkalemia secondary to all the above Metabolic acidosis secondary to acute renal failure Chronic persistent atrial fibrillation, INR supra therapeutic History of mitral valve repair and aortic valve replacement Cardiomyopathy, nonischemic, EF 40 to 45% PPM Hypertension Hyperlipidemia Plan: Continue on current medication regimen ,monitoring and symptomatic treatment. Bicarb drip -nephrology consult in place, recommendations pending. Entresto on hold related to hyperkalemia. Close monitoring of renal function with repeat labs ordered for a.m. Coumadin as per pharmacy dosing. Maintain PPI. Surgical pathology pending. The impression and plan of care has been dictated as directed. : I performed a history and examination of this patient, discussed the same with the dictator. I agree with the dictator's note ,documented as a scribe. Any additional findings or plans will be noted.
[2023-11-16] MEDS: WARFARIN 5 MG TAB PO ONE (16:40)
[2023-11-17 08:30] LABS: Basophils % (A) 0 %; Eosinophils % (A) 1 %; HCT 23.8 % (39.0-53.0); HGB 7.4 gm/dL (13.0-17.5); Hypochromasia Marked; Lymphocytes # (A) 0.4 k/uL (1.0-4.8); Lymphocytes % (A) 10 %; MCH 28.4 pg (25.0-35.0); MCHC 30.9 g/dL (31.0-37.0); MCV 91.9 fL (80.0-100.0); Mean Platelet Volume 7.5; Monocytes # (A) 0.5 k/uL (0-1.0); Monocytes % (A) 11 %; Neutrophils # (A) 3.1 k/uL (1.3-7.7); Neutrophils % (A) 75 %; Platelet Count 188 k/uL (150-450); Poikilocytosis Slight; RBC 2.59 m/uL (4.30-5.90); RDW 15.1 % (11.5-15.5); WBC 4.1 k/uL (3.8-10.6)
[2023-11-17 08:44] LABS: INR 2.4 (<1.2); Prothrombin Time 23.7 sec (10.0-12.5)
[2023-11-17 08:50] LABS: African American GFR (CKD) 35 (>60 ml/min/1.73 sqM); Anion Gap 4 mmol/L; Blood Urea Nitrogen 30 mg/dL (9-20); Calcium 7.7 mg/dL (8.4-10.2); Carbon Dioxide 22 mmol/L (22-30); Chloride 109 mmol/L (98-107); Glucose 137 mg/dL (74-99); Non-African American GFR(CKD) 30 (>60 ml/min/1.73 sqM); Sodium 135 mmol/L (137-145)
[2023-11-17] MEDS: carvediloL 3.125 MG TAB PO SCH (10:07)
--- NOTE | 2023-11-17 10:32 | P.PN ---
Subjective Patient is seen in follow-up for acute kidney injury on chronic kidney disease. Tolerating clear liquid diet. Renal function stable. Potassium level 5.0. Currently on bicarb drip. Has a Villasenor catheter. Nonoliguric. Vital signs are stable. General: No acute distress. HEENT: Head exam is unremarkable. LUNGS: No audible rhonchi or wheezes. HEART: Rate and Rhythm are regular. ABDOMEN: Nontender. Dressing noted. No drainage. EXTREMITITES: No edema. Chronic changes noted. Objective - Vital Signs Vital signs: Vital Signs Temp 98.4 F 11/17/23 07:52 Pulse 77 11/17/23 07:52 Resp 20 11/17/23 07:52 BP 99/61 11/17/23 07:52 Pulse Ox 96 11/17/23 07:52 FiO2 Intake & Output 11/16/23 11/17/23 11/17/23 18:59 06:59 18:59 Intake Total 10 200 Output Total 575 125 Balance -565 -125 200 Intake: IV 10 Invasive Line 4 10 Oral 200 Output: Urine 575 125 Other: Voiding Method Indwelling Catheter Indwelling Catheter - Labs CBC & Chem 7: 11/17/23 08:18 11/17/23 08:18 Labs: Abnormal Lab Results - Last 24 Hours (Table) 11/17/23 11/17/23 11/17/23 Range/Units 08:18 08:18 08:18 RBC 2.59 L (4.30-5.90) m/uL Hgb 7.4 L (13.0-17.5) gm/dL Hct 23.8 L (39.0-53.0) % MCHC 30.9 L (31.0-37.0) g/dL Lymphocytes # 0.4 L (1.0-4.8) k/uL PT 23.7 H (10.0-12.5) sec INR 2.4 H (<1.2) Sodium 135 L (137-145) mmol/L Chloride 109 H (98-107) mmol/L BUN 30 H (9-20) mg/dL Creatinine 1.97 H (0.66-1.25) mg/dL Glucose 137 H (74-99) mg/dL Calcium 7.7 L (8.4-10.2) mg/dL Assessment and Plan Plan: Assessment: 1. Acute kidney injury secondary to ATN secondary to hypotension and component of urinary retention. Renal function stable. No hydronephrosis noted on CAT scan. 2. Chronic kidney disease stage IIIa with baseline creatinine near 1.4 secondary to nephrosclerosis. 3. Hyperkalemia secondary to acute kidney injury, acidosis and Entresto. Better. 4. Metabolic acidosis secondary to acute kidney injury maintained on bicarb drip. Better. 5. Colon mass status post transverse colectomy and partial omentectomy. 6. Urinary retention. Has Villasenor catheter. On Flomax. 7. Acute GI bleed. 8. Chronic systolic CHF with ejection fraction of 40 to 45%. 9. Anemia of chronic kidney disease. Plan: Decrease rate of bicarb drip to 50 cc an hour. Diet to be advanced per surgery. Avoid nephrotoxins. Continue to monitor renal function and urine output. Check iron studies. Will add Aranesp if iron replete.
--- NOTE | 2023-11-17 12:09 | P.PN ---
Subjective Progress Note Date: 11/17/23 No acute events overnight. Patient states that his abdominal pain is improved. Admits to flatus but no bowel movement. Out of bed and up to chair this morning. No fevers or chills. No nausea or vomiting Objective - Vital Signs Vital signs: Vital Signs Temp 98.4 F 11/17/23 07:52 Pulse 77 11/17/23 07:52 Resp 20 11/17/23 07:52 BP 99/61 11/17/23 07:52 Pulse Ox 96 11/17/23 07:52 FiO2 Intake & Output 11/16/23 11/17/23 11/17/23 18:59 06:59 18:59 Intake Total 10 200 Output Total 575 125 Balance -565 -125 200 Intake: IV 10 Invasive Line 4 10 Oral 200 Output: Urine 575 125 Other: Voiding Method Indwelling Catheter Indwelling Catheter Indwelling Catheter - Exam Gen: AxO, NAD Pulm: non-labored respirations Abd: soft, mildly tender around incisions, mildly distended. No guarding/rebound/rigidity Extrem: no edema seen - Labs CBC & Chem 7: 11/17/23 08:18 11/17/23 08:18 Labs: Abnormal Lab Results - Last 24 Hours (Table) 11/17/23 11/17/23 11/17/23 Range/Units 08:18 08:18 08:18 RBC 2.59 L (4.30-5.90) m/uL Hgb 7.4 L (13.0-17.5) gm/dL Hct 23.8 L (39.0-53.0) % MCHC 30.9 L (31.0-37.0) g/dL Lymphocytes # 0.4 L (1.0-4.8) k/uL PT 23.7 H (10.0-12.5) sec INR 2.4 H (<1.2) Sodium 135 L (137-145) mmol/L Chloride 109 H (98-107) mmol/L BUN 30 H (9-20) mg/dL Creatinine 1.97 H (0.66-1.25) mg/dL Glucose 137 H (74-99) mg/dL Calcium 7.7 L (8.4-10.2) mg/dL Assessment and Plan Assessment: Patient is a 83-year-old male who is status post transverse colectomy with postoperative ileus Plan: -CLD as tolerated -IVF hydration -Encourage ambulation -PRN pain and nausea control -DVT/Gi PPx -No acute surgical intervention Francisco Javier Pierre MD General Surgery
--- NOTE | 2023-11-17 13:11 | P.PN ---
Subjective Progress Note Date: 11/17/23 This is an 83-year-old female past medical history significant for chronic persistent atrial fibrillation, CAD, hyperlipidemia, mitral valve prolapse, aortic valve replacement,PPM, cardiac ablation, cardiomyopathy, presented to the hospital with complaints of increasing generalized weakness, mild shortness of breath ;vague historian. discovered to have a hemoglobin of 6.7, INR 6.5. BUN 53, creatinine 2.28, bicarb 23 transfused with 1 unit packed RBCs as well as vitamin K in the ER. Repeat labs pending. denies nausea or vomiting but reported diarrhea dark black stools X months. Blood pressure soft, maintain O2 sats in the 90s on room air. Denies chest pain, palpitations or shortness of breath. 11/12/2023 NPO, completed prep, EGD and colonoscopy scheduled for early this afternoon. Anticoagulation remains on hold, continues on PPI. Reports no further bleeding or black, dark rectal output. Reports over the last 2 years he has lost 50 pounds, on a healthier diet. Hemoglobin with 7.6, platelet 182. renal function slowly improving, BUN 24, creatinine 1.64 denies chest pain, palpitations or shortness of breath. 11/14/2023 status post transverse colectomy and partial omentectomy, postop day #1. Reports "sore abdomen". Anticoagulation remains on hold. Receiving IV fluid hydration .reports occasional productive cough of phlegm .sitting up in chair.not passing flatus, advanced to clear liquids. Denies nausea or vomiting. Villasenor catheter recently DC'd this morning at 0600, not yet spontaneous voiding, bladder scan pending. BUN 18, creatinine 1.82. Received 1 unit packed RBCs y esterday for hemoglobin of 7.4, hemoglobin currently 8.9. Afebrile, WBC increased to 10.7. Sodium 136, potassium 5.7, bicarb 17. Pathology pending. 11/15/2023 IV fluid hydration. Blood pressure soft. Urinary retention, straight cath x 2 ,worsening renal function, creatinine up to 1.94, nephrology consulted. Hyperkalemic, potassium 5.9. Pain controlled. Reports not passing flatus. No bowel movement. Telemetry reporting paced rhythm .anticoagulation/Coumadin resuming tonight. 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 11/16/2023 Hemoglobin remains 7.9. Continues on IV fluid hydration .Maintained on Clear Liquid Diet, nauseated this morning. Blood sugars controlled. pain controlled. Passing minimal flatus, no bowel movement. Villasenor catheter placed yesterday secondary to urinary retention .renal ultrasound reported negative for obstructive uropathy, no hydronephrosis .blood pressures soft, improving. Renal function worsening, bicarb 15, 11/16. Patient seen and examined. Blood work done this morning showed WBC 4.1, hemoglobin 7.4, platelet count 188, sodium 135, potassium 5, BUN 30, creatinine 1.97. INR is 2.4. Patient sitting upright in the chair, passing gas, no bowel movement yet. Patient admits to poor appetite Physical exam Is alert and oriented x3, not in any acute distress. Well developed, well nourished. HEENT: Pupils are round and equally reacting to light. EOMI. No scleral icterus. No conjunctival pallor. Normocephalic, atraumatic. No pharyngeal erythema. No thyromegaly. CARDIOVASCULAR: S1 and S2 present. No murmurs, rubs, or gallops. PULMONARY: Chest is clear to auscultation, no wheezing or crackles. ABDOMEN: Soft, tender, surgical incision seen. No palpable organomegaly. MUSCULOSKELETAL: No joint swelling or deformity. EXTREMITIES: No cyanosis, clubbing, or pedal edema. NEUROLOGICAL: Gross neurological examination did not reveal any focal deficits. SKIN: No rashes. Assessment and plan Severe anemia secondary to acute GI bleed, status post EGD and colonoscopy; Upper endoscopy revealed 2.5 cm broad-based duodenal polyp in the second part of the duodenum opposite the ampullary orifice status post snare polypectomy and almost complete polypectomy performed. Small hiatal hernia. Colonoscopy revealed tight apple core ulcerated lesion in the mid transverse colon with significant luminal narrowing status post biopsy and tattooing. Status post transverse colectomy and partial omentectomy. 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 Surgical pathology pending. Urinary retention, post operative, requiring Villasenor catheter Acute renal failure, ATN secondary to the above as well as hypotension. Hyperkalemia secondary to all the above Metabolic acidosis secondary to acute renal failure Chronic persistent atrial fibrillation, INR supra therapeutic History of mitral valve repair and aortic valve replacement Cardiomyopathy, nonischemic, EF 40 to 45% PPM Hypertension Hyperlipidemia Monitor vital signs Monitor CBC Monitor CMP Continue telemetry monitoring Continue with IV fluids. Continue Coumadin pharmacy to dose Continue with Villasenor catheter Cardiology following Nephrology following Labs and medication were reviewed.. Continue same treatment. Continue with symptomatic treatment. Resume home medication. Monitor labs and vitals. DVT and GI prophylaxis. Further recommendations as per clinical course of the patient Dictation was produced using [employer] dictation software. please excuse any grammatical, word or spelling errors. Objective - Vital Signs Vital signs: Vital Signs Temp 98.4 F 11/17/23 07:52 Pulse 77 11/17/23 07:52 Resp 20 11/17/23 07:52 BP 99/61 11/17/23 07:52 Pulse Ox 96 11/17/23 07:52 FiO2 Intake & Output 11/16/23 11/17/23 11/17/23 18:59 06:59 18:59 Intake Total 10 200 Output Total 575 125 Balance -565 -125 200 Intake: IV 10 Invasive Line 4 10 Oral 200 Output: Urine 575 125 Other: Voiding Method Indwelling Catheter Indwelling Catheter - Labs CBC & Chem 7: 11/17/23 08:18 11/17/23 08:18 Labs: Abnormal Lab Results - Last 24 Hours (Table) 11/17/23 11/17/23 11/17/23 Range/Units 08:18 08:18 08:18 RBC 2.59 L (4.30-5.90) m/uL Hgb 7.4 L (13.0-17.5) gm/dL Hct 23.8 L (39.0-53.0) % MCHC 30.9 L (31.0-37.0) g/dL Lymphocytes # 0.4 L (1.0-4.8) k/uL PT 23.7 H (10.0-12.5) sec INR 2.4 H (<1.2) Sodium 135 L (137-145) mmol/L Chloride 109 H (98-107) mmol/L BUN 30 H (9-20) mg/dL Creatinine 1.97 H (0.66-1.25) mg/dL Glucose 137 H (74-99) mg/dL Calcium 7.7 L (8.4-10.2) mg/dL
[2023-11-17] MEDS ORDERED: carvediloL 3.125 MG TAB PO SCH (17:30)
[2023-11-17] MEDS: WARFARIN 3 MG TAB PO ONE (18:01)
[2023-11-17] MEDS: IPRATROPIUM-ALBUTEROL 3 ML NEB IH STA (21:00)
[2023-11-17 21:01] LABS: Glucose,Whole Blood 93 mg/dL (70-110)
--- NOTE | 2023-11-17 21:22 | P.EN ---
Paged by floor nurse regarding increased work of breathing. Saturations 98% on 2L NC but labored respirations. No emesis per nurse but increased abdominal distention. Hypotension with SBP ranging from 80-100s. Will order CTA chest for evaluation of pulmonary embolism. Insert NGT for decompression. Plan to transfer to ICU for monitoring. 1L bolus provided for hypotension. Francisco Javier Pierre MD General Surgery
--- NOTE | 2023-11-17 21:36 | XR ---
EXAMINATION TYPE: XR chest 1V portable DATE OF EXAM: 11/17/2023 9:32 PM CLINICAL INDICATION:Male, 83 years old with history of shortness of breath; [facility] COMPARISON: Chest radiographs from 11/16/2023 TECHNIQUE: XR chest 1V portable Frontal view of the chest. FINDINGS: Lungs/Pleura: Subsegmental atelectasis is identified. Subtle obscuration of the left costophrenic sul cus. No evidence of pneumothorax. Pulmonary vascularity: Mild pulmonary vascular congestion. Heart/mediastinum: Cardiomediastinal silhouette is enlarged and stable. Musculoskeletal: No acute osseous pathology. Midline sternotomy wires are noted. IMPRESSION: Trace left pleural effusion with stable cardiomegaly. Correlate with signs/symptoms of fluid overload .
[2023-11-17] MEDS: SODIUM CHLORIDE 0.9% 1,000 ML IV ONE (21:46)
[2023-11-17 22:33] LABS: Glucose,Whole Blood 85 mg/dL (70-110)
--- NOTE | 2023-11-17 22:50 | CT ---
EXAMINATION TYPE: CT chest angio for PE DATE OF EXAM: 11/17/2023 COMPARISON: NONE HISTORY: Hypotension and chest pain. Pulmonary embolism. CT DLP: 1980.9 mGycm. Automated Exposure Control for Dose Reduction was Utilized. CONTRAST: CTA scan of the thorax is performed with IV Contrast, patient injected with 100 mL of Isovue 370, pul monary embolism protocol. MIP Images are created on CT scanner and reviewed. FINDINGS: Exam is suboptimal as patient unable to hold breath, this limits evaluation particularly fo r subcentimeter nodule LUNGS: There is small right pleural effusion and tiny left pleural effusion. There is associated comp ressive atelectasis. No pneumothorax is seen bilaterally. MEDIASTINUM: There is satisfactory enhancement of the pulmonary artery and its branches, there is no CT evidence for pulmonary embolism. Some enhancement of the aorta without aneurysm or dissection. Ove rlying sternal wires are seen. Surgical change at level of aortic valve is noted. There is a single-l ead pacemaker identified. Cardiomegaly is present. No pericardial effusion is seen. Coronary artery c alcification is present. OTHER: Please refer to same day CT abdomen and pelvis report for complete details on the upper lungs. Small degree of bilateral subareolar gynecomastia is noted. IMPRESSION: 1. No CT evidence for acute pulmonary embolism. 2. Cardiomegaly with small to tiny right greater than left pleural effusions.
[2023-11-17 23:04] LABS: % Iron Saturation 3.38 (15.00-50.00)
--- NOTE | 2023-11-17 23:21 | CT ---
EXAMINATION TYPE: CT abdomen pelvis wo con DATE OF EXAM: 11/17/2023 HISTORY: Abdominal pain and hypotension CT DLP: 997.1 mGycm. Automated Exposure Control for Dose Reduction was Utilized. TECHNIQUE: CT scan of the abdomen and pelvis is performed without oral or IV contrast. COMPARISON: Recent CT 5 days earlier FINDINGS: Within the limitations of a non-contrast study, the following observations are made. LUNG BASES: Please refer to same day CTA chest report for complete details on the lung bases. LIVER/GB: Increasing adjacent ascites is seen. Single calcification in the liver axial image 23 redem onstrated PANCREAS: Mild generalized atrophy redemonstrated. SPLEEN: Increasing adjacent ascites. ADRENALS: No significant abnormality is seen. KIDNEYS: Cortical thinning bilaterally redemonstrated. Large exophytic thin-walled cyst lower pole of the right kidney redemonstrated. Villasenor catheter decompresses bladder on current study. BOWEL: Oral contrast from prior study is progressed to level of the colon. No abnormal small or large bowel dilatation. Mild to moderate fluid distended stomach on current study. Duodenal jejunal juncti on does not extend to level of the gastric antrum on current study consistent with underlying malrota tion. There is fecal prominent proximal jejunal loop in the left mid to lower abdomen with vasa engor gement. Suspected apple core type lesion in the mid transverse colon is less well seen on current carson dy. Interval surgery to this level is noted. New significant free air is identified greatest in the m id to lower abdomen. There is note of recent surgery with overlying vertical oriented skin saran. GENITAL ORGANS: No gross abnormality seen. LYMPH NODES: No greater than 1cm abdominal or pelvic lymph nodes are appreciated. OSSEOUS STRUCTURES: No significant abnormality is seen. OTHER: Moderate to severe calcified plaque of the aorta extends into branch vessels is redemonstrated . Aneurysm up to 3.5 cm AP diameter axial image 49 is redemonstrated. Moderate diffuse subcutaneous e chalo on current study IMPRESSION: 1. Increasing subcutaneous edema and upper abdominal ascites likely corresponds to desired fluid over load state. 2. Free air is present but patient has interval open abdominal surgery which could account for findin gs. Overall nonobstructive bowel gas pattern. Cannot exclude enteritis and/or partial proximal small bowel obstruction.
[2023-11-17 23:37] LABS: ALT 12 U/L (4-49); AST 17 U/L (17-59); African American GFR (CKD) 28 (>60 ml/min/1.73 sqM); Albumin 2.1 g/dL (3.5-5.0); Alkaline Phosphatase 80 U/L (38-126); Anion Gap 10 mmol/L; Blood Urea Nitrogen 35 mg/dL (9-20); Calcium 7.4 mg/dL (8.4-10.2); Carbon Dioxide 17 mmol/L (22-30); Chloride 106 mmol/L (98-107); Glucose 84 mg/dL (74-99); Non-African American GFR(CKD) 25 (>60 ml/min/1.73 sqM); Potassium 5.2 mmol/L (3.5-5.1); Sodium 133 mmol/L (137-145); Total Bilirubin 1.7 mg/dL (0.2-1.3); Total Protein 4.6 g/dL (6.3-8.2)
--- NOTE | 2023-11-17 23:41 | XR ---
EXAMINATION TYPE: XR chest 1V portable DATE OF EXAM: 11/17/2023 CLINICAL HISTORY: NG tube placement. TECHNIQUE: Single AP portable upright view of the chest is obtained. COMPARISON: Chest x-ray from earlier today FINDINGS: There is a new nasogastric tube projecting just below diaphragm. Gas-distended stomach is partially imaged. Free air consistent with recent surgery is noted below the diaphragm. Overlying st ernal wires are redemonstrated. Persistent cardiomegaly and single lead pacemaker and atherosclerotic thoracic aorta. Persistent left basilar opacity. Osseous structures are intact. IMPRESSION: New nasogastric tube extends below diaphragm.
[2023-11-17 23:42] LABS: Basophils % (A) 0 %; Eosinophils % (A) 0 %; HCT 25.1 % (39.0-53.0); HGB 7.7 gm/dL (13.0-17.5); Hypochromasia Marked; Lymphocytes # (A) 0.3 k/uL (1.0-4.8); Lymphocytes % (A) 7 %; MCH 28.3 pg (25.0-35.0); MCHC 30.6 g/dL (31.0-37.0); MCV 92.6 fL (80.0-100.0); Mean Platelet Volume 7.8; Monocytes # (A) 0.4 k/uL (0-1.0); Monocytes % (A) 9 %; Neutrophils # (A) 3.4 k/uL (1.3-7.7); Neutrophils % (A) 80 %; Platelet Count 184 k/uL (150-450); Poikilocytosis Slight; RBC 2.71 m/uL (4.30-5.90); RDW 15.1 % (11.5-15.5); WBC 4.3 k/uL (3.8-10.6)
[2023-11-17] MEDS: MIDODRINE 5 MG TAB PO SCH (23:44)
[2023-11-18] MEDS: SODIUM CHLORIDE 0.9% 1,000 ML IV ONE (00:38)
[2023-11-18] MEDS: ALBUMIN HUMAN 25% 50 ML in EMPTY BAG 1 BAG IVPB ONE (03:25)
[2023-11-18] MEDS: NOREPINEPHRINE 4 MG in SODIUM CHLORIDE 0.9% 250 ML IV SCH (04:03)
[2023-11-18 04:47] LABS: Basophils % (A) 0 %; Eosinophils % (A) 0 %; HGB 7.4 gm/dL (13.0-17.5); Hypochromasia Marked; Lymphocytes # (A) 0.3 k/uL (1.0-4.8); Lymphocytes % (A) 6 %; MCH 28.4 pg (25.0-35.0); MCHC 30.7 g/dL (31.0-37.0); MCV 92.4 fL (80.0-100.0); Mean Platelet Volume 7.8; Monocytes # (A) 0.4 k/uL (0-1.0); Monocytes % (A) 8 %; Neutrophils # (A) 4.2 k/uL (1.3-7.7); Neutrophils % (A) 83 %; Platelet Count 172 k/uL (150-450); Poikilocytosis Slight
[2023-11-18 04:59] LABS: INR 3.5 (<1.2); Prothrombin Time 34.5 sec (10.0-12.5)
[2023-11-18 05:17] LABS: African American GFR (CKD) 32 (>60 ml/min/1.73 sqM); Anion Gap 10 mmol/L; Blood Urea Nitrogen 37 mg/dL (9-20); Calcium 7.4 mg/dL (8.4-10.2); Carbon Dioxide 17 mmol/L (22-30); Chloride 108 mmol/L (98-107); Glucose 95 mg/dL (74-99); Magnesium 1.6 mg/dL (1.6-2.3); Non-African American GFR(CKD) 28 (>60 ml/min/1.73 sqM); Potassium 5.5 mmol/L (3.5-5.1); Sodium 135 mmol/L (137-145)
[2023-11-18 05:20] LABS: ALT 12 U/L (4-49); AST 21 U/L (17-59); African American GFR (CKD) 31 (>60 ml/min/1.73 sqM); Albumin 2.2 g/dL (3.5-5.0); Alkaline Phosphatase 75 U/L (38-126); Anion Gap 8 mmol/L; Blood Urea Nitrogen 37 mg/dL (9-20); Calcium 7.4 mg/dL (8.4-10.2); Carbon Dioxide 17 mmol/L (22-30); Chloride 109 mmol/L (98-107); Glucose 95 mg/dL (74-99); Lipase 35 U/L (23-300); Non-African American GFR(CKD) 27 (>60 ml/min/1.73 sqM); Potassium 5.5 mmol/L (3.5-5.1); Sodium 134 mmol/L (137-145); Total Bilirubin 1.6 mg/dL (0.2-1.3); Total Protein 4.7 g/dL (6.3-8.2)
--- NOTE | 2023-11-18 09:05 | XR ---
EXAMINATION TYPE: XR chest 1V DATE OF EXAM: 11/18/2023 COMPARISON: 11/16/2023 HISTORY: Abdominal distention post colectomy TECHNIQUE: Single frontal view of the chest is obtained. FINDINGS: There is an NG tube within the stomach. There is a single-lead cardiac pacemaker. The heart is moderately enlarged and there is mild pulmonary vascular congestion. There is no large pleural effusion and no pneumothorax. The osseous structures are intact. There is air beneath the right hemidiaphragm which could represent colonic interposition but free int raperitoneal air is not excluded. IMPRESSION: 1. Findings most consistent with mild CHF. 2. Interval placement of an NG tube which is within the stomach. 3. Air beneath the right hemidiaphragm possibly indicating colonic interposition with free air not ex cluded.
--- NOTE | 2023-11-18 09:07 | XR ---
Comment: HISTORY: Abdominal distention COMPARISON: None TECHNIQUE: 2 supine AP views of the abdomen were obtained. FINDINGS: Lung bases are clear. There is an NG tube within the stomach. There are skin saran in the midline abdomen indicating recent abdominal surgery. There is contrast within the descending colon, sigmoid colon and rectum. The bowel gas pattern is nonspecific and there is no evidence of obstruction. IMPRESSION: 1. NG tube within the stomach. 2. Contrast in the mid and distal colon from prior CT abdomen and pelvis. 3. Nonspecific bowel gas pattern without evidence of obstruction.
[2023-11-18] MEDS: ERTAPENEM 0.5 GM in SODIUM CHLORIDE 0.9% 50 ML IVPB SCH (10:23)
--- NOTE | 2023-11-18 10:49 | P.PN ---
Subjective Patient is seen in follow-up for acute kidney injury on chronic kidney disease. Renal function fairly stable. Patient became hypotensive yesterday and was transferred to the ICU. Currently on Levophed. Has an NG tube for bowel obstruction. Vital signs are stable. General: No acute distress. HEENT: Head exam is unremarkable. NG tube noted. LUNGS: No audible rhonchi or wheezes. HEART: Rate and Rhythm are regular. ABDOMEN: Nontender. Dressing noted. No drainage. EXTREMITITES: 1+ edema. Chronic changes noted. Objective - Vital Signs Vital signs: Vital Signs Temp 97.9 F 11/18/23 08:00 Pulse 74 11/18/23 10:30 Resp 18 11/18/23 10:30 BP 101/47 11/18/23 10:30 Pulse Ox 98 11/18/23 10:30 FiO2 Intake & Output 11/17/23 11/18/23 11/18/23 18:59 06:59 18:59 Intake Total 400 2400 230.802 Output Total 300 680 82 Balance 100 1720 148.802 Weight 99.2 kg Intake: IV 2400 200 Albumin Human 25% 50 ml 50 In Empty Bag 1 bag @ 50 mls/hr IVPB ONCE ONE Rx#: [id number] Dextrose 5% in Water 1, 350 200 000 ml @ 50 mls/hr IV . Q23H ALONDRA with Sodium Bicarb (1 Meq/ml) 150 ml Rx#:[id number] Sodium Chloride 0.9% 1, 1000 000 ml @ 999 mls/hr IV . Q1H1M ONE Rx#:[id number] Sodium Chloride 0.9% 1, 1000 000 ml @ 999 mls/hr IV . Q1H1M ONE Rx#:[id number] Intake, IV Titration 30.802 Amount Norepinephrine 4 mg In 30.802 Sodium Chloride 0.9% 250 ml @ 0.03 MCG/KG/MIN 9. 727 mls/hr IV .Q24H ALONDRA Rx#:[id number] Oral 400 Output: Gastric Drainage 600 Urine 300 80 82 Other: Voiding Method Indwelling Catheter Indwelling Catheter - Labs CBC & Chem 7: 11/18/23 04:02 11/18/23 04:02 Labs: Abnormal Lab Results - Last 24 Hours (Table) 11/17/23 11/17/23 11/17/23 Range/Units 08:18 23:05 23:05 RBC 2.71 L (4.30-5.90) m/uL Hgb 7.7 L (13.0-17.5) gm/dL Hct 25.1 L (39.0-53.0) % MCHC 30.6 L (31.0-37.0) g/dL Lymphocytes # 0.3 L (1.0-4.8) k/uL PT (10.0-12.5) sec INR (<1.2) Sodium 133 L (137-145) mmol/L Potassium 5.2 H (3.5-5.1) mmol/L Chloride (98-107) mmol/L Carbon Dioxide 17 L (22-30) mmol/L BUN 35 H (9-20) mg/dL Creatinine 2.34 H (0.66-1.25) mg/dL Calcium 7.4 L (8.4-10.2) mg/dL Iron 9 L (65-175) UG/DL % Saturation 3.38 L (15.00-50.00) Transferrin 190.0 L (204.0-354.0) mg/dL Total Bilirubin 1.7 H (0.2-1.3) mg/dL Total Protein 4.6 L (6.3-8.2) g/dL Albumin 2.1 L (3.5-5.0) g/dL 11/18/23 11/18/23 11/18/23 Range/Units 04:02 04:02 04:02 RBC 2.60 L (4.30-5.90) m/uL Hgb 7.4 L (13.0-17.5) gm/dL Hct 24.0 L (39.0-53.0) % MCHC 30.7 L (31.0-37.0) g/dL Lymphocytes # 0.3 L (1.0-4.8) k/uL PT 34.5 H (10.0-12.5) sec INR 3.5 H (<1.2) Sodium 135 L (137-145) mmol/L Potassium 5.5 H (3.5-5.1) mmol/L Chloride 108 H (98-107) mmol/L Carbon Dioxide 17 L (22-30) mmol/L BUN 37 H (9-20) mg/dL Creatinine 2.11 H (0.66-1.25) mg/dL Calcium 7.4 L (8.4-10.2) mg/dL Iron (65-175) UG/DL % Saturation (15.00-50.00) Transferrin (204.0-354.0) mg/dL Total Bilirubin (0.2-1.3) mg/dL Total Protein (6.3-8.2) g/dL Albumin (3.5-5.0) g/dL 11/18/23 Range/Units 04:02 RBC (4.30-5.90) m/uL Hgb (13.0-17.5) gm/dL Hct (39.0-53.0) % MCHC (31.0-37.0) g/dL Lymphocytes # (1.0-4.8) k/uL PT (10.0-12.5) sec INR (<1.2) Sodium 134 L (137-145) mmol/L Potassium 5.5 H (3.5-5.1) mmol/L Chloride 109 H (98-107) mmol/L Carbon Dioxide 17 L (22-30) mmol/L BUN 37 H (9-20) mg/dL Creatinine 2.17 H (0.66-1.25) mg/dL Calcium 7.4 L (8.4-10.2) mg/dL Iron (65-175) UG/DL % Saturation (15.00-50.00) Transferrin (204.0-354.0) mg/dL Total Bilirubin 1.6 H (0.2-1.3) mg/dL Total Protein 4.7 L (6.3-8.2) g/dL Albumin 2.2 L (3.5-5.0) g/dL Assessment and Plan Plan: Assessment: 1. Acute kidney injury secondary to ATN secondary to hypotension and component of urinary retention. Also received IV contrast on November 17, 2023. Renal function stable. No hydronephrosis noted on CAT scan. 2. Chronic kidney disease stage IIIa with baseline creatinine near 1.4 secondary to nephrosclerosis. 3. Hyperkalemia secondary to acute kidney injury, acidosis and Entresto. 4. Metabolic acidosis secondary to acute kidney injury maintained on bicarb drip. 5. Colon mass status post transverse colectomy and partial omentectomy. 6. Urinary retention. Has Villasenor catheter. On Flomax. 7. Acute GI bleed. 8. Chronic systolic CHF with ejection fraction of 40 to 45%. 9. Anemia of chronic kidney disease. Iron deficiency noted. 10. Volume overload. Plan: Lasix 40 mg IV once today. 2 g sodium bicarb IV push now. Repeat BMP this evening. Diet to be advanced per surgery. Avoid nephrotoxins. Continue to monitor renal function and urine output. Add Aranesp. Hold off on IV iron at this time.
--- NOTE | 2023-11-18 10:52 | P.PN ---
Subjective Progress Note Date: 11/18/23 Patient has been transferred to the ICU due to hemodynamic instability on the floor. He is in the ICU a nasogastric tube. Over 700 cc bilious content. He is more comfortable today than last night. He had passage of flatus prior to transfer to the ICU. He denies diffuse abdominal pain. He is status post transverse colectomy. CT of the abdomen pelvis independently reviewed demonstrates moderate ileus. Contrast extends to the colon. This is my independent or potation. Abdominal x-ray also reviewed demonstrates no diffuse large free air. Overall, patient clinically stable and comfortable. Clinical features more consistent with moderate to severe ileus. Continue bowel rest. Continue nasog astric tube. May have lozenges including Chloraseptic spray for NG tube irritation as well as ice chips. Recommend avoid Reglan due to recent cardiac instability Objective - Vital Signs Vital signs: Vital Signs Temp 97.9 F 11/18/23 08:00 Pulse 74 11/18/23 10:30 Resp 18 11/18/23 10:30 BP 101/47 11/18/23 10:30 Pulse Ox 98 11/18/23 10:30 FiO2 Intake & Output 11/17/23 11/18/23 11/18/23 18:59 06:59 18:59 Intake Total 400 2400 230.802 Output Total 300 680 82 Balance 100 1720 148.802 Weight 99.2 kg Intake: IV 2400 200 Albumin Human 25% 50 ml 50 In Empty Bag 1 bag @ 50 mls/hr IVPB ONCE ONE Rx#: [id number] Dextrose 5% in Water 1, 350 200 000 ml @ 50 mls/hr IV . Q23H ALONDRA with Sodium Bicarb (1 Meq/ml) 150 ml Rx#:[id number] Sodium Chloride 0.9% 1, 1000 000 ml @ 999 mls/hr IV . Q1H1M ONE Rx#:[id number] Sodium Chloride 0.9% 1, 1000 000 ml @ 999 mls/hr IV . Q1H1M ONE Rx#:[id number] Intake, IV Titration 30.802 Amount Norepinephrine 4 mg In 30.802 Sodium Chloride 0.9% 250 ml @ 0.03 MCG/KG/MIN 9. 727 mls/hr IV .Q24H ALONDRA Rx#:[id number] Oral 400 Output: Gastric Drainage 600 Urine 300 80 82 Other: Voiding Method Indwelling Catheter Indwelling Catheter - Labs CBC & Chem 7: 11/18/23 04:02 11/18/23 04:02 Labs: Abnormal Lab Results - Last 24 Hours (Table) 11/17/23 11/17/23 11/17/23 Range/Units 08:18 23:05 23:05 RBC 2.71 L (4.30-5.90) m/uL Hgb 7.7 L (13.0-17.5) gm/dL Hct 25.1 L (39.0-53.0) % MCHC 30.6 L (31.0-37.0) g/dL Lymphocytes # 0.3 L (1.0-4.8) k/uL PT (10.0-12.5) sec INR (<1.2) Sodium 133 L (137-145) mmol/L Potassium 5.2 H (3.5-5.1) mmol/L Chloride (98-107) mmol/L Carbon Dioxide 17 L (22-30) mmol/L BUN 35 H (9-20) mg/dL Creatinine 2.34 H (0.66-1.25) mg/dL Calcium 7.4 L (8.4-10.2) mg/dL Iron 9 L (65-175) UG/DL % Saturation 3.38 L (15.00-50.00) Transferrin 190.0 L (204.0-354.0) mg/dL Total Bilirubin 1.7 H (0.2-1.3) mg/dL Total Protein 4.6 L (6.3-8.2) g/dL Albumin 2.1 L (3.5-5.0) g/dL 11/18/23 11/18/23 11/18/23 Range/Units 04:02 04:02 04:02 RBC 2.60 L (4.30-5.90) m/uL Hgb 7.4 L (13.0-17.5) gm/dL Hct 24.0 L (39.0-53.0) % MCHC 30.7 L (31.0-37.0) g/dL Lymphocytes # 0.3 L (1.0-4.8) k/uL PT 34.5 H (10.0-12.5) sec INR 3.5 H (<1.2) Sodium 135 L (137-145) mmol/L Potassium 5.5 H (3.5-5.1) mmol/L Chloride 108 H (98-107) mmol/L Carbon Dioxide 17 L (22-30) mmol/L BUN 37 H (9-20) mg/dL Creatinine 2.11 H (0.66-1.25) mg/dL Calcium 7.4 L (8.4-10.2) mg/dL Iron (65-175) UG/DL % Saturation (15.00-50.00) Transferrin (204.0-354.0) mg/dL Total Bilirubin (0.2-1.3) mg/dL Total Protein (6.3-8.2) g/dL Albumin (3.5-5.0) g/dL 11/18/23 Range/Units 04:02 RBC (4.30-5.90) m/uL Hgb (13.0-17.5) gm/dL Hct (39.0-53.0) % MCHC (31.0-37.0) g/dL Lymphocytes # (1.0-4.8) k/uL PT (10.0-12.5) sec INR (<1.2) Sodium 134 L (137-145) mmol/L Potassium 5.5 H (3.5-5.1) mmol/L Chloride 109 H (98-107) mmol/L Carbon Dioxide 17 L (22-30) mmol/L BUN 37 H (9-20) mg/dL Creatinine 2.17 H (0.66-1.25) mg/dL Calcium 7.4 L (8.4-10.2) mg/dL Iron (65-175) UG/DL % Saturation (15.00-50.00) Transferrin (204.0-354.0) mg/dL Total Bilirubin 1.6 H (0.2-1.3) mg/dL Total Protein 4.7 L (6.3-8.2) g/dL Albumin 2.2 L (3.5-5.0) g/dL
[2023-11-18] MEDS: SODIUM BICARB 8.4% 50 ML SYR (1 MEQ/ML) IV STA (11:32)
[2023-11-18] MEDS: FUROSEMIDE 10 MG/ML 4 ML VIAL IV STA (11:33)
--- NOTE | 2023-11-18 11:34 | P.CNPUL ---
History of Present Illness Consult date: 11/18/23 Chief complaint: Abdominal pain/distention History of present illness: This is a 83-year-old male patient was transferred to the intensive care unit yesterday as the patient developed significant abdominal distention and hypotension. The patient has a colonic mass and the patient has undergone transverse colectomy and surgery was done on 11/13/2023.. For now, the patient is postop day #4. The abdomen was firm and quite distended. Immediately, a stat CAT scan of the abdomen was done and the patient was found to have pneumoperitoneum and this was suspected to be related to previous surgery. There was also nonobstructive bowel gas pattern with significant gastric distention and partial small bowel obstruction cannot be completely excluded. At that point, NG tube was inserted and immediately 600 cc of output was obtained. Abdomen is still distended although less compared to yesterday. No flatus. Bowel sounds are absent. General surgery is on the case. White cell count not elevated. Lactic acid level is low at 1.3. Note that postop, the patient's renal function remained stable. The patient has chronic stage III kidney disease and the creatinine today is up to 2.17 and a sodium levels at 134 with a potassium level of 5.5. Serum bicarb is at 17. Nephrology on the case. The patient is currently on a bicarb infusion which is running at 50 cc an hour. He has history of paroxysmal atrial fibrillation. He is on anticoagulation with warfarin. Coumadin is on hold and the patient's INR today is at 3.5. The respiratory status is stable. No significant shortness of breath. The patient is currently on 3 L of oxygen by nasal cannula with a pulse ox of 98%. Repeat chest film of the abdomen was done today that showed NG tube being in place. There is contrast in the mid and the distal colon and nonspecific bowel gas pattern and the patient's chest x-ray from today is showing cardiomegaly. NG tube is in place. There is air under the right hemidiaphragm. The patient was seen by 2 separate general surgeons and no surgical intervention is required at this point in time. Will monitor and will put the bowel to rest. The patient has likely small bowel ileus. Review of Systems Constitutional: Reports fatigue, Reports weakness Eyes: denies as per HPI, denies blurred vision, denies bulging eye, denies decreased vision, denies diplopia, denies discharge, denies dry eye, denies irritation, denies itching, denies pain, denies photophobia, denies loss of peripheral vision, denies loss of vision, denies tunnel vision/blind spots Ears: deny: decreased hearing, ear discharge, earache, tinnitus Ears, nose, mouth and throat: Reports as per HPI Breasts: absent: as per HPI, gynecomastia Cardiovascular: Reports decreased exercise tolerance, Reports dyspnea on exertion, Reports irregular heart beat, Reports shortness of breath Respiratory: Reports as per HPI, Reports dyspnea Gastrointestinal: Reports as per HPI (Abdominal distention and NG tube in place), Reports abdominal pain Genitourinary: Reports as per HPI Musculoskeletal: Reports as per HPI Musculoskeletal: bilateral: ankle swelling, absent: ankle pain, ankle stiffness Integumentary: Reports as per HPI Neurological: Reports as per HPI Psychiatric: Reports as per HPI Endocrine: Reports as per HPI Hematologic/Lymphatic: Reports as per HPI Allergic/Immunologic: Reports as per HPI Past Medical History Past Medical History: Atrial Fibrillation, Coronary Artery Disease (CAD), Heart Failure, Hyperlipidemia, Hypertension, Mitral Valve Prolapse (MVP), Osteoarthritis (OA), Renal Disease (CKD stage 3) Additional Past Medical History / Comment(s): pacemaker, valvular heart disease and the patient is undergoing aortic valve replacement and mitral valve repair in 2018. Anemia of chronic disease and blood loss. Ischemic cardiomyopathy with impaired left-ventricular ejection fraction of 40 to 45% based on echocardiogram that was done June 2023. The patient also has moderate tricuspid regurgitation. He has undergone previous aortic valve replacement and mitral valve repair History of Any Multi-Drug Resistant Organisms: None Reported Past Surgical History: Cardiac Ablation, Cardiac Valve Replacement, Heart Catheterization Additional Past Surgical History / Comment(s): CARIOVERSIONS. AORTA VALVE REPLACED/MITRAL VALVE REPAIRED @ [facility] ON JANUARY [id number]. pacer, EF 30% Past Anesthesia/Blood Transfusion Reactions: No Reported Reaction Past Psychological History: No Psychological Hx Reported Smoking Status: Never smoker Past Alcohol Use History: Rare Past Drug Use History: None Reported - Past Family History Mother Family Medical History: CVA/TIA, Myocardial Infarction ([place]) Father Family Medical History: Myocardial Infarction ([place]) Brother(s) Family Medical History: CVA/TIA Medications and Allergies Home Medications Medication Instructions Recorded Confirmed Type Simvastatin [Zocor] 40 mg PO HS 10/26/14 11/08/23 History Empagliflozin [Jardiance] 10 mg PO DAILY 11/08/23 11/08/23 History Sacubitril/Valsartan [Entresto 24 1 tab PO BID 11/08/23 11/08/23 History mg-26 mg Tablet] carvediloL [Coreg] 12.5 mg PO BID 11/08/23 11/08/23 History Allergies Allergy/AdvReac Type Severity Reaction Status Date / Time cephalexin monohydrate Allergy Severe Rash/Hives Verified 11/13/23 14:43 [From Keflex] Penicillins Allergy Severe Rash/Hives Verified 11/13/23 14:43 propylene glycol Allergy Severe Anaphylaxis Verified 11/13/23 14:43 bacitracin Allergy Rash/Hives Verified 11/13/23 14:43 [From Neosporin ([id number])] bacitracin zinc Allergy Rash/Hives Verified 11/13/23 14:43 [From Neosporin ([id number])] chloramphenicol Allergy Rash/Hives Verified 11/13/23 14:43 [From Chloromycetin] chloramphenicol sod succ Allergy Rash/Hives Verified 11/13/23 14:43 [From Chloromycetin] ciprofloxacin [From Cipro] Allergy Rash/Hives Verified 11/13/23 14:43 ciprofloxacin HCl Allergy Rash/Hives Verified 11/13/23 14:43 [From Cipro] mercury (elemental) Allergy Rash/Hives Verified 11/13/23 14:43 neomycin Allergy Rash/Hives Verified 11/13/23 14:43 neomycin sulfate Allergy Rash/Hives Verified 11/13/23 14:43 [From Neosporin ([id number])] polymyxin B Allergy Rash/Hives Verified 11/13/23 14:43 [From Neosporin ([id number])] Physical Exam Vitals: Vital Signs Temp Pulse Pulse Resp BP BP BP 11/18/23 07:00 75 18 97/46 11/18/23 06:45 81 24 100/53 11/18/23 06:30 73 16 95/52 11/18/23 06:15 22 103/48 11/18/23 06:00 74 18 99/53 03/24/24 05:45 100 27 H 93/40 11/18/23 05:30 67 20 91/53 11/18/23 05:15 84 13 100/44 11/18/23 05:00 90 14 90/45 11/18/23 04:45 81 17 95/47 11/18/23 04:30 74 12 99/50 11/18/23 04:15 77 26 H 89/48 11/18/23 04:00 98.0 F 83 18 82/40 11/18/23 03:45 75 22 90/45 11/18/23 03:30 72 20 90/47 11/18/23 03:15 76 13 84/54 11/18/23 03:00 89 18 82/57 11/18/23 02:45 66 22 82/51 11/18/23 02:30 74 19 86/46 11/18/23 02:15 84 23 84/46 11/18/23 02:00 84 23 87/43 11/18/23 01:45 82 20 90/43 11/18/23 01:30 85 24 96/44 11/18/23 00:02 79 22 79/45 11/18/23 00:00 92 24 95/50 11/17/23 21:12 65 11/17/23 21:05 94/51 11/17/23 21:00 68 92/53 11/17/23 20:57 88/51 11/17/23 20:48 77/46 11/17/23 20:36 98 86/51 11/17/23 20:31 102/58 11/17/23 20:24 80/50 11/17/23 20:00 97.5 F L 99 28 H 83/46 89/53 11/17/23 14:48 97.9 F 96 22 127/67 11/17/23 12:31 69 18 93/55 Pulse Ox 11/18/23 07:00 97 11/18/23 06:45 97 11/18/23 06:30 96 11/18/23 06:15 96 11/18/23 06:00 96 11/18/23 05:45 98 11/18/23 05:30 96 11/18/23 05:15 97 11/18/23 05:00 98 11/18/23 04:45 97 11/18/23 04:30 97 11/18/23 04:15 95 11/18/23 04:00 96 11/18/23 03:45 96 11/18/23 03:30 95 11/18/23 03:15 95 11/18/23 03:00 97 11/18/23 02:45 97 11/18/23 02:30 96 11/18/23 02:15 95 11/18/23 02:00 96 11/18/23 01:45 96 11/18/23 01:30 95 11/18/23 00:02 97 11/18/23 00:00 96 11/17/23 21:12 11/17/23 21:05 11/17/23 21:00 11/17/23 20:57 11/17/23 20:48 11/17/23 20:36 11/17/23 20:31 11/17/23 20:24 11/17/23 20:00 98 11/17/23 14:48 97 11/17/23 12:31 98 Intake and Output 11/17/23 11/18/23 11/18/23 22:59 06:59 14:59 Intake Total 0 2400 80.802 Output Total 300 680 Balance -300 1720 80.802 Intake: IV 2400 50 Albumin Human 25% 50 ml 50 In Empty Bag 1 bag @ 50 mls/hr IVPB ONCE ONE Rx#: [id number] Dextrose 5% in Water 1, 350 50 000 ml @ 50 mls/hr IV . Q23H ALONDRA with Sodium Bicarb (1 Meq/ml) 150 ml Rx#:[id number] Sodium Chloride 0.9% 1, 1000 000 ml @ 999 mls/hr IV . Q1H1M ONE Rx#:[id number] Sodium Chloride 0.9% 1, 1000 000 ml @ 999 mls/hr IV . Q1H1M ONE Rx#:[id number] Intake, IV Titration 30.802 Amount Norepinephrine 4 mg In 30.802 Sodium Chloride 0.9% 250 ml @ 0.03 MCG/KG/MIN 9. 727 mls/hr IV .Q24H ALONDRA Rx#:[id number] Oral 0 Output: Gastric Drainage 600 Urine 300 80 Other: Voiding Method Indwelling Catheter Indwelling Catheter Weight 99.2 kg General appearance the patient is calm and comfortable, NG tube is in place and the patient is not having any respite difficulties at this point in time and 3 L of oxygen by nasal cannula. Head exam was generally normal. There was no scleral icterus or corneal arcus. Mucous membranes were moist. Neck was supple and without jugular venous distension, thyromegaly, or carotid bruits. Carotids were easily palpable bilaterally. There was no adenopathy. Lung sounds are diminished bilaterally and few bibasilar crackles Cardiac exam revealed the PMI to be normally situated and sized. The rhythm was regular and no extrasystoles were noted during several minutes of auscultation. The first and second heart sounds were normal and physiologic splitting of the second heart sound was noted. There were no murmurs, rubs, clicks, or gallops. Abdomen remains distended and mildly tender. No rebound tenderness or guarding. Absent bowel sounds. Organs cannot be palpated. Examination of the extremities revealed easily palpable radial, femoral and pedal pulses. There was no cyanosis, clubbing or edema. Examination of the skin revealed no evidence of significant rashes, suspicious appearing nevi or other concerning lesions. Neurologically, the patient is awake and alert and the patient does not have any focal neurological deficit. Cranial nerves are essentially intact. Results - Laboratory Findings CBC and BMP: 11/18/23 04:02 11/18/23 04:02 PT/INR, D-dimer PT 34.5 sec (10.0-12.5) H 11/18/23 04:02 INR 3.5 (<1.2) H 11/18/23 04:02 Abnormal lab findings: Abnormal Labs 11/08/23 11/08/23 11/08/23 14:54 14:54 14:54 WBC RBC 2.27 L Hgb 6.7 L* Hct 21.6 L MCHC RDW Lymphocytes # 0.8 L PT 64.0 H INR 6.5 H* APTT 38.5 H Sodium Potassium 5.3 H Chloride 117 H Carbon Dioxide BUN 53 H Creatinine 2.28 H Glucose 157 H POC Glucose (mg/dL) Calcium Magnesium 2.4 H Iron % Saturation Transferrin Total Bilirubin Total Protein 6.1 L Albumin 3.3 L Crossmatch 11/08/23 11/09/23 11/09/23 14:54 10:08 10:08 WBC RBC 2.29 L Hgb 6.8 L* Hct 21.8 L MCHC RDW Lymphocytes # PT 23.9 H INR 2.4 H APTT Sodium Potassium Chloride Carbon Dioxide BUN Creatinine Glucose POC Glucose (mg/dL) Calcium Magnesium Iron % Saturation Transferrin Total Bilirubin Total Protein Albumin Crossmatch See Detail 11/09/23 11/10/23 11/10/23 10:08 07:46 07:46 WBC RBC Hgb Hct MCHC RDW Lymphocytes # PT 15.5 H INR 1.5 H APTT Sodium Potassium Chloride 116 H 114 H Carbon Dioxide 21 L 17 L BUN 44 H 39 H Creatinine 1.90 H 1.96 H Glucose 123 H 125 H POC Glucose (mg/dL) Calcium 8.1 L 8.0 L Magnesium Iron % Saturation Transferrin Total Bilirubin Total Protein Albumin Crossmatch 11/10/23 11/11/23 11/11/23 07:46 07:19 07:19 WBC RBC 2.34 L 2.65 L Hgb 6.8 L* 7.7 L Hct 22.8 L 25.2 L MCHC 29.9 L 30.4 L RDW Lymphocytes # PT INR APTT Sodium Potassium 5.2 H Chloride 113 H Carbon Dioxide 18 L BUN 30 H Creatinine 1.79 H Glucose POC Glucose (mg/dL) Calcium 8.3 L Magnesium Iron % Saturation Transferrin Total Bilirubin Total Protein Albumin Crossmatch 11/11/23 11/12/23 11/12/23 07:19 07:18 07:18 WBC RBC Hgb Hct MCHC RDW Lymphocytes # PT 14.4 H 14.7 H INR 1.4 H 1.4 H APTT Sodium Potassium 5.3 H Chloride 112 H Carbon Dioxide 18 L BUN 24 H Creatinine 1.64 H Glucose POC Glucose (mg/dL) Calcium 8.3 L Magnesium Iron % Saturation Transferrin Total Bilirubin Total Protein Albumin Crossmatch 11/12/23 11/13/23 11/13/23 07:18 08:43 08:43 WBC RBC 2.59 L 2.60 L Hgb 7.6 L 7.4 L Hct 24.4 L 24.4 L MCHC 30.4 L RDW Lymphocytes # 0.7 L PT INR APTT Sodium Potassium 5.3 H Chloride 112 H Carbon Dioxide 18 L BUN Creatinine 1.84 H Glucose POC Glucose (mg/dL) Calcium Magnesium Iron % Saturation Transferrin Total Bilirubin Total Protein Albumin Crossmatch 11/13/23 11/13/23 11/13/23 08:43 08:45 12:37 WBC RBC Hgb Hct MCHC RDW Lymphocytes # PT 13.3 H INR 1.3 H APTT Sodium 136 L Potassium Chloride 114 H Carbon Dioxide 17 L BUN Creatinine 1.83 H Glucose 37 L* POC Glucose (mg/dL) Calcium Magnesium Iron % Saturation Transferrin Total Bilirubin Total Protein Albumin Crossmatch See Detail 11/13/23 11/13/23 11/13/23 13:58 14:31 14:40 WBC RBC Hgb Hct MCHC RDW Lymphocytes # PT 13.6 H INR 1.3 H APTT Sodium Potassium Chloride Carbon Dioxide BUN Creatinine Glucose POC Glucose (mg/dL) 67 L 113 H Calcium Magnesium Iron % Saturation Transferrin Total Bilirubin Total Protein Albumin Crossmatch 11/13/23 11/13/23 11/13/23 15:35 16:57 21:04 WBC RBC 2.73 L Hgb 8.0 L Hct 24.8 L MCHC RDW Lymphocytes # PT INR APTT Sodium Potassium Chloride Carbon Dioxide BUN Creatinine Glucose POC Glucose (mg/dL) 111 H 131 H Calcium Magnesium Iron % Saturation Transferrin Total Bilirubin Total Protein Albumin Crossmatch 11/14/23 11/14/23 11/14/23 06:27 07:11 07:11 WBC 10.7 H RBC 2.97 L Hgb 8.9 L Hct 28.2 L MCHC RDW 15.6 H Lymphocytes # PT INR APTT Sodium 136 L Potassium 5.7 H Chloride 113 H Carbon Dioxide 17 L BUN Creatinine 1.82 H Glucose 164 H POC Glucose (mg/dL) 180 H Calcium 8.3 L Magnesium Iron % Saturation Transferrin Total Bilirubin Total Protein Albumin Crossmatch 11/14/23 11/15/23 11/15/23 17:41 07:50 07:50 WBC RBC 2.70 L Hgb 7.9 L Hct 25.2 L MCHC RDW Lymphocytes # 0.5 L PT INR APTT Sodium 133 L Potassium 6.0 H 5.9 H Chloride 112 H Carbon Dioxide 16 L BUN Creatinine 1.94 H Glucose 105 H POC Glucose (mg/dL) Calcium 8.1 L Magnesium Iron % Saturation Transferrin Total Bilirubin Total Protein Albumin Crossmatch 11/15/23 11/15/23 11/16/23 21:32 22:11 07:51 WBC RBC Hgb Hct MCHC RDW Lymphocytes # PT 15.5 H INR 1.5 H APTT Sodium Potassium 5.5 H Chloride Carbon Dioxide BUN Creatinine Glucose POC Glucose (mg/dL) 139 H Calcium Magnesium Iron % Saturation Transferrin Total Bilirubin Total Protein Albumin Crossmatch 11/16/23 11/16/23 11/17/23 07:51 07:51 08:18 WBC 3.0 L RBC 2.75 L Hgb 7.9 L Hct 25.6 L MCHC 30.8 L RDW Lymphocytes # 0.4 L PT 23.7 H INR 2.4 H APTT Sodium 136 L Potassium 5.7 H Chloride 114 H Carbon Dioxide 15 L BUN 22 H Creatinine 2.10 H Glucose 112 H POC Glucose (mg/dL) Calcium 8.1 L Magnesium Iron % Saturation Transferrin Total Bilirubin Total Protein Albumin Crossmatch 11/17/23 11/17/23 11/17/23 08:18 08:18 08:18 WBC RBC 2.59 L Hgb 7.4 L Hct 23.8 L MCHC 30.9 L RDW Lymphocytes # 0.4 L PT INR APTT Sodium 135 L Potassium Chloride 109 H Carbon Dioxide BUN 30 H Creatinine 1.97 H Glucose 137 H POC Glucose (mg/dL) Calcium 7.7 L Magnesium Iron 9 L % Saturation 3.38 L Transferrin 190.0 L Total Bilirubin Total Protein Albumin Crossmatch 11/17/23 11/17/23 11/18/23 23:05 23:05 04:02 WBC RBC 2.71 L Hgb 7.7 L Hct 25.1 L MCHC 30.6 L RDW Lymphocytes # 0.3 L PT 34.5 H INR 3.5 H APTT Sodium 133 L Potassium 5.2 H Chloride Carbon Dioxide 17 L BUN 35 H Creatinine 2.34 H Glucose POC Glucose (mg/dL) Calcium 7.4 L Magnesium Iron % Saturation Transferrin Total Bilirubin 1.7 H Total Protein 4.6 L Albumin 2.1 L Crossmatch 11/18/23 11/18/23 11/18/23 04:02 04:02 04:02 WBC RBC 2.60 L Hgb 7.4 L Hct 24.0 L MCHC 30.7 L RDW Lymphocytes # 0.3 L PT INR APTT Sodium 135 L 134 L Potassium 5.5 H 5.5 H Chloride 108 H 109 H Carbon Dioxide 17 L 17 L BUN 37 H 37 H Creatinine 2.11 H 2.17 H Glucose POC Glucose (mg/dL) Calcium 7.4 L 7.4 L Magnesium Iron % Saturation Transferrin Total Bilirubin 1.6 H Total Protein 4.7 L Albumin 2.2 L Crossmatch - Diagnostic Findings Chest x-ray: image reviewed CT scan - chest: image reviewed Assessment and Plan Plan: Mass, obstructing, suspicious for adenocarcinoma. The patient underwent a transverse colectomy and partial omentectomy. Surgery was done on 11/13/2023 Acute abdominal distention. Patient was felt to have an acute abdomen yesterday. The patient had a CAT scan of the abdomen and pelvis and the patient was found to have free air passive related to the recent abdominal surgery. T here is overall nonobstructive bowel gas pattern. Partial small bowel obstruction cannot be excluded. The patient was given an NG tube for abdominal decompression with a total amount of output of 600 cc. Abdomen remains distended. General surgery is on the case. Presentation is more consistent with an ileus. Hypotension under investigation. Multifactorial. Could be related abdominal sepsis in addition to his underlying cardiomyopathy. The patient's lactic acid level from yesterday was at 1.3. Patient is currently on low-dose pressors at 0.04 mcg/kg/min of norepinephrine. CHF with ischemic cardiomyopathy and ejection fraction of 40 to 45% Valvular heart disease with previous aortic valve replacement and mitral valve repair Chronic stage III kidney disease, creatinine stable at 2.1 None anion gap metabolic acidosis with a serum bicarb of 17 Chronic atrial fibrillation and the patient has a pacemaker in place with episodes of V pacing. The patient is on anticoagulation with warfarin with an INR of 3.5 Hypertension Hyperlipidemia Plan Continue IV fluids with bicarb infusion at rate of 50 cc an hour Continue pressors and the patient is currently on norepinephrine running at 0.04 mcg/kg/min. Keep NG tube in place and keep the patient n.p.o. for now Start the patient on IV Invanz and the choice of antibiotics was made due to his extensive allergies. Reevaluation by general surgery regarding ongoing abdominal distention and pneumoperitoneum. Stop anticoagulation for now as the patient's INR is at 3.5 Hold Coreg Reevaluation by general surgery cardiology consultation nephrology consultation Keep the patient intensive care unit for further monitoring. Case was discussed with general surgery.
[2023-11-18] MEDS: DARBEPOETIN ALFA 40 MCG/0.4 ML SYRINGE SQ SCH (12:13)
[2023-11-18] MEDS: WARFARIN 0.5 MG TAB PO ONE (13:17)
--- NOTE | 2023-11-18 13:23 | P.PN ---
Subjective Progress Note Date: 11/18/23 This is an 83-year-old female past medical history significant for chronic persistent atrial fibrillation, CAD, hyperlipidemia, mitral valve prolapse, aortic valve replacement,PPM, cardiac ablation, cardiomyopathy, presented to the hospital with complaints of increasing generalized weakness, mild shortness of breath ;vague historian. discovered to have a hemoglobin of 6.7, INR 6.5. BUN 53, creatinine 2.28, bicarb 23 transfused with 1 unit packed RBCs as well as vitamin K in the ER. Repeat labs pending. denies nausea or vomiting but reported diarrhea dark black stools X months. Blood pressure soft, maintain O2 sats in the 90s on room air. Denies chest pain, palpitations or shortness of breath. 11/12/2023 NPO, completed prep, EGD and colonoscopy scheduled for early this afternoon. Anticoagulation remains on hold, continues on PPI. Reports no further bleeding or black, dark rectal output. Reports over the last 2 years he has lost 50 pounds, on a healthier diet. Hemoglobin with 7.6, platelet 182. renal function slowly improving, BUN 24, creatinine 1.64 denies chest pain, palpitations or shortness of breath. 11/14/2023 status post transverse colectomy and partial omentectomy, postop day #1. Reports "sore abdomen". Anticoagulation remains on hold. Receiving IV fluid hydration .reports occasional productive cough of phlegm .sitting up in chair.not passing flatus, advanced to clear liquids. Denies nausea or vomiting. Villasenor catheter recently DC'd this morning at 0600, not yet spontaneous voiding, bladder scan pending. BUN 18, creatinine 1.82. Received 1 unit packed RBCs y esterday for hemoglobin of 7.4, hemoglobin currently 8.9. Afebrile, WBC increased to 10.7. Sodium 136, potassium 5.7, bicarb 17. Pathology pending. 11/15/2023 IV fluid hydration. Blood pressure soft. Urinary retention, straight cath x 2 ,worsening renal function, creatinine up to 1.94, nephrology consulted. Hyperkalemic, potassium 5.9. Pain controlled. Reports not passing flatus. No bowel movement. Telemetry reporting paced rhythm .anticoagulation/Coumadin resuming tonight. 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 11/16/2023 Hemoglobin remains 7.9. Continues on IV fluid hydration .Maintained on Clear Liquid Diet, nauseated this morning. Blood sugars controlled. pain controlled. Passing minimal flatus, no bowel movement. Villasenor catheter placed yesterday secondary to urinary retention .renal ultrasound reported negative for obstructive uropathy, no hydronephrosis .blood pressures soft, improving. Renal function worsening, bicarb 15, 11/16. Patient seen and examined. Blood work done this morning showed WBC 4.1, hemoglobin 7.4, platelet count 188, sodium 135, potassium 5, BUN 30, creatinine 1.97. INR is 2.4. Patient sitting upright in the chair, passing gas, no bowel movement yet. Patient admits to poor appetite 11/17. Patient seen and examined. Patient was transferred to ICU overnight because of increased work of breathing, hypotension and abdominal distention. Chest x-ray done overnight showed trace left pleural effusion with stable cardiomegaly. CTA chest was negative for PE. CT abdomen done showed increasing subcutaneous edema and upper abdominal ascites likely corresponding to desired fluid overload state. Patient had NG tube inserted overnight. Patient was started on ertapenem and pressors. Physical exam Is alert and oriented x3, not in any acute distress. Well developed, well nourished. HEENT: Pupils are round and equally reacting to light. EOMI. No scleral icterus. No conjunctival pallor. Normocephalic, atraumatic. No pharyngeal erythema. No thyromegaly. CARDIOVASCULAR: S1 and S2 present. No murmurs, rubs, or gallops. PULMONARY: Chest is clear to auscultation, no wheezing or crackles. ABDOMEN: Distended, surgical incision seen. No palpable organomegaly. MUSCULOSKELETAL: No joint swelling or deformity. EXTREMITIES: No cyanosis, clubbing, or pedal edema. NEUROLOGICAL: Gross neurological examination did not reveal any focal deficits. SKIN: No rashes. Assessment and plan Hypotension Severe anemia secondary to acute GI bleed, status post EGD and colonoscopy; Upper endoscopy revealed 2.5 cm broad-based duodenal polyp in the second part of the duodenum opposite the ampullary orifice status post snare polypectomy and almost complete polypectomy performed. Small hiatal hernia. Colonoscopy revealed tight apple core ulcerated lesion in the mid transverse colon with si gnificant luminal narrowing status post biopsy and tattooing. Status post transverse colectomy and partial omentectomy. 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 Surgical pathology pending. Urinary retention, post operative, requiring Villasenor catheter Acute renal failure, ATN secondary to the above as well as hypotension. Hyperkalemia secondary to all the above Metabolic acidosis secondary to acute renal failure Chronic persistent atrial fibrillation, INR supra therapeutic History of mitral valve repair and aortic valve replacement Cardiomyopathy, nonischemic, EF 40 to 45% PPM Hypertension Hyperlipidemia Monitor vital signs Monitor CBC Monitor CMP Continue telemetry monitoring Keep patient n.p.o. Continue NG tube Continue Levophed Continue ertapenem Continue with IV fluids. Continue Coumadin pharmacy to dose Continue with Villasenor catheter Cardiology following Nephrology following Critical care consulted Labs and medication were reviewed.. Continue same treatment. Continue with symptomatic treatment. Resume home medication. Monitor labs and vitals. DVT and GI prophylaxis. Further recommendations as per clinical course of the patient Dictation was produced using [employer] dictation software. please excuse any grammatical, word or spelling errors. Objective - Vital Signs Vital signs: Vital Signs Temp 97.9 F 11/18/23 08:00 Pulse 90 11/18/23 09:00 Resp 20 11/18/23 09:00 BP 103/50 11/18/23 09:00 Pulse Ox 96 11/18/23 09:00 FiO2 Intake & Output 11/17/23 11/18/23 11/18/23 18:59 06:59 18:59 Intake Total 400 2400 180.802 Output Total 300 680 62 Balance 100 1720 118.802 Weight 99.2 kg Intake: IV 2400 150 Albumin Human 25% 50 ml 50 In Empty Bag 1 bag @ 50 mls/hr IVPB ONCE ONE Rx#: [id number] Dextrose 5% in Water 1, 350 150 000 ml @ 50 mls/hr IV . Q23H [facility] with Sodium Bicarb (1 Meq/ml) 150 ml Rx#:[id number] Sodium Chloride 0.9% 1, 1000 000 ml @ 999 mls/hr IV . Q1H1M ONE Rx#:[id number] Sodium Chloride 0.9% 1, 1000 000 ml @ 999 mls/hr IV . Q1H1M ONE Rx#:[id number] Intake, IV Titration 30.802 Amount Norepinephrine 4 mg In 30.802 Sodium Chloride 0.9% 250 ml @ 0.03 MCG/KG/MIN 9. 727 mls/hr IV .Q24H [facility] Rx#:[id number] Oral 400 Output: Gastric Drainage 600 Urine 300 80 62 Other: Voiding Method Indwelling Catheter Indwelling Catheter - Labs CBC & Chem 7: 11/18/23 04:02 11/18/23 04:02 Labs: Abnormal Lab Results - Last 24 Hours (Table) 11/17/23 11/17/23 11/17/23 Range/Units 08:18 23:05 23:05 RBC 2.71 L (4.30-5.90) m/uL Hgb 7.7 L (13.0-17.5) gm/dL Hct 25.1 L (39.0-53.0) % MCHC 30.6 L (31.0-37.0) g/dL Lymphocytes # 0.3 L (1.0-4.8) k/uL PT (10.0-12.5) sec INR (<1.2) Sodium 133 L (137-145) mmol/L Potassium 5.2 H (3.5-5.1) mmol/L Chloride (98-107) mmol/L Carbon Dioxide 17 L (22-30) mmol/L BUN 35 H (9-20) mg/dL Creatinine 2.34 H (0.66-1.25) mg/dL Calcium 7.4 L (8.4-10.2) mg/dL Iron 9 L (65-175) UG/DL % Saturation 3.38 L (15.00-50.00) Transferrin 190.0 L (204.0-354.0) mg/dL Total Bilirubin 1.7 H (0.2-1.3) mg/dL Total Protein 4.6 L (6.3-8.2) g/dL Albumin 2.1 L (3.5-5.0) g/dL 11/18/23 11/18/23 11/18/23 Range/Units 04:02 04:02 04:02 RBC 2.60 L (4.30-5.90) m/uL Hgb 7.4 L (13.0-17.5) gm/dL Hct 24.0 L (39.0-53.0) % MCHC 30.7 L (31.0-37.0) g/dL Lymphocytes # 0.3 L (1.0-4.8) k/uL PT 34.5 H (10.0-12.5) sec INR 3.5 H (<1.2) Sodium 135 L (137-145) mmol/L Potassium 5.5 H (3.5-5.1) mmol/L Chloride 108 H (98-107) mmol/L Carbon Dioxide 17 L (22-30) mmol/L BUN 37 H (9-20) mg/dL Creatinine 2.11 H (0.66-1.25) mg/dL Calcium 7.4 L (8.4-10.2) mg/dL Iron (65-175) UG/DL % Saturation (15.00-50.00) Transferrin (204.0-354.0) mg/dL Total Bilirubin (0.2-1.3) mg/dL Total Protein (6.3-8.2) g/dL Albumin (3.5-5.0) g/dL 11/18/23 Range/Units 04:02 RBC (4.30-5.90) m/uL Hgb (13.0-17.5) gm/dL Hct (39.0-53.0) % MCHC (31.0-37.0) g/dL Lymphocytes # (1.0-4.8) k/uL PT (10.0-12.5) sec INR (<1.2) Sodium 134 L (137-145) mmol/L Potassium 5.5 H (3.5-5.1) mmol/L Chloride 109 H (98-107) mmol/L Carbon Dioxide 17 L (22-30) mmol/L BUN 37 H (9-20) mg/dL Creatinine 2.17 H (0.66-1.25) mg/dL Calcium 7.4 L (8.4-10.2) mg/dL Iron (65-175) UG/DL % Saturation (15.00-50.00) Transferrin (204.0-354.0) mg/dL Total Bilirubin 1.6 H (0.2-1.3) mg/dL Total Protein 4.7 L (6.3-8.2) g/dL Albumin 2.2 L (3.5-5.0) g/dL
[2023-11-18 17:38] LABS: African American GFR (CKD) 31 (>60 ml/min/1.73 sqM); Anion Gap 8 mmol/L; Blood Urea Nitrogen 41 mg/dL (9-20); Calcium 7.5 mg/dL (8.4-10.2); Carbon Dioxide 23 mmol/L (22-30); Chloride 106 mmol/L (98-107); Glucose 123 mg/dL (74-99); Non-African American GFR(CKD) 27 (>60 ml/min/1.73 sqM); Potassium 4.9 mmol/L (3.5-5.1); Sodium 137 mmol/L (137-145)
[2023-11-19 03:45] LABS: Basophils % (A) 0 %; Eosinophils % (A) 0 %; HGB 7.4 gm/dL (13.0-17.5); Hypochromasia Moderate; Lymphocytes # (A) 0.3 k/uL (1.0-4.8); Lymphocytes % (A) 4 %; MCHC 30.9 g/dL (31.0-37.0); MCV 90.8 fL (80.0-100.0); Mean Platelet Volume 7.9; Monocytes # (A) 0.5 k/uL (0-1.0); Monocytes % (A) 6 %; Neutrophils # (A) 8.1 k/uL (1.3-7.7); Neutrophils % (A) 89 %; Platelet Count 210 k/uL (150-450); Poikilocytosis Slight; RBC 2.65 m/uL (4.30-5.90); RDW 15.2 % (11.5-15.5); WBC 9.2 k/uL (3.8-10.6)
[2023-11-19 04:01] LABS: INR 3.8 (<1.2); Prothrombin Time 36.8 sec (10.0-12.5)
[2023-11-19 04:05] LABS: African American GFR (CKD) 29 (>60 ml/min/1.73 sqM); Anion Gap 7 mmol/L; Blood Urea Nitrogen 42 mg/dL (9-20); Calcium 7.3 mg/dL (8.4-10.2); Carbon Dioxide 24 mmol/L (22-30); Chloride 106 mmol/L (98-107); Glucose 128 mg/dL (74-99); Non-African American GFR(CKD) 25 (>60 ml/min/1.73 sqM); Potassium 4.5 mmol/L (3.5-5.1); Sodium 137 mmol/L (137-145)
--- NOTE | 2023-11-19 08:16 | XR ---
EXAMINATION TYPE: XR chest 1V portable DATE OF EXAM: 11/19/2023 COMPARISON: 11/18/2023 HISTORY: Shortness of breath TECHNIQUE: Single frontal view of the chest is obtained. FINDINGS: Cardiac device, NG tube and postoperative median sternotomy changes are stable. Large amou nt of free intraperitoneal air. Coarsened interstitial lung disease or subsegmental atelectasis. Cont rast seen in the region stomach. Diffuse osteopenia, degenerative changes spine and arthropathy shown . IMPRESSION: 1. Free intraperitoneal air stable. 2. Cardiomegaly correlate for chronic interstitial lung disease, pneumonitis or mild venous congestio n
[2023-11-19] MEDS: BENZOCAINE/MENTHOL LOZENG 1 EACH LOZENGE MUCOUS MEM PRN (08:24)
--- NOTE | 2023-11-19 11:38 | P.PN ---
Subjective Patient is seen in follow-up for acute kidney injury on chronic kidney disease. Renal function fairly stable. Currently on Levophed. Has an NG tube for bowel obstruction. Denies chest pain or shortness of breath. On Levophed. Vital signs are stable. General: No acute distress. HEENT: Head exam is unremarkable. NG tube noted. LUNGS: No audible rhonchi or wheezes. HEART: Rate and Rhythm are regular. ABDOMEN: Nontender. Dressing noted. No drainage. EXTREMITITES: 1+ edema. Chronic changes noted. Objective - Vital Signs Vital signs: Vital Signs Temp 97.9 F 11/19/23 08:00 Pulse 73 11/19/23 11:15 Resp 24 11/19/23 11:15 BP 102/52 11/19/23 11:15 Pulse Ox 96 11/19/23 11:15 FiO2 Intake & Output 11/18/23 11/19/23 11/19/23 18:59 06:59 18:59 Intake Total 630.802 787.674 464.209 Output Total 882 410 309 Balance -251.198 377.674 155.209 Weight 104.9 kg 104.9 kg Intake: IV 600 600 250 Dextrose 5% in Water 1, 600 600 250 000 ml @ 50 mls/hr IV . Q23H [facility] with Sodium Bicarb (1 Meq/ml) 150 ml Rx#:[id number] Intake, IV Titration 30.802 187.674 214.209 Amount Norepinephrine 4 mg In 30.802 187.674 214.209 Sodium Chloride 0.9% 250 ml @ 0.03 MCG/KG/MIN 9. 727 mls/hr IV .Q24H [facility] Rx#:[id number] Output: Gastric Drainage 200 150 Urine 682 410 159 Other: Voiding Method Indwelling Catheter Indwelling Catheter # Bowel Movements 1 - Labs CBC & Chem 7: 11/19/23 03:06 11/19/23 03:06 Labs: Abnormal Lab Results - Last 24 Hours (Table) 11/18/23 11/19/23 11/19/23 Range/Units 16:58 03:06 03:06 RBC 2.65 L (4.30-5.90) m/uL Hgb 7.4 L (13.0-17.5) gm/dL Hct 24.0 L (39.0-53.0) % MCHC 30.9 L (31.0-37.0) g/dL Neutrophils # 8.1 H (1.3-7.7) k/uL Lymphocytes # 0.3 L (1.0-4.8) k/uL PT 36.8 H (10.0-12.5) sec INR 3.8 H (<1.2) BUN 41 H (9-20) mg/dL Creatinine 2.16 H (0.66-1.25) mg/dL Glucose 123 H (74-99) mg/dL Calcium 7.5 L (8.4-10.2) mg/dL 11/18/ Range/Units 03:06 RBC (4.30-5.90) m/uL Hgb (13.0-17.5) gm/dL Hct (39.0-53.0) % MCHC (31.0-37.0) g/dL Neutrophils # (1.3-7.7) k/uL Lymphocytes # (1.0-4.8) k/uL PT (10.0-12.5) sec INR (<1.2) BUN 42 H (9-20) mg/dL Creatinine 2.31 H (0.66-1.25) mg/dL Glucose 128 H (74-99) mg/dL Calcium 7.3 L (8.4-10.2) mg/dL Assessment and Plan Plan: Assessment: 1. Acute kidney injury secondary to ATN secondary to hypotension and component of urinary retention. Also received IV contrast on November 17, 2023. Renal function stable. Creatinine 2.31 today. No hydronephrosis noted on CAT scan. 2. Chronic kidney disease stage IIIa with baseline creatinine near 1.4 secondary to nephrosclerosis. 3. Hyperkalemia secondary to acute kidney injury, acidosis and Entresto. 4. Metabolic acidosis secondary to acute kidney injury maintained on bicarb drip. Improved. 5. Colon mass status post transverse colectomy and partial omentectomy. 6. Urinary retention. Has Villasenor catheter. On Flomax. 7. Acute GI bleed. Hemoglobin stable at 7.4. Also component of anemia of chronic kidney disease. Iron deficiency noted. On Aranesp. 8. Chronic systolic CHF with ejection fraction of 40 to 45%. 9. Volume overload. 10. Partial small bowel obstruction versus moderate ileus. Surgery following. Plan: Repeat Lasix 40 mg IV once today. Stop bicarb drip. Diet to be advanced per surgery. Avoid nephrotoxins. Continue to monitor renal function and urine output. Hold off on IV iron at this time. Wean Levophed.
[2023-11-19] MEDS: FUROSEMIDE 10 MG/ML 4 ML VIAL IV STA (12:19)
--- NOTE | 2023-11-19 13:40 | P.PN ---
Subjective Progress Note Date: 11/19/23 Principal diagnosis: Acute abdominal distention, status post transverse colectomy and partial omentectomy suspect adenocarcinoma This is a 83-year-old male patient was transferred to the intensive care unit yesterday as the patient developed significant abdominal distention and hypotension. The patient has a colonic mass and the patient has undergone transverse colectomy and surgery was done on 11/13/2023.. For now, the patient is postop day #4. The abdomen was firm and quite distended. Immediately, a stat CAT scan of the abdomen was done and the patient was found to have pneumoperitoneum and this was suspected to be related to previous surgery. There was also nonobstructive bowel gas pattern with significant gastric distention and partial small bowel obstruction cannot be completely excluded. At that point, NG tube was inserted and immediately 600 cc of output was obtained. Abdomen is still distended although less compared to yesterday. No flatus. Bowel sounds are absent. General surgery is on the case. White cell count not elevated. Lactic acid level is low at 1.3. Note that postop, the patient's renal function remained stable. The patient has chronic stage III kidney disease and the creatinine today is up to 2.17 and a sodium levels at 134 with a potassium level of 5.5. Serum bicarb is at 17. Nephrology on the case. The patient is currently on a bicarb infusion which is running at 50 cc an hour. He has history of paroxysmal atrial fibrillation. He is on anticoagulation with warfarin. Coumadin is on hold and the patient's INR today is at 3.5. The respiratory status is stable. No significant shortness of breath. The patient is currently on 3 L of oxygen by nasal cannula with a pulse ox of 98%. Repeat chest film of the abdomen was done today that showed NG tube being in place. There is contrast in the mid and the distal colon and nonspecific bowel gas pattern and the patient's chest x-ray from today is showing cardiomegaly. NG tube is in place. There is air under the right hemidiaphragm. The patient was seen by 2 separate general surgeons and no surgical intervention is required at this point in time. Will monitor and will put the bowel to rest. The patient has likely small bowel ileus. Patient was reevaluated today on 11/19/2023, patient is status post transverse colectomy and surgery was done on 11/13/2023 for suspected colonic mass and abdominal distention he is now postoperative day #5. Patient has been in the ICU for what seems to be persistent abdominal distention and possible small bowel ileus. Being followed by surgery, does not feel reexploration is necessary at this point. Nonetheless the patient seems to be quite comfortable, abdomen is distended, he is hypotensive requiring norepinephrine at 0.07 mcg/kg/min. Continues to have nasogastric tube in place and draining 800 cc over the last 24 hours. Patient is also known to have history of cardiomyopathy and LV dysfunction with ejection fraction of 40 to 45%, he is requiring intermittently diuretics/Lasix his last dose was yesterday. Remains on antibiotics in the form of Invanz mostly because of his multiple allergies to different antibiotics. Patient continues to have chronic venous stasis and swelling in the lower extremities. And seems a bit uncomfortable with abdominal distention. But no evidence of severe pain. Slightly tender to palpation WBC count today is 9.2 hemoglobin is 7.4. INR is 3.8 basic metabolic profile is normal renal profile is a bit worse today BUN is 42 creatinine up to 2.31 from 2.16 yesterday chest x-ray continues to show free air under the diaphragm, cardiomegaly, and chronic mild venous congestion. Possible pneumonitis Objective - Vital Signs Vital signs: Vital Signs Temp 98.1 F 11/19/23 12:00 Pulse 77 11/19/23 12:15 Resp 17 11/19/23 12:15 BP 103/49 11/19/23 12:15 Pulse Ox 96 11/19/23 12:15 FiO2 Intake & Output 11/18/23 11/19/23 11/19/23 18:59 06:59 18:59 Intake Total 630.802 787.674 464.209 Output Total 882 410 342 Balance -251.198 377.674 122.209 Weight 104.9 kg 104.9 kg Intake: IV 600 600 250 Dextrose 5% in Water 1, 600 600 250 000 ml @ 50 mls/hr IV . Q23H [facility]ON[facility]A with Sodium Bicarb (1 Meq/ml) 150 ml Rx#:[id number] Intake, IV Titration .802 187.674 214.209 Amount Norepinephrine 4 mg In 80 187.674 214.209 Sodium Chloride 0.9% 250 ml @ 0.03 MCG/KG/MIN 9. 727 mls/hr IV .Q24H [facility] Rx#:[id number] Output: Gastric Drainage 200 150 Urine 682 410 192 Other: Voiding Method Indwelling Catheter Indwelling Catheter # Bowel Movements 1 - Exam General: Revealed 83-year-old white male on 3 L nasal cannula not in distress. Skin: Skin is warm and dry and no rashes or lesions are noted. Eye: Pupils are equal, round and reactive to light, extra-ocular movements are intact; there is normal conjunctiva bilaterally. Ears, nose, mouth and throat: There are moist mucous membranes and no oral lesions. Neck: The neck is supple, there is no tenderness or JVD. Cardiovascular: There is a regular rate and rhythm. No murmur, rub or gallop is appreciated. Respiratory: Fine crackles at the bases no rhonchi no wheezes Gastrointestinal: distended slightly tender to palpation, no bowel sounds. Musculoskeletal: Normal ROM, no tenderness, chronic venous stasis noted in lower extremities bilaterally. There is no calf tenderness or swelling. Neurological: CN II-XII intact, Cranial nerves III through XII are intact. There are no obvious motor or sensory deficits. Coordination appears grossly intact. Speech is normal. Psychiatric: Cooperative, appropriate mood & affect, normal judgment. - Labs CBC & Chem 7: 11/19/23 03:06 11/19/23 03:06 Labs: Abnormal Lab Results - Last 24 Hours (Table) 11/18/23 11/19/23 11/19/23 Range/Units 16:58 03:06 03:06 RBC 2.65 L (4.30-5.90) m/uL Hgb 7.4 L (13.0-17.5) gm/dL Hct 24.0 L (39.0-53.0) % MCHC 30.9 L (31.0-37.0) g/dL Neutrophils # 8.1 H (1.3-7.7) k/uL Lymphocytes # 0.3 L (1.0-4.8) k/uL PT 36.8 H (10.0-12.5) sec INR 3.8 H (<1.2) BUN 41 H (9-20) mg/dL Creatinine 2.16 H (0.66-1.25) mg/dL Glucose 123 H (74-99) mg/dL Calcium 7.5 L (8.4-10.2) mg/dL 11/19/23 Range/Units 03:06 RBC (4.30-5.90) m/uL Hgb (13.0-17.5) gm/dL Hct (39.0-53.0) % MCHC (31.0-37.0) g/dL Neutrophils # (1.3-7.7) k/uL Lymphocytes # (1.0-4.8) k/uL PT (10.0-12.5) sec INR (<1.2) BUN 42 H (9-20) mg/dL Creatinine 2.31 H (0.66-1.25) mg/dL Glucose 128 H (74-99) mg/dL Calcium 7.3 L (8.4-10.2) mg/dL Assessment and Plan Assessment: impression: Acute abdominal distention and bowel obstruction secondary to colonic mass, status post transverse colectomy and partial omentectomy surgery on 11/13/2023 Suspect postoperative ileus Abdominal sepsis is strongly suspected contributing to his hypotension patient is empirically on antibiotics/Invanz Mild LV dysfunction and cardiomyopathy contributing to hypotension 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 heart disease and previous aortic valve replacement with mitral valve repair Chronic kidney disease stage III Chronic atrial fibrillation on Coumadin Benign essential hypertension history Dyslipidemia Recommendation: Continue to monitor in the ICU Continue hemodynamic support/pressors maintain on norepinephrine Continue nasogastric tube to suction Continue GI and DVT prophylaxis Hold Coreg for low blood pressure Continue IV fluids, cautious hydration at 50 cc/h Intermittent gentle diuresis depending on the clinical status and depending on his hemodynamic status Continue midodrine Discontinue bicarb drip for now. Close monitoring of fluid status Patient remains critically ill, prognosis is guarded, will definitely continue to monitor in the ICU and titrate norepinephrine accordingly. Surgery is still addressing his abdominal distention may or may not require reexploration. Critical care time is over 30 Time with Patient: Greater than 30
--- NOTE | 2023-11-19 14:04 | P.PN ---
Subjective Progress Note Date: 11/19/23 This is an 83-year-old female past medical history significant for chronic persistent atrial fibrillation, CAD, hyperlipidemia, mitral valve prolapse, aortic valve replacement,PPM, cardiac ablation, cardiomyopathy, presented to the hospital with complaints of increasing generalized weakness, mild shortness of breath ;vague historian. discovered to have a hemoglobin of 6.7, INR 6.5. BUN 53, creatinine 2.28, bicarb 23 transfused with 1 unit packed RBCs as well as vitamin K in the ER. Repeat labs pending. denies nausea or vomiting but reported diarrhea dark black stools X months. Blood pressure soft, maintain O2 sats in the 90s on room air. Denies chest pain, palpitations or shortness of breath. 11/12/2023 NPO, completed prep, EGD and colonoscopy scheduled for early this afternoon. Anticoagulation remains on hold, continues on PPI. Reports no further bleeding or black, dark rectal output. Reports over the last 2 years he has lost 50 pounds, on a healthier diet. Hemoglobin with 7.6, platelet 182. renal function slowly improving, BUN 24, creatinine 1.64 denies chest pain, palpitations or shortness of breath. 11/14/2023 status post transverse colectomy and partial omentectomy, postop day #1. Reports "sore abdomen". Anticoagulation remains on hold. Receiving IV fluid hydration .reports occasional productive cough of phlegm .sitting up in chair.not passing flatus, advanced to clear liquids. Denies nausea or vomiting. Villasenor catheter recently DC'd this morning at 0600, not yet spontaneous voiding, bladder scan pending. BUN 18, creatinine 1.82. Received 1 unit packed RBCs y esterday for hemoglobin of 7.4, hemoglobin currently 8.9. Afebrile, WBC increased to 10.7. Sodium 136, potassium 5.7, bicarb 17. Pathology pending. 11/15/2023 IV fluid hydration. Blood pressure soft. Urinary retention, straight cath x 2 ,worsening renal function, creatinine up to 1.94, nephrology consulted. Hyperkalemic, potassium 5.9. Pain controlled. Reports not passing flatus. No bowel movement. Telemetry reporting paced rhythm .anticoagulation/Coumadin resuming tonight. 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 11/16/2023 Hemoglobin remains 7.9. Continues on IV fluid hydration .Maintained on Clear Liquid Diet, nauseated this morning. Blood sugars controlled. pain controlled. Passing minimal flatus, no bowel movement. Villasenor catheter placed yesterday secondary to urinary retention .renal ultrasound reported negative for obstructive uropathy, no hydronephrosis .blood pressures soft, improving. Renal function worsening, bicarb 15, 11/16. Patient seen and examined. Blood work done this morning showed WBC 4.1, hemoglobin 7.4, platelet count 188, sodium 135, potassium 5, BUN 30, creatinine 1.97. INR is 2.4. Patient sitting upright in the chair, passing gas, no bowel movement yet. Patient admits to poor appetite 11/17. Patient seen and examined. Patient was transferred to ICU overnight because of increased work of breathing, hypotension and abdominal distention. Chest x-ray done overnight showed trace left pleural effusion with stable cardiomegaly. CTA chest was negative for PE. CT abdomen done showed increasing subcutaneous edema and upper abdominal ascites likely corresponding to desired fluid overload state. Patient had NG tube inserted overnight. Patient was started on ertapenem and pressors. 11/18. Patient seen and examined. Blood work done this morning showed WBC 9.2, hemoglobin 9.4, sodium 137, potassium 4.5, BUN 42, creatinine 2.31. Stated he had bowel movement this morning. Physical exam General; alert and oriented x3, not in any acute distress. Well developed, well nourished. HEENT: Pupils are round and equally reacting to light. EOMI. No scleral icterus. No conjunctival pallor. Normocephalic, atraumatic. No pharyngeal erythema. No thyromegaly. CARDIOVASCULAR: S1 and S2 present. No murmurs, rubs, or gallops. PULMONARY: Chest is clear to auscultation, no wheezing or crackles. ABDOMEN: Soft distention improved, surgical incision seen. No palpable organomegaly. MUSCULOSKELETAL: No joint swelling or deformity. EXTREMITIES: No cyanosis, clubbing, or pedal edema. NEUROLOGICAL: Gross neurological examination did not reveal any focal deficits. SKIN: No rashes. Assessment and plan Hypotension Severe anemia secondary to acute GI bleed, status post EGD and colonoscopy; Upper endoscopy revealed 2.5 cm broad-based duodenal polyp in the second part of the duodenum opposite the ampullary orifice status post snare polypectomy and almost complete polypectomy performed. Small hiatal hernia. Colonoscopy revealed tight apple core ulcerated lesion in the mid transverse colon with significant luminal narrowing status post biopsy and tattooing. Status post transverse colectomy and partial omentectomy. 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 Surgical pathology pending. Urinary retention, post operative, requiring Villasenor catheter Acute renal failure, ATN secondary to the above as well as hypotension. Hyperkalemia secondary to all the above Metabolic acidosis secondary to acute renal failure Chronic persistent atrial fibrillation, INR supra therapeutic History of mitral valve repair and aortic valve replacement Cardiomyopathy, nonischemic, EF 40 to 45% PPM Hypertension Hyperlipidemia Monitor vital signs Monitor CBC Monitor CMP Continue telemetry monitoring Strict I's and O's, daily daily weights Keep patient n.p.o. Continue NG tube Continue Levophed Continue ertapenem Give 1 dose of Lasix Continue Coumadin pharmacy to dose Continue with Villasenor catheter Cardiology following Nephrology following Critical care consulted Labs and medication were reviewed.. Continue same treatment. Continue with symptomatic treatment. Resume home medication. Monitor labs and vitals. DVT and GI prophylaxis. Further recommendations as per clinical course of the patient Dictation was produced using [employer] dictation software. please excuse any grammatical, word or spelling errors. Objective - Vital Signs Vital signs: Vital Signs Temp 97.9 F 11/19/23 08:00 Pulse 78 11/19/23 08:00 Resp 14 11/19/23 08:00 BP 102/48 11/19/23 08:00 Pulse Ox 96 11/19/23 08:00 FiO2 Intake & Output 11/18/23 11/19/23 11/19/23 18:59 06:59 18:59 Intake Total 630.802 787.674 314.209 Output Total 882 410 214 Balance -251.198 377.674 100.209 Weight 104.9 kg Intake: IV 600 600 100 Dextrose 5% in Water 1, 600 600 100 000 ml @ 50 mls/hr IV . Q23H [facility] with Sodium Bicarb (1 Meq/ml) 150 ml Rx#:[id number] Intake, IV Titration 30.802 187.674 214.209 Amount Norepinephrine 4 mg In 30.802 187.674 214.209 Sodium Chloride 0.9% 250 ml @ 0.03 MCG/KG/MIN 9. 727 mls/hr IV .Q24H [facility] Rx#:[id number] Output: Gastric Drainage 200 150 Urine 682 410 64 Other: Voiding Method Indwelling Catheter Indwelling Catheter # Bowel Movements 1 - Labs CBC & Chem 7: 11/19/23 03:06 11/19/23 03:06 Labs: Abnormal Lab Results - Last 24 Hours (Table) 11/18/23 11/19/23 11/19/23 Range/Units 16:58 03:06 03:06 RBC 2.65 L (4.30-5.90) m/uL Hgb 7.4 L (13.0-17.5) gm/dL Hct 24.0 L (39.0-53.0) % MCHC 30.9 L (31.0-37.0) g/dL Neutrophils # 8.1 H (1.3-7.7) k/uL Lymphocytes # 0.3 L (1.0-4.8) k/uL PT 36.8 H (10.0-12.5) sec INR 3.8 H (<1.2) BUN 41 H (9-20) mg/dL Creatinine 2.16 H (0.66-1.25) mg/dL Glucose 123 H (74-99) mg/dL Calcium 7.5 L (8.4-10.2) mg/dL 11/19/23 Range/Units 03:06 RBC (4.30-5.90) m/uL Hgb (13.0-17.5) gm/dL Hct (39.0-53.0) % MCHC (31.0-37.0) g/dL Neutrophils # (1.3-7.7) k/uL Lymphocytes # (1.0-4.8) k/uL PT (10.0-12.5) sec INR (<1.2) BUN 42 H (9-20) mg/dL Creatinine 2.31 H (0.66-1.25) mg/dL Glucose 128 H (74-99) mg/dL Calcium 7.3 L (8.4-10.2) mg/dL
[2023-11-19] MEDS: WARFARIN 0.5 MG TAB PO ONE (14:14)
[2023-11-19 14:57] LABS: Magnesium 1.7 mg/dL (1.6-2.3); Phosphorus 4.8 mg/dL (2.5-4.5)
--- NOTE | 2023-11-19 14:59 | P.PN ---
Subjective Progress Note Date: 11/19/23 CHIEF COMPLAINT: Colon obstruction HISTORY OF PRESENT ILLNESS: Patient is postop day #6 status post transverse colectomy and partial omentectomy. Patient currently in the ICU on Levophed for hypotension. He is having flatus. Did have a very small BM. He has NG tube in place for ileus. Abdomen remains distended. NG tube with 800 mL out and 150 mL this morning. Afebrile. WBC 9.2 Hgb 7.4 platelet 210 PHYSICAL EXAM: VITAL SIGNS: Reviewed. GENERAL: Well-developed in no acute distress. ABDOMEN: Abdomen distended. Tympanic. Incisional dressing with small area of saturation NEUROLOGIC: Alert and oriented. Cranial nerves II through XII grossly intact. ASSESSMENT: 1. Colon mass obstructing suspicious for adenocarcinoma 2. Postoperative ileus PLAN: -Continue NG tube for decompression -Keep patient n.p.o. -Agree with PICC line and TPN for nutrition support -Continue ICU management -Continue supportive care Physician Test Engine Evaluator note has been reviewed by physician. Signing provider agrees with the documented findings, assessment, and plan of care. Objective - Vital Signs Vital signs: Vital Signs Temp 98.1 F 11/19/23 12:00 Pulse 76 11/19/23 14:00 Resp 21 11/19/23 14:00 BP 100/51 11/19/23 14:00 Pulse Ox 96 11/19/23 14:00 FiO2 Intake & Output 11/18/23 11/19/23 11/19/23 18:59 06:59 18:59 Intake Total 630.802 787.674 464.209 Output Total 882 410 572 Balance -251.198 377.674 -107.791 Weight 104.9 kg 104.9 kg Intake: IV 600 600 250 Dextrose 5% in Water 1, 600 600 250 000 ml @ 50 mls/hr IV . Q23H [facility] with Sodium Bicarb (1 Meq/ml) 150 ml Rx#:[id number] Intake, IV Titration 30.802 187.674 214.209 Amount Norepinephrine 4 mg In 30.802 187.674 214.209 Sodium Chloride 0.9% 250 ml @ 0.03 MCG/KG/MIN 9. 727 mls/hr IV .Q24H [facility] Rx#:[id number] Output: Gastric Drainage 200 150 Urine 682 410 422 Other: Voiding Method Indwelling Catheter Indwelling Catheter # Bowel Movements 1 - Labs CBC & Chem 7: 11/19/23 03:06 11/19/23 03:06 Labs: Abnormal Lab Results - Last 24 Hours (Table) 11/18/23 11/19/23 11/19/23 Range/Units 16:58 03:06 03:06 RBC 2.65 L (4.30-5.90) m/uL Hgb 7.4 L (13.0-17.5) gm/dL Hct 24.0 L (39.0-53.0) % MCHC 30.9 L (31.0-37.0) g/dL Neutrophils # 8.1 H (1.3-7.7) k/uL Lymphocytes # 0.3 L (1.0-4.8) k/uL PT 36.8 H (10.0-12.5) sec INR 3.8 H (<1.2) BUN 41 H (9-20) mg/dL Creatinine 2.16 H (0.66-1.25) mg/dL Glucose 123 H (74-99) mg/dL Calcium 7.5 L (8.4-10.2) mg/dL 11/19/23 Range/Units 03:06 RBC (4.30-5.90) m/uL Hgb (13.0-17.5) gm/dL Hct (39.0-53.0) % MCHC (31.0-37.0) g/dL Neutrophils # (1.3-7.7) k/uL Lymphocytes # (1.0-4.8) k/uL PT (10.0-12.5) sec INR (<1.2) BUN 42 H (9-20) mg/dL Creatinine 2.31 H (0.66-1.25) mg/dL Glucose 128 H (74-99) mg/dL Calcium 7.3 L (8.4-10.2) mg/dL
--- NOTE | 2023-11-19 18:00 | CDI ---
Documentation Clarification Form Date: 11/19/2023 05:02:00 PM From: Sarina Johnson RN, CCDS Phone: [phone] Admit Date: 11/08/2023 05:20:00 PM Patient Name: Dajuan Valle Visit Number: [id number] Discharge Date: ATTENTION: The Clinical Documentation Specialists (CDI) and [facility] Coding Staff appreciate your assistance in clarifying documentation. Please respond to the clarification below the line at the bottom and electronically sign. The CDI & [facility] Coding staff will review the response and follow-up if needed. Please note: Queries are made part of the Legal Health Record. If you have any questions, please contact the author of this message via ITS. Dr. Rell Brewer Urinary retention postop is documented in the progress notes starting on 11/15/23. Additional clarification is requested. Colon mass obstructing Patients Admitting Diagnosis: Post-Operative Diagnosis: Colon mass obstructing suspicious for adenocarcinoma Procedure performed: Transverse colectomy History/Risk Factors: Atrial Fibrillation, Coronary Artery Disease, Hyperlipidemia, Mitral Valve Prolapse (MVP), Osteoarthritis Clinical Indicators: 83-year-old female presented with weakness, mild shortness of breath, discovered to have a hemoglobin of 6.7 INR 6.5 BUN 53, Creatinine 2.8. 11/13 she had a transverse colectomy and partial omentectomy for colon mass obstructing suspicious for adenocarcinoma. 11/14 she was post Villasenor dc and had Urinary retention, straight cath x 2, worsening renal function, creatinine up to 1.94. Urinary retention, post-operative. 11/14 (09:10) VS 96/59 82 18 98.4 Treatment. Villasenor Catheter Monitor Urine output .9NS @60 ML/HR 11/13-11/15 .9NS 1,000 ML Bolus Once 11/16 -11/17 What relationship, if any, exists between the diagnosis of urinary retention postoperative and the procedure: [ ] Urinary retention is a complication of surgical procedure. [ ] Urinary retention is an expected outcome of the surgical procedure. [ ] Urinary retention is related to patients co-morbid condition(s) of [insert co-morbid dxs] & not a complication of the procedure. [ ] Other please specify ____ [ xx] Unable to determine (Template Last Revised: October 2020) MTDD
[2023-11-19 21:35] LABS: Triglycerides 74.8 mg/dL (0.00-149.00)
[2023-11-20 04:11] LABS: Ionized Calcium 4.5 mg/dL (4.5-5.3)
[2023-11-20 04:13] LABS: ALT 12 U/L (4-49); AST 26 U/L (17-59); African American GFR (CKD) 33 (>60 ml/min/1.73 sqM); Albumin 2.2 g/dL (3.5-5.0); Alkaline Phosphatase 101 U/L (38-126); Anion Gap 9 mmol/L; Basophils % (A) 0 %; Blood Urea Nitrogen 46 mg/dL (9-20); Calcium 7.3 mg/dL (8.4-10.2); Carbon Dioxide 23 mmol/L (22-30); Chloride 107 mmol/L (98-107); Eosinophils # (A) 0.1 k/uL (0-0.7); Eosinophils % (A) 1 %; Glucose 104 mg/dL (74-99); HCT 24.8 % (39.0-53.0); HGB 7.6 gm/dL (13.0-17.5); Hypochromasia Marked; Lymphocytes # (A) 0.4 k/uL (1.0-4.8); Lymphocytes % (A) 3 %; MCH 28.3 pg (25.0-35.0); MCHC 30.7 g/dL (31.0-37.0); Magnesium 1.8 mg/dL (1.6-2.3); Mean Platelet Volume 8.6; Monocytes # (A) 0.6 k/uL (0-1.0); Monocytes % (A) 6 %; Neutrophils % (A) 89 %; Non-African American GFR(CKD) 29 (>60 ml/min/1.73 sqM); Phosphorus 4.7 mg/dL (2.5-4.5); Platelet Count 252 k/uL (150-450); Potassium 4.5 mmol/L (3.5-5.1); RBC 2.69 m/uL (4.30-5.90); RDW 15.1 % (11.5-15.5); Sodium 139 mmol/L (137-145); Total Bilirubin 1.1 mg/dL (0.2-1.3); Total Protein 4.8 g/dL (6.3-8.2); WBC 11.2 k/uL (3.8-10.6)
[2023-11-20 04:31] LABS: Prothrombin Time 29.1 sec (10.0-12.5)
[2023-11-20] MEDS: MAGNESIUM SULFATE-D5W PMX 1 GM in DEXTROSE/WATER 1 100ML.BAG IVPB ONE (08:25)
--- NOTE | 2023-11-20 08:25 | XR ---
EXAMINATION TYPE: XR chest 1V portable DATE OF EXAM: 11/20/2023 COMPARISON: 11/19/2019 HISTORY: Shortness of breath TECHNIQUE: Single frontal view of the chest is obtained. FINDINGS: Cardiac device, NG tube and postoperative median sternotomy changes are stable. Reduced am ount amount of free intraperitoneal air. Coarsened interstitial lung disease or subsegmental atelecta sis. Contrast seen in the region stomach. Diffuse osteopenia, degenerative changes spine and arthropa thy shown. IMPRESSION: 1. There appears to be persistent free intraperitoneal air in the abdomen just appearance compared to prior exam. 2. Stable cardiomegaly with mild venous congestion or interstitial pneumonitis.
[2023-11-20] MEDS: FUROSEMIDE 10 MG/ML 4 ML VIAL IV STA (09:53)
--- NOTE | 2023-11-20 10:13 | P.PN ---
Subjective Patient is seen in follow-up for acute kidney injury on chronic kidney disease. Renal function better. Has an NG tube for bowel obstruction. Denies chest pain or shortness of breath. Off Levophed. Vital signs are stable. General: No acute distress. HEENT: Head exam is unremarkable. NG tube noted. LUNGS: No audible rhonchi or wheezes. HEART: Rate and Rhythm are regular. ABDOMEN: Nontender. Dressing noted. No drainage. EXTREMITITES: 1+ edema. Chronic changes noted. Objective - Vital Signs Vital signs: Vital Signs Temp 98.7 F 11/20/23 08:00 Pulse 75 11/20/23 08:00 Resp 21 11/20/23 08:00 BP 104/47 11/20/23 08:00 Pulse Ox 98 11/20/23 08:00 FiO2 Intake & Output 11/19/23 11/20/23 11/20/23 18:59 06:59 18:59 Intake Total 677.876 113.287 Output Total 917 432 63 Balance -239.124 -318.713 -63 Weight 104.9 kg 103.7 kg Intake: IV 250 Dextrose 5% in Water 1, 250 000 ml @ 50 mls/hr IV . Q23H [facility] with Sodium Bicarb (1 Meq/ml) 150 ml Rx#:[id number] Intake, IV Titration 427.876 113.287 Amount Norepinephrine 4 mg In 427.876 113.287 Sodium Chloride 0.9% 250 ml @ 0.03 MCG/KG/MIN 9. 727 mls/hr IV .Q24H [facility] Rx#:[id number] Output: Gastric Drainage 150 Urine 767 432 63 Other: Voiding Method Indwelling Catheter Indwelling Catheter - Labs CBC & Chem 7: 11/20/23 03:46 11/20/23 03:46 Labs: Abnormal Lab Results - Last 24 Hours (Table) 11/19/23 11/20/23 11/20/23 Range/Units 03:06 03:46 03:46 WBC 11.2 H (3.8-10.6) k/uL RBC 2.69 L (4.30-5.90) m/uL Hgb 7.6 L (13.0-17.5) gm/dL Hct 24.8 L (39.0-53.0) % MCHC 30.7 L (31.0-37.0) g/dL Neutrophils # 10.0 H (1.3-7.7) k/uL Lymphocytes # 0.4 L (1.0-4.8) k/uL PT 29.1 H (10.0-12.5) sec INR 3.0 H (<1.2) BUN (9-20) mg/dL Creatinine (0.66-1.25) mg/dL Glucose (74-99) mg/dL Calcium (8.4-10.2) mg/dL Phosphorus 4.8 H (2.5-4.5) mg/dL Total Protein (6.3-8.2) g/dL Albumin (3.5-5.0) g/dL 11/20/23 Range/Units 03:46 WBC (3.8-10.6) k/uL RBC (4.30-5.90) m/uL Hgb (13.0-17.5) gm/dL Hct (39.0-53.0) % MCHC (31.0-37.0) g/dL Neutrophils # (1.3-7.7) k/uL Lymphocytes # (1.0-4.8) k/uL PT (10.0-12.5) sec INR (<1.2) BUN 46 H (9-20) mg/dL Creatinine 2.06 H (0.66-1.25) mg/dL Glucose 104 H (74-99) mg/dL Calcium 7.3 L (8.4-10.2) mg/dL Phosphorus 4.7 H (2.5-4.5) mg/dL Total Protein 4.8 L (6.3-8.2) g/dL Albumin 2.2 L (3.5-5.0) g/dL Assessment and Plan Plan: Assessment: 1. Acute kidney injury secondary to ATN secondary to hypotension and component of urinary retention. Also received IV contrast on November 17, 2023. Renal function better. Creatinine 2.06 today. No hydronephrosis noted on CAT scan. 2. Chronic kidney disease stage IIIa with baseline creatinine near 1.4 secondary to nephrosclerosis. 3. Hyperkalemia secondary to acute kidney injury, acidosis and Entresto. Improved. 4. Metabolic acidosis secondary to acute kidney injury maintained on bicarb drip. Improved. 5. Colon mass status post transverse colectomy and partial omentectomy. 6. Urinary retention. Has Villasenor catheter. On Flomax. 7. Acute GI bleed. Hemoglobin stable at 7.4. Also component of anemia of chronic kidney disease. Iron deficiency noted. On Aranesp. 8. Chronic systolic CHF with ejection fraction of 40 to 45%. 9. Volume overload. 10. Partial small bowel obstruction versus moderate ileus. Surgery following. Plan: Repeat Lasix 40 mg IV once today. Diet to be advanced per surgery. Avoid nephrotoxins. Continue to monitor renal function and urine output. Hold off on IV iron at this time.
--- NOTE | 2023-11-20 12:29 | P.PN ---
Subjective Progress Note Date: 11/20/23 Principal diagnosis: Acute abdominal distention, status post transverse colectomy and partial omentectomy suspect adenocarcinoma This is a 83-year-old male patient was transferred to the intensive care unit yesterday as the patient developed significant abdominal distention and hypotension. The patient has a colonic mass and the patient has undergone transverse colectomy and surgery was done on 11/13/2023.. For now, the patient is postop day #4. The abdomen was firm and quite distended. Immediately, a stat CAT scan of the abdomen was done and the patient was found to have pneumoperitoneum and this was suspected to be related to previous surgery. There was also nonobstructive bowel gas pattern with significant gastric distention and partial small bowel obstruction cannot be completely excluded. At that point, NG tube was inserted and immediately 600 cc of output was obtained. Abdomen is still distended although less compared to yesterday. No flatus. Bowel sounds are absent. General surgery is on the case. White cell count not elevated. Lactic acid level is low at 1.3. Note that postop, the patient's renal function remained stable. The patient has chronic stage III kidney disease and the creatinine today is up to 2.17 and a sodium levels at 134 with a potassium level of 5.5. Serum bicarb is at 17. Nephrology on the case. The patient is currently on a bicarb infusion which is running at 50 cc an hour. He has history of paroxysmal atrial fibrillation. He is on anticoagulation with warfarin. Coumadin is on hold and the patient's INR today is at 3.5. The respiratory status is stable. No significant shortness of breath. The patient is currently on 3 L of oxygen by nasal cannula with a pulse ox of 98%. Repeat chest film of the abdomen was done today that showed NG tube being in place. There is contrast in the mid and the distal colon and nonspecific bowel gas pattern and the patient's chest x-ray from today is showing cardiomegaly. NG tube is in place. There is air under the right hemidiaphragm. The patient was seen by 2 separate general surgeons and no surgical intervention is required at this point in time. Will monitor and will put the bowel to rest. The patient has likely small bowel ileus. Patient was reevaluated today on 11/19/2023, patient is status post transverse colectomy and surgery was done on 11/13/2023 for suspected colonic mass and abdominal distention he is now postoperative day #5. Patient has been in the ICU for what seems to be persistent abdominal distention and possible small bowel ileus. Being followed by surgery, does not feel reexploration is necessary at this point. Nonetheless the patient seems to be quite comfortable, abdomen is distended, he is hypotensive requiring norepinephrine at 0.07 mcg/kg/min. Continues to have nasogastric tube in place and draining 800 cc over the last 24 hours. Patient is also known to have history of cardiomyopathy and LV dysfunction with ejection fraction of 40 to 45%, he is requiring intermittently diuretics/Lasix his last dose was yesterday. Remains on antibiotics in the form of Invanz mostly because of his multiple allergies to different antibiotics. Patient continues to have chronic venous stasis and swelling in the lower extremities. And seems a bit uncomfortable with abdominal distention. But no evidence of severe pain. Slightly tender to palpation WBC count today is 9.2 hemoglobin is 7.4. INR is 3.8 basic metabolic profile is normal renal profile is a bit worse today BUN is 42 creatinine up to 2.31 from 2.16 yesterday chest x-ray continues to show free air under the diaphragm, cardiomegaly, and chronic mild venous congestion. Possible pneumonitis 3 today on 11/20/2023, patient remains in the ICU, continues to have significant abdominal distention/ileus continues to have nasogastric tube in place, patient remains n.p.o., patient still requiring TPN, and intermittently on norepinephrine. Lasix was given today 40 mg IV push x 1, seems to have decent urine output in spite of marginal blood pressure. His abdominal distention remains worrisome. 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 Chest x-ray is showing mostly minimal bibasilar atelectasis, cardiomegaly, and minimal venous congestion Objective - Vital Signs Vital signs: Vital Signs Temp 97.8 F 11/20/23 12:00 Pulse 92 11/20/23 12:15 Resp 18 11/20/23 12:15 BP 85/38 11/20/23 12:15 Pulse Ox 97 11/20/23 12:15 FiO2 Intake & Output 11/19/23 11/20/23 11/20/23 18:59 06:59 18:59 Intake Total 677.876 113.287 150 Output Total 917 432 883 Balance -239.124 -318.713 -733 Weight 104.9 kg 103.7 kg Intake: IV 250 150 Dextrose 5% in Water 1, 250 000 ml @ 50 mls/hr IV . Q23H [facility] with Sodium Bicarb (1 Meq/ml) 150 ml Rx#:[id number] Ertapenem 0.5 gm In 50 Sodium Chloride 0.9% 50 ml @ 100 mls/hr IVPB DAILY [facility] Rx#:[id number] Magnesium Sulfate-D5w Pmx 100 1 gm In Dextrose/Water 1 100ml.bag @ 100 mls/hr IVPB ONCE ONE Rx#: [id number] Intake, IV Titration 427.876 113.287 Amount Norepinephrine 4 mg In 427.876 113.287 Sodium Chloride 0.9% 250 ml @ 0.03 MCG/KG/MIN 9. 727 mls/hr IV .Q24H [facility] Rx#:[id number] Output: Gastric Drainage 150 500 Urine 767 432 383 Other: Voiding Method Indwelling Catheter Indwelling Catheter - Exam General: Revealed 83-year-old white male on room air, in no distress Skin: Skin is warm and dry and no rashes or lesions are noted. Eye: Pupils are equal, round and reactive to light, extra-ocular movements are intact; there is normal conjunctiva bilaterally. Ears, nose, mouth and throat: There are moist mucous membranes and no oral lesions. Neck: The neck is supple, there is no tenderness or JVD. Cardiovascular: There is a regular rate and rhythm. No murmur, rub or gallop is appreciated. Respiratory: Fine crackles at the bases no rhonchi no wheezes Gastrointestinal: distended slightly tender to palpation, no bowel sounds. Musculoskeletal: Normal ROM, no tenderness, chronic venous stasis noted in lower extremities bilaterally. There is no calf tenderness or swelling. Neurological: CN II-XII intact, Cranial nerves III through XII are intact. There are no obvious motor or sensory deficits. Coordination appears grossly intact. Speech is normal. Psychiatric: Cooperative, appropriate mood & affect, normal judgment. - Labs CBC & Chem 7: 11/20/23 03:46 11/20/23 03:46 Labs: Abnormal Lab Results - Last 24 Hours (Table) 11/19/23 11/20/23 11/20/23 Range/Units 03:06 03:46 03:46 WBC 11.2 H (3.8-10.6) k/uL RBC 2.69 L (4.30-5.90) m/uL Hgb 7.6 L (13.0-17.5) gm/dL Hct 24.8 L (39.0-53.0) % MCHC 30.7 L (31.0-37.0) g/dL Neutrophils # 10.0 H (1.3-7.7) k/uL Lymphocytes # 0.4 L (1.0-4.8) k/uL PT 29.1 H (10.0-12.5) sec INR 3.0 H (<1.2) BUN (9-20) mg/dL Creatinine (0.66-1.25) mg/dL Glucose (74-99) mg/dL Calcium (8.4-10.2) mg/dL Phosphorus 4.8 H (2.5-4.5) mg/dL Total Protein (6.3-8.2) g/dL Albumin (3.5-5.0) g/dL 11/20/23 Range/Units 03:46 WBC (3.8-10.6) k/uL RBC (4.30-5.90) m/uL Hgb (13.0-17.5) gm/dL Hct (39.0-53.0) % MCHC (31.0-37.0) g/dL Neutrophils # (1.3-7.7) k/uL Lymphocytes # (1.0-4.8) k/uL PT (10.0-12.5) sec INR (<1.2) BUN 46 H (9-20) mg/dL Creatinine 2.06 H (0.66-1.25) mg/dL Glucose 104 H (74-99) mg/dL Calcium 7.3 L (8.4-10.2) mg/dL Phosphorus 4.7 H (2.5-4.5) mg/dL Total Protein 4.8 L (6.3-8.2) g/dL Albumin 2.2 L (3.5-5.0) g/dL Assessment and Plan Assessment: impression: Acute abdominal distention and bowel obstruction secondary to colonic adenocarcinoma status post transverse colectomy and partial omentectomy surgery on 11/13/2023 Suspect postoperative ileus Abdominal sepsis is strongly suspected contributing to his hypotension patient is empirically on antibiotics/Invanz Mild LV dysfunction and cardiomyopathy contributing to hypotension 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 heart disease and previous aortic valve replacement with mitral valve repair Chronic kidney disease stage III Chronic atrial fibrillation on Coumadin Benign essential hypertension history Dyslipidemia Recommendation: Continue to monitor in the ICU Continue hemodynamic support/pressors maintain on norepinephrine Continue nasogastric tube to suction Continue GI and DVT prophylaxis Continue IV fluids, cautious hydration at 50 cc/h Intermittent gentle diuresis Continue midodrine Norepinephrine if needed Bicarb drip Patient remains marginal at best continue to monitor in the ICU Surgery is still addressing his abdominal distention Continue to follow Time with Patient: Less than 30
[2023-11-20] MEDS: METOCLOPRAMIDE 5 MG/ML 2 ML VIAL IVP SCH (13:16)
--- NOTE | 2023-11-20 14:00 | P.PN ---
Subjective Progress Note Date: 11/20/23 This is an 83-year-old female past medical history significant for chronic persistent atrial fibrillation, CAD, hyperlipidemia, mitral valve prolapse, aortic valve replacement,PPM, cardiac ablation, cardiomyopathy, presented to the hospital with complaints of increasing generalized weakness, mild shortness of breath ;vague historian. discovered to have a hemoglobin of 6.7, INR 6.5. BUN 53, creatinine 2.28, bicarb 23 transfused with 1 unit packed RBCs as well as vitamin K in the ER. Repeat labs pending. denies nausea or vomiting but reported diarrhea dark black stools X months. Blood pressure soft, maintain O2 sats in the 90s on room air. Denies chest pain, palpitations or shortness of breath. 11/12/2023 NPO, completed prep, EGD and colonoscopy scheduled for early this afternoon. Anticoagulation remains on hold, continues on PPI. Reports no further bleeding or black, dark rectal output. Reports over the last 2 years he has lost 50 pounds, on a healthier diet. Hemoglobin with 7.6, platelet 182. renal function slowly improving, BUN 24, creatinine 1.64 denies chest pain, palpitations or shortness of breath. 11/14/2023 status post transverse colectomy and partial omentectomy, postop day #1. Reports "sore abdomen". Anticoagulation remains on hold. Receiving IV fluid hydration .reports occasional productive cough of phlegm .sitting up in chair.not passing flatus, advanced to clear liquids. Denies nausea or vomiting. Villasenor catheter recently DC'd this morning at 0600, not yet spontaneous voiding, bladder scan pending. BUN 18, creatinine 1.82. Received 1 unit packed RBCs y esterday for hemoglobin of 7.4, hemoglobin currently 8.9. Afebrile, WBC increased to 10.7. Sodium 136, potassium 5.7, bicarb 17. Pathology pending. 11/15/2023 IV fluid hydration. Blood pressure soft. Urinary retention, straight cath x 2 ,worsening renal function, creatinine up to 1.94, nephrology consulted. Hyperkalemic, potassium 5.9. Pain controlled. Reports not passing flatus. No bowel movement. Telemetry reporting paced rhythm .anticoagulation/Coumadin resuming tonight. 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 11/16/2023 Hemoglobin remains 7.9. Continues on IV fluid hydration .Maintained on Clear Liquid Diet, nauseated this morning. Blood sugars controlled. pain controlled. Passing minimal flatus, no bowel movement. Villasenor catheter placed yesterday secondary to urinary retention .renal ultrasound reported negative for obstructive uropathy, no hydronephrosis .blood pressures soft, improving. Renal function worsening, bicarb 15, 11/16. Patient seen and examined. Blood work done this morning showed WBC 4.1, hemoglobin 7.4, platelet count 188, sodium 135, potassium 5, BUN 30, creatinine 1.97. INR is 2.4. Patient sitting upright in the chair, passing gas, no bowel movement yet. Patient admits to poor appetite 11/17. Patient seen and examined. Patient was transferred to ICU overnight because of increased work of breathing, hypotension and abdominal distention. Chest x-ray done overnight showed trace left pleural effusion with stable cardiomegaly. CTA chest was negative for PE. CT abdomen done showed increasing subcutaneous edema and upper abdominal ascites likely corresponding to desired fluid overload state. Patient had NG tube inserted overnight. Patient was started on ertapenem and pressors. 11/18. Patient seen and examined. Blood work done this morning showed WBC 9.2, hemoglobin 9.4, sodium 137, potassium 4.5, BUN 42, creatinine 2.31. Stated he had bowel movement this morning. 11/19. Patient seen and examined. Labs done this morning showed WBC 9.2, hemoglobin 7.6, platelet count 252, sodium 139, potassium 4.5, BUN 46, creatinine 2.06 .patient was started on TPN Physical exam General; alert and oriented x3, not in any acute distress. Well developed, well nourished. HEENT: Pupils are round and equally reacting to light. EOMI. No scleral icterus. No conjunctival pallor. Normocephalic, atraumatic. No pharyngeal erythema. No thyromegaly. CARDIOVASCULAR: S1 and S2 present. No murmurs, rubs, or gallops. PULMONARY: Chest is clear to auscultation, no wheezing or crackles. ABDOMEN: Soft distention improved, surgical incision seen. No palpable organomegaly. MUSCULOSKELETAL: No joint swelling or deformity. EXTREMITIES: No cyanosis, clubbing, or pedal edema. NEUROLOGICAL: Gross neurological examination did not reveal any focal deficits. SKIN: No rashes. Assessment and plan Hypotension Severe anemia secondary to acute GI bleed, status post EGD and colonoscopy; Upper endoscopy revealed 2.5 cm broad-based duodenal polyp in the second part of the duodenum opposite the ampullary orifice status post snare polypectomy and almost complete polypectomy performed. Small hiatal hernia. Colonoscopy revealed tight apple core ulcerated lesion in the mid transverse colon with significant luminal narrowing status post biopsy and tattooing. Status post transverse colectomy and partial omentectomy. 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 Surgical pathology pending. Urinary retention, post operative, requiring Villasenor catheter Acute renal failure, ATN secondary to the above as well as hypotension. Hyperkalemia secondary to all the above Metabolic acidosis secondary to acute renal failure Chronic persistent atrial fibrillation, INR supra therapeutic History of mitral valve repair and aortic valve replacement Cardiomyopathy, nonischemic, EF 40 to 45% PPM Hypertension Hyperlipidemia Monitor vital signs Monitor CBC Monitor CMP Continue telemetry monitoring Strict I's and O's, daily daily weights Keep patient n.p.o. Continue NG tube Continue Levophed Continue ertapenem Start TPN Continue Coumadin pharmacy to dose Continue with Villasenor catheter Cardiology following Nephrology following Critical care consulted Labs and medication were reviewed.. Continue same treatment. Continue with symptomatic treatment. Resume home medication. Monitor labs and vitals. DVT and GI prophylaxis. Further recommendations as per clinical course of the patient Dictation was produced using [employer] dictation software. please excuse any grammatical, word or spelling errors. Objective - Vital Signs Vital signs: Vital Signs Temp 98.7 F 11/20/23 08:00 Pulse 75 11/20/23 08:00 Resp 21 11/20/23 08:00 BP 104/47 11/20/23 08:00 Pulse Ox 98 11/20/23 08:00 FiO2 Intake & Output 11/19/23 11/20/23 11/20/23 18:59 06:59 18:59 Intake Total 677.876 113.287 Output Total 917 432 63 Balance -239.124 -318.713 -63 Weight 104.9 kg 103.7 kg Intake: IV 250 Dextrose 5% in Water 1, 250 000 ml @ 50 mls/hr IV . Q23H [facility] with Sodium Bicarb (1 Meq/ml) 150 ml Rx#:[id number] Intake, IV Titration 427.876 113.287 Amount Norepinephrine 4 mg In 427.876 113.287 Sodium Chloride 0.9% 250 ml @ 0.03 MCG/KG/MIN 9. 727 mls/hr IV .Q24H [facility] Rx#:[id number] Output: Gastric Drainage 150 Urine 767 432 63 Other: Voiding Method Indwelling Catheter Indwelling Catheter - Labs CBC & Chem 7: 11/20/23 03:46 11/20/23 03:46 Labs: Abnormal Lab Results - Last 24 Hours (Table) 11/19/23 11/20/23 11/20/23 Range/Units 03:06 03:46 03:46 WBC 11.2 H (3.8-10.6) k/uL RBC 2.69 L (4.30-5.90) m/uL Hgb 7.6 L (13.0-17.5) gm/dL Hct 24.8 L (39.0-53.0) % MCHC 30.7 L (31.0-37.0) g/dL Neutrophils # 10.0 H (1.3-7.7) k/uL Lymphocytes # 0.4 L (1.0-4.8) k/uL PT 29.1 H (10.0-12.5) sec INR 3.0 H (<1.2) BUN (9-20) mg/dL Creatinine (0.66-1.25) mg/dL Glucose (74-99) mg/dL Calcium (8.4-10.2) mg/dL Phosphorus 4.8 H (2.5-4.5) mg/dL Total Protein (6.3-8.2) g/dL Albumin (3.5-5.0) g/dL 11/20/23 Range/Units 03:46 WBC (3.8-10.6) k/uL RBC (4.30-5.90) m/uL Hgb (13.0-17.5) gm/dL Hct (39.0-53.0) % MCHC (31.0-37.0) g/dL Neutrophils # (1.3-7.7) k/uL Lymphocytes # (1.0-4.8) k/uL PT (10.0-12.5) sec INR (<1.2) BUN 46 H (9-20) mg/dL Creatinine 2.06 H (0.66-1.25) mg/dL Glucose 104 H (74-99) mg/dL Calcium 7.3 L (8.4-10.2) mg/dL Phosphorus 4.7 H (2.5-4.5) mg/dL Total Protein 4.8 L (6.3-8.2) g/dL Albumin 2.2 L (3.5-5.0) g/dL
--- NOTE | 2023-11-20 15:00 | P.PN ---
Subjective Progress Note Date: 11/20/23 CHIEF COMPLAINT: Colon obstruction HISTORY OF PRESENT ILLNESS: Patient is postop day #7 status post transverse colectomy and partial omentectomy. Patient currently in the ICU. Abdomen remains distended. He did have a bowel movement the morning of 18 November. He is having flatus. NG tube in place with about 200 mL output. Patient denies any abdominal pain except with movement afebrile. WBC 11.2 Hgb 7.6 platelets 252 INR 3.0 creatinine 2.06 PHYSICAL EXAM: VITAL SIGNS: Reviewed. GENERAL: Well-developed in no acute distress. ABDOMEN: Abdomen distended. Tympanic. Incisional dressing with small area of saturation NEUROLOGIC: Alert and oriented. Cranial nerves II through XII grossly intact. ASSESSMENT: 1. Colon mass obstructing suspicious for adenocarcinoma 2. Postoperative ileus PLAN: -Continue NG tube for decompression -Keep patient n.p.o. -Patient scheduled for PICC line placement and to start TPN today -Add Reglan for ileus -Continue ICU management -Continue supportive care Physician [employer] note has been reviewed by physician. Signing provider agrees with the documented findings, assessment, and plan of care. Objective - Vital Signs Vital signs: Vital Signs Temp 97.8 F 11/20/23 12:00 Pulse 92 11/20/23 14:00 Resp 18 11/20/23 14:00 BP 104/59 11/20/23 14:00 Pulse Ox 95 11/20/23 14:00 FiO2 Intake & Output 11/19/23 11/20/23 11/20/23 18:59 06:59 18:59 Intake Total 677.876 113.287 150 Output Total 610 296 1406 Balance -239.124 -318.713 -933 Weight 104.9 kg 103.7 kg Intake: IV 250 150 Dextrose 5% in Water 1, 250 000 ml @ 50 mls/hr IV . Q23H [facility] with Sodium Bicarb (1 Meq/ml) 150 ml Rx#:[id number] Ertapenem 0.5 gm In 50 Sodium Chloride 0.9% 50 ml @ 100 mls/hr IVPB DAILY [facility] Rx#:[id number] Magnesium Sulfate-D5w Pmx 100 1 gm In Dextrose/Water 1 100ml.bag @ 100 mls/hr IVPB ONCE ONE Rx#: [id number] Intake, IV Titration 427.876 113.287 Amount Norepinephrine 4 mg In 427.876 113.287 Sodium Chloride 0.9% 250 ml @ 0.03 MCG/KG/MIN 9. 727 mls/hr IV .Q24H [facility] Rx#:[id number] Output: Gastric Drainage 150 600 Urine 767 432 483 Other: Voiding Method Indwelling Catheter Indwelling Catheter - Labs CBC & Chem 7: 11/20/23 03:46 11/20/23 03:46 Labs: Abnormal Lab Results - Last 24 Hours (Table) 11/20/23 11/20/23 11/20/23 Range/Units 03:46 03:46 03:46 WBC 11.2 H (3.8-10.6) k/uL RBC 2.69 L (4.30-5.90) m/uL Hgb 7.6 L (13.0-17.5) gm/dL Hct 24.8 L (39.0-53.0) % MCHC 30.7 L (31.0-37.0) g/dL Neutrophils # 10.0 H (1.3-7.7) k/uL Lymphocytes # 0.4 L (1.0-4.8) k/uL PT 29.1 H (10.0-12.5) sec INR 3.0 H (<1.2) BUN 46 H (9-20) mg/dL Creatinine 2.06 H (0.66-1.25) mg/dL Glucose 104 H (74-99) mg/dL Calcium 7.3 L (8.4-10.2) mg/dL Phosphorus 4.7 H (2.5-4.5) mg/dL Total Protein 4.8 L (6.3-8.2) g/dL Albumin 2.2 L (3.5-5.0) g/dL
[2023-11-20] MEDS: WARFARIN 1 MG TAB PO ONE (15:10)
--- NOTE | 2023-11-20 19:07 | CDI ---
Documentation Clarification Form Date: 11/20/2023 05:48:00 PM From: Sarina Johnson RN, CCDS Phone: [phone] Admit Date: 11/08/2023 05:20:00 PM Patient Name: Dajuan Valle Visit Number: [id number] Discharge Date: ATTENTION: The Clinical Documentation Specialists (CDI) and [facility] Coding Staff appreciate your assistance in clarifying documentation. Please respond to the clarification below the line at the bottom and electronically sign. The CDI & [facility] Coding staff will review the response and follow-up if needed. Please note: Queries are made part of the Legal Health Record. If you have any questions, please contact the author of this message via ITS. Dr. Rell Brewer Postoperative ileus is documented in the progress notes and patient had Transverse Colectomy 11/13/23. Additional clarification is requested regarding the relationship, if any, that exists between the diagnosis and the procedure. Patients Admitting Diagnosis: Colon mass obstructing Post-Operative Diagnosis: Colon mass obstructing suspicious for adenocarcinoma Procedure performed: Transverse colectomy History/Risk Factors: Atrial Fibrillation, Coronary Artery Disease (CAD), Hyperlipidemia, Mitral Valve Prolapse (MVP), Osteoarthritis Clinical Indicators: 83-year-old male who presented to the ED for low hemoglobin. Colonoscopy found near obstructing colon lesion described in the mid transverse colon. 11/17 Surgery progress notes: CT of the abdomen pelvis independently reviewed demonstrates moderate ileus. 11/19 Surgery progress notes: Colon mass obstructing suspicious for adenocarcinoma. Postoperative ileus Treatment: ICU/Telemetry Monitoring NG tube for decompression Keep patient N.P.O PICC line placement and to start TPN today Reglan 10 MG IVP Q 6 HRS 11/19 -11/19 What relationship, if any, exists between the diagnosis of Postoperative ileus and the procedure? [ ] Postoperative ileus is a complication of surgical procedure. [ xx ] Postoperative ileus is an expected outcome of the surgical procedure. [ ] Postoperative ileus is due to patients co-morbid condition(s) of colon mass obstruction, (Other) & not a complication of the procedure. [ ] Other please specify ____ [ ] Unable to determine (Template Last Revised: October 2020) MTDD
--- NOTE | 2023-11-20 22:55 | XR ---
ADDENDUM - Added by Everette Murphy M.D. on 11/20/2023 11:08 PM (-07:00) Discussed with Av Ramirez RN on 11/19 23:08 (-04:00) EXAM: XR Chest, 1 View CLINICAL HISTORY: ITS.REASON XR Reason: NG tube Placement TECHNIQUE: Frontal view of the chest. COMPARISON: 11/20/2023 at 512 FINDINGS: Lungs: Bibasilar atelectasis. Pleural space: Unremarkable. No pneumothorax. No pleural effusions. Heart: Moderate enlargement of the cardiac silhouette. Mediastinum: Unremarkable. Normal mediastinal contour. Bones/joints: No acute osseous abnormalities. Tubes, lines and devices: Nasogastric tube is likely within the airway with tip at the mid chest. Left subclavian single lead pacemaker in position. Upper abdomen: Extensive amount of free air in the upper abdomen. IMPRESSION: 1. Extensive amount of free air in the upper abdomen. 2. Nasogastric tube is likely within the airway with tip at the mid chest. <MYCVCSECTION> Communications: 11/20/23 23:07 Call Doctor Regarding Pneumoperitoneum, new or unexpected, called KIARA Ley on 11/19 23:06 (-04:00) 11/20/23 23:07 Call Doctor Regarding Misplaced tube or line, life- threatening, called KIARA Ley on 11/19 23:06 (-04:00)
--- NOTE | 2023-11-21 00:47 | XR ---
EXAM: XR Chest, 1 View CLINICAL HISTORY: ITS.REASON XR Reason: Confirm NG placement TECHNIQUE: Frontal view of the chest. COMPARISON: 11/20/2023 at 1036 FINDINGS: Lungs: Vascular congestion. No consolidation. Pleural space: Unremarkable. No pneumothorax. No pleural effusions. Heart: Stable moderate enlargement of cardiac silhouette. Mediastinum: Unremarkable. Normal mediastinal contour. Bones/joints: No acute osseous abnormalities. Tubes, lines and devices: Nasogastric use with tip in mid body of the stomach. Left subclavian transvenous single lead pacemaker in position. Upper abdomen: Decreasing pneumoperitoneum. IMPRESSION: 1. Decreasing pneumoperitoneum. 2. Nasogastric use with tip in mid body of the stomach.
[2023-11-21 04:45] LABS: Basophils % (A) 0 %; Eosinophils # (A) 0.1 k/uL (0-0.7); Eosinophils % (A) 1 %; HCT 26.4 % (39.0-53.0); HGB 7.8 gm/dL (13.0-17.5); Hypochromasia Marked; Lymphocytes # (A) 0.5 k/uL (1.0-4.8); Lymphocytes % (A) 5 %; MCH 27.2 pg (25.0-35.0); MCHC 29.8 g/dL (31.0-37.0); MCV 91.4 fL (80.0-100.0); Mean Platelet Volume 7.9; Monocytes # (A) 0.5 k/uL (0-1.0); Monocytes % (A) 5 %; Neutrophils # (A) 8.8 k/uL (1.3-7.7); Neutrophils % (A) 87 %; Platelet Count 290 k/uL (150-450); RBC 2.88 m/uL (4.30-5.90); RDW 15.4 % (11.5-15.5); WBC 10.1 k/uL (3.8-10.6)
[2023-11-21 04:54] LABS: INR 3.8 (<1.2); Prothrombin Time 37.5 sec (10.0-12.5)
[2023-11-21] MEDS ORDERED: PHYTONADIONE ORAL 5 MG/5 ML ORAL.SYRG PO STA (05:00)
[2023-11-21 05:13] LABS: ALT 12 U/L (4-49); AST 20 U/L (17-59); African American GFR (CKD) 32 (>60 ml/min/1.73 sqM); Albumin 2.2 g/dL (3.5-5.0); Alkaline Phosphatase 89 U/L (38-126); Anion Gap 9 mmol/L; Blood Urea Nitrogen 50 mg/dL (9-20); Calcium 7.6 mg/dL (8.4-10.2); Carbon Dioxide 24 mmol/L (22-30); Chloride 109 mmol/L (98-107); Glucose 77 mg/dL (74-99); Non-African American GFR(CKD) 28 (>60 ml/min/1.73 sqM); Sodium 142 mmol/L (137-145); Total Bilirubin 1.1 mg/dL (0.2-1.3); Total Protein 4.9 g/dL (6.3-8.2)
[2023-11-21 05:15] LABS: Magnesium 2.2 mg/dL (1.6-2.3); Phosphorus 4.1 mg/dL (2.5-4.5)
--- NOTE | 2023-11-21 05:59 | PN ---
PROGRESS NOTE Mr. Valle came in with anemia, GI bleed, had a lesion and went on to have colectomy performed by Dr. Brewer. This patient has an aortic valve replacement with a tissue valve and mitral valve repair performed in 2014. He has underlying atrial fibrillation with a backup pacemaker. Pacemaker is functioning well. I was asked to see him regarding a pacemaker issue. The pacemaker is firing appropriately. No intervention is necessary. We will continue current medications. I would recommend anticoagulation only when okayed by surgeon. We will continue to see the patient as needed. S1-S2 heard normally. Irregular rhythm noted. Short systolic murmur at the base noted. Lungs revealed decent air entry. Abdomen exam was deferred. Lower extremity revealed diminished pulses. Central nervous system grossly within normal limits. MMODL / IJN: [id number] /
[2023-11-21] MEDS: IOPAMIDOL CONTRAST (ORAL USE) VIAL PO PRN (09:28)
[2023-11-21] MEDS: FUROSEMIDE 10 MG/ML 4 ML VIAL IV STA (10:18)
--- NOTE | 2023-11-21 10:41 | P.PN ---
Subjective Patient is seen in follow-up for acute kidney injury on chronic kidney disease. Renal function stable. Still has NG tube. Denies chest pain or shortness of breath. Off Levophed. Feels hungry. Vital signs are stable. General: No acute distress. HEENT: Head exam is unremarkable. NG tube noted. LUNGS: No audible rhonchi or wheezes. HEART: Rate and Rhythm are regular. ABDOMEN: Nontender. Dressing noted. No drainage. EXTREMITITES: 1+ edema. Chronic changes noted. Objective - Vital Signs Vital signs: Vital Signs Temp 98.9 F 11/21/23 08:36 Pulse 80 11/21/23 08:00 Resp 18 11/21/23 08:00 BP 99/47 11/21/23 08:00 Pulse Ox 92 L 11/21/23 08:06 FiO2 Intake & Output 11/20/23 11/21/23 11/21/23 18:59 06:59 18:59 Intake Total 150 Output Total 1335 460 60 Balance -1185 -460 -60 Weight 98.8 kg Intake: IV 150 Ertapenem 0.5 gm In 50 Sodium Chloride 0.9% 50 ml @ 100 mls/hr IVPB DAILY [facility] Rx#:[id number] Magnesium Sulfate-D5w Pmx 100 1 gm In Dextrose/Water 1 100ml.bag @ 100 mls/hr IVPB ONCE ONE Rx#: [id number] Output: Gastric Drainage 700 100 Urine 635 360 60 Other: Voiding Method Indwelling Catheter Indwelling Catheter - Labs CBC & Chem 7: 11/21/23 03:40 11/21/23 03:40 Labs: Abnormal Lab Results - Last 24 Hours (Table) 11/21/23 11/21/23 11/21/23 Range/Units 03:40 03:40 03:40 RBC 2.88 L (4.30-5.90) m/uL Hgb 7.8 L (13.0-17.5) gm/dL Hct 26.4 L (39.0-53.0) % MCHC 29.8 L (31.0-37.0) g/dL Neutrophils # 8.8 H (1.3-7.7) k/uL Lymphocytes # 0.5 L (1.0-4.8) k/uL PT 37.5 H (10.0-12.5) sec INR 3.8 H (<1.2) Chloride 109 H (98-107) mmol/L BUN 50 H (9-20) mg/dL Creatinine 2.11 H (0.66-1.25) mg/dL Calcium 7.6 L (8.4-10.2) mg/dL Total Protein 4.9 L (6.3-8.2) g/dL Albumin 2.2 L (3.5-5.0) g/dL Microbiology - Last 24 Hours (Table) 11/19/23 23:36 Blood Culture - Preliminary Blood Assessment and Plan Plan: Assessment: 1. Acute kidney injury secondary to ATN secondary to hypotension and component of urinary retention. Also received IV contrast on November 17, 2023. Renal function stable. Creatinine 2.11 today. No hydronephrosis noted on CAT scan. 2. Chronic kidney disease stage IIIa with baseline creatinine near 1.4 secondary to nephrosclerosis. 3. Hyperkalemia secondary to acute kidney injury, acidosis and Entresto. Improved. 4. Metabolic acidosis secondary to acute kidney injury s/p bicarb drip. Improved. 5. Colon mass status post transverse colectomy and partial omentectomy. 6. Urinary retention. Has Villasenor catheter. On Flomax. 7. Acute GI bleed. Hemoglobin stable at 7.4. Also component of anemia of chronic kidney disease. Iron deficiency noted. On Aranesp. 8. Chronic systolic CHF with ejection fraction of 40 to 45%. 9. Volume overload. 10. Partial small bowel obstruction versus moderate ileus. Surgery following. Plan: Maintain IV Lasix 40 mg once daily. Diet to be advanced per surgery. Avoid nephrotoxins. Continue to monitor renal function and urine output. Hold off on IV iron at this time.
--- NOTE | 2023-11-21 12:30 | P.PN ---
Subjective Progress Note Date: 11/21/23 Principal diagnosis: Acute abdominal distention, status post transverse colectomy and partial omentectomy/colon adenocarcinoma This is a 83-year-old male patient was transferred to the intensive care unit yesterday as the patient developed significant abdominal distention and hypotension. The patient has a colonic mass and the patient has undergone transverse colectomy and surgery was done on 11/13/2023.. For now, the patient is postop day #4. The abdomen was firm and quite distended. Immediately, a stat CAT scan of the abdomen was done and the patient was found to have pneumoperitoneum and this was suspected to be related to previous surgery. There was also nonobstructive bowel gas pattern with significant gastric distention and partial small bowel obstruction cannot be completely excluded. At that point, NG tube was inserted and immediately 600 cc of output was obtained. Abdomen is still distended although less compared to yesterday. No flatus. Bowel sounds are absent. General surgery is on the case. White cell count not elevated. Lactic acid level is low at 1.3. Note that postop, the patient's renal function remained stable. The patient has chronic stage III kidney disease and the creatinine today is up to 2.17 and a sodium levels at 134 with a potassium level of 5.5. Serum bicarb is at 17. Nephrology on the case. The patient is currently on a bicarb infusion which is running at 50 cc an hour. He has history of paroxysmal atrial fibrillation. He is on anticoagulation with warfarin. Coumadin is on hold and the patient's INR today is at 3.5. The respiratory status is stable. No significant shortness of breath. The patient is currently on 3 L of oxygen by nasal cannula with a pulse ox of 98%. Repeat chest film of the abdomen was done today that showed NG tube being in place. There is contrast in the mid and the distal colon and nonspecific bowel gas pattern and the patient's chest x-ray from today is showing cardiomegaly. NG tube is in place. There is air under the right hemidiaphragm. The patient was seen by 2 separate general surgeons and no surgical intervention is required at this point in time. Will monitor and will put the bowel to rest. The patient has likely small bowel ileus. Patient was reevaluated today on 11/19/2023, patient is status post transverse colectomy and surgery was done on 11/13/2023 for suspected colonic mass and abdominal distention he is now postoperative day #5. Patient has been in the ICU for what seems to be persistent abdominal distention and possible small bowel ileus. Being followed by surgery, does not feel reexploration is necessary at this point. Nonetheless the patient seems to be quite comfortable, abdomen is distended, he is hypotensive requiring norepinephrine at 0.07 mcg/kg/min. Continues to have nasogastric tube in place and draining 800 cc over the last 24 hours. Patient is also known to have history of cardiomyopathy and LV dysfunction with ejection fraction of 40 to 45%, he is requiring intermittently diuretics/Lasix his last dose was yesterday. Remains on antibiotics in the form of Invanz mostly because of his multiple allergies to different antibiotics. Patient continues to have chronic venous stasis and swelling in the lower extremities. And seems a bit uncomfortable with abdominal distention. But no evidence of severe pain. Slightly tender to palpation WBC count today is 9.2 hemoglobin is 7.4. INR is 3.8 basic metabolic profile is normal renal profile is a bit worse today BUN is 42 creatinine up to 2.31 from 2.16 yesterday chest x-ray continues to show free air under the diaphragm, cardiomegaly, and chronic mild venous congestion. Possible pneumonitis 3 today on 11/20/2023, patient remains in the ICU, continues to have significant abdominal distention/ileus continues to have nasogastric tube in place, patient remains n.p.o., patient still requiring TPN, and intermittently on norepinephrine. Lasix was given today 40 mg IV push x 1, seems to have decent urine output in spite of marginal blood pressure. His abdominal distention remains worrisome. 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 Chest x-ray is showing mostly minimal bibasilar atelectasis, cardiomegaly, and minimal venous congestion Reason on 11/21/2023, patient remains in the ICU, patient remains on Invanz, he is supposed to get a PICC line tomorrow, however his INR is elevated, will arrange for 2 units of fresh frozen plasma and vitamin K to be given tomorrow about 6 hours before PICC line schedule placement. Pulmonary herrera the patient is doing well, asymptomatic, continues to have ileus continues to have abdominal distention but improving patient is passing gas at least. His abdominal issues are being addressed by surgery on the case. WBC count is 10.1 hemoglobin 7.8 INR is 3.8 basic metabolic profile is normal BUN is 50 creatinine 2.11 chest x- ray today continues to show free air in the upper abdomen, otherwise no significant findings Objective - Vital Signs Vital signs: Vital Signs Temp 98.9 F 11/21/23 08:36 Pulse 91 11/21/23 11:00 Resp 15 11/21/23 11:00 BP 94/53 11/21/23 11:00 Pulse Ox 97 11/21/23 11:00 FiO2 Intake & Output 11/20/23 11/21/23 11/21/23 18:59 06:59 18:59 Intake Total 150 50 Output Total 1335 460 150 Balance -1185 -460 -100 Weight 98.8 kg Intake: IV 150 50 Ertapenem 0.5 gm In 50 50 Sodium Chloride 0.9% 50 ml @ 100 mls/hr IVPB DAILY [facility] Rx#:[id number] Magnesium Sulfate-D5w Pmx 100 1 gm In Dextrose/Water 1 100ml.bag @ 100 mls/hr IVPB ONCE ONE Rx#: [id number] Output: Gastric Drainage 700 100 Urine 635 360 150 Other: Voiding Method Indwelling Catheter Indwelling Catheter Indwelling Catheter # Bowel Movements 0 - Exam General: Revealed 83-year-old white male in no distress, on room air. Skin: Skin is warm and dry and no rashes or lesions are noted. Eye: Pupils are equal, round and reactive to light, extra-ocular movements are intact; there is normal conjunctiva bilaterally. Ears, nose, mouth and throat: There are moist mucous membranes and no oral lesions. Neck: The neck is supple, there is no tenderness or JVD. Cardiovascular: There is a regular rate and rhythm. No murmur, rub or gallop is appreciated. Respiratory: Minich breath sound bilaterally no crackles rhonchi or wheezes Gastrointestinal: distended nontender today to palpation, no bowel sounds. Musculoskeletal: Normal ROM, no tenderness, chronic venous stasis noted in lower extremities bilaterally. There is no calf tenderness or swelling. Neurological: CN II-XII intact, Cranial nerves III through XII are intact. There are no obvious motor or sensory deficits. Coordination appears grossly intact. Speech is normal. Psychiatric: Cooperative, appropriate mood & affect, normal judgment. - Labs CBC & Chem 7: 11/21/23 03:40 11/21/23 03:40 Labs: Abnormal Lab Results - Last 24 Hours (Table) 11/21/23 11/21/23 11/21/23 Range/Units 03:40 03:40 03:40 RBC 2.88 L (4.30-5.90) m/uL Hgb 7.8 L (13.0-17.5) gm/dL Hct 26.4 L (39.0-53.0) % MCHC 29.8 L (31.0-37.0) g/dL Neutrophils # 8.8 H (1.3-7.7) k/uL Lymphocytes # 0.5 L (1.0-4.8) k/uL PT 37.5 H (10.0-12.5) sec INR 3.8 H (<1.2) Chloride 109 H (98-107) mmol/L BUN 50 H (9-20) mg/dL Creatinine 2.11 H (0.66-1.25) mg/dL Calcium 7.6 L (8.4-10.2) mg/dL Total Protein 4.9 L (6.3-8.2) g/dL Albumin 2.2 L (3.5-5.0) g/dL Microbiology - Last 24 Hours (Table) 11/19/23 23:36 Blood Culture - Preliminary Blood Assessment and Plan Assessment: impression: Acute abdominal distention and bowel obstruction secondary to colonic adenocar cinoma status post transverse colectomy and partial omentectomy surgery on 11/13/2023 diagnosis was made as adenocarcinoma of the colon. 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 Recommendation: Continue to monitor in the ICU Continue hemodynamic support, today patient is off pressors. Continue nasogastric tube to suction Continue GI and DVT prophylaxis Continue IV fluids, cautious hydration at 50 cc/h Intermittent gentle diuresis Continue midodrine Medical status remains marginal Will need a PICC line for TPN tomorrow Surgery is still addressing his abdominal distention Continue to follow Time with Patient: Less than 30
--- NOTE | 2023-11-21 13:05 | P.PN ---
Subjective Progress Note Date: 11/21/23 This is an 83-year-old female past medical history significant for chronic persistent atrial fibrillation, CAD, hyperlipidemia, mitral valve prolapse, aortic valve replacement,PPM, cardiac ablation, cardiomyopathy, presented to the hospital with complaints of increasing generalized weakness, mild shortness of breath ;vague historian. discovered to have a hemoglobin of 6.7, INR 6.5. BUN 53, creatinine 2.28, bicarb 23 transfused with 1 unit packed RBCs as well as vitamin K in the ER. Repeat labs pending. denies nausea or vomiting but reported diarrhea dark black stools X months. Blood pressure soft, maintain O2 sats in the 90s on room air. Denies chest pain, palpitations or shortness of breath. 11/12/2023 NPO, completed prep, EGD and colonoscopy scheduled for early this afternoon. Anticoagulation remains on hold, continues on PPI. Reports no further bleeding or black, dark rectal output. Reports over the last 2 years he has lost 50 pounds, on a healthier diet. Hemoglobin with 7.6, platelet 182. renal function slowly improving, BUN 24, creatinine 1.64 denies chest pain, palpitations or shortness of breath. 11/14/2023 status post transverse colectomy and partial omentectomy, postop day #1. Reports "sore abdomen". Anticoagulation remains on hold. Receiving IV fluid hydration .reports occasional productive cough of phlegm .sitting up in chair.not passing flatus, advanced to clear liquids. Denies nausea or vomiting. Villasenor catheter recently DC'd this morning at 0600, not yet spontaneous voiding, bladder scan pending. BUN 18, creatinine 1.82. Received 1 unit packed RBCs y esterday for hemoglobin of 7.4, hemoglobin currently 8.9. Afebrile, WBC increased to 10.7. Sodium 136, potassium 5.7, bicarb 17. Pathology pending. 11/15/2023 IV fluid hydration. Blood pressure soft. Urinary retention, straight cath x 2 ,worsening renal function, creatinine up to 1.94, nephrology consulted. Hyperkalemic, potassium 5.9. Pain controlled. Reports not passing flatus. No bowel movement. Telemetry reporting paced rhythm .anticoagulation/Coumadin resuming tonight. 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 11/16/2023 Hemoglobin remains 7.9. Continues on IV fluid hydration .Maintained on Clear Liquid Diet, nauseated this morning. Blood sugars controlled. pain controlled. Passing minimal flatus, no bowel movement. Villasenor catheter placed yesterday secondary to urinary retention .renal ultrasound reported negative for obstructive uropathy, no hydronephrosis .blood pressures soft, improving. Renal function worsening, bicarb 15, 11/16. Patient seen and examined. Blood work done this morning showed WBC 4.1, hemoglobin 7.4, platelet count 188, sodium 135, potassium 5, BUN 30, creatinine 1.97. INR is 2.4. Patient sitting upright in the chair, passing gas, no bowel movement yet. Patient admits to poor appetite 11/17. Patient seen and examined. Patient was transferred to ICU overnight because of increased work of breathing, hypotension and abdominal distention. Chest x-ray done overnight showed trace left pleural effusion with stable cardiomegaly. CTA chest was negative for PE. CT abdomen done showed increasing subcutaneous edema and upper abdominal ascites likely corresponding to desired fluid overload state. Patient had NG tube inserted overnight. Patient was started on ertapenem and pressors. 11/18. Patient seen and examined. Blood work done this morning showed WBC 9.2, hemoglobin 9.4, sodium 137, potassium 4.5, BUN 42, creatinine 2.31. Stated he had bowel movement this morning. 11/19. Patient seen and examined. Labs done this morning showed WBC 9.2, hemoglobin 7.6, platelet count 252, sodium 139, potassium 4.5, BUN 46, creatinine 2.06 11/20. Patient seen and examined. PICC line could not be placed because of elevated INR, currently not on TPN. Will order 1 dose of vitamin K today. Lab work done this morning showed WBC 10.1, hemoglobin 7.8, platelet count 290, sodium 142, potassium 4, BUN 50, creatinine 2.11, INR 3.8 Physical exam General; alert and oriented x3, not in any acute distress. Well developed, well nourished. HEENT: Pupils are round and equally reacting to light. EOMI. No scleral icterus. No conjunctival pallor. Normocephalic, atraumatic. No pharyngeal erythema. No thyromegaly. CARDIOVASCULAR: S1 and S2 present. No murmurs, rubs, or gallops. PULMONARY: Chest is clear to auscultation, no wheezing or crackles. ABDOMEN: Soft distention improved, surgical incision seen. No palpable organomegaly. MUSCULOSKELETAL: No joint swelling or deformity. EXTREMITIES: No cyanosis, clubbing, or pedal edema. NEUROLOGICAL: Gross neurological examination did not reveal any focal deficits. SKIN: No rashes. Assessment and plan Hypotension Severe anemia secondary to acute GI bleed, status post EGD and colonoscopy; Upper endoscopy revealed 2.5 cm broad-based duodenal polyp in the second part of the duodenum opposite the ampullary orifice status post snare polypectomy and almost complete polypectomy performed. Small hiatal hernia. Colonoscopy revealed tight apple core ulcerated lesion in the mid transverse colon with significant luminal narrowing status post biopsy and tattooing. Status post transverse colectomy and partial omentectomy. 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 Surgical pathology pending. Urinary retention, post operative, requiring Villasenor catheter Acute renal failure, ATN secondary to the above as well as hypotension. Hyperkalemia secondary to all the above Metabolic acidosis secondary to acute renal failure Chronic persistent atrial fibrillation, INR supra therapeutic History of mitral valve repair and aortic valve replacement Cardiomyopathy, nonischemic, EF 40 to 45% PPM Hypertension Hyperlipidemia Monitor vital signs Monitor CBC Monitor CMP Continue telemetry monitoring Strict I's and O's, daily daily weights Keep patient n.p.o. Continue NG tube Continue Levophed Continue ertapenem PICC line to be placed and TPN to be started after that, scheduled for tomorrow Hold Coumadin as INR is supratherapeutic, will give 1 dose of vitamin K Continue with Villasenor catheter Cardiology following Nephrology following Critical care consulted Labs and medication were reviewed.. Continue same treatment. Continue with symptomatic treatment. Resume home medication. Monitor labs and vitals. DVT and GI prophylaxis. Further recommendations as per clinical course of the patient Dictation was produced using [employer] dictation software. please excuse any grammatical, word or spelling errors. Objective - Vital Signs Vital signs: Vital Signs Temp 98.9 F 11/21/23 08:36 Pulse 91 11/21/23 11:00 Resp 15 11/21/23 11:00 BP 94/53 11/21/23 11:00 Pulse Ox 97 11/21/23 11:00 FiO2 Intake & Output 11/20/23 11/21/23 11/21/23 18:59 06:59 18:59 Intake Total 150 50 Output Total 1335 460 150 Balance -1185 -460 -100 Weight 98.8 kg Intake: IV 150 50 Ertapenem 0.5 gm In 50 50 Sodium Chloride 0.9% 50 ml @ 100 mls/hr IVPB DAILY [facility] Rx#:[id number] Magnesium Sulfate-D5w Pmx 100 1 gm In Dextrose/Water 1 100ml.bag @ 100 mls/hr IVPB ONCE ONE Rx#: [id number] Output: Gastric Drainage 700 100 Urine 635 360 150 Other: Voiding Method Indwelling Catheter Indwelling Catheter Indwelling Catheter # Bowel Movements 0 - Labs CBC & Chem 7: 11/21/23 03:40 11/21/23 03:40 Labs: Abnormal Lab Results - Last 24 Hours (Table) 11/21/23 11/21/23 11/21/23 Range/Units 03:40 03:40 03:40 RBC 2.88 L (4.30-5.90) m/uL Hgb 7.8 L (13.0-17.5) gm/dL Hct 26.4 L (39.0-53.0) % MCHC 29.8 L (31.0-37.0) g/dL Neutrophils # 8.8 H (1.3-7.7) k/uL Lymphocytes # 0.5 L (1.0-4.8) k/uL PT 37.5 H (10.0-12.5) sec INR 3.8 H (<1.2) Chloride 109 H (98-107) mmol/L BUN 50 H (9-20) mg/dL Creatinine 2.11 H (0.66-1.25) mg/dL Calcium 7.6 L (8.4-10.2) mg/dL Total Protein 4.9 L (6.3-8.2) g/dL Albumin 2.2 L (3.5-5.0) g/dL Microbiology - Last 24 Hours (Table) 11/19/23 23:36 Blood Culture - Preliminary Blood
[2023-11-21] MEDS: WARFARIN 0.5 MG TAB PO ONE (14:14)
--- NOTE | 2023-11-21 15:12 | P.PN ---
Subjective Progress Note Date: 11/21/23 CHIEF COMPLAINT: Colon obstruction HISTORY OF PRESENT ILLNESS: Patient is postop day #8 status post transverse colectomy and partial omentectomy. Patient currently in the ICU. Patient had free air noted on chest x-ray therefore Dr. Brewer ordered CT scan abdomen and pelvis was ordered. Results are pending. Free air likely due to patient's recent surgery per surgeon. Patient has no abdominal pain. He is having bowel movements and flatus. Afebrile WBC is 10.1 Hgb 7.8 platelets 290 INR 3.8 dariana ent did receive fresh frozen plasma and vitamin K per critical care service. Coumadin held. Minimal output through NG tube Patient seen and examined with Dr. Brewer. PHYSICAL EXAM: VITAL SIGNS: Reviewed. GENERAL: Well-developed in no acute distress. ABDOMEN: Abdomen distended. Tympanic. Incisional dressing with small area of saturation NEUROLOGIC: Alert and oriented. Cranial nerves II through XII grossly intact. ASSESSMENT: 1. Colon mass obstructing suspicious for adenocarcinoma 2. Postoperative ileus PLAN: -Follow-up on CT scan abdomen and pelvis. CT scan ordered for further evaluation of free air noted on chest x-ray -Discontinue NG tube -Start sips of full liquids -Patient received PICC line today for TPN -Continue Reglan -Continue supportive care Physician Software Quality Assurance Engineer note has been reviewed by physician. Signing provider agrees with the documented findings, assessment, and plan of care. Objective - Vital Signs Vital signs: Vital Signs Temp 97.7 F 11/21/23 12:30 Pulse 84 11/21/23 15:00 Resp 22 11/21/23 15:00 BP 107/50 11/21/23 15:00 Pulse Ox 94 L 11/21/23 15:00 FiO2 Intake & Output 11/20/23 11/21/23 11/21/23 18:59 06:59 18:59 Intake Total 150 50 Output Total 1335 460 275 Balance -2595 -460 -225 Weight 98.8 kg Intake: IV 150 50 Ertapenem 0.5 gm In 50 50 Sodium Chloride 0.9% 50 ml @ 100 mls/hr IVPB DAILY [facility] Rx#:[id number] Magnesium Sulfate-D5w Pmx 100 1 gm In Dextrose/Water 1 100ml.bag @ 100 mls/hr IVPB ONCE ONE Rx#: [id number] Output: Gastric Drainage 700 100 Urine 635 360 275 Other: Voiding Method Indwelling Catheter Indwelling Catheter Indwelling Catheter # Bowel Movements 0 - Labs CBC & Chem 7: 11/21/23 03:40 11/21/23 03:40 Labs: Abnormal Lab Results - Last 24 Hours (Table) 11/21/23 11/21/23 11/21/23 Range/Units 03:40 03:40 03:40 RBC 2.88 L (4.30-5.90) m/uL Hgb 7.8 L (13.0-17.5) gm/dL Hct 26.4 L (39.0-53.0) % MCHC 29.8 L (31.0-37.0) g/dL Neutrophils # 8.8 H (1.3-7.7) k/uL Lymphocytes # 0.5 L (1.0-4.8) k/uL PT 37.5 H (10.0-12.5) sec INR 3.8 H (<1.2) Chloride 109 H (98-107) mmol/L BUN 50 H (9-20) mg/dL Creatinine 2.11 H (0.66-1.25) mg/dL Calcium 7.6 L (8.4-10.2) mg/dL Total Protein 4.9 L (6.3-8.2) g/dL Albumin 2.2 L (3.5-5.0) g/dL Microbiology - Last 24 Hours (Table) 11/19/23 23:36 Blood Culture - Preliminary Blood
[2023-11-21] MEDS: PHYTONADIONE ORAL 5 MG/5 ML ORAL.SYRG PO STA (15:38)
[2023-11-22] MEDS: PHYTONADIONE ORAL 5 MG/5 ML ORAL.SYRG PO ONE (04:51)
[2023-11-22 04:57] LABS: Basophils % (A) 0 %; Eosinophils # (A) 0.2 k/uL (0-0.7); Eosinophils % (A) 2 %; HGB 7.7 gm/dL (13.0-17.5); Hypochromasia Marked; Lymphocytes # (A) 0.4 k/uL (1.0-4.8); Lymphocytes % (A) 4 %; MCH 29.4 pg (25.0-35.0); MCHC 32.2 g/dL (31.0-37.0); MCV 91.4 fL (80.0-100.0); Mean Platelet Volume 8.3; Monocytes # (A) 1.1 k/uL (0-1.0); Monocytes % (A) 10 %; Neutrophils # (A) 8.8 k/uL (1.3-7.7); Neutrophils % (A) 82 %; Platelet Count 299 k/uL (150-450); Poikilocytosis Slight; RBC 2.62 m/uL (4.30-5.90); RDW 15.3 % (11.5-15.5); WBC 10.7 k/uL (3.8-10.6)
[2023-11-22 05:09] LABS: INR 1.7 (<1.2); Prothrombin Time 17.3 sec (10.0-12.5)
[2023-11-22 06:24] LABS: African American GFR (CKD) 31 (>60 ml/min/1.73 sqM); Anion Gap 8 mmol/L; Blood Urea Nitrogen 52 mg/dL (9-20); Calcium 7.4 mg/dL (8.4-10.2); Carbon Dioxide 25 mmol/L (22-30); Chloride 108 mmol/L (98-107); Glucose 93 mg/dL (74-99); Magnesium 2.2 mg/dL (1.6-2.3); Non-African American GFR(CKD) 27 (>60 ml/min/1.73 sqM); Phosphorus 3.7 mg/dL (2.5-4.5); Potassium 3.8 mmol/L (3.5-5.1); Sodium 141 mmol/L (137-145)
[2023-11-22] MEDS: LIDOCAINE 1% INJ 10MG/ML (20 ML MDV) SQ ONE (07:39)
--- NOTE | 2023-11-22 07:46 | P.OP ---
Date of Procedure: 11/22/23 Description of Procedure: Date of Procedure: 11/22/2023 Preoperative Diagnosis: Need for peripheral nutrition and medication administration Postoperative Diagnosis: Same. Procedure(s) Performed: Placement of left basilic PICC via AccuCath Insertion of peripherally inserted central catheter under fluoroscopic guidance. Anesthesia: local (1% Xylocaine.) Surgeon: Jacklyn Estimated Blood Loss (ml): 5 IV fluids (ml): 0 Urine output (ml): 0 Pathology: none sent Condition: stable Disposition: no change Indications for Procedure: Patient is a patient will require l peripheral nutrition therefore PICC line is recommended. Patient already has an AccuCath in the left upper arm therefore that will be utilized at this time. Description of Procedure: Patient was brought to the special procedure suite. The left upper extremity sterilely prepped and draped in usual manner. The previously placed AccuCath w as cleansed. Softip guidewire was advanced into the vein. The AccuCath was withdrawn and a micropuncture sheath and dilator advanced over the guidewire. The guidewire was withdrawn and exchanged for the PICC guidewire and measured 43 cm to the cavoatrial junction. The catheter was cut to size and advanced into the cavoatrial junction without resistance. The sheath was peeled away. Blood was easily withdrawn through the catheter and the catheter was then flushed with heparinized saline solution and secured to the skin. Patient tolerated procedure well and was returned to their room in satisfactory and stable condition.
--- NOTE | 2023-11-22 08:21 | IR ---
EXAMINATION TYPE: IR cvc insert >=5 years DATE OF EXAM: 11/22/2023 COMPARISON: NONE HISTORY: Fluoroscopy time. Fluoroscopy was provided to the referring clinician.
[2023-11-22] MEDS: FUROSEMIDE 10 MG/ML 4 ML VIAL IV SCH (09:04)
--- NOTE | 2023-11-22 10:34 | P.PN ---
Subjective Patient is seen in follow-up for acute kidney injury on chronic kidney disease. Renal function stable. NG tube removed. Denies chest pain or shortness of breath. Off Levophed. On CLD. Vital signs are stable. General: No acute distress. HEENT: Head exam is unremarkable. LUNGS: No audible rhonchi or wheezes. HEART: Rate and Rhythm are regular. ABDOMEN: Nontender. Dressing noted. No drainage. EXTREMITITES: 1+ edema. Chronic changes noted. Objective - Vital Signs Vital signs: Vital Signs Temp 97.6 F 11/22/23 08:00 Pulse 77 11/22/23 10:00 Resp 24 11/22/23 10:00 BP 95/69 11/22/23 10:00 Pulse Ox 94 L 11/22/23 10:00 FiO2 Intake & Output 11/21/23 11/22/23 11/22/23 18:59 06:59 18:59 Intake Total 1270 1200 397 Output Total 460 345 180 Balance 810 855 217 Weight 100.6 kg Intake: IV 70 Ertapenem 0.5 gm In 50 Sodium Chloride 0.9% 50 ml @ 100 mls/hr IVPB DAILY [facility] Rx#:[id number] Invasive Line 4 20 Oral 1200 1200 Blood Product 0 397 Ffp 24 Pher Acda Unit 0 397 [id number] Output: Urine 460 345 180 Other: Voiding Method Indwelling Catheter Indwelling Catheter Indwelling Catheter # Bowel Movements 0 0 - Labs CBC & Chem 7: 11/22/23 04:11 11/22/23 04:11 Labs: Abnormal Lab Results - Last 24 Hours (Table) 11/22/23 11/22/23 11/22/23 Range/Units 04:11 04:11 04:11 WBC 10.7 H (3.8-10.6) k/uL RBC 2.62 L (4.30-5.90) m/uL Hgb 7.7 L (13.0-17.5) gm/dL Hct 24.0 L (39.0-53.0) % Neutrophils # 8.8 H (1.3-7.7) k/uL Lymphocytes # 0.4 L (1.0-4.8) k/uL Monocytes # 1.1 H (0-1.0) k/uL PT 17.3 H (10.0-12.5) sec INR 1.7 H (<1.2) Chloride 108 H (98-107) mmol/L BUN 52 H (9-20) mg/dL Creatinine 2.18 H (0.66-1.25) mg/dL Calcium 7.4 L (8.4-10.2) mg/dL Microbiology - Last 24 Hours (Table) 11/19/23 23:36 Blood Culture - Preliminary Blood Assessment and Plan Plan: Assessment: 1. Acute kidney injury secondary to ATN secondary to hypotension and component of urinary retention. Also received IV contrast on November 17, 2023. Renal function stable. Creatinine 2.18 today. No hydronephrosis noted on CAT scan. 2. Chronic kidney disease stage IIIa with baseline creatinine near 1.4 secondary to nephrosclerosis. 3. Hyperkalemia secondary to acute kidney injury, acidosis and Entresto. Improved. 4. Metabolic acidosis secondary to acute kidney injury s/p bicarb drip. Improved. 5. Colon mass status post transverse colectomy and partial omentectomy. 6. Urinary retention. Has Villasenor catheter. On Flomax. 7. Acute GI bleed. Hemoglobin stable at 7.5. Also component of anemia of chronic kidney disease. Iron deficiency noted. On Aranesp. 8. Chronic systolic CHF with ejection fraction of 40 to 45%. 9. Volume overload. 10. Partial small bowel obstruction versus moderate ileus. Surgery following. Plan: Maintain IV Lasix - will give additional dose 40 mg IV this evening. Diet to be advanced per surgery. Avoid nephrotoxins. Continue to monitor renal function and urine output. Hold off on IV iron at this time.
--- NOTE | 2023-11-22 12:27 | P.PN ---
Subjective Progress Note Date: 11/22/23 Patient appears to be doing better. He has had multiple bowel movements. He is tolerating his full liquids and sips. He has minimal complaints of incisional pain. Objective - Vital Signs Vital signs: Vital Signs Temp 97.6 F 11/22/23 08:00 Pulse 77 11/22/23 10:00 Resp 24 11/22/23 10:00 BP 95/69 11/22/23 10:00 Pulse Ox 94 L 11/22/23 10:00 FiO2 Intake & Output 11/21/23 11/22/23 11/22/23 18:59 06:59 18:59 Intake Total 1270 1200 397 Output Total 460 345 180 Balance 810 855 217 Weight 100.6 kg 100.6 kg Intake: IV 70 Ertapenem 0.5 gm In 50 Sodium Chloride 0.9% 50 ml @ 100 mls/hr IVPB DAILY [facility] Rx#:[id number] Invasive Line 4 20 Oral 1200 1200 Blood Product 0 397 Ffp 24 Pher Acda Unit 0 397 [id number] Output: Urine 460 345 180 Other: Voiding Method Indwelling Catheter Indwelling Catheter Indwelling Catheter # Bowel Movements 0 0 - Labs CBC & Chem 7: 11/22/23 04:11 11/22/23 04:11 Labs: Abnormal Lab Results - Last 24 Hours (Table) 11/22/23 11/22/23 11/22/23 Range/Units 04:11 04:11 04:11 WBC 10.7 H (3.8-10.6) k/uL RBC 2.62 L (4.30-5.90) m/uL Hgb 7.7 L (13.0-17.5) gm/dL Hct 24.0 L (39.0-53.0) % Neutrophils # 8.8 H (1.3-7.7) k/uL Lymphocytes # 0.4 L (1.0-4.8) k/uL Monocytes # 1.1 H (0-1.0) k/uL PT 17.3 H (10.0-12.5) sec INR 1.7 H (<1.2) Chloride 108 H (98-107) mmol/L BUN 52 H (9-20) mg/dL Creatinine 2.18 H (0.66-1.25) mg/dL Calcium 7.4 L (8.4-10.2) mg/dL Microbiology - Last 24 Hours (Table) 11/19/23 23:36 Blood Culture - Preliminary Blood Assessment and Plan Plan: Status post transverse colectomy forcolon cancer. Patient will receive supportive care.
--- NOTE | 2023-11-22 13:24 | P.PN ---
Subjective Progress Note Date: 11/22/23 This is an 83-year-old female past medical history significant for chronic persistent atrial fibrillation, CAD, hyperlipidemia, mitral valve prolapse, aortic valve replacement,PPM, cardiac ablation, cardiomyopathy, presented to the hospital with complaints of increasing generalized weakness, mild shortness of breath ;vague historian. discovered to have a hemoglobin of 6.7, INR 6.5. BUN 53, creatinine 2.28, bicarb 23 transfused with 1 unit packed RBCs as well as vitamin K in the ER. Repeat labs pending. denies nausea or vomiting but reported diarrhea dark black stools X months. Blood pressure soft, maintain O2 sats in the 90s on room air. Denies chest pain, palpitations or shortness of breath. 11/12/2023 NPO, completed prep, EGD and colonoscopy scheduled for early this afternoon. Anticoagulation remains on hold, continues on PPI. Reports no further bleeding or black, dark rectal output. Reports over the last 2 years he has lost 50 pounds, on a healthier diet. Hemoglobin with 7.6, platelet 182. renal function slowly improving, BUN 24, creatinine 1.64 denies chest pain, palpitations or shortness of breath. 11/14/2023 status post transverse colectomy and partial omentectomy, postop day #1. Reports "sore abdomen". Anticoagulation remains on hold. Receiving IV fluid hydration .reports occasional productive cough of phlegm .sitting up in chair.not passing flatus, advanced to clear liquids. Denies nausea or vomiting. Villasenor catheter recently DC'd this morning at 0600, not yet spontaneous voiding, bladder scan pending. BUN 18, creatinine 1.82. Received 1 unit packed RBCs y esterday for hemoglobin of 7.4, hemoglobin currently 8.9. Afebrile, WBC increased to 10.7. Sodium 136, potassium 5.7, bicarb 17. Pathology pending. 11/15/2023 IV fluid hydration. Blood pressure soft. Urinary retention, straight cath x 2 ,worsening renal function, creatinine up to 1.94, nephrology consulted. Hyperkalemic, potassium 5.9. Pain controlled. Reports not passing flatus. No bowel movement. Telemetry reporting paced rhythm .anticoagulation/Coumadin resuming tonight. 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 11/16/2023 Hemoglobin remains 7.9. Continues on IV fluid hydration .Maintained on Clear Liquid Diet, nauseated this morning. Blood sugars controlled. pain controlled. Passing minimal flatus, no bowel movement. Villasenor catheter placed yesterday secondary to urinary retention .renal ultrasound reported negative for obstructive uropathy, no hydronephrosis .blood pressures soft, improving. Renal function worsening, bicarb 15, 11/16. Patient seen and examined. Blood work done this morning showed WBC 4.1, hemoglobin 7.4, platelet count 188, sodium 135, potassium 5, BUN 30, creatinine 1.97. INR is 2.4. Patient sitting upright in the chair, passing gas, no bowel movement yet. Patient admits to poor appetite 11/17. Patient seen and examined. Patient was transferred to ICU overnight because of increased work of breathing, hypotension and abdominal distention. Chest x-ray done overnight showed trace left pleural effusion with stable cardiomegaly. CTA chest was negative for PE. CT abdomen done showed increasing subcutaneous edema and upper abdominal ascites likely corresponding to desired fluid overload state. Patient had NG tube inserted overnight. Patient was started on ertapenem and pressors. 11/18. Patient seen and examined. Blood work done this morning showed WBC 9.2, hemoglobin 9.4, sodium 137, potassium 4.5, BUN 42, creatinine 2.31. Stated he had bowel movement this morning. 11/19. Patient seen and examined. Labs done this morning showed WBC 9.2, hemoglobin 7.6, platelet count 252, sodium 139, potassium 4.5, BUN 46, creatinine 2.06 11/20. Patient seen and examined. PICC line could not be placed because of elevated INR, currently not on TPN. Will order 1 dose of vitamin K today. Lab work done this morning showed WBC 10.1, hemoglobin 7.8, platelet count 290, sodium 142, potassium 4, BUN 50, creatinine 2.11, INR 3.8 11/21. Patient seen and examined. Patient sitting upright in the chair. PICC l ine was placed. NG tube was discontinued. Lab work done showed WBC 10.7, hemoglobin 7.7, platelet count 219, sodium 141, potassium 3.8, BUN 52, creatinine 2.18. No acute issues overnight Physical exam General; alert and oriented x3, not in any acute distress. Well developed, well nourished. HEENT: Pupils are round and equally reacting to light. EOMI. No scleral icterus. No conjunctival pallor. Normocephalic, atraumatic. No pharyngeal erythema. No thyromegaly. CARDIOVASCULAR: S1 and S2 present. No murmurs, rubs, or gallops. PULMONARY: Chest is clear to auscultation, no wheezing or crackles. ABDOMEN: Soft distention improved, surgical incision seen. No palpable organomegaly. MUSCULOSKELETAL: No joint swelling or deformity. EXTREMITIES: No cyanosis, clubbing, or pedal edema. NEUROLOGICAL: Gross neurological examination did not reveal any focal deficits. SKIN: No rashes. Assessment and plan Hypotension Severe anemia secondary to acute GI bleed, status post EGD and colonoscopy; Upper endoscopy revealed 2.5 cm broad-based duodenal polyp in the second part of the duodenum opposite the ampullary orifice status post snare polypectomy and almost complete polypectomy performed. Small hiatal hernia. Colonoscopy revealed tight apple core ulcerated lesion in the mid transverse colon with significant luminal narrowing status post biopsy and tattooing. Status post transverse colectomy and partial omentectomy. 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 Surgical pathology pending. Urinary retention, post operative, requiring Villasenor catheter Acute renal failure, ATN secondary to the above as well as hypotension. Hyperkalemia secondary to all the above Metabolic acidosis secondary to acute renal failure Chronic persistent atrial fibrillation, INR supra therapeutic History of mitral valve repair and aortic valve replacement Cardiomyopathy, nonischemic, EF 40 to 45% PPM Hypertension Hyperlipidemia Monitor vital signs Monitor CBC Monitor CMP Continue telemetry monitoring Strict I's and O's, daily daily weights Continue Levophed Continue ertapenem Continue TPN Continue Coumadin pharmacy to dose Continue with Villasenor catheter Currently on clear liquid diet, diet to be advanced per surgery Cardiology following Nephrology following Critical care consulted Labs and medication were reviewed.. Continue same treatment. Continue with symptomatic treatment. Resume home medication. Monitor labs and vitals. DVT and GI prophylaxis. Further recommendations as per clinical course of the patient Dictation was produced using [employer] dictation software. please excuse any gramma tical, word or spelling errors. Objective - Vital Signs Vital signs: Vital Signs Temp 97.6 F 11/22/23 08:00 Pulse 77 11/22/23 10:00 Resp 24 11/22/23 10:00 BP 95/69 11/22/23 10:00 Pulse Ox 94 L 11/22/23 10:00 FiO2 Intake & Output 11/21/23 11/22/23 11/22/23 18:59 06:59 18:59 Intake Total 1270 1200 397 Output Total 460 345 180 Balance 810 855 217 Weight 100.6 kg 100.6 kg Intake: IV 70 Ertapenem 0.5 gm In 50 Sodium Chloride 0.9% 50 ml @ 100 mls/hr IVPB DAILY [facility] Rx#:[id number] Invasive Line 4 20 Oral 1200 1200 Blood Product 0 397 Ffp 24 Pher Acda Unit 0 397 [id number] Output: Urine 460 345 180 Other: Voiding Method Indwelling Catheter Indwelling Catheter Indwelling Catheter # Bowel Movements 0 0 - Labs CBC & Chem 7: 11/22/23 04:11 11/22/23 04:11 Labs: Abnormal Lab Results - Last 24 Hours (Table) 11/22/23 11/22/23 11/22/23 Range/Units 04:11 04:11 04:11 WBC 10.7 H (3.8-10.6) k/uL RBC 2.62 L (4.30-5.90) m/uL Hgb 7.7 L (13.0-17.5) gm/dL Hct 24.0 L (39.0-53.0) % Neutrophils # 8.8 H (1.3-7.7) k/uL Lymphocytes # 0.4 L (1.0-4.8) k/uL Monocytes # 1.1 H (0-1.0) k/uL PT 17.3 H (10.0-12.5) sec INR 1.7 H (<1.2) Chloride 108 H (98-107) mmol/L BUN 52 H (9-20) mg/dL Creatinine 2.18 H (0.66-1.25) mg/dL Calcium 7.4 L (8.4-10.2) mg/dL Microbiology - Last 24 Hours (Table) 11/19/23 23:36 Blood Culture - Preliminary Blood
--- NOTE | 2023-11-22 13:48 | P.PN ---
Subjective Progress Note Date: 11/22/23 Principal diagnosis: Acute abdominal distention, status post transverse colectomy and partial omentectomy/colon adenocarcinoma This is a 83-year-old male patient was transferred to the intensive care unit yesterday as the patient developed significant abdominal distention and hypotension. The patient has a colonic mass and the patient has undergone transverse colectomy and surgery was done on 11/13/2023.. For now, the patient is postop day #4. The abdomen was firm and quite distended. Immediately, a stat CAT scan of the abdomen was done and the patient was found to have pneumoperitoneum and this was suspected to be related to previous surgery. There was also nonobstructive bowel gas pattern with significant gastric distention and partial small bowel obstruction cannot be completely excluded. At that point, NG tube was inserted and immediately 600 cc of output was obtained. Abdomen is still distended although less compared to yesterday. No flatus. Bowel sounds are absent. General surgery is on the case. White cell count not elevated. Lactic acid level is low at 1.3. Note that postop, the patient's renal function remained stable. The patient has chronic stage III kidney disease and the creatinine today is up to 2.17 and a sodium levels at 134 with a potassium level of 5.5. Serum bicarb is at 17. Nephrology on the case. The patient is currently on a bicarb infusion which is running at 50 cc an hour. He has history of paroxysmal atrial fibrillation. He is on anticoagulation with warfarin. Coumadin is on hold and the patient's INR today is at 3.5. The respiratory status is stable. No significant shortness of breath. The patient is currently on 3 L of oxygen by nasal cannula with a pulse ox of 98%. Repeat chest film of the abdomen was done today that showed NG tube being in place. There is contrast in the mid and the distal colon and nonspecific bowel gas pattern and the patient's chest x-ray from today is showing cardiomegaly. NG tube is in place. There is air under the right hemidiaphragm. The patient was seen by 2 separate general surgeons and no surgical intervention is required at this point in time. Will monitor and will put the bowel to rest. The patient has likely small bowel ileus. Patient was reevaluated today on 11/19/2023, patient is status post transverse colectomy and surgery was done on 11/13/2023 for suspected colonic mass and abdominal distention he is now postoperative day #5. Patient has been in the ICU for what seems to be persistent abdominal distention and possible small bowel ileus. Being followed by surgery, does not feel reexploration is necessary at this point. Nonetheless the patient seems to be quite comfortable, abdomen is distended, he is hypotensive requiring norepinephrine at 0.07 mcg/kg/min. Continues to have nasogastric tube in place and draining 800 cc over the last 24 hours. Patient is also known to have history of cardiomyopathy and LV dysfunction with ejection fraction of 40 to 45%, he is requiring intermittently diuretics/Lasix his last dose was yesterday. Remains on antibiotics in the form of Invanz mostly because of his multiple allergies to different antibiotics. Patient continues to have chronic venous stasis and swelling in the lower extremities. And seems a bit uncomfortable with abdominal distention. But no evidence of severe pain. Slightly tender to palpation WBC count today is 9.2 hemoglobin is 7.4. INR is 3.8 basic metabolic profile is normal renal profile is a bit worse today BUN is 42 creatinine up to 2.31 from 2.16 yesterday chest x-ray continues to show free air under the diaphragm, cardiomegaly, and chronic mild venous congestion. Possible pneumonitis 3 today on 11/20/2023, patient remains in the ICU, continues to have significant abdominal distention/ileus continues to have nasogastric tube in place, patient remains n.p.o., patient still requiring TPN, and intermittently on norepinephrine. Lasix was given today 40 mg IV push x 1, seems to have decent urine output in spite of marginal blood pressure. His abdominal distention remains worrisome. 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 Chest x-ray is showing mostly minimal bibasilar atelectasis, cardiomegaly, and minimal venous congestion Reason on 11/21/2023, patient remains in the ICU, patient remains on Invanz, he is supposed to get a PICC line tomorrow, however his INR is elevated, will arrange for 2 units of fresh frozen plasma and vitamin K to be given tomorrow about 6 hours before PICC line schedule placement. Pulmonary herrera the patient is doing well, asymptomatic, continues to have ileus continues to have abdominal distention but improving patient is passing gas at least. His abdominal issues are being addressed by surgery on the case. WBC count is 10.1 hemoglobin 7.8 INR is 3.8 basic metabolic profile is normal BUN is 50 creatinine 2.11 chest x- ray today continues to show free air in the upper abdomen, otherwise no significant findings Reevaluate today on 11/22/2023, patient is still in the ICU, his abdominal distention is improving, patient has had bowel movements last night, patient was started today on clear liquids, PICC line was placed for TPN, did receive fresh frozen plasma and vitamin K for placement of the PICC line, INR today is 1.7. Now the patient could be restarted back on his Coumadin. And we could potentially transfer the patient out of the ICU to a monitored bed and vlad ctive/3 S. WBC count is 10.7 hemoglobin 7.7 INR is 1.7 basic metabolic profile is normal renal profile showed BUN of 52 creatinine 2.18 Objective - Vital Signs Vital signs: Vital Signs Temp 97.6 F 11/22/23 08:00 Pulse 77 11/22/23 10:00 Resp 24 11/22/23 10:00 BP 95/69 11/22/23 10:00 Pulse Ox 94 L 11/22/23 10:00 FiO2 Intake & Output 11/21/23 11/22/23 11/22/23 18:59 06:59 18:59 Intake Total 1270 1200 397 Output Total 460 345 180 Balance 810 855 217 Weight 100.6 kg 100.6 kg Intake: IV 70 Ertapenem 0.5 gm In 50 Sodium Chloride 0.9% 50 ml @ 100 mls/hr IVPB DAILY [facility] Rx#:[id number] Invasive Line 4 20 Oral 1200 1200 Blood Product 0 397 Ffp 24 Pher Acda Unit 0 397 [id number] Output: Urine 460 345 180 Other: Voiding Method Indwelling Catheter Indwelling Catheter Indwelling Catheter # Bowel Movements 0 0 - Exam General: Revealed 83-year-old white male in no distress, on room air. Skin: Skin is warm and dry and no rashes or lesions are noted. Eye: Pupils are equal, round and reactive to light, extra-ocular movements are intact; there is normal conjunctiva bilaterally. Ears, nose, mouth and throat: There are moist mucous membranes and no oral lesions. Neck: The neck is supple, there is no tenderness or JVD. Cardiovascular: There is a regular rate and rhythm. No murmur, rub or gallop is appreciated. Respiratory: Minich breath sound bilaterally no crackles rhonchi or wheezes Gastrointestinal: Remains distended but not as tender today. Positive bowel sounds. Musculoskeletal: Normal ROM, no tenderness, chronic venous stasis noted in lower extremities bilaterally. 2+ bipedal edema there is no calf tenderness or swelling. Neurological: CN II-XII intact, Cranial nerves III through XII are intact. There are no obvious motor or sensory deficits. Coordination appears grossly intact. Speech is normal. Psychiatric: Cooperative, appropriate mood & affect, normal judgment. - Labs CBC & Chem 7: 11/22/23 04:11 11/22/23 04:11 Labs: Abnormal Lab Results - Last 24 Hours (Table) 11/22/23 11/22/23 11/22/23 Range/Units 04:11 04:11 04:11 WBC 10.7 H (3.8-10.6) k/uL RBC 2.62 L (4.30-5.90) m/uL Hgb 7.7 L (13.0-17.5) gm/dL Hct 24.0 L (39.0-53.0) % Neutrophils # 8.8 H (1.3-7.7) k/uL Lymphocytes # 0.4 L (1.0-4.8) k/uL Monocytes # 1.1 H (0-1.0) k/uL PT 17.3 H (10.0-12.5) sec INR 1.7 H (<1.2) Chloride 108 H (98-107) mmol/L BUN 52 H (9-20) mg/dL Creatinine 2.18 H (0.66-1.25) mg/dL Calcium 7.4 L (8.4-10.2) mg/dL Microbiology - Last 24 Hours (Table) 11/19/23 23:36 Blood Culture - Preliminary Blood Assessment and Plan Assessment: impression: Acute abdominal distention and bowel obstruction secondary to colonic adenocarcinoma status post transverse colectomy and partial omentectomy surgery on 11/13/2023 diagnosis was made as adenocarcinoma of the colon. 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 Recommendation: Transfer patient to 3 S. today. Clear liquid diet today. Continue GI and DVT prophylaxis Continue IV fluids, and TPN/nutritional support Intermittent gentle diuresis Continue midodrine Surgery is still addressing his abdominal distention seems to be improving Continue to follow Time with Patient: Less than 30
[2023-11-22] MEDS: MVI, ADULT NO.4 WITH VIT K 10 ML, TRACE (CONC-1ML/DOSE) 1 ML, SODIUM ACETATE 30 MEQ, PO... IV ONE (14:01)
[2023-11-22] MEDS: FAT EMULSION 20% 250 ML IV SCH (14:02)
--- NOTE | 2023-11-22 14:58 | CT ---
EXAMINATION TYPE: CT abdomen pelvis wo con CT DLP: 940.4 mGycm, Automated exposure control for dose reduction was used. DATE OF EXAM: 11/21/2023 12:58 PM COMPARISON: CT abdomen pelvis most recent from 11/17/2023 CLINICAL INDICATION:Male, 83 years old with history of r/o free air; r/o free air TECHNIQUE: Axial CT abdomen pelvis wo con;Sagittal and coronal reformats were created on a separate workstation. Contrast used: mL of , (none if empty) Oral contrast used: with Oral Contrast (none if empty) FINDINGS: LOWER CHEST: Mild to moderate right pleural effusion and trace left pleural effusions are present. Th ere is consolidation or atelectasis in both lung bases. ABDOMEN LIVER: Unremarkable GALLBLADDER AND BILE DUCTS: Unremarkable. PANCREAS: Unremarkable. SPLEEN: Unremarkable. ADRENAL GLANDS: Unremarkable. KIDNEYS AND URETERS: No evidence of hydronephrosis or renal calculus. The ureters are unremarkable. PELVIS BLADDER: Unremarkable REPRODUCTIVE: Unremarkable. ABDOMEN & PELVIS STOMACH AND BOWEL: Stomach and duodenum are unremarkable. No evidence of bowel obstruction. PERITONEUM/RETROPERITONEUM: There is air seen nondependently. In the abdomen consistent for pneumoper itoneum. Free fluid of a moderate amount is present. VASCULATURE: No evidence of aortic aneurysm. MUSCULOSKELETAL: No acute osseous abnormalities LYMPH NODES: No gross evidence for lymphadenopathy. SOFT TISSUE/ABDOMINAL WALL: There is air in the subcutaneous tissues as discussed above. IMPRESSION: 1. There is air seen nondependently. In the abdomen is suspect for pneumoperitoneum. Free fluid of a moderate amount is present. 2. Subcutaneous air is seen near the incision site in the mid abdomen and to the left of midline. 3.There is consolidation or atelectasis in both lung bases.
[2023-11-22] MEDS: FUROSEMIDE 10 MG/ML 4 ML VIAL IV ONE (17:43)
[2023-11-23 09:13] LABS: Glucose,Whole Blood 197 mg/dL (70-110)
[2023-11-23 10:34] LABS: African American GFR (CKD) 28 (>60 ml/min/1.73 sqM); Anion Gap 6 mmol/L; Blood Urea Nitrogen 53 mg/dL (9-20); Calcium 7.4 mg/dL (8.4-10.2); Carbon Dioxide 26 mmol/L (22-30); Chloride 102 mmol/L (98-107); Non-African American GFR(CKD) 24 (>60 ml/min/1.73 sqM); Potassium 4.1 mmol/L (3.5-5.1); Sodium 134 mmol/L (137-145)
[2023-11-23 10:45] LABS: Glucose 557 mg/dL (74-99)
[2023-11-23 10:49] LABS: Glucose,Whole Blood 171 mg/dL (70-110)
[2023-11-23 11:00] LABS: Basophils % (A) 0 %; Eosinophils # (A) 0.2 k/uL (0-0.7); Eosinophils % (A) 2 %; HCT 26.2 % (39.0-53.0); HGB 7.5 gm/dL (13.0-17.5); Hypochromasia Marked; Lymphocytes # (A) 0.3 k/uL (1.0-4.8); Lymphocytes % (A) 3 %; MCH 28.1 pg (25.0-35.0); MCHC 28.7 g/dL (31.0-37.0); Mean Platelet Volume 9.1; Monocytes # (A) 1.1 k/uL (0-1.0); Monocytes % (A) 9 %; Neutrophils # (A) 9.7 k/uL (1.3-7.7); Neutrophils % (A) 83 %; Platelet Count 323 k/uL (150-450); RBC 2.68 m/uL (4.30-5.90); RDW 15.3 % (11.5-15.5); WBC 11.6 k/uL (3.8-10.6)
[2023-11-23 11:01] LABS: MCV 97.7 fL (80.0-100.0)
[2023-11-23 11:40] LABS: Glucose,Whole Blood 161 mg/dL (70-110)
--- NOTE | 2023-11-23 11:58 | P.PN ---
Subjective Patient is seen in follow-up for acute kidney injury on chronic kidney disease. Renal function slightly worse. Denies chest pain or shortness of breath. On clear liquid diet. On IV Lasix. Vital signs are stable. General: No acute distress. HEENT: Head exam is unremarkable. LUNGS: No audible rhonchi or wheezes. HEART: Rate and Rhythm are regular. ABDOMEN: Nontender. Dressing noted. No drainage. EXTREMITITES: 1+ edema. Chronic changes noted. Objective - Vital Signs Vital signs: Vital Signs Temp 97.7 F 11/23/23 08:40 Pulse 90 11/23/23 08:40 Resp 20 11/23/23 08:40 BP 96/53 11/23/23 08:40 Pulse Ox 99 11/23/23 08:40 FiO2 Intake & Output 11/22/23 11/23/23 11/23/23 18:59 06:59 18:59 Intake Total 1451.98 324.98 Output Total 450 110 Balance 1001.98 214.98 Weight 100.6 kg Intake: IV 394.98 324.98 Ertapenem 0.5 gm In 50 Sodium Chloride 0.9% 50 ml @ 100 mls/hr IVPB DAILY [facility] Rx#:[id number] Fat Emulsion 20% 250 ml @ 124.98 124.98 20.833 mls/hr IV MoTh@ 1300 [facility] Rx#:[id number] Invasive Line 5 40 20 Mvi, Adult No.4 with Vit 180 180 K 10 ml Trace (Conc-1Ml/ Dose) 1 ml Sodium Acetate 30 meq Potassium Chloride 20 meq Calcium Gluconate 1 gm In Amino Acids 5 %/Dextrose 20 % 1 ,000 ml @ 30 mls/hr IV . Q24H ONE Rx#:[id number] Oral 660 Blood Product 397 Ffp 24 Pher Acda Unit 397 [id number] Output: Urine 450 110 Other: Voiding Method Indwelling Catheter Indwelling Catheter Indwelling Catheter # Bowel Movements 0 - Labs CBC & Chem 7: 11/23/23 09:54 11/23/23 09:54 Labs: Abnormal Lab Results - Last 24 Hours (Table) 11/23/23 11/23/23 11/23/23 Range/Units 09:12 09:54 09:54 WBC 11.6 H (3.8-10.6) k/uL RBC 2.68 L (4.30-5.90) m/uL Hgb 7.5 L (13.0-17.5) gm/dL Hct 26.2 L (39.0-53.0) % MCHC 28.7 L (31.0-37.0) g/dL Neutrophils # 9.7 H (1.3-7.7) k/uL Lymphocytes # 0.3 L (1.0-4.8) k/uL Monocytes # 1.1 H (0-1.0) k/uL Sodium 134 L (137-145) mmol/L BUN 53 H (9-20) mg/dL Creatinine 2.41 H (0.66-1.25) mg/dL Glucose 557 H* (74-99) mg/dL POC Glucose (mg/dL) 197 H (70-110) mg/dL Calcium 7.4 L (8.4-10.2) mg/dL 11/23/23 11/23/23 Range/Units 10:48 11:39 WBC (3.8-10.6) k/uL RBC (4.30-5.90) m/uL Hgb (13.0-17.5) gm/dL Hct (39.0-53.0) % MCHC (31.0-37.0) g/dL Neutrophils # (1.3-7.7) k/uL Lymphocytes # (1.0-4.8) k/uL Monocytes # (0-1.0) k/uL Sodium (137-145) mmol/L BUN (9-20) mg/dL Creatinine (0.66-1.25) mg/dL Glucose (74-99) mg/dL POC Glucose (mg/dL) 171 H 161 H (70-110) mg/dL Calcium (8.4-10.2) mg/dL Microbiology - Last 24 Hours (Table) 11/19/23 23:36 Blood Culture - Preliminary Blood Assessment and Plan Plan: Assessment: 1. Acute kidney injury secondary to ATN secondary to hypotension and component of urinary retention. Also received IV contrast on November 17, 2023. Renal function worse from diuresis. Creatinine 2.41 today. No hydronephrosis noted on CAT scan. 2. Chronic kidney disease stage IIIa with baseline creatinine near 1.4 secondary to nephrosclerosis. 3. Hyperkalemia secondary to acute kidney injury, acidosis and Entresto. Improved. 4. Metabolic acidosis secondary to acute kidney injury s/p bicarb drip. Improved. 5. Colon mass status post transverse colectomy and partial omentectomy. 6. Urinary retention. Has Villasenor catheter. On Flomax. 7. Acute GI bleed. Hemoglobin stable at 7.5. Also component of anemia of chronic kidney disease. Iron deficiency noted. On Aranesp. 8. Chronic systolic CHF with ejection fraction of 40 to 45%. 9. Volume overload. On IV Lasix. 10. Partial small bowel obstruction versus moderate ileus. Surgery following. 11. Hypotonic hyponatremia secondary to hyperglycemia. Last blood glucose 161 but was elevated at 557 earlier when blood was drawn. Plan: Increase IV Lasix to 40 mg twice daily. Receiving TPN. Diet to be advanced per surgery. Avoid nephrotoxins. Continue to monitor renal function and urine output. Hold off on IV iron at this time. Maintain strict I's and O's for now.
--- NOTE | 2023-11-23 12:38 | P.PN ---
Subjective Progress Note Date: 11/23/23 patient feels improved. He is having flatus and some small bowel movements. On exam vital signs appear stable. Abdomen soft incision is clean dry intact Status post transverse colectomy. Patient will continue receive supportive care.he will have his diet advanced. Objective - Vital Signs Vital signs: Vital Signs Temp 97.7 F 11/23/23 08:40 Pulse 74 11/23/23 11:36 Resp 20 11/23/23 11:36 BP 110/64 11/23/23 11:36 Pulse Ox 98 11/23/23 11:36 FiO2 Intake & Output 11/22/23 11/23/23 11/23/23 18:59 06:59 18:59 Intake Total 1451.98 324.98 Output Total 450 110 525 Balance 1001.98 214.98 -525 Weight 100.6 kg Intake: IV 394.98 324.98 Ertapenem 0.5 gm In 50 Sodium Chloride 0.9% 50 ml @ 100 mls/hr IVPB DAILY [facility] Rx#:[id number] Fat Emulsion 20% 250 ml @ 124.98 124.98 20.833 mls/hr IV MoTh@ 1300 [facility] Rx#:[id number] Invasive Line 5 40 20 Mvi, Adult No.4 with Vit 180 180 K 10 ml Trace (Conc-1Ml/ Dose) 1 ml Sodium Acetate 30 meq Potassium Chloride 20 meq Calcium Gluconate 1 gm In Amino Acids 5 %/Dextrose 20 % 1 ,000 ml @ 30 mls/hr IV . Q24H ONE Rx#:[id number] Oral 660 Blood Product 397 Ffp 24 Pher Acda Unit 397 [id number] Output: Urine 450 110 525 Other: Voiding Method Indwelling Catheter Indwelling Catheter Indwelling Catheter # Bowel Movements 0 - Labs CBC & Chem 7: 11/23/23 09:54 11/23/23 09:54 Labs: Abnormal Lab Results - Last 24 Hours (Table) 11/23/23 11/23/23 11/23/23 Range/Units 09:12 09:54 09:54 WBC 11.6 H (3.8-10.6) k/uL RBC 2.68 L (4.30-5.90) m/uL Hgb 7.5 L (13.0-17.5) gm/dL Hct 26.2 L (39.0-53.0) % MCHC 28.7 L (31.0-37.0) g/dL Neutrophils # 9.7 H (1.3-7.7) k/uL Lymphocytes # 0.3 L (1.0-4.8) k/uL Monocytes # 1.1 H (0-1.0) k/uL Sodium 134 L (137-145) mmol/L BUN 53 H (9-20) mg/dL Creatinine 2.41 H (0.66-1.25) mg/dL Glucose 557 H* (74-99) mg/dL POC Glucose (mg/dL) 197 H (70-110) mg/dL Calcium 7.4 L (8.4-10.2) mg/dL 11/23/23 11/23/23 Range/Units 10:48 11:39 WBC (3.8-10.6) k/uL RBC (4.30-5.90) m/uL Hgb (13.0-17.5) gm/dL Hct (39.0-53.0) % MCHC (31.0-37.0) g/dL Neutrophils # (1.3-7.7) k/uL Lymphocytes # (1.0-4.8) k/uL Monocytes # (0-1.0) k/uL Sodium (137-145) mmol/L BUN (9-20) mg/dL Creatinine (0.66-1.25) mg/dL Glucose (74-99) mg/dL POC Glucose (mg/dL) 171 H 161 H (70-110) mg/dL Calcium (8.4-10.2) mg/dL Microbiology - Last 24 Hours (Table) 11/19/23 23:36 Blood Culture - Preliminary Blood
[2023-11-23] MEDS: 1: MVI, ADULT NO.4 WITH VIT K 10 ML, TRACE (CONC-1ML/DOSE) 1 ML, SODIUM CHLORIDE 4MEQ/ML IV SCH (13:28)
[2023-11-23 13:33] LABS: INR 1.2 (<1.2); Prothrombin Time 12.9 sec (10.0-12.5)
[2023-11-23] MEDS ORDERED: 1: MVI, ADULT NO.4 WITH VIT K 10 ML, TRACE (CONC-1ML/DOSE) 1 ML, SODIUM ACETATE 30 MEQ, IV SCH (14:00)
--- NOTE | 2023-11-23 14:33 | P.PN ---
Subjective Progress Note Date: 11/23/23 This is an 83-year-old female past medical history significant for chronic persistent atrial fibrillation, CAD, hyperlipidemia, mitral valve prolapse, aortic valve replacement,PPM, cardiac ablation, cardiomyopathy, presented to the hospital with complaints of increasing generalized weakness, mild shortness of breath ;vague historian. discovered to have a hemoglobin of 6.7, INR 6.5. BUN 53, creatinine 2.28, bicarb 23 transfused with 1 unit packed RBCs as well as vitamin K in the ER. Repeat labs pending. denies nausea or vomiting but reported diarrhea dark black stools X months. Blood pressure soft, maintain O2 sats in the 90s on room air. Denies chest pain, palpitations or shortness of breath. 11/12/2023 NPO, completed prep, EGD and colonoscopy scheduled for early this afternoon. Anticoagulation remains on hold, continues on PPI. Reports no further bleeding or black, dark rectal output. Reports over the last 2 years he has lost 50 pounds, on a healthier diet. Hemoglobin with 7.6, platelet 182. renal function slowly improving, BUN 24, creatinine 1.64 denies chest pain, palpitations or shortness of breath. 11/14/2023 status post transverse colectomy and partial omentectomy, postop day #1. Reports "sore abdomen". Anticoagulation remains on hold. Receiving IV fluid hydration .reports occasional productive cough of phlegm .sitting up in chair.not passing flatus, advanced to clear liquids. Denies nausea or vomiting. Villasenor catheter recently DC'd this morning at 0600, not yet spontaneous voiding, bladder scan pending. BUN 18, creatinine 1.82. Received 1 unit packed RBCs y esterday for hemoglobin of 7.4, hemoglobin currently 8.9. Afebrile, WBC increased to 10.7. Sodium 136, potassium 5.7, bicarb 17. Pathology pending. 11/15/2023 IV fluid hydration. Blood pressure soft. Urinary retention, straight cath x 2 ,worsening renal function, creatinine up to 1.94, nephrology consulted. Hyperkalemic, potassium 5.9. Pain controlled. Reports not passing flatus. No bowel movement. Telemetry reporting paced rhythm .anticoagulation/Coumadin resuming tonight. 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 11/16/2023 Hemoglobin remains 7.9. Continues on IV fluid hydration .Maintained on Clear Liquid Diet, nauseated this morning. Blood sugars controlled. pain controlled. Passing minimal flatus, no bowel movement. Villasenor catheter placed yesterday secondary to urinary retention .renal ultrasound reported negative for obstructive uropathy, no hydronephrosis .blood pressures soft, improving. Renal function worsening, bicarb 15, 11/16. Patient seen and examined. Blood work done this morning showed WBC 4.1, hemoglobin 7.4, platelet count 188, sodium 135, potassium 5, BUN 30, creatinine 1.97. INR is 2.4. Patient sitting upright in the chair, passing gas, no bowel movement yet. Patient admits to poor appetite 11/17. Patient seen and examined. Patient was transferred to ICU overnight because of increased work of breathing, hypotension and abdominal distention. Chest x-ray done overnight showed trace left pleural effusion with stable cardiomegaly. CTA chest was negative for PE. CT abdomen done showed increasing subcutaneous edema and upper abdominal ascites likely corresponding to desired fluid overload state. Patient had NG tube inserted overnight. Patient was started on ertapenem and pressors. 11/18. Patient seen and examined. Blood work done this morning showed WBC 9.2, hemoglobin 9.4, sodium 137, potassium 4.5, BUN 42, creatinine 2.31. Stated he had bowel movement this morning. 11/19. Patient seen and examined. Labs done this morning showed WBC 9.2, hemoglobin 7.6, platelet count 252, sodium 139, potassium 4.5, BUN 46, creatinine 2.06 11/20. Patient seen and examined. PICC line could not be placed because of elevated INR, currently not on TPN. Will order 1 dose of vitamin K today. Lab work done this morning showed WBC 10.1, hemoglobin 7.8, platelet count 290, sodium 142, potassium 4, BUN 50, creatinine 2.11, INR 3.8 11/21. Patient seen and examined. Patient sitting upright in the chair. PICC l ine was placed. NG tube was discontinued. Lab work done showed WBC 10.7, hemoglobin 7.7, platelet count 219, sodium 141, potassium 3.8, BUN 52, creatinine 2.18. No acute issues overnight 11/22. Patient seen and examined. Complaining of swelling of lower extremities, currently on Lasix. INR is 1.2, resume pharmacy dose Coumadin Physical exam General; alert and oriented x3, not in any acute distress. Well developed, well nourished. HEENT: Pupils are round and equally reacting to light. EOMI. No scleral icterus. No conjunctival pallor. Normocephalic, atraumatic. No pharyngeal erythema. No thyromegaly. CARDIOVASCULAR: S1 and S2 present. No murmurs, rubs, or gallops. PULMONARY: Chest is clear to auscultation, no wheezing or crackles. ABDOMEN: Soft distention improved, surgical incision seen. No palpable organomegaly. MUSCULOSKELETAL: No joint swelling or deformity. EXTREMITIES: 1+ pitting edema lower extremities bilaterally NEUROLOGICAL: Gross neurological examination did not reveal any focal deficits. SKIN: No rashes. Assessment and plan Hypotension Severe anemia secondary to acute GI bleed, status post EGD and colonoscopy; Upper endoscopy revealed 2.5 cm broad-based duodenal polyp in the second part of the duodenum opposite the ampullary orifice status post snare polypectomy and almost complete polypectomy performed. Small hiatal hernia. Colonoscopy revealed tight apple core ulcerated lesion in the mid transverse colon with significant luminal narrowing status post biopsy and tattooing. Status post transverse colectomy and partial omentectomy. 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 Surgical pathology pending. Urinary retention, post operative, requiring Villasenor catheter Acute renal failure, ATN secondary to the above as well as hypotension. Hyperkalemia secondary to all the above Metabolic acidosis secondary to acute renal failure Chronic persistent atrial fibrillation, INR supra therapeutic History of mitral valve repair and aortic valve replacement Cardiomyopathy, nonischemic, EF 40 to 45% PPM Hypertension Hyperlipidemia Monitor vital signs Monitor CBC Monitor CMP Continue telemetry monitoring Strict I's and O's, daily daily weights Continue IV Lasix 40 mg twice daily Continue ertapenem Continue TPN Continue Coumadin pharmacy to dose Continue with Villasenor catheter Currently on clear liquid diet, diet to be advanced per surgery Cardiology following Nephrology following Pulmonology following Surgery following Labs and medication were reviewed.. Continue same treatment. Continue with symptomatic treatment. Resume home medication. Monitor labs and vitals. DVT and GI prophylaxis. Further recommendations as per clinical course of the dariana ent Dictation was produced using [employer] dictation software. please excuse any grammatical, word or spelling errors. Objective - Vital Signs Vital signs: Vital Signs Temp 97.7 F 11/23/23 08:40 Pulse 74 11/23/23 13:48 Resp 20 11/23/23 11:36 BP 110/64 11/23/23 11:36 Pulse Ox 98 11/23/23 11:36 FiO2 Intake & Output 11/22/23 11/23/23 11/23/23 18:59 06:59 18:59 Intake Total 1451.98 324.98 Output Total 450 110 525 Balance 1001.98 214.98 -525 Weight 100.6 kg Intake: IV 394.98 324.98 Ertapenem 0.5 gm In 50 Sodium Chloride 0.9% 50 ml @ 100 mls/hr IVPB DAILY [facility] Rx#:[id number] Fat Emulsion 20% 250 ml @ 124.98 124.98 20.833 mls/hr IV MoTh@ 1300 [facility] Rx#:[id number] Invasive Line 5 40 20 Mvi, Adult No.4 with Vit 180 180 K 10 ml Trace (Conc-1Ml/ Dose) 1 ml Sodium Acetate 30 meq Potassium Chloride 20 meq Calcium Gluconate 1 gm In Amino Acids 5 %/Dextrose 20 % 1 ,000 ml @ 30 mls/hr IV . Q24H ONE Rx#:[id number] Oral 660 Blood Product 397 Ffp 24 Pher Acda Unit 397 [id number] Output: Urine 450 110 525 Other: Voiding Method Indwelling Catheter Indwelling Catheter Indwelling Catheter # Bowel Movements 0 - Labs CBC & Chem 7: 11/23/23 09:54 11/23/23 09:54 Labs: Abnormal Lab Results - Last 24 Hours (Table) 11/23/23 11/23/23 11/23/23 Range/Units 09:12 09:54 09:54 WBC 11.6 H (3.8-10.6) k/uL RBC 2.68 L (4.30-5.90) m/uL Hgb 7.5 L (13.0-17.5) gm/dL Hct 26.2 L (39.0-53.0) % MCHC 28.7 L (31.0-37.0) g/dL Neutrophils # 9.7 H (1.3-7.7) k/uL Lymphocytes # 0.3 L (1.0-4.8) k/uL Monocytes # 1.1 H (0-1.0) k/uL PT (10.0-12.5) sec INR (<1.2) Sodium 134 L (137-145) mmol/L BUN 53 H (9-20) mg/dL Creatinine 2.41 H (0.66-1.25) mg/dL Glucose 557 H* (74-99) mg/dL POC Glucose (mg/dL) 197 H (70-110) mg/dL Calcium 7.4 L (8.4-10.2) mg/dL 11/23/23 11/23/23 11/23/23 Range/Units 10:48 11:39 12:06 WBC (3.8-10.6) k/uL RBC (4.30-5.90) m/uL Hgb (13.0-17.5) gm/dL Hct (39.0-53.0) % MCHC (31.0-37.0) g/dL Neutrophils # (1.3-7.7) k/uL Lymphocytes # (1.0-4.8) k/uL Monocytes # (0-1.0) k/uL PT 12.9 H (10.0-12.5) sec INR 1.2 H (<1.2) Sodium (137-145) mmol/L BUN (9-20) mg/dL Creatinine (0.66-1.25) mg/dL Glucose (74-99) mg/dL POC Glucose (mg/dL) 171 H 161 H (70-110) mg/dL Calcium (8.4-10.2) mg/dL Microbiology - Last 24 Hours (Table) 11/19/23 23:36 Blood Culture - Preliminary Blood
--- NOTE | 2023-11-23 15:27 | P.PN ---
Subjective Progress Note Date: 11/23/23 Principal diagnosis: Acute abdominal distention, status post transverse colectomy and partial omentectomy/colon adenocarcinoma This is a 83-year-old male patient was transferred to the intensive care unit yesterday as the patient developed significant abdominal distention and hypotension. The patient has a colonic mass and the patient has undergone transverse colectomy and surgery was done on 11/13/2023.. For now, the patient is postop day #4. The abdomen was firm and quite distended. Immediately, a stat CAT scan of the abdomen was done and the patient was found to have pneumoperitoneum and this was suspected to be related to previous surgery. There was also nonobstructive bowel gas pattern with significant gastric distention and partial small bowel obstruction cannot be completely excluded. At that point, NG tube was inserted and immediately 600 cc of output was obtained. Abdomen is still distended although less compared to yesterday. No flatus. Bowel sounds are absent. General surgery is on the case. White cell count not elevated. Lactic acid level is low at 1.3. Note that postop, the patient's renal function remained stable. The patient has chronic stage III kidney disease and the creatinine today is up to 2.17 and a sodium levels at 134 with a potassium level of 5.5. Serum bicarb is at 17. Nephrology on the case. The patient is currently on a bicarb infusion which is running at 50 cc an hour. He has history of paroxysmal atrial fibrillation. He is on anticoagulation with warfarin. Coumadin is on hold and the patient's INR today is at 3.5. The respiratory status is stable. No significant shortness of breath. The patient is currently on 3 L of oxygen by nasal cannula with a pulse ox of 98%. Repeat chest film of the abdomen was done today that showed NG tube being in place. There is contrast in the mid and the distal colon and nonspecific bowel gas pattern and the patient's chest x-ray from today is showing cardiomegaly. NG tube is in place. There is air under the right hemidiaphragm. The patient was seen by 2 separate general surgeons and no surgical intervention is required at this point in time. Will monitor and will put the bowel to rest. The patient has likely small bowel ileus. Patient was reevaluated today on 11/19/2023, patient is status post transverse colectomy and surgery was done on 11/13/2023 for suspected colonic mass and abdominal distention he is now postoperative day #5. Patient has been in the ICU for what seems to be persistent abdominal distention and possible small bowel ileus. Being followed by surgery, does not feel reexploration is necessary at this point. Nonetheless the patient seems to be quite comfortable, abdomen is distended, he is hypotensive requiring norepinephrine at 0.07 mcg/kg/min. Continues to have nasogastric tube in place and draining 800 cc over the last 24 hours. Patient is also known to have history of cardiomyopathy and LV dysfunction with ejection fraction of 40 to 45%, he is requiring intermittently diuretics/Lasix his last dose was yesterday. Remains on antibiotics in the form of Invanz mostly because of his multiple allergies to different antibiotics. Patient continues to have chronic venous stasis and swelling in the lower extremities. And seems a bit uncomfortable with abdominal distention. But no evidence of severe pain. Slightly tender to palpation WBC count today is 9.2 hemoglobin is 7.4. INR is 3.8 basic metabolic profile is normal renal profile is a bit worse today BUN is 42 creatinine up to 2.31 from 2.16 yesterday chest x-ray continues to show free air under the diaphragm, cardiomegaly, and chronic mild venous congestion. Possible pneumonitis 3 today on 11/20/2023, patient remains in the ICU, continues to have significant abdominal distention/ileus continues to have nasogastric tube in place, patient remains n.p.o., patient still requiring TPN, and intermittently on norepinephrine. Lasix was given today 40 mg IV push x 1, seems to have decent urine output in spite of marginal blood pressure. His abdominal distention remains worrisome. 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 Chest x-ray is showing mostly minimal bibasilar atelectasis, cardiomegaly, and minimal venous congestion Reason on 11/21/2023, patient remains in the ICU, patient remains on Invanz, he is supposed to get a PICC line tomorrow, however his INR is elevated, will arrange for 2 units of fresh frozen plasma and vitamin K to be given tomorrow about 6 hours before PICC line schedule placement. Pulmonary herrera the patient is doing well, asymptomatic, continues to have ileus continues to have abdominal distention but improving patient is passing gas at least. His abdominal issues are being addressed by surgery on the case. WBC count is 10.1 hemoglobin 7.8 INR is 3.8 basic metabolic profile is normal BUN is 50 creatinine 2.11 chest x- ray today continues to show free air in the upper abdomen, otherwise no significant findings Reevaluate today on 11/22/2023, patient is still in the ICU, his abdominal distention is improving, patient has had bowel movements last night, patient was started today on clear liquids, PICC line was placed for TPN, did receive fresh frozen plasma and vitamin K for placement of the PICC line, INR today is 1.7. Now the patient could be restarted back on his Coumadin. And we could potentially transfer the patient out of the ICU to a monitored bed and vlad ctive/3 S. WBC count is 10.7 hemoglobin 7.7 INR is 1.7 basic metabolic profile is normal renal profile showed BUN of 52 creatinine 2.18 3 today on 11/23/2023, patient is doing well, he is on room air, sitting at the bedside chair, he is on 3 S., not in any distress, continues to have abdominal distention, no bowel movement today, but the patient is passing gas. Patient will need to go back on his Coumadin. WBC count today is 11.6 hemoglobin 7.5 basic metabolic profile is normal BUN is 53 creatinine 2.41, blood sugar is high, being addressed by internal medicine on the case. Objective - Vital Signs Vital signs: Vital Signs Temp 97.7 F 11/23/23 08:40 Pulse 74 11/23/23 13:48 Resp 20 11/23/23 11:36 BP 110/64 11/23/23 11:36 Pulse Ox 98 11/23/23 11:36 FiO2 Intake & Output 11/22/23 11/23/23 11/23/23 18:59 06:59 18:59 Intake Total 1451.98 324.98 Output Total 450 110 525 Balance 1001.98 214.98 -525 Weight 100.6 kg 100.6 kg Intake: IV 394.98 324.98 Ertapenem 0.5 gm In 50 Sodium Chloride 0.9% 50 ml @ 100 mls/hr IVPB DAILY [facility] Rx#:[id number] Fat Emulsion 20% 250 ml @ 124.98 124.98 20.833 mls/hr IV MoTh@ 1300 [facility] Rx#:[id number] Invasive Line 5 40 20 Mvi, Adult No.4 with Vit 180 180 K 10 ml Trace (Conc-1Ml/ Dose) 1 ml Sodium Acetate 30 meq Potassium Chloride 20 meq Calcium Gluconate 1 gm In Amino Acids 5 %/Dextrose 20 % 1 ,000 ml @ 30 mls/hr IV . Q24H [facility] Rx#:[id number] Oral 660 Blood Product 397 Ffp 24 Pher Acda Unit 397 [id number] Output: Urine 450 110 525 Other: Voiding Method Indwelling Catheter Indwelling Catheter Indwelling Catheter # Bowel Movements 0 - Exam General: Revealed 83-year-old white male in no distress, on room air. Skin: Skin is warm and dry and no rashes or lesions are noted. Eye: Pupils are equal, round and reactive to light, extra-ocular movements are intact; there is normal conjunctiva bilaterally. Ears, nose, mouth and throat: There are moist mucous membranes and no oral lesions. Neck: The neck is supple, there is no tenderness or JVD. Cardiovascular: There is a regular rate and rhythm. No murmur, rub or gallop is appreciated. Respiratory: Good breath sound bilaterally no rhonchi no wheeze Gastrointestinal: Remains distended but not as tender today. Positive bowel sounds. Musculoskeletal: Normal ROM, no tenderness, chronic venous stasis noted in lower extremities bilaterally. 2+ bipedal edema there is no calf tenderness or swelling. Neurological: CN II-XII intact, Cranial nerves III through XII are intact. There are no obvious motor or sensory deficits. Coordination appears grossly intact. Speech is normal. Psychiatric: Cooperative, appropriate mood & affect, normal judgment. - Labs CBC & Chem 7: 11/23/23 09:54 11/23/23 09:54 Labs: Abnormal Lab Results - Last 24 Hours (Table) 11/23/23 11/23/23 11/23/23 Range/Units 09:12 09:54 09:54 WBC 11.6 H (3.8-10.6) k/uL RBC 2.68 L (4.30-5.90) m/uL Hgb 7.5 L (13.0-17.5) gm/dL Hct 26.2 L (39.0-53.0) % MCHC 28.7 L (31.0-37.0) g/dL Neutrophils # 9.7 H (1.3-7.7) k/uL Lymphocytes # 0.3 L (1.0-4.8) k/uL Monocytes # 1.1 H (0-1.0) k/uL PT (10.0-12.5) sec INR (<1.2) Sodium 134 L (137-145) mmol/L BUN 53 H (9-20) mg/dL Creatinine 2.41 H (0.66-1.25) mg/dL Glucose 557 H* (74-99) mg/dL POC Glucose (mg/dL) 197 H (70-110) mg/dL Calcium 7.4 L (8.4-10.2) mg/dL 11/23/23 11/23/23 11/23/23 Range/Units 10:48 11:39 12:06 WBC (3.8-10.6) k/uL RBC (4.30-5.90) m/uL Hgb (13.0-17.5) gm/dL Hct (39.0-53.0) % MCHC (31.0-37.0) g/dL Neutrophils # (1.3-7.7) k/uL Lymphocytes # (1.0-4.8) k/uL Monocytes # (0-1.0) k/uL PT 12.9 H (10.0-12.5) sec INR 1.2 H (<1.2) Sodium (137-145) mmol/L BUN (9-20) mg/dL Creatinine (0.66-1.25) mg/dL Glucose (74-99) mg/dL POC Glucose (mg/dL) 171 H 161 H (70-110) mg/dL Calcium (8.4-10.2) mg/dL Microbiology - Last 24 Hours (Table) 11/19/23 23:36 Blood Culture - Preliminary Blood Assessment and Plan Assessment: impression: Acute abdominal distention and bowel obstruction secondary to colonic adenocarcinoma status post transverse colectomy and partial omentectomy surgery on 11/13/2023 diagnosis was made as adenocarcinoma of the colon. 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 Recommendation: Surgery to continue addressing his ileus. Continue GI and DVT prophylaxis Continue IV fluids, and TPN/nutritional support Intermittent gentle diuresis Continue midodrine Quite ready for discharge planning mostly because of his abdominal distention Continue to follow Time with Patient: Less than 30
[2023-11-23 17:05] LABS: Glucose,Whole Blood 215 mg/dL (70-110)
[2023-11-23] MEDS: WARFARIN 2 MG TAB PO ONE (17:06)
[2023-11-23] MEDS: INSULIN ASPART (NovoLOG) 100 UNIT/ML VIAL SQ SCH (17:06)
[2023-11-23] MEDS: FUROSEMIDE 10 MG/ML 4 ML VIAL IV SCH (20:24)
[2023-11-23 23:39] LABS: Glucose,Whole Blood 214 mg/dL (70-110)
[2023-11-24 06:26] LABS: Glucose,Whole Blood 242 mg/dL (70-110)
[2023-11-24 11:12] LABS: Basophils # (A) 0.1 k/uL (0-0.2); Basophils % (A) 0 %; Eosinophils # (A) 0.2 k/uL (0-0.7); Eosinophils % (A) 1 %; HCT 26.4 % (39.0-53.0); HGB 7.8 gm/dL (13.0-17.5); Hypochromasia Marked; Lymphocytes # (A) 0.7 k/uL (1.0-4.8); Lymphocytes % (A) 5 %; MCH 27.5 pg (25.0-35.0); MCHC 29.4 g/dL (31.0-37.0); MCV 93.5 fL (80.0-100.0); Mean Platelet Volume 8.4; Monocytes # (A) 0.6 k/uL (0-1.0); Monocytes % (A) 4 %; Neutrophils # (A) 12.8 k/uL (1.3-7.7); Neutrophils % (A) 88 %; Platelet Count 397 k/uL (150-450); RBC 2.82 m/uL (4.30-5.90); RDW 15.6 % (11.5-15.5); WBC 14.5 k/uL (3.8-10.6)
[2023-11-24 11:22] LABS: African American GFR (CKD) 29 (>60 ml/min/1.73 sqM); Anion Gap 7 mmol/L; Blood Urea Nitrogen 65 mg/dL (9-20); Calcium 7.5 mg/dL (8.4-10.2); Carbon Dioxide 23 mmol/L (22-30); Chloride 104 mmol/L (98-107); Glucose 173 mg/dL (74-99); Non-African American GFR(CKD) 25 (>60 ml/min/1.73 sqM); Phosphorus 2.9 mg/dL (2.5-4.5); Sodium 134 mmol/L (137-145)
[2023-11-24 11:28] LABS: INR 1.3 (<1.2); Prothrombin Time 13.6 sec (10.0-12.5)
[2023-11-24 11:52] LABS: Glucose,Whole Blood 219 mg/dL (70-110)
--- NOTE | 2023-11-24 11:52 | P.PN ---
Subjective patient is seen for follow-up for acute kidney injury and chronic kidney disease. Currently being diuresed for volume overload. Lasix was increasedto 40 mg IV twice a day. Maintained on TPN No significant complaints today Objective - Vital Signs Vital signs: Vital Signs Temp 98.3 F 11/24/23 04:00 Pulse 70 11/24/23 04:00 Resp 18 11/24/23 10:40 BP 106/64 11/24/23 04:00 Pulse Ox 97 11/24/23 04:00 FiO2 Intake & Output 11/23/23 11/24/23 11/24/23 18:59 06:59 18:59 Intake Total 358 10 Output Total 675 300 Balance -317 -290 Weight 100.6 kg Intake: IV 10 Invasive Line 5 10 Oral 358 Output: Urine 675 300 Other: Voiding Method Indwelling Catheter Indwelling Catheter - Exam patient is awake, comfortable, no acute distress Examination of the heart S1 and S2 Examination of the lungs decreased breath sounds at the bases Abdomen is soft nontender Examination of lower extremity shows edema 1+ bilaterally [employer] exam grossly intact - Labs CBC & Chem 7: 11/24/23 11:00 11/24/23 11:00 Labs: Abnormal Lab Results - Last 24 Hours (Table) 11/23/23 11/23/23 11/23/23 Range/Units 12:06 17:03 23:37 WBC (3.8-10.6) k/uL RBC (4.30-5.90) m/uL Hgb (13.0-17.5) gm/dL Hct (39.0-53.0) % MCHC (31.0-37.0) g/dL RDW (11.5-15.5) % Neutrophils # (1.3-7.7) k/uL Lymphocytes # (1.0-4.8) k/uL PT 12.9 H (10.0-12.5) sec INR 1.2 H (<1.2) Sodium (137-145) mmol/L BUN (9-20) mg/dL Creatinine (0.66-1.25) mg/dL Glucose (74-99) mg/dL POC Glucose (mg/dL) 215 H 214 H (70-110) mg/dL Calcium (8.4-10.2) mg/dL 11/24/23 11/24/2324 Range/Units 06:22 11:00 11:00 WBC 14.5 H (3.8-10.6) k/uL RBC 2.82 L (4.30-5.90) m/uL Hgb 7.8 L (13.0-17.5) gm/dL Hct 26.4 L (39.0-53.0) % MCHC 29.4 L (31.0-37.0) g/dL RDW 15.6 H (11.5-15.5) % Neutrophils # 12.8 H (1.3-7.7) k/uL Lymphocytes # 0.7 L (1.0-4.8) k/uL PT 13.6 H (10.0-12.5) sec INR 1.3 H (<1.2) Sodium (137-145) mmol/L BUN (9-20) mg/dL Creatinine (0.66-1.25) mg/dL Glucose (74-99) mg/dL POC Glucose (mg/dL) 242 H (70-110) mg/dL Calcium (8.4-10.2) mg/dL 11/24/23 Range/Units 11:00 WBC (3.8-10.6) k/uL RBC (4.30-5.90) m/uL Hgb (13.0-17.5) gm/dL Hct (39.0-53.0) % MCHC (31.0-37.0) g/dL RDW (11.5-15.5) % Neutrophils # (1.3-7.7) k/uL Lymphocytes # (1.0-4.8) k/uL PT (10.0-12.5) sec INR (<1.2) Sodium 134 L (137-145) mmol/L BUN 65 H (9-20) mg/dL Creatinine 2.31 H (0.66-1.25) mg/dL Glucose 173 H (74-99) mg/dL POC Glucose (mg/dL) (70-110) mg/dL Calcium 7.5 L (8.4-10.2) mg/dL Assessment and Plan Assessment: 1. Acute kidney injury ATN secondary to hypotension and urine retention. also received IV contrast on 11/17/2023. Currently being diuresed. No evidence of obstruction noted on CT of the abdomen. 2. Hyperkalemia associated with acute kidney injury and metabolic acidosis and urine retention. Also related to underlying GI bleed. improved 3. Metabolic acidosis non-gap secondary to acute kidney injury 4. Colon mass status post transverse colectomy and partial omentectomy 5. Chronic kidney disease stage IIIa with baseline creatinine around 1.4 secondary to nephrosclerosis 6. Volume overload maintained on IV Lasix 7. Partial small bowel obstruction versus moderate ileus being followed by surgery. Currently maintained on TPN. Plan: continue current dose of IV Lasix Repeat labs in a.m. continue with Villasenor catheter
--- NOTE | 2023-11-24 13:56 | P.PN ---
Subjective Progress Note Date: 11/24/23 Principal diagnosis: Acute abdominal distention, status post transverse colectomy and partial omentectomy/colon adenocarcinoma This is a 83-year-old male patient was transferred to the intensive care unit yesterday as the patient developed significant abdominal distention and hypotension. The patient has a colonic mass and the patient has undergone transverse colectomy and surgery was done on 11/13/2023.. For now, the patient is postop day #4. The abdomen was firm and quite distended. Immediately, a stat CAT scan of the abdomen was done and the patient was found to have pneumoperitoneum and this was suspected to be related to previous surgery. There was also nonobstructive bowel gas pattern with significant gastric distention and partial small bowel obstruction cannot be completely excluded. At that point, NG tube was inserted and immediately 600 cc of output was obtained. Abdomen is still distended although less compared to yesterday. No flatus. Bowel sounds are absent. General surgery is on the case. White cell count not elevated. Lactic acid level is low at 1.3. Note that postop, the patient's renal function remained stable. The patient has chronic stage III kidney disease and the creatinine today is up to 2.17 and a sodium levels at 134 with a potassium level of 5.5. Serum bicarb is at 17. Nephrology on the case. The patient is currently on a bicarb infusion which is running at 50 cc an hour. He has history of paroxysmal atrial fibrillation. He is on anticoagulation with warfarin. Coumadin is on hold and the patient's INR today is at 3.5. The respiratory status is stable. No significant shortness of breath. The patient is currently on 3 L of oxygen by nasal cannula with a pulse ox of 98%. Repeat chest film of the abdomen was done today that showed NG tube being in place. There is contrast in the mid and the distal colon and nonspecific bowel gas pattern and the patient's chest x-ray from today is showing cardiomegaly. NG tube is in place. There is air under the right hemidiaphragm. The patient was seen by 2 separate general surgeons and no surgical intervention is required at this point in time. Will monitor and will put the bowel to rest. The patient has likely small bowel ileus. Patient was reevaluated today on 11/19/2023, patient is status post transverse colectomy and surgery was done on 11/13/2023 for suspected colonic mass and abdominal distention he is now postoperative day #5. Patient has been in the ICU for what seems to be persistent abdominal distention and possible small bowel ileus. Being followed by surgery, does not feel reexploration is necessary at this point. Nonetheless the patient seems to be quite comfortable, abdomen is distended, he is hypotensive requiring norepinephrine at 0.07 mcg/kg/min. Continues to have nasogastric tube in place and draining 800 cc over the last 24 hours. Patient is also known to have history of cardiomyopathy and LV dysfunction with ejection fraction of 40 to 45%, he is requiring intermittently diuretics/Lasix his last dose was yesterday. Remains on antibiotics in the form of Invanz mostly because of his multiple allergies to different antibiotics. Patient continues to have chronic venous stasis and swelling in the lower extremities. And seems a bit uncomfortable with abdominal distention. But no evidence of severe pain. Slightly tender to palpation WBC count today is 9.2 hemoglobin is 7.4. INR is 3.8 basic metabolic profile is normal renal profile is a bit worse today BUN is 42 creatinine up to 2.31 from 2.16 yesterday chest x-ray continues to show free air under the diaphragm, cardiomegaly, and chronic mild venous congestion. Possible pneumonitis 3 today on 11/20/2023, patient remains in the ICU, continues to have significant abdominal distention/ileus continues to have nasogastric tube in place, patient remains n.p.o., patient still requiring TPN, and intermittently on norepinephrine. Lasix was given today 40 mg IV push x 1, seems to have decent urine output in spite of marginal blood pressure. His abdominal distention remains worrisome. 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 Chest x-ray is showing mostly minimal bibasilar atelectasis, cardiomegaly, and minimal venous congestion Reason on 11/21/2023, patient remains in the ICU, patient remains on Invanz, he is supposed to get a PICC line tomorrow, however his INR is elevated, will arrange for 2 units of fresh frozen plasma and vitamin K to be given tomorrow about 6 hours before PICC line schedule placement. Pulmonary herrera the patient is doing well, asymptomatic, continues to have ileus continues to have abdominal distention but improving patient is passing gas at least. His abdominal issues are being addressed by surgery on the case. WBC count is 10.1 hemoglobin 7.8 INR is 3.8 basic metabolic profile is normal BUN is 50 creatinine 2.11 chest x- ray today continues to show free air in the upper abdomen, otherwise no significant findings Reevaluate today on 11/22/2023, patient is still in the ICU, his abdominal distention is improving, patient has had bowel movements last night, patient was started today on clear liquids, PICC line was placed for TPN, did receive fresh frozen plasma and vitamin K for placement of the PICC line, INR today is 1.7. Now the patient could be restarted back on his Coumadin. And we could potentially transfer the patient out of the ICU to a monitored bed and vlad ctive/3 S. WBC count is 10.7 hemoglobin 7.7 INR is 1.7 basic metabolic profile is normal renal profile showed BUN of 52 creatinine 2.18 3 today on 11/23/2023, patient is doing well, he is on room air, sitting at the bedside chair, he is on 3 S., not in any distress, continues to have abdominal distention, no bowel movement today, but the patient is passing gas. Patient will need to go back on his Coumadin. WBC count today is 11.6 hemoglobin 7.5 basic metabolic profile is normal BUN is 53 creatinine 2.41, blood sugar is high, being addressed by internal medicine on the case. Reevaluate today on 11/24/23, patient remains on room air, not in any distress, relatively asymptomatic from the pulmonary perspective continues to have abdominal distention, continues to pass gas but no bowel movements. Patient is receiving TPN, and I believe he is already eating as recommended by surgery. WBC count is 14.5 hemoglobin 7.8 basic metabolic profile is normal BUN is 65 creatinine 2.31, renal status is being addressed by nephrology on the case for Objective - Vital Signs Vital signs: Vital Signs Temp 98.3 F 11/24/23 04:00 Pulse 74 11/24/23 13:07 Resp 18 11/24/23 13:07 BP 146/69 11/24/23 13:07 Pulse Ox 92 L 11/24/23 13:07 FiO2 Intake & Output 11/23/23 11/24/23 11/24/23 18:59 06:59 18:59 Intake Total 358 1050 Output Total 675 300 Balance -317 750 Weight 100.6 kg Intake: IV 10 Invasive Line 5 10 Intake, IV Titration 1040 Amount Mvi, Adult No.4 with Vit 1040 K 10 ml Trace (Conc-1Ml/ Dose) 1 ml Sodium Chloride 4Meq/ml Vial 40 meq Potassium Acetate 12 meq Calcium Gluconate 1 gm Magnesium Sulfate gm 0 .5 gm Potassium Phosphate 6 mmol In Amino Acids 5 %/Dextrose 20 % 1,000 ml @ 93 mls/hr IV .BY DURATION [facility] Rx#: [id number] Oral 358 Output: Urine 675 300 Other: Voiding Method Indwelling Catheter Indwelling Catheter Indwelling Catheter - Exam General: Revealed 83-year-old white male in no distress, on room air. Skin: Skin is warm and dry and no rashes or lesions are noted. Eye: Pupils are equal, round and reactive to light, extra-ocular movements are intact; there is normal conjunctiva bilaterally. Ears, nose, mouth and throat: There are moist mucous membranes and no oral lesions. Neck: The neck is supple, there is no tenderness or JVD. Cardiovascular: There is a regular rate and rhythm. No murmur, rub or gallop is appreciated. Respiratory: Good breath sound bilaterally no rhonchi no wheeze Gastrointestinal: Remains distended but not as tender today. Positive bowel sounds. Musculoskeletal: Normal ROM, no tenderness, chronic venous stasis noted in low er extremities bilaterally. 2+ bipedal edema there is no calf tenderness or swelling. Neurological: CN II-XII intact, Cranial nerves III through XII are intact. There are no obvious motor or sensory deficits. Coordination appears grossly intact. Speech is normal. Psychiatric: Cooperative, appropriate mood & affect, normal judgment. - Labs CBC & Chem 7: 11/24/23 11:00 11/24/23 11:00 Labs: Abnormal Lab Results - Last 24 Hours (Table) 11/23/23 11/23/23 11/24/23 Range/Units 17:03 23:37 06:22 WBC (3.8-10.6) k/uL RBC (4.30-5.90) m/uL Hgb (13.0-17.5) gm/dL Hct (39.0-53.0) % MCHC (31.0-37.0) g/dL RDW (11.5-15.5) % Neutrophils # (1.3-7.7) k/uL Lymphocytes # (1.0-4.8) k/uL PT (10.0-12.5) sec INR (<1.2) Sodium (137-145) mmol/L BUN (9-20) mg/dL Creatinine (0.66-1.25) mg/dL Glucose (74-99) mg/dL POC Glucose (mg/dL) 215 H 214 H 242 H (70-110) mg/dL Calcium (8.4-10.2) mg/dL 11/24/23 11/24/23 11/24/23 Range/Units 11:00 11:00 11:00 WBC 14.5 H (3.8-10.6) k/uL RBC 2.82 L (4.30-5.90) m/uL Hgb 7.8 L (13.0-17.5) gm/dL Hct 26.4 L (39.0-53.0) % MCHC 29.4 L (31.0-37.0) g/dL RDW 15.6 H (11.5-15.5) % Neutrophils # 12.8 H (1.3-7.7) k/uL Lymphocytes # 0.7 L (1.0-4.8) k/uL PT 13.6 H (10.0-12.5) sec INR 1.3 H (<1.2) Sodium 134 L (137-145) mmol/L BUN 65 H (9-20) mg/dL Creatinine 2.31 H (0.66-1.25) mg/dL Glucose 173 H (74-99) mg/dL POC Glucose (mg/dL) (70-110) mg/dL Calcium 7.5 L (8.4-10.2) mg/dL 11/24/23 Range/Units 11:50 WBC (3.8-10.6) k/uL RBC (4.30-5.90) m/uL Hgb (13.0-17.5) gm/dL Hct (39.0-53.0) % MCHC (31.0-37.0) g/dL RDW (11.5-15.5) % Neutrophils # (1.3-7.7) k/uL Lymphocytes # (1.0-4.8) k/uL PT (10.0-12.5) sec INR (<1.2) Sodium (137-145) mmol/L BUN (9-20) mg/dL Creatinine (0.66-1.25) mg/dL Glucose (74-99) mg/dL POC Glucose (mg/dL) 219 H (70-110) mg/dL Calcium (8.4-10.2) mg/dL Assessment and Plan Assessment: impression: Acute abdominal distention and bowel obstruction secondary to colonic adenocarcinoma status post transverse colectomy and partial omentectomy surgery on 11/13/2023 diagnosis was made as adenocarcinoma of the colon. 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 Recommendation: Surgery is addressing his ileus Continue GI and DVT prophylaxis Continue IV fluids, and TPN/nutritional support Intermittent gentle diuresis, being addressed by nephrology Continue midodrine Continue to follow Time with Patient: Less than 30
--- NOTE | 2023-11-24 14:40 | P.PN ---
Subjective Progress Note Date: 11/24/23 This is an 83-year-old female past medical history significant for chronic persistent atrial fibrillation, CAD, hyperlipidemia, mitral valve prolapse, aortic valve replacement,PPM, cardiac ablation, cardiomyopathy, presented to the hospital with complaints of increasing generalized weakness, mild shortness of breath ;vague historian. discovered to have a hemoglobin of 6.7, INR 6.5. BUN 53, creatinine 2.28, bicarb 23 transfused with 1 unit packed RBCs as well as vitamin K in the ER. Repeat labs pending. denies nausea or vomiting but reported diarrhea dark black stools X months. Blood pressure soft, maintain O2 sats in the 90s on room air. Denies chest pain, palpitations or shortness of breath. 11/12/2023 NPO, completed prep, EGD and colonoscopy scheduled for early this afternoon. Anticoagulation remains on hold, continues on PPI. Reports no further bleeding or black, dark rectal output. Reports over the last 2 years he has lost 50 pounds, on a healthier diet. Hemoglobin with 7.6, platelet 182. renal function slowly improving, BUN 24, creatinine 1.64 denies chest pain, palpitations or shortness of breath. 11/14/2023 status post transverse colectomy and partial omentectomy, postop day #1. Reports "sore abdomen". Anticoagulation remains on hold. Receiving IV fluid hydration .reports occasional productive cough of phlegm .sitting up in chair.not passing flatus, advanced to clear liquids. Denies nausea or vomiting. Villasenor catheter recently DC'd this morning at 0600, not yet spontaneous voiding, bladder scan pending. BUN 18, creatinine 1.82. Received 1 unit packed RBCs y esterday for hemoglobin of 7.4, hemoglobin currently 8.9. Afebrile, WBC increased to 10.7. Sodium 136, potassium 5.7, bicarb 17. Pathology pending. 11/15/2023 IV fluid hydration. Blood pressure soft. Urinary retention, straight cath x 2 ,worsening renal function, creatinine up to 1.94, nephrology consulted. Hyperkalemic, potassium 5.9. Pain controlled. Reports not passing flatus. No bowel movement. Telemetry reporting paced rhythm .anticoagulation/Coumadin resuming tonight. 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 11/16/2023 Hemoglobin remains 7.9. Continues on IV fluid hydration .Maintained on Clear Liquid Diet, nauseated this morning. Blood sugars controlled. pain controlled. Passing minimal flatus, no bowel movement. Villasenor catheter placed yesterday secondary to urinary retention .renal ultrasound reported negative for obstructive uropathy, no hydronephrosis .blood pressures soft, improving. Renal function worsening, bicarb 15, 11/16. Patient seen and examined. Blood work done this morning showed WBC 4.1, hemoglobin 7.4, platelet count 188, sodium 135, potassium 5, BUN 30, creatinine 1.97. INR is 2.4. Patient sitting upright in the chair, passing gas, no bowel movement yet. Patient admits to poor appetite 11/17. Patient seen and examined. Patient was transferred to ICU overnight because of increased work of breathing, hypotension and abdominal distention. Chest x-ray done overnight showed trace left pleural effusion with stable cardiomegaly. CTA chest was negative for PE. CT abdomen done showed increasing subcutaneous edema and upper abdominal ascites likely corresponding to desired fluid overload state. Patient had NG tube inserted overnight. Patient was started on ertapenem and pressors. 11/18. Patient seen and examined. Blood work done this morning showed WBC 9.2, hemoglobin 9.4, sodium 137, potassium 4.5, BUN 42, creatinine 2.31. Stated he had bowel movement this morning. 11/19. Patient seen and examined. Labs done this morning showed WBC 9.2, hemoglobin 7.6, platelet count 252, sodium 139, potassium 4.5, BUN 46, creatinine 2.06 11/20. Patient seen and examined. PICC line could not be placed because of elevated INR, currently not on TPN. Will order 1 dose of vitamin K today. Lab work done this morning showed WBC 10.1, hemoglobin 7.8, platelet count 290, sodium 142, potassium 4, BUN 50, creatinine 2.11, INR 3.8 11/21. Patient seen and examined. Patient sitting upright in the chair. PICC l ine was placed. NG tube was discontinued. Lab work done showed WBC 10.7, hemoglobin 7.7, platelet count 219, sodium 141, potassium 3.8, BUN 52, creatinine 2.18. No acute issues overnight 11/22. Patient seen and examined. Complaining of swelling of lower extremities, currently on Lasix. INR is 1.2, resume pharmacy dose Coumadin 11/23. Patient seen and examined.Blood work done this morning showed WBC 14.5, hemoglobin 7.8, platelet count 397, sodium 134, potassium 4, BUN 65, creatinine 2.31. White count has increased from yesterday, will keep monitoring. Currently on IV Lasix 40-minute twice a day per nephrology recommendations Physical exam General; alert and oriented x3, not in any acute distress. Well developed, well nourished. HEENT: Pupils are round and equally reacting to light. EOMI. No scleral icterus. No conjunctival pallor. Normocephalic, atraumatic. No pharyngeal erythema. No thyromegaly. CARDIOVASCULAR: S1 and S2 present. No murmurs, rubs, or gallops. PULMONARY: Chest is clear to auscultation, no wheezing or crackles. ABDOMEN: Soft distention improved, surgical incision seen. No palpable organomegaly. MUSCULOSKELETAL: No joint swelling or deformity. EXTREMITIES: 1+ pitting edema lower extremities bilaterally NEUROLOGICAL: Gross neurological examination did not reveal any focal deficits. SKIN: No rashes. Assessment and plan Hypotension Severe anemia secondary to acute GI bleed, status post EGD and colonoscopy; Upper endoscopy revealed 2.5 cm broad-based duodenal polyp in the second part of the duodenum opposite the ampullary orifice status post snare polypectomy and almost complete polypectomy performed. Small hiatal hernia. Colonoscopy revealed tight apple core ulcerated lesion in the mid transverse colon with significant luminal narrowing status post biopsy and tattooing. Status post transverse colectomy and partial omentectomy. 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 Surgical pathology pending. Urinary retention, post operative, requiring Villasenor catheter Acute renal failure, ATN secondary to the above as well as hypotension. Hyperkalemia secondary to all the above Metabolic acidosis secondary to acute renal failure Chronic persistent atrial fibrillation, INR supra therapeutic History of mitral valve repair and aortic valve replacement Cardiomyopathy, nonischemic, EF 40 to 45% PPM Hypertension Hyperlipidemia Monitor vital signs Monitor CBC Monitor CMP Continue telemetry monitoring Strict I's and O's, daily daily weights Continue IV Lasix 40 mg twice daily Continue ertapenem Continue TPN Continue Coumadin pharmacy to dose Continue with Villasenor catheter Diet advanced to regular Cardiology following Nephrology following Pulmonology following Surgery following Labs and medication were reviewed.. Continue same treatment. Continue with symptomatic treatment. Resume home medication. Monitor labs and vitals. DVT and GI prophylaxis. Further recommendations as per clinical course of the patient Dictation was produced using [employer] dictation software. please excuse any grammatical, word or spelling errors. Objective - Vital Signs Vital signs: Vital Signs Temp 98.3 F 11/24/23 04:00 Pulse 74 11/24/23 13:07 Resp 18 11/24/23 13:07 BP 146/69 11/24/23 13:07 Pulse Ox 92 L 11/24/23 13:07 FiO2 Intake & Output 11/23/23 11/24/23 11/24/23 18:59 06:59 18:59 Intake Total 358 1050 Output Total 675 300 Balance -317 750 Weight 100.6 kg Intake: IV 10 Invasive Line 5 10 Intake, IV Titration 1040 Amount Mvi, Adult No.4 with Vit 1040 K 10 ml Trace (Conc-1Ml/ Dose) 1 ml Sodium Chloride 4Meq/ml Vial 40 meq Potassium Acetate 12 meq Calcium Gluconate 1 gm Magnesium Sulfate gm 0 .5 gm Potassium Phosphate 6 mmol In Amino Acids 5 %/Dextrose 20 % 1,000 ml @ 93 mls/hr IV .BY DURATION [facility] Rx#: [id number] Oral 358 Output: Urine 675 300 Other: Voiding Method Indwelling Catheter Indwelling Catheter Indwelling Catheter - Labs CBC & Chem 7: 11/24/23 11:00 11/24/23 11:00 Labs: Abnormal Lab Results - Last 24 Hours (Table) 11/23/23 11/23/23 11/24/23 Range/Units 17:03 23:37 06:22 WBC (3.8-10.6) k/uL RBC (4.30-5.90) m/uL Hgb (13.0-17.5) gm/dL Hct (39.0-53.0) % MCHC (31.0-37.0) g/dL RDW (11.5-15.5) % Neutrophils # (1.3-7.7) k/uL Lymphocytes # (1.0-4.8) k/uL PT (10.0-12.5) sec INR (<1.2) Sodium (137-145) mmol/L BUN (9-20) mg/dL Creatinine (0.66-1.25) mg/dL Glucose (74-99) mg/dL POC Glucose (mg/dL) 215 H 214 H 242 H (70-110) mg/dL Calcium (8.4-10.2) mg/dL 11/24/23 11/24/23 11/24/23 Range/Units 11:00 11:00 11:00 WBC 14.5 H (3.8-10.6) k/uL RBC 2.82 L (4.30-5.90) m/uL Hgb 7.8 L (13.0-17.5) gm/dL Hct 26.4 L (39.0-53.0) % MCHC 29.4 L (31.0-37.0) g/dL RDW 15.6 H (11.5-15.5) % Neutrophils # 12.8 H (1.3-7.7) k/uL Lymphocytes # 0.7 L (1.0-4.8) k/uL PT 13.6 H (10.0-12.5) sec INR 1.3 H (<1.2) Sodium 134 L (137-145) mmol/L BUN 65 H (9-20) mg/dL Creatinine 2.31 H (0.66-1.25) mg/dL Glucose 173 H (74-99) mg/dL POC Glucose (mg/dL) (70-110) mg/dL Calcium 7.5 L (8.4-10.2) mg/dL 11/24/23 Range/Units 11:50 WBC (3.8-10.6) k/uL RBC (4.30-5.90) m/uL Hgb (13.0-17.5) gm/dL Hct (39.0-53.0) % MCHC (31.0-37.0) g/dL RDW (11.5-15.5) % Neutrophils # (1.3-7.7) k/uL Lymphocytes # (1.0-4.8) k/uL PT (10.0-12.5) sec INR (<1.2) Sodium (137-145) mmol/L BUN (9-20) mg/dL Creatinine (0.66-1.25) mg/dL Glucose (74-99) mg/dL POC Glucose (mg/dL) 219 H (70-110) mg/dL Calcium (8.4-10.2) mg/dL
[2023-11-24] MEDS: WARFARIN 2 MG TAB PO ONE (17:30)
[2023-11-24 17:50] LABS: Glucose,Whole Blood 244 mg/dL (70-110)
[2023-11-24 23:55] LABS: Glucose,Whole Blood 251 mg/dL (70-110)
--- NOTE | 2023-11-25 00:02 | P.PN ---
Subjective Progress Note Date: 11/24/23 Principal diagnosis: patient feels improved. He is having flatus and some small bowel movements. On exam vital signs appear stable. Abdomen soft incision is clean dry intact Status post transverse colectomy. Patient will continue receive supportive care.he will have his diet advanced. Status post transverse colectomy. Patient will continue receive supportive care. patient feels improved. He is having flatus and some small bowel movements. On exam vital signs appear stable. Abdomen soft incision is clean dry intact Objective - Vital Signs Vital signs: Vital Signs Temp 98.4 F 11/24/23 20:00 Pulse 93 11/24/23 20:00 Resp 22 11/24/23 20:00 BP 106/54 11/24/23 20:00 Pulse Ox 96 11/24/23 20:00 FiO2 Intake & Output 11/24/23 11/24/23 11/25/23 06:59 18:59 06:59 Intake Total 1050 120 Output Total 300 350 Balance 750 120 -350 Intake: IV 10 Invasive Line 5 10 Intake, IV Titration 1040 Amount Mvi, Adult No.4 with Vit 1040 K 10 ml Trace (Conc-1Ml/ Dose) 1 ml Sodium Chloride 4Meq/ml Vial 40 meq Potassium Acetate 12 meq Calcium Gluconate 1 gm Magnesium Sulfate gm 0 .5 gm Potassium Phosphate 6 mmol In Amino Acids 5 %/Dextrose 20 % 1,000 ml @ 93 mls/hr IV .BY DURATION [facility] Rx#: [id number] Oral 120 Output: Urine 300 350 Other: Voiding Method Indwelling Catheter Indwelling Catheter Indwelling Catheter - Labs CBC & Chem 7: 11/24/23 11:00 11/24/23 11:00 Labs: Abnormal Lab Results - Last 24 Hours (Table) 11/24/23 11/24/23 11/24/23 Range/Units 06:22 11:00 11:00 WBC 14.5 H (3.8-10.6) k/uL RBC 2.82 L (4.30-5.90) m/uL Hgb 7.8 L (13.0-17.5) gm/dL Hct 26.4 L (39.0-53.0) % MCHC 29.4 L (31.0-37.0) g/dL RDW 15.6 H (11.5-15.5) % Neutrophils # 12.8 H (1.3-7.7) k/uL Lymphocytes # 0.7 L (1.0-4.8) k/uL PT 13.6 H (10.0-12.5) sec INR 1.3 H (<1.2) Sodium (137-145) mmol/L BUN (9-20) mg/dL Creatinine (0.66-1.25) mg/dL Glucose (74-99) mg/dL POC Glucose (mg/dL) 242 H (70-110) mg/dL Calcium (8.4-10.2) mg/dL 11/24/23 11/24/23 11/24/23 Range/Units 11:00 11:50 17:48 WBC (3.8-10.6) k/uL RBC (4.30-5.90) m/uL Hgb (13.0-17.5) gm/dL Hct (39.0-53.0) % MCHC (31.0-37.0) g/dL RDW (11.5-15.5) % Neutrophils # (1.3-7.7) k/uL Lymphocytes # (1.0-4.8) k/uL PT (10.0-12.5) sec INR (<1.2) Sodium 134 L (137-145) mmol/L BUN 65 H (9-20) mg/dL Creatinine 2.31 H (0.66-1.25) mg/dL Glucose 173 H (74-99) mg/dL POC Glucose (mg/dL) 219 H 244 H (70-110) mg/dL Calcium 7.5 L (8.4-10.2) mg/dL 11/24/23 Range/Units 23:54 WBC (3.8-10.6) k/uL RBC (4.30-5.90) m/uL Hgb (13.0-17.5) gm/dL Hct (39.0-53.0) % MCHC (31.0-37.0) g/dL RDW (11.5-15.5) % Neutrophils # (1.3-7.7) k/uL Lymphocytes # (1.0-4.8) k/uL PT (10.0-12.5) sec INR (<1.2) Sodium (137-145) mmol/L BUN (9-20) mg/dL Creatinine (0.66-1.25) mg/dL Glucose (74-99) mg/dL POC Glucose (mg/dL) 251 H (70-110) mg/dL Calcium (8.4-10.2) mg/dL
[2023-11-25 05:49] LABS: Glucose,Whole Blood 253 mg/dL (70-110)
[2023-11-25] MEDS: ERTAPENEM 0.5 GM in SODIUM CHLORIDE 0.9% 50 ML IVPB SCH (09:08)
--- NOTE | 2023-11-25 09:23 | P.PN ---
Subjective Progress Note Date: 11/25/23 patient feels slightly better. He is tolerating diet. On exam vital signs appear stable. Abdomen soft. Incision is clean dry intact. Status post transverse closure. Patient will continue receive supportive care. He'll work on his physical rehab. Objective - Vital Signs Vital signs: Vital Signs Temp 98.1 F 11/25/23 08:56 Pulse 74 11/25/23 08:56 Resp 18 11/25/23 08:56 BP 85/43 11/25/23 08:56 Pulse Ox 96 11/25/23 08:56 FiO2 Intake & Output 11/24/23 11/25/23 11/25/23 18:59 06:59 18:59 Intake Total 120 1580 Output Total 500 Balance 120 1080 Weight 121 kg Intake: Intake, IV Titration 1040 Amount Mvi, Adult No.4 with Vit 1040 K 10 ml Trace (Conc-1Ml/ Dose) 1 ml Sodium Chloride 4Meq/ml Vial 40 meq Potassium Acetate 12 meq Calcium Gluconate 1 gm Magnesium Sulfate gm 0 .5 gm Potassium Phosphate 6 mmol In Amino Acids 5 %/Dextrose 20 % 1,000 ml @ 93 mls/hr IV .BY DURATION [facility] Rx#: [id number] Oral 120 540 Output: Urine 500 Other: Voiding Method Indwelling Catheter Indwelling Catheter # Bowel Movements 1 - Labs CBC & Chem 7: 11/24/23 11:00 11/24/23 11:00 Labs: Abnormal Lab Results - Last 24 Hours (Table) 11/24/23 11/24/23 11/24/23 Range/Units 11:00 11:00 11:00 WBC 14.5 H (3.8-10.6) k/uL RBC 2.82 L (4.30-5.90) m/uL Hgb 7.8 L (13.0-17.5) gm/dL Hct 26.4 L (39.0-53.0) % MCHC 29.4 L (31.0-37.0) g/dL RDW 15.6 H (11.5-15.5) % Neutrophils # 12.8 H (1.3-7.7) k/uL Lymphocytes # 0.7 L (1.0-4.8) k/uL PT 13.6 H (10.0-12.5) sec INR 1.3 H (<1.2) Sodium 134 L (137-145) mmol/L BUN 65 H (9-20) mg/dL Creatinine 2.31 H (0.66-1.25) mg/dL Glucose 173 H (74-99) mg/dL POC Glucose (mg/dL) (70-110) mg/dL Calcium 7.5 L (8.4-10.2) mg/dL 11/24/23 11/24/23 11/24/23 Range/Units 11:50 17:48 23:54 WBC (3.8-10.6) k/uL RBC (4.30-5.90) m/uL Hgb (13.0-17.5) gm/dL Hct (39.0-53.0) % MCHC (31.0-37.0) g/dL RDW (11.5-15.5) % Neutrophils # (1.3-7.7) k/uL Lymphocytes # (1.0-4.8) k/uL PT (10.0-12.5) sec INR (<1.2) Sodium (137-145) mmol/L BUN (9-20) mg/dL Creatinine (0.66-1.25) mg/dL Glucose (74-99) mg/dL POC Glucose (mg/dL) 219 H 244 H 251 H (70-110) mg/dL Calcium (8.4-10.2) mg/dL 11/25/23 Range/Units 05:48 WBC (3.8-10.6) k/uL RBC (4.30-5.90) m/uL Hgb (13.0-17.5) gm/dL Hct (39.0-53.0) % MCHC (31.0-37.0) g/dL RDW (11.5-15.5) % Neutrophils # (1.3-7.7) k/uL Lymphocytes # (1.0-4.8) k/uL PT (10.0-12.5) sec INR (<1.2) Sodium (137-145) mmol/L BUN (9-20) mg/dL Creatinine (0.66-1.25) mg/dL Glucose (74-99) mg/dL POC Glucose (mg/dL) 253 H (70-110) mg/dL Calcium (8.4-10.2) mg/dL Microbiology - Last 24 Hours (Table) 11/19/23 23:36 Blood Culture - Final Blood
[2023-11-25 10:53] LABS: Basophils % (A) 0 %; Eosinophils # (A) 0.1 k/uL (0-0.7); Eosinophils % (A) 1 %; HCT 22.1 % (39.0-53.0); Hypochromasia Marked; Lymphocytes # (A) 0.7 k/uL (1.0-4.8); Lymphocytes % (A) 5 %; MCH 28.3 pg (25.0-35.0); MCHC 30.6 g/dL (31.0-37.0); MCV 92.6 fL (80.0-100.0); Mean Platelet Volume 8.7; Monocytes % (A) 8 %; Neutrophils # (A) 11.1 k/uL (1.3-7.7); Neutrophils % (A) 84 %; Platelet Count 319 k/uL (150-450); Poikilocytosis Slight; RBC 2.38 m/uL (4.30-5.90); RDW 15.9 % (11.5-15.5); WBC 13.2 k/uL (3.8-10.6)
[2023-11-25 10:54] LABS: INR 1.3 (<1.2); Prothrombin Time 14.1 sec (10.0-12.5)
[2023-11-25 11:00] LABS: HGB 6.8 gm/dL (13.0-17.5)
--- NOTE | 2023-11-25 11:00 | P.PN ---
Subjective patient is seen for follow-up for acute kidney injury and chronic kidney disease. Currently being diuresed for volume overload. Lasix was increased to 40 mg IV twice a day. Maintained on TPN No significant complaints today serum creatinine 2.3 yesterday. Labs are pending from today. Objective - Vital Signs Vital signs: Vital Signs Temp 98.1 F 11/25/23 08:56 Pulse 74 11/25/23 08:56 Resp 18 11/25/23 08:56 BP 91/43 11/25/23 10:14 Pulse Ox 96 11/25/23 08:56 FiO2 Intake & Output 11/24/23 11/25/23 11/25/23 18:59 06:59 18:59 Intake Total 120 1580 240 Output Total 500 Balance 120 1080 240 Weight 121 kg Intake: Intake, IV Titration 1040 Amount Mvi, Adult No.4 with Vit 1040 K 10 ml Trace (Conc-1Ml/ Dose) 1 ml Sodium Chloride 4Meq/ml Vial 40 meq Potassium Acetate 12 meq Calcium Gluconate 1 gm Magnesium Sulfate gm 0 .5 gm Potassium Phosphate 6 mmol In Amino Acids 5 %/Dextrose 20 % 1,000 ml @ 93 mls/hr IV .BY DURATION [facility] Rx#: [id number] Oral 120 540 240 Output: Urine 500 Other: Voiding Method Indwelling Catheter Indwelling Catheter # Bowel Movements 1 - Exam patient is awake, comfortable, no acute distress Examination of the heart S1 and S2 Examination of the lungs decreased breath sounds at the bases Abdomen is soft nontender Examination of lower extremity shows edema 1+ bilaterally [employer] exam grossly intact - Labs CBC & Chem 7: 11/24/23 11:00 11/24/23 11:00 Labs: Abnormal Lab Results - Last 24 Hours (Table) 11/24/23 11/24/23 11/24/23 Range/Units 11:00 11:00 11:00 WBC 14.5 H (3.8-10.6) k/uL RBC 2.82 L (4.30-5.90) m/uL Hgb 7.8 L (13.0-17.5) gm/dL Hct 26.4 L (39.0-53.0) % MCHC 29.4 L (31.0-37.0) g/dL RDW 15.6 H (11.5-15.5) % Neutrophils # 12.8 H (1.3-7.7) k/uL Lymphocytes # 0.7 L (1.0-4.8) k/uL PT 13.6 H (10.0-12.5) sec INR 1.3 H (<1.2) Sodium 134 L (137-145) mmol/L BUN 65 H (9-20) mg/dL Creatinine 2.31 H (0.66-1.25) mg/dL Glucose 173 H (74-99) mg/dL POC Glucose (mg/dL) (70-110) mg/dL Calcium 7.5 L (8.4-10.2) mg/dL 11/24/23 11/24/23 11/24/23 Range/Units 11:50 17:48 23:54 WBC (3.8-10.6) k/uL RBC (4.30-5.90) m/uL Hgb (13.0-17.5) gm/dL Hct (39.0-53.0) % MCHC (31.0-37.0) g/dL RDW (11.5-15.5) % Neutrophils # (1.3-7.7) k/uL Lymphocytes # (1.0-4.8) k/uL PT (10.0-12.5) sec INR (<1.2) Sodium (137-145) mmol/L BUN (9-20) mg/dL Creatinine (0.66-1.25) mg/dL Glucose (74-99) mg/dL POC Glucose (mg/dL) 219 H 244 H 251 H (70-110) mg/dL Calcium (8.4-10.2) mg/dL 11/25/23 11/25/23 Range/Units 05:48 10:17 WBC (3.8-10.6) k/uL RBC (4.30-5.90) m/uL Hgb (13.0-17.5) gm/dL Hct (39.0-53.0) % MCHC (31.0-37.0) g/dL RDW (11.5-15.5) % Neutrophils # (1.3-7.7) k/uL Lymphocytes # (1.0-4.8) k/uL PT 14.1 H (10.0-12.5) sec INR 1.3 H (<1.2) Sodium (137-145) mmol/L BUN (9-20) mg/dL Creatinine (0.66-1.25) mg/dL Glucose (74-99) mg/dL POC Glucose (mg/dL) 253 H (70-110) mg/dL Calcium (8.4-10.2) mg/dL Microbiology - Last 24 Hours (Table) 11/19/23 23:36 Blood Culture - Final Blood Assessment and Plan Assessment: 1. Acute kidney injury ATN secondary to hypotension and urine retention. also received IV contrast on 11/17/2023. Currently being diuresed. No evidence of obstruction noted on CT of the abdomen. 2. Hyperkalemia associated with acute kidney injury and metabolic acidosis and urine retention. Also related to underlying GI bleed. improved 3. Metabolic acidosis non-gap secondary to acute kidney injury 4. Colon mass status post transverse colectomy and partial omentectomy 5. Chronic kidney disease stage IIIa with baseline creatinine around 1.4 secondary to nephrosclerosis 6. Volume overload maintained on IV Lasix 7. Partial small bowel obstruction versus moderate ileus being followed by surgery. Currently maintained on TPN. Plan: continue current dose of IV Lasix Repeat labs in a.m. continue with Villasenor catheter
[2023-11-25 11:15] LABS: ALT 11 U/L (4-49); AST 22 U/L (17-59); African American GFR (CKD) 26 (>60 ml/min/1.73 sqM); Albumin 1.8 g/dL (3.5-5.0); Alkaline Phosphatase 88 U/L (38-126); Anion Gap 6 mmol/L; Blood Urea Nitrogen 75 mg/dL (9-20); Calcium 7.1 mg/dL (8.4-10.2); Carbon Dioxide 22 mmol/L (22-30); Chloride 103 mmol/L (98-107); Glucose 178 mg/dL (74-99); Non-African American GFR(CKD) 22 (>60 ml/min/1.73 sqM); Phosphorus 2.2 mg/dL (2.5-4.5); Potassium 4.1 mmol/L (3.5-5.1); Sodium 131 mmol/L (137-145); Total Bilirubin 0.7 mg/dL (0.2-1.3); Total Protein 4.6 g/dL (6.3-8.2)
[2023-11-25 12:07] LABS: HCT 22.7 % (39.0-53.0); Hypochromasia Marked; MCH 27.4 pg (25.0-35.0); MCHC 29.7 g/dL (31.0-37.0); MCV 92.2 fL (80.0-100.0); Mean Platelet Volume 7.8; Platelet Count 337 k/uL (150-450); Poikilocytosis Slight; RBC 2.46 m/uL (4.30-5.90); RDW 15.8 % (11.5-15.5); WBC 13.6 k/uL (3.8-10.6)
[2023-11-25 12:08] LABS: Glucose,Whole Blood 257 mg/dL (70-110)
[2023-11-25 12:27] LABS: HGB 6.8 gm/dL (13.0-17.5)
[2023-11-25] MEDS: IPRATROPIUM-ALBUTEROL 3 ML NEB INHALATION PRN (12:36)
--- NOTE | 2023-11-25 13:10 | P.PN ---
Subjective Progress Note Date: 11/25/23 This is an 83-year-old female past medical history significant for chronic persistent atrial fibrillation, CAD, hyperlipidemia, mitral valve prolapse, aortic valve replacement,PPM, cardiac ablation, cardiomyopathy, presented to the hospital with complaints of increasing generalized weakness, mild shortness of breath ;vague historian. discovered to have a hemoglobin of 6.7, INR 6.5. BUN 53, creatinine 2.28, bicarb 23 transfused with 1 unit packed RBCs as well as vitamin K in the ER. Repeat labs pending. denies nausea or vomiting but reported diarrhea dark black stools X months. Blood pressure soft, maintain O2 sats in the 90s on room air. Denies chest pain, palpitations or shortness of breath. 11/12/2023 NPO, completed prep, EGD and colonoscopy scheduled for early this afternoon. Anticoagulation remains on hold, continues on PPI. Reports no further bleeding or black, dark rectal output. Reports over the last 2 years he has lost 50 pounds, on a healthier diet. Hemoglobin with 7.6, platelet 182. renal function slowly improving, BUN 24, creatinine 1.64 denies chest pain, palpitations or shortness of breath. 11/14/2023 status post transverse colectomy and partial omentectomy, postop day #1. Reports "sore abdomen". Anticoagulation remains on hold. Receiving IV fluid hydration .reports occasional productive cough of phlegm .sitting up in chair.not passing flatus, advanced to clear liquids. Denies nausea or vomiting. Villasenor catheter recently DC'd this morning at 0600, not yet spontaneous voiding, bladder scan pending. BUN 18, creatinine 1.82. Received 1 unit packed RBCs y esterday for hemoglobin of 7.4, hemoglobin currently 8.9. Afebrile, WBC increased to 10.7. Sodium 136, potassium 5.7, bicarb 17. Pathology pending. 11/15/2023 IV fluid hydration. Blood pressure soft. Urinary retention, straight cath x 2 ,worsening renal function, creatinine up to 1.94, nephrology consulted. Hyperkalemic, potassium 5.9. Pain controlled. Reports not passing flatus. No bowel movement. Telemetry reporting paced rhythm .anticoagulation/Coumadin resuming tonight. 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 11/16/2023 Hemoglobin remains 7.9. Continues on IV fluid hydration .Maintained on Clear Liquid Diet, nauseated this morning. Blood sugars controlled. pain controlled. Passing minimal flatus, no bowel movement. Villasenor catheter placed yesterday secondary to urinary retention .renal ultrasound reported negative for obstructive uropathy, no hydronephrosis .blood pressures soft, improving. Renal function worsening, bicarb 15, 11/16. Patient seen and examined. Blood work done this morning showed WBC 4.1, hemoglobin 7.4, platelet count 188, sodium 135, potassium 5, BUN 30, creatinine 1.97. INR is 2.4. Patient sitting upright in the chair, passing gas, no bowel movement yet. Patient admits to poor appetite 11/17. Patient seen and examined. Patient was transferred to ICU overnight because of increased work of breathing, hypotension and abdominal distention. Chest x-ray done overnight showed trace left pleural effusion with stable cardiomegaly. CTA chest was negative for PE. CT abdomen done showed increasing subcutaneous edema and upper abdominal ascites likely corresponding to desired fluid overload state. Patient had NG tube inserted overnight. Patient was started on ertapenem and pressors. 11/18. Patient seen and examined. Blood work done this morning showed WBC 9.2, hemoglobin 9.4, sodium 137, potassium 4.5, BUN 42, creatinine 2.31. Stated he had bowel movement this morning. 11/19. Patient seen and examined. Labs done this morning showed WBC 9.2, hemoglobin 7.6, platelet count 252, sodium 139, potassium 4.5, BUN 46, creatinine 2.06 11/20. Patient seen and examined. PICC line could not be placed because of elevated INR, currently not on TPN. Will order 1 dose of vitamin K today. Lab work done this morning showed WBC 10.1, hemoglobin 7.8, platelet count 290, sodium 142, potassium 4, BUN 50, creatinine 2.11, INR 3.8 11/21. Patient seen and examined. Patient sitting upright in the chair. PICC l ine was placed. NG tube was discontinued. Lab work done showed WBC 10.7, hemoglobin 7.7, platelet count 219, sodium 141, potassium 3.8, BUN 52, creatinine 2.18. No acute issues overnight 11/22. Patient seen and examined. Complaining of swelling of lower extremities, currently on Lasix. INR is 1.2, resume pharmacy dose Coumadin 11/23. Patient seen and examined.Blood work done this morning showed WBC 14.5, hemoglobin 7.8, platelet count 397, sodium 134, potassium 4, BUN 65, creatinine 2.31. White count has increased from yesterday, will keep monitoring. Currently on IV Lasix 40-minute twice a day per nephrology recommendations 11/24. Patient seen and examined. Vital signs this morning showed temperature 98.1, heart rate of 74, respiration 18, blood pressure 85/43. Hemoglobin this morning was 6.8, will order 1 unit of packed red blood cell, INR is still subtherapeutic Physical exam General; alert and oriented x3, not in any acute distress. Well developed, well nourished. HEENT: Pupils are round and equally reacting to light. EOMI. No scleral icterus. No conjunctival pallor. Normocephalic, atraumatic. No pharyngeal erythema. No thyromegaly. CARDIOVASCULAR: S1 and S2 present. No murmurs, rubs, or gallops. PULMONARY: Chest is clear to auscultation, no wheezing or crackles. ABDOMEN: Soft distention improved, surgical incision seen. No palpable organomegaly. MUSCULOSKELETAL: No joint swelling or deformity. EXTREMITIES: 1+ pitting edema lower extremities bilaterally NEUROLOGICAL: Gross neurological examination did not reveal any focal deficits. SKIN: No rashes. Assessment and plan Hypotension Severe anemia secondary to acute GI bleed, status post EGD and colonoscopy; Upper endoscopy revealed 2.5 cm broad-based duodenal polyp in the second part of the duodenum opposite the ampullary orifice status post snare polypectomy and almost complete polypectomy performed. Small hiatal hernia. Colonoscopy revealed tight apple core ulcerated lesion in the mid transverse colon with significant luminal narrowing status post biopsy and tattooing. Status post transverse colectomy and partial omentectomy. 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 Surgical pathology pending. Urinary retention, post operative, requiring Villasenor catheter Acute renal failure, ATN secondary to the above as well as hypotension. Hyperkalemia secondary to all the above Metabolic acidosis secondary to acute renal failure Chronic persistent atrial fibrillation, INR supra therapeutic History of mitral valve repair and aortic valve replacement Cardiomyopathy, nonischemic, EF 40 to 45% PPM Hypertension Hyperlipidemia Monitor vital signs Monitor CBC Monitor CMP Continue telemetry monitoring Strict I's and O's, daily daily weights Continue IV Lasix 40 mg twice daily Continue ertapenem Continue TPN Continue Coumadin pharmacy to dose Continue with Villasenor catheter Ordered 1 unit of packed red blood cell Cardiology following Nephrology following Pulmonology following Surgery following Labs and medication were reviewed.. Continue same treatment. Continue with symptomatic treatment. Resume home medication. Monitor labs and vitals. DVT and GI prophylaxis. Further recommendations as per clinical course of the patient Dictation was produced using [employer] dictation software. please excuse any grammatical, word or spelling errors. Objective - Vital Signs Vital signs: Vital Signs Temp 98.1 F 11/25/23 08:56 Pulse 74 11/25/23 08:56 Resp 18 11/25/23 08:56 BP 85/43 11/25/23 08:56 Pulse Ox 96 11/25/23 08:56 FiO2 Intake & Output 11/24/23 11/25/23 11/25/23 18:59 06:59 18:59 Intake Total 120 1580 Output Total 500 Balance 120 1080 Weight 121 kg Intake: Intake, IV Titration 1040 Amount Mvi, Adult No.4 with Vit 1040 K 10 ml Trace (Conc-1Ml/ Dose) 1 ml Sodium Chloride 4Meq/ml Vial 40 meq Potassium Acetate 12 meq Calcium Gluconate 1 gm Magnesium Sulfate gm 0 .5 gm Potassium Phosphate 6 mmol In Amino Acids 5 %/Dextrose 20 % 1,000 ml @ 93 mls/hr IV .BY DURATION [facility] Rx#: [id number] Oral 120 540 Output: Urine 500 Other: Voiding Method Indwelling Catheter Indwelling Catheter # Bowel Movements 1 - Labs CBC & Chem 7: 11/25/23 11:59 11/25/23 10:17 Labs: Abnormal Lab Results - Last 24 Hours (Table) 11/24/23 11/24/23 11/24/23 Range/Units 11:00 11:00 11:00 WBC 14.5 H (3.8-10.6) k/uL RBC 2.82 L (4.30-5.90) m/uL Hgb 7.8 L (13.0-17.5) gm/dL Hct 26.4 L (39.0-53.0) % MCHC 29.4 L (31.0-37.0) g/dL RDW 15.6 H (11.5-15.5) % Neutrophils # 12.8 H (1.3-7.7) k/uL Lymphocytes # 0.7 L (1.0-4.8) k/uL PT 13.6 H (10.0-12.5) sec INR 1.3 H (<1.2) Sodium 134 L (137-145) mmol/L BUN 65 H (9-20) mg/dL Creatinine 2.31 H (0.66-1.25) mg/dL Glucose 173 H (74-99) mg/dL POC Glucose (mg/dL) (70-110) mg/dL Calcium 7.5 L (8.4-10.2) mg/dL 11/24/23 11/24/23 11/24/23 Range/Units 11:50 17:48 23:54 WBC (3.8-10.6) k/uL RBC (4.30-5.90) m/uL Hgb (13.0-17.5) gm/dL Hct (39.0-53.0) % MCHC (31.0-37.0) g/dL RDW (11.5-15.5) % Neutrophils # (1.3-7.7) k/uL Lymphocytes # (1.0-4.8) k/uL PT (10.0-12.5) sec INR (<1.2) Sodium (137-145) mmol/L BUN (9-20) mg/dL Creatinine (0.66-1.25) mg/dL Glucose (74-99) mg/dL POC Glucose (mg/dL) 219 H 244 H 251 H (70-110) mg/dL Calcium (8.4-10.2) mg/dL 11/25/23 Range/Units 05:48 WBC (3.8-10.6) k/uL RBC (4.30-5.90) m/uL Hgb (13.0-17.5) gm/dL Hct (39.0-53.0) % MCHC (31.0-37.0) g/dL RDW (11.5-15.5) % Neutrophils # (1.3-7.7) k/uL Lymphocytes # (1.0-4.8) k/uL PT (10.0-12.5) sec INR (<1.2) Sodium (137-145) mmol/L BUN (9-20) mg/dL Creatinine (0.66-1.25) mg/dL Glucose (74-99) mg/dL POC Glucose (mg/dL) 253 H (70-110) mg/dL Calcium (8.4-10.2) mg/dL Microbiology - Last 24 Hours (Table) 11/19/23 23:36 Blood Culture - Final Blood
--- NOTE | 2023-11-25 13:47 | P.PN ---
Subjective Progress Note Date: 11/25/23 Principal diagnosis: Acute abdominal distention, status post transverse colectomy and partial omentectomy/colon adenocarcinoma This is a 83-year-old male patient was transferred to the intensive care unit yesterday as the patient developed significant abdominal distention and hypotension. The patient has a colonic mass and the patient has undergone transverse colectomy and surgery was done on 11/13/2023.. For now, the patient is postop day #4. The abdomen was firm and quite distended. Immediately, a stat CAT scan of the abdomen was done and the patient was found to have pneumoperitoneum and this was suspected to be related to previous surgery. There was also nonobstructive bowel gas pattern with significant gastric distention and partial small bowel obstruction cannot be completely excluded. At that point, NG tube was inserted and immediately 600 cc of output was obtained. Abdomen is still distended although less compared to yesterday. No flatus. Bowel sounds are absent. General surgery is on the case. White cell count not elevated. Lactic acid level is low at 1.3. Note that postop, the patient's renal function remained stable. The patient has chronic stage III kidney disease and the creatinine today is up to 2.17 and a sodium levels at 134 with a potassium level of 5.5. Serum bicarb is at 17. Nephrology on the case. The patient is currently on a bicarb infusion which is running at 50 cc an hour. He has history of paroxysmal atrial fibrillation. He is on anticoagulation with warfarin. Coumadin is on hold and the patient's INR today is at 3.5. The respiratory status is stable. No significant shortness of breath. The patient is currently on 3 L of oxygen by nasal cannula with a pulse ox of 98%. Repeat chest film of the abdomen was done today that showed NG tube being in place. There is contrast in the mid and the distal colon and nonspecific bowel gas pattern and the patient's chest x-ray from today is showing cardiomegaly. NG tube is in place. There is air under the right hemidiaphragm. The patient was seen by 2 separate general surgeons and no surgical intervention is required at this point in time. Will monitor and will put the bowel to rest. The patient has likely small bowel ileus. Patient was reevaluated today on 11/19/2023, patient is status post transverse colectomy and surgery was done on 11/13/2023 for suspected colonic mass and abdominal distention he is now postoperative day #5. Patient has been in the ICU for what seems to be persistent abdominal distention and possible small bowel ileus. Being followed by surgery, does not feel reexploration is necessary at this point. Nonetheless the patient seems to be quite comfortable, abdomen is distended, he is hypotensive requiring norepinephrine at 0.07 mcg/kg/min. Continues to have nasogastric tube in place and draining 800 cc over the last 24 hours. Patient is also known to have history of cardiomyopathy and LV dysfunction with ejection fraction of 40 to 45%, he is requiring intermittently diuretics/Lasix his last dose was yesterday. Remains on antibiotics in the form of Invanz mostly because of his multiple allergies to different antibiotics. Patient continues to have chronic venous stasis and swelling in the lower extremities. And seems a bit uncomfortable with abdominal distention. But no evidence of severe pain. Slightly tender to palpation WBC count today is 9.2 hemoglobin is 7.4. INR is 3.8 basic metabolic profile is normal renal profile is a bit worse today BUN is 42 creatinine up to 2.31 from 2.16 yesterday chest x-ray continues to show free air under the diaphragm, cardiomegaly, and chronic mild venous congestion. Possible pneumonitis 3 today on 11/20/2023, patient remains in the ICU, continues to have significant abdominal distention/ileus continues to have nasogastric tube in place, patient remains n.p.o., patient still requiring TPN, and intermittently on norepinephrine. Lasix was given today 40 mg IV push x 1, seems to have decent urine output in spite of marginal blood pressure. His abdominal distention remains worrisome. 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 Chest x-ray is showing mostly minimal bibasilar atelectasis, cardiomegaly, and minimal venous congestion Reason on 11/21/2023, patient remains in the ICU, patient remains on Invanz, he is supposed to get a PICC line tomorrow, however his INR is elevated, will arrange for 2 units of fresh frozen plasma and vitamin K to be given tomorrow about 6 hours before PICC line schedule placement. Pulmonary herrera the patient is doing well, asymptomatic, continues to have ileus continues to have abdominal distention but improving patient is passing gas at least. His abdominal issues are being addressed by surgery on the case. WBC count is 10.1 hemoglobin 7.8 INR is 3.8 basic metabolic profile is normal BUN is 50 creatinine 2.11 chest x- ray today continues to show free air in the upper abdomen, otherwise no significant findings Reevaluate today on 11/22/2023, patient is still in the ICU, his abdominal distention is improving, patient has had bowel movements last night, patient was started today on clear liquids, PICC line was placed for TPN, did receive fresh frozen plasma and vitamin K for placement of the PICC line, INR today is 1.7. Now the patient could be restarted back on his Coumadin. And we could potentially transfer the patient out of the ICU to a monitored bed and vlad ctive/3 S. WBC count is 10.7 hemoglobin 7.7 INR is 1.7 basic metabolic profile is normal renal profile showed BUN of 52 creatinine 2.18 3 today on 11/23/2023, patient is doing well, he is on room air, sitting at the bedside chair, he is on 3 S., not in any distress, continues to have abdominal distention, no bowel movement today, but the patient is passing gas. Patient will need to go back on his Coumadin. WBC count today is 11.6 hemoglobin 7.5 basic metabolic profile is normal BUN is 53 creatinine 2.41, blood sugar is high, being addressed by internal medicine on the case. Reevaluate today on 11/24/23, patient remains on room air, not in any distress, relatively asymptomatic from the pulmonary perspective continues to have abdominal distention, continues to pass gas but no bowel movements. Patient is receiving TPN, and I believe he is already eating as recommended by surgery. WBC count is 14.5 hemoglobin 7.8 basic metabolic profile is normal BUN is 65 creatinine 2.31, renal status is being addressed by nephrology on the case Patient was reevaluated today on 11/25/2023, patient remains on room air, not in any distress, patient has no active pulmonary issues today, no cough no wheezing no shortness of breath, patient did have a bowel movement yesterday, however his abdomen remains a bit distended. Patient is being considered for rehab placement and I think that is appropriate. Hemoglobin today is 6.8, patient may benefit from a unit of packed RBCs. This will be addressed by surgery on the case. Patient is still receiving TPN and apparently has been taking some limi dominga food orally. Objective - Vital Signs Vital signs: Vital Signs Temp 98.1 F 11/25/23 08:56 Pulse 88 11/25/23 12:45 Resp 18 11/25/23 12:27 BP 98/58 11/25/23 12:27 Pulse Ox 97 11/25/23 12:27 FiO2 Intake & Output 11/24/23 11/25/23 11/25/23 18:59 06:59 18:59 Intake Total 120 1580 240 Output Total 500 Balance 120 1080 240 Weight 121 kg Intake: Intake, IV Titration 1040 Amount Mvi, Adult No.4 with Vit 1040 K 10 ml Trace (Conc-1Ml/ Dose) 1 ml Sodium Chloride 4Meq/ml Vial 40 meq Potassium Acetate 12 meq Calcium Gluconate 1 gm Magnesium Sulfate gm 0 .5 gm Potassium Phosphate 6 mmol In Amino Acids 5 %/Dextrose 20 % 1,000 ml @ 93 mls/hr IV .BY DURATION [facility] Rx#: [id number] Oral 120 540 240 Output: Urine 500 Other: Voiding Method Indwelling Catheter Indwelling Catheter Indwelling Catheter # Bowel Movements 1 - Exam General: Revealed 83-year-old white male in no distress, on room air. Skin: Skin is warm and dry and no rashes or lesions are noted. Eye: Pupils are equal, round and reactive to light, extra-ocular movements are intact; there is normal conjunctiva bilaterally. Ears, nose, mouth and throat: There are moist mucous membranes and no oral lesions. Neck: The neck is supple, there is no tenderness or JVD. Cardiovascular: There is a regular rate and rhythm. No murmur, rub or gallop is appreciated. Respiratory: Good breath sound bilaterally no rhonchi no wheeze Gastrointestinal: Remains distended but not as tender today. Positive bowel sounds. Musculoskeletal: Normal ROM, no tenderness, chronic venous stasis noted in lower extremities bilaterally. 2+ bipedal edema there is no calf tenderness or swelling. Neurological: CN II-XII intact, Cranial nerves III through XII are intact. There are no obvious motor or sensory deficits. Coordination appears grossly intact. Speech is normal. Psychiatric: Cooperative, appropriate mood & affect, normal judgment. - Labs CBC & Chem 7: 11/25/23 11:59 11/25/23 10:17 Labs: Abnormal Lab Results - Last 24 Hours (Table) 11/24/23 11/24/23 11/25/23 Range/Units 17:48 23:54 05:48 WBC (3.8-10.6) k/uL RBC (4.30-5.90) m/uL Hgb (13.0-17.5) gm/dL Hct (39.0-53.0) % MCHC (31.0-37.0) g/dL RDW (11.5-15.5) % Neutrophils # (1.3-7.7) k/uL Lymphocytes # (1.0-4.8) k/uL PT (10.0-12.5) sec INR (<1.2) Sodium (137-145) mmol/L BUN (9-20) mg/dL Creatinine (0.66-1.25) mg/dL Glucose (74-99) mg/dL POC Glucose (mg/dL) 244 H 251 H 253 H (70-110) mg/dL Calcium (8.4-10.2) mg/dL Phosphorus (2.5-4.5) mg/dL Total Protein (6.3-8.2) g/dL Albumin (3.5-5.0) g/dL 11/25/23 11/25/23 11/25/23 Range/Units 10:17 10:17 10:17 WBC 13.2 H (3.8-10.6) k/uL RBC 2.38 L (4.30-5.90) m/uL Hgb 6.8 L* (13.0-17.5) gm/dL Hct 22.1 L (39.0-53.0) % MCHC 30.6 L (31.0-37.0) g/dL RDW 15.9 H (11.5-15.5) % Neutrophils # 11.1 H (1.3-7.7) k/uL Lymphocytes # 0.7 L (1.0-4.8) k/uL PT 14.1 H (10.0-12.5) sec INR 1.3 H (<1.2) Sodium 131 L (137-145) mmol/L BUN 75 H (9-20) mg/dL Creatinine 2.55 H (0.66-1.25) mg/dL Glucose 178 H (74-99) mg/dL POC Glucose (mg/dL) (70-110) mg/dL Calcium 7.1 L (8.4-10.2) mg/dL Phosphorus 2.2 L (2.5-4.5) mg/dL Total Protein 4.6 L (6.3-8.2) g/dL Albumin 1.8 L (3.5-5.0) g/dL 11/25/23 11/25/23 Range/Units 11:59 12:04 WBC 13.6 H (3.8-10.6) k/uL RBC 2.46 L (4.30-5.90) m/uL Hgb 6.8 L* (13.0-17.5) gm/dL Hct 22.7 L (39.0-53.0) % MCHC 29.7 L (31.0-37.0) g/dL RDW 15.8 H (11.5-15.5) % Neutrophils # (1.3-7.7) k/uL Lymphocytes # (1.0-4.8) k/uL PT (10.0-12.5) sec INR (<1.2) Sodium (137-145) mmol/L BUN (9-20) mg/dL Creatinine (0.66-1.25) mg/dL Glucose (74-99) mg/dL POC Glucose (mg/dL) 257 H (70-110) mg/dL Calcium (8.4-10.2) mg/dL Phosphorus (2.5-4.5) mg/dL Total Protein (6.3-8.2) g/dL Albumin (3.5-5.0) g/dL Microbiology - Last 24 Hours (Table) 11/19/23 23:36 Blood Culture - Final Blood Assessment and Plan Assessment: impression: Acute abdominal distention and bowel obstruction secondary to colonic adenocarcinoma status post transverse colectomy and partial omentectomy surgery on 11/13/2023 diagnosis was made as adenocarcinoma of the colon. 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 Recommendation: Continue present supportive care measures Surgery is still addressing his ileus Transfused with 1 unit of packed RBCs for low hemoglobin of 6.8 Continue GI and DVT prophylaxis Continue IV fluids, and TPN/nutritional support Intermittent gentle diuresis, being addressed by nephrology Continue midodrine Will follow as needed Patient will need placement Time with Patient: Less than 30
[2023-11-25] MEDS: [UNRECOGNIZED DRUG - NUTRITION] IV SCH (14:24)
[2023-11-25 18:13] LABS: Glucose,Whole Blood 305 mg/dL (70-110)
[2023-11-25] MEDS: WARFARIN 2 MG TAB PO ONE (18:18)
[2023-11-25] MEDS: HYDROcodone/APAP 5-325MG 1 EACH TAB PO PRN (21:26)
[2023-11-26 00:13] LABS: Glucose,Whole Blood 260 mg/dL (70-110)
[2023-11-26 06:27] LABS: Glucose,Whole Blood 461 mg/dL (70-110)
[2023-11-26 09:17] LABS: INR 1.4 (<1.2); Prothrombin Time 14.8 sec (10.0-12.5)
[2023-11-26 09:28] LABS: African American GFR (CKD) 24 (>60 ml/min/1.73 sqM); Anion Gap 10 mmol/L; Blood Urea Nitrogen 81 mg/dL (9-20); Calcium 7.2 mg/dL (8.4-10.2); Carbon Dioxide 19 mmol/L (22-30); Chloride 98 mmol/L (98-107); Magnesium 2.2 mg/dL (1.6-2.3); Non-African American GFR(CKD) 21 (>60 ml/min/1.73 sqM); Phosphorus 4.2 mg/dL (2.5-4.5); Potassium 5.2 mmol/L (3.5-5.1); Sodium 127 mmol/L (137-145)
[2023-11-26 09:42] LABS: Glucose 765 mg/dL (74-99)
--- NOTE | 2023-11-26 09:51 | P.PN ---
Subjective patient is seen for follow-up for acute kidney injury and chronic kidney disease. Currently being diuresed for volume overload. Lasix was increased to 40 mg IV twice a day. Maintained on TPN is present at bedside. Concerned about increasing scrotal edema. serum creatinine increase to 2.6 today with potassium at 5.2. hemoglobin was 6.8 g/dL. Patient is scheduled to receive 1 unit packed RBCs. blood pressure was low yesterday with systolic in the 80s and 90s. Currently improved. Patient is maintained on midodrine. Objective - Vital Signs Vital signs: Vital Signs Temp 98.6 F 11/26/23 04:00 Pulse 88 11/26/23 04:12 Resp 29 H 11/26/23 04:00 BP 115/63 11/26/23 04:00 Pulse Ox 96 11/26/23 04:00 FiO2 Intake & Output 11/25/23 11/26/23 11/26/23 18:59 06:59 18:59 Intake Total 890 20 Output Total 275 250 Balance 615 -230 Intake: IV 100 20 Ertapenem 0.5 gm In 100 Sodium Chloride 0.9% 50 ml @ 100 mls/hr IVPB DAILY [facility] Rx#:[id number] Invasive Line 5 20 Oral 480 Blood Product 310 Rc As-1 Unit 310 [id number] Output: Urine 275 250 Other: Voiding Method Indwelling Catheter Indwelling Catheter - Exam patient is awake, comfortable, no acute distress Examination of the heart S1 and S2 Examination of the lungs decreased breath sounds at the bases Abdomen is soft nontender Examination of lower extremity shows edema 2+ bilaterallywith scrotal edema 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 - Labs CBC & Chem 7: 11/25/23 11:59 11/26/23 08:16 Labs: Abnormal Lab Results - Last 24 Hours (Table) 11/25/23 11/25/23 11/25/23 Range/Units 10:17 10:17 10:17 WBC 13.2 H (3.8-10.6) k/uL RBC 2.38 L (4.30-5.90) m/uL Hgb 6.8 L* (13.0-17.5) gm/dL Hct 22.1 L (39.0-53.0) % MCHC 30.6 L (31.0-37.0) g/dL RDW 15.9 H (11.5-15.5) % Neutrophils # 11.1 H (1.3-7.7) k/uL Lymphocytes # 0.7 L (1.0-4.8) k/uL PT 14.1 H (10.0-12.5) sec INR 1.3 H (<1.2) Sodium 131 L (137-145) mmol/L Potassium (3.5-5.1) mmol/L Carbon Dioxide (22-30) mmol/L BUN 75 H (9-20) mg/dL Creatinine 2.55 H (0.66-1.25) mg/dL Glucose 178 H (74-99) mg/dL POC Glucose (mg/dL) (70-110) mg/dL Calcium 7.1 L (8.4-10.2) mg/dL Phosphorus 2.2 L (2.5-4.5) mg/dL Total Protein 4.6 L (6.3-8.2) g/dL Albumin 1.8 L (3.5-5.0) g/dL Crossmatch 11/25/23 11/25/23 11/25/23 Range/Units 11:59 12:04 14:30 WBC 13.6 H (3.8-10.6) k/uL RBC 2.46 L (4.30-5.90) m/uL Hgb 6.8 L* (13.0-17.5) gm/dL Hct 22.7 L (39.0-53.0) % MCHC 29.7 L (31.0-37.0) g/dL RDW 15.8 H (11.5-15.5) % Neutrophils # (1.3-7.7) k/uL Lymphocytes # (1.0-4.8) k/uL PT (10.0-12.5) sec INR (<1.2) Sodium (137-145) mmol/L Potassium (3.5-5.1) mmol/L Carbon Dioxide (22-30) mmol/L BUN (9-20) mg/dL Creatinine (0.66-1.25) mg/dL Glucose (74-99) mg/dL POC Glucose (mg/dL) 257 H (70-110) mg/dL Calcium (8.4-10.2) mg/dL Phosphorus (2.5-4.5) mg/dL Total Protein (6.3-8.2) g/dL Albumin (3.5-5.0) g/dL Crossmatch See Detail 11/25/23 11/26/23 11/26/23 Range/Units 18:09 00:04 06:02 WBC (3.8-10.6) k/uL RBC (4.30-5.90) m/uL Hgb (13.0-17.5) gm/dL Hct (39.0-53.0) % MCHC (31.0-37.0) g/dL RDW (11.5-15.5) % Neutrophils # (1.3-7.7) k/uL Lymphocytes # (1.0-4.8) k/uL PT (10.0-12.5) sec INR (<1.2) Sodium (137-145) mmol/L Potassium (3.5-5.1) mmol/L Carbon Dioxide (22-30) mmol/L BUN (9-20) mg/dL Creatinine (0.66-1.25) mg/dL Glucose (74-99) mg/dL POC Glucose (mg/dL) 305 H 260 H 461 H (70-110) mg/dL Calcium (8.4-10.2) mg/dL Phosphorus (2.5-4.5) mg/dL Total Protein (6.3-8.2) g/dL Albumin (3.5-5.0) g/dL Crossmatch 11/26/23 11/26/23 Range/Units 08:16 08:16 WBC (3.8-10.6) k/uL RBC (4.30-5.90) m/uL Hgb (13.0-17.5) gm/dL Hct (39.0-53.0) % MCHC (31.0-37.0) g/dL RDW (11.5-15.5) % Neutrophils # (1.3-7.7) k/uL Lymphocytes # (1.0-4.8) k/uL PT 14.8 H (10.0-12.5) sec INR 1.4 H (<1.2) Sodium 127 L (137-145) mmol/L Potassium 5.2 H (3.5-5.1) mmol/L Carbon Dioxide 19 L (22-30) mmol/L BUN 81 H (9-20) mg/dL Creatinine 2.68 H (0.66-1.25) mg/dL Glucose 765 H* (74-99) mg/dL POC Glucose (mg/dL) (70-110) mg/dL Calcium 7.2 L (8.4-10.2) mg/dL Phosphorus (2.5-4.5) mg/dL Total Protein (6.3-8.2) g/dL Albumin (3.5-5.0) g/dL Crossmatch Assessment and Plan Assessment: 1. Acute kidney injury ATN secondary to hypotension and urine retention. also received IV contrast on 11/17/2023. Currently being diuresed. No evidence of obstruction noted on CT of the abdomen. 2. Hyperkalemia associated with acute kidney injury and metabolic acidosis and urine retention. Also related to underlying GI bleed. improved 3. Metabolic acidosis non-gap secondary to acute kidney injury 4. Colon mass status post transverse colectomy and partial omentectomy 5. Chronic kidney disease stage IIIa with baseline creatinine around 1.4 secondary to nephrosclerosis 6. Volume overload maintained on IV Lasix 7. Partial small bowel obstruction versus moderate ileus being followed by surgery. Currently maintained on TPN. Plan: increase Lasix Continue with midodrine Transfuse packed RBCs Briefly discussed possible renal replacement therapy if renal function continues to worsen with persistent volume overload. Repeat labs in a.m. continue with Villasenor catheter
[2023-11-26] MEDS ORDERED: DEXTROSE 50% SYRINGE 50 ML IVP PRN ×2 (10:03)
[2023-11-26 10:11] LABS: Glucose,Whole Blood 286 mg/dL (70-110)
[2023-11-26 10:40] LABS: HCT 26.5 % (39.0-53.0); HGB 7.3 gm/dL (13.0-17.5); Hypochromasia Marked; MCH 27.6 pg (25.0-35.0); MCHC 27.6 g/dL (31.0-37.0); Macrocytosis Slight; Platelet Count 366 k/uL (150-450); Poikilocytosis Slight; RBC 2.65 m/uL (4.30-5.90); RDW 15.7 % (11.5-15.5); WBC 13.9 k/uL (3.8-10.6)
--- NOTE | 2023-11-26 10:40 | P.PN ---
Subjective Progress Note Date: 11/26/23 H&P Date: 11/09/23 Chief Complaint: Anemia, hypercoagulopathy This is an 83-year-old female past medical history significant for chronic persistent atrial fibrillation, CAD, hyperlipidemia, mitral valve prolapse, aortic valve replacement,PPM, cardiac ablation, cardiomyopathy, presented to the hospital with complaints of increasing generalized weakness, mild shortness of breath ;vague historian. discovered to have a hemoglobin of 6.7, INR 6.5. BUN 53, creatinine 2.28, bicarb 23 transfused with 1 unit packed RBCs as well as vitamin K in the ER. Repeat labs pending. denies nausea or vomiting but reported diarrhea dark black stools X months. Blood pressure soft, maintain O2 sats in the 90s on room air. Denies chest pain, palpitations or shortness of breath. 11/12/2023 NPO, completed prep, EGD and colonoscopy scheduled for early this afternoon. Anticoagulation remains on hold, continues on PPI. Reports no further bleeding or black, dark rectal output. Reports over the last 2 years he has lost 50 pounds, on a healthier diet. Hemoglobin with 7.6, platelet 182. renal function slowly improving, BUN 24, creatinine 1.64 denies chest pain, p alpitations or shortness of breath. 11/14/2023 status post transverse colectomy and partial omentectomy, postop day #1. Reports "sore abdomen". Anticoagulation remains on hold. Receiving IV fluid hydration .reports occasional productive cough of phlegm .sitting up in chair.not passing flatus, advanced to clear liquids. Denies nausea or vomiting. Villasenor catheter recently DC'd this morning at 0600, not yet spontaneous voiding, bladder scan pending. BUN 18, creatinine 1.82. Received 1 unit packed RBCs yesterday for hemoglobin of 7.4, hemoglobin currently 8.9. Afebrile, WBC increased to 10.7. Sodium 136, potassium 5.7, bicarb 17. Pathology pending. 11/15/2023 IV fluid hydration. Blood pressure soft. Urinary retention, straight cath x 2 ,worsening renal function, creatinine up to 1.94, nephrology consulted. Hyperkalemic, potassium 5.9. Pain controlled. Reports not passing flatus. No bowel movement. Telemetry reporting paced rhythm .anticoagulation/Coumadin resuming tonight. 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 11/16/2023 Hemoglobin remains 7.9. Continues on IV fluid hydration .Maintained on Clear Liquid Diet, nauseated this morning. Blood sugars controlled. pain controlled. Passing minimal flatus, no bowel movement. Villasenor catheter placed yesterday secondary to urinary retention .renal ultrasound reported negative for obstructive uropathy, no hydronephrosis .blood pressures soft, improving. Renal function worsening, bicarb 15, BUN 22, creatinine 2.1, potassium decreased to currently 5.7. Anticoagulation with Coumadin resumed yesterday, INR 1.5. 11/26/2023 Surgical pathology resulted on 327 reporting 6 out of 13 pericolonic lymph nodes positive for metastatic colonic adenocarcinoma. Oncology consulted. Abdomen significantly distended, reports a bowel movement a couple days ago, short of breath. Received 1 unit packed RBCs yesterday for hemoglobin of 6.8, repeat hemoglobin ordered. Maintained on TPN, hyperglycemic, glucose 765, POC glucose 461; repeat Accu-Chek reported 286. Worsening renal function, BUN 81, creatinine 2.68, bicarb 19, potassium 5.2, sodium 127. INR 1.4. Continues on midodrine, blood pressures improved this morning. Maintained on empiric Invanz for suspected abdominal sepsis. Afebrile. Objective - Vital Signs Vital signs: Vital Signs Temp 98.6 F 11/26/23 04:00 Pulse 88 11/26/23 04:12 Resp 29 H 11/26/23 04:00 BP 115/63 11/26/23 04:00 Pulse Ox 96 11/26/23 04:00 FiO2 Intake & Output 11/25/23 11/26/23 11/26/23 18:59 06:59 18:59 Intake Total 890 20 Output Total 275 250 Balance 615 -230 Intake: IV 100 20 Ertapenem 0.5 gm In 100 Sodium Chloride 0.9% 50 ml @ 100 mls/hr IVPB DAILY [facility] Rx#:[id number] Invasive Line 5 20 Oral 480 Blood Product 310 Rc As-1 Unit 310 [id number] Output: Urine 275 250 Other: Voiding Method Indwelling Catheter Indwelling Catheter - Exam PHYSICAL EXAM: VITAL SIGNS: [As above] GENERAL: Alert and oriented x 3, lying in bed, worried HEENT: Normocephalic, conjunctivae normal. eyes normal. NECK: Supple, no JVD. No thyroid enlargement. No LNs CARDIOVASCULAR: S1, S2 regular. Systolic murmur RESPIRATION: Tachypneic, equal air entry, diminished ABDOMEN: Soft, status post surgery, distended, nontender,no guarding. Scrotal edema. Extremities: Positive edema, upper bilateral extremity dressings with weeping drainage, bilateral lower extremities Hair wrapped. NERVOUS SYSTEM: Cranial N 2-12 grossly normal. No focal deficits. Strength and sensation grossly intact. Skin: Warm and dry, no rash - Labs CBC & Chem 7: 11/25/23 11:59 11/26/23 08:16 Labs: Abnormal Lab Results - Last 24 Hours (Table) 11/25/23 11/25/23 11/25/23 Range/Units 10:17 10:17 10:17 WBC 13.2 H (3.8-10.6) k/uL RBC 2.38 L (4.30-5.90) m/uL Hgb 6.8 L* (13.0-17.5) gm/dL Hct 22.1 L (39.0-53.0) % MCHC 30.6 L (31.0-37.0) g/dL RDW 15.9 H (11.5-15.5) % Neutrophils # 11.1 H (1.3-7.7) k/uL Lymphocytes # 0.7 L (1.0-4.8) k/uL PT 14.1 H (10.0-12.5) sec INR 1.3 H (<1.2) Sodium 131 L (137-145) mmol/L Potassium (3.5-5.1) mmol/L Carbon Dioxide (22-30) mmol/L BUN 75 H (9-20) mg/dL Creatinine 2.55 H (0.66-1.25) mg/dL Glucose 178 H (74-99) mg/dL POC Glucose (mg/dL) (70-110) mg/dL Calcium 7.1 L (8.4-10.2) mg/dL Phosphorus 2.2 L (2.5-4.5) mg/dL Total Protein 4.6 L (6.3-8.2) g/dL Albumin 1.8 L (3.5-5.0) g/dL Crossmatch 11/25/23 11/25/23 11/25/23 Range/Units 11:59 12:04 14:30 WBC 13.6 H (3.8-10.6) k/uL RBC 2.46 L (4.30-5.90) m/uL Hgb 6.8 L* (13.0-17.5) gm/dL Hct 22.7 L (39.0-53.0) % MCHC 29.7 L (31.0-37.0) g/dL RDW 15.8 H (11.5-15.5) % Neutrophils # (1.3-7.7) k/uL Lymphocytes # (1.0-4.8) k/uL PT (10.0-12.5) sec INR (<1.2) Sodium (137-145) mmol/L Potassium (3.5-5.1) mmol/L Carbon Dioxide (22-30) mmol/L BUN (9-20) mg/dL Creatinine (0.66-1.25) mg/dL Glucose (74-99) mg/dL POC Glucose (mg/dL) 257 H (70-110) mg/dL Calcium (8.4-10.2) mg/dL Phosphorus (2.5-4.5) mg/dL Total Protein (6.3-8.2) g/dL Albumin (3.5-5.0) g/dL Crossmatch See Detail 11/25/23 11/26/23 11/26/23 Range/Units 18:09 00:04 06:02 WBC (3.8-10.6) k/uL RBC (4.30-5.90) m/uL Hgb (13.0-17.5) gm/dL Hct (39.0-53.0) % MCHC (31.0-37.0) g/dL RDW (11.5-15.5) % Neutrophils # (1.3-7.7) k/uL Lymphocytes # (1.0-4.8) k/uL PT (10.0-12.5) sec INR (<1.2) Sodium (137-145) mmol/L Potassium (3.5-5.1) mmol/L Carbon Dioxide (22-30) mmol/L BUN (9-20) mg/dL Creatinine (0.66-1.25) mg/dL Glucose (74-99) mg/dL POC Glucose (mg/dL) 305 H 260 H 461 H (70-110) mg/dL Calcium (8.4-10.2) mg/dL Phosphorus (2.5-4.5) mg/dL Total Protein (6.3-8.2) g/dL Albumin (3.5-5.0) g/dL Crossmatch 11/26/23 11/26/23 Range/Units 08:16 08:16 WBC (3.8-10.6) k/uL RBC (4.30-5.90) m/uL Hgb (13.0-17.5) gm/dL Hct (39.0-53.0) % MCHC (31.0-37.0) g/dL RDW (11.5-15.5) % Neutrophils # (1.3-7.7) k/uL Lymphocytes # (1.0-4.8) k/uL PT 14.8 H (10.0-12.5) sec INR 1.4 H (<1.2) Sodium 127 L (137-145) mmol/L Potassium 5.2 H (3.5-5.1) mmol/L Carbon Dioxide 19 L (22-30) mmol/L BUN 81 H (9-20) mg/dL Creatinine 2.68 H (0.66-1.25) mg/dL Glucose 765 H* (74-99) mg/dL POC Glucose (mg/dL) (70-110) mg/dL Calcium 7.2 L (8.4-10.2) mg/dL Phosphorus (2.5-4.5) mg/dL Total Protein (6.3-8.2) g/dL Albumin (3.5-5.0) g/dL Crossmatch Assessment and Plan Assessment: Severe anemia secondary to acute GI bleed, status post EGD and colonoscopy; Upper endoscopy revealed 2.5 cm broad-based duodenal polyp in the second part of the duodenum opposite the ampullary orifice status post snare polypectomy and almost complete polypectomy performed. Small hiatal hernia. Colonoscopy revealed tight apple core ulcerated lesion in the mid transverse colon with significant luminal narrowing status post biopsy and tattooing. Scope could not be advanced beyond the lesion. 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 There is free air immediately adjacent to the lumen compatible with recent catheter tattoo during colonoscopy. Correlation for metastasis in the liver limited due to lack of IV contrast.Circumferential duodenal wall thickening correlate for duodenitis. Cholelithiasis. Infrarenal abdominal aortic aneurysm up to 3.2 cm. Right renal cyst. Status post transverse colectomy and partial omentectomy. 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 Surgical pathology reporting 6 out of 13 pericolonic lymph nodes positive for metastatic colonic adenocarcinoma. Oncology consulted. Acute abdominal distention, bowel obstruction secondary to colonic adenocarcinoma status post transverse colectomy, partial omentectomy on 11/13/2023, on TPN Hyperglycemic Hypotension, maintained on midodrine; suspect related to abdominal sepsis, maintained on empiric Invanz Fluid volume overload, maintained on IV push diuretics Urinary retention, post operative, requiring Villasenor catheter Acute renal failure, ATN secondary to the above ,hypotension and had received IV contrast. Hyperkalemia secondary to all the above Metabolic acidosis secondary to acute renal failure Chronic kidney disease stage III A secondary to nephrosclerosis Chronic persistent atrial fibrillation, INR supra therapeutic History of mitral valve repair and aortic valve replacement Cardiomyopathy, nonischemic, EF 40 to 45% PPM Hypertension, history of Hyperlipidemia Plan: Continue on current medication regimen ,monitoring and symptomatic treatment. Prognosis guarded, given multiple complex medical issues. Oncology consulted. IV fluids/diuretics as per nephrology- discussing potential hemodialysis. CBC pending. Nutritional support with TPN and lipids small dose of Levemir initiated with close monitoring of Accu-Cheks. Close monitoring of hemoglobin, platelets, renal function with repeat labs ordered for a.m. The impression and plan of care has been dictated as directed. : I performed a history and examination of this patient, discussed the same with the dictator. I agree with the dictator's note ,documented as a scribe. Any additional findings or plans will be noted.
[2023-11-26 10:41] LABS: MCV 100.1 fL (80.0-100.0)
[2023-11-26] MEDS: FUROSEMIDE 10 MG/ML 10 ML VIAL IV STA (11:19)
[2023-11-26] MEDS: INSULIN DETEMIR (LEVEMIR) 100 UNIT/ML SYR SQ SCH (11:19)
[2023-11-26] MEDS: IPRATROPIUM-ALBUTEROL 3 ML NEB INHALATION SCH (11:20)
[2023-11-26] MEDS: IPRATROPIUM-ALBUTEROL 3 ML NEB INHALATION PRN (11:53)
[2023-11-26 12:05] LABS: Glucose,Whole Blood 277 mg/dL (70-110)
--- NOTE | 2023-11-26 13:58 | P.PN ---
Subjective Progress Note Date: 11/26/23 Principal diagnosis: Anemia. This is a 83-year-old male patient was transferred to the intensive care unit yesterday as the patient developed significant abdominal distention and hypotension. The patient has a colonic mass and the patient has undergone transverse colectomy and surgery was done on 11/13/2023.. For now, the patient is postop day #4. The abdomen was firm and quite distended. Immediately, a stat CAT scan of the abdomen was done and the patient was found to have pneumoperitoneum and this was suspected to be related to previous surgery. There was also nonobstructive bowel gas pattern with significant gastric distention and partial small bowel obstruction cannot be completely excluded. At that point, NG tube was inserted and immediately 600 cc of output was obtained. Abdomen is still distended although less compared to yesterday. No flatus. Bowel sounds are absent. General surgery is on the case. White cell count not elevated. Lactic acid level is low at 1.3. Note that postop, the patient's renal function remained stable. The patient has chronic stage III kidney disease and the creatinine today is up to 2.17 and a sodium levels at 134 with a potassium level of 5.5. Serum bicarb is at 17. Nephrology on the case. The patient is currently on a bicarb infusion which is running at 50 cc an hour. He has history of paroxysmal atrial fibrillation. He is on anticoagulation with warfarin. Coumadin is on hold and the patient's INR today is at 3.5. The respiratory status is stable. No significant shortness of breath. The patient is currently on 3 L of oxygen by nasal cannula with a pulse ox of 98%. Repeat chest film of the abdomen was done today that showed NG tube being in place. There is contrast in the mid and the distal colon and nonspecific bowel gas pattern and the patient's chest x-ray from today is showing cardiomegaly. NG tube is in place. There is air under the right hemidiaphragm. The patient was seen by 2 separate general surgeons and no surgical intervention is required at this point in time. Will monitor and will put the bowel to rest. The patient has likely small bowel ileus. Patient was reevaluated today on 11/19/2023, patient is status post transverse colectomy and surgery was done on 11/13/2023 for suspected colonic mass and abdominal distention he is now postoperative day #5. Patient has been in the ICU for what seems to be persistent abdominal distention and possible small bowel ileus. Being followed by surgery, does not feel reexploration is necessary at this point. Nonetheless the patient seems to be quite comfortable, abdomen is distended, he is hypotensive requiring norepinephrine at 0.07 mcg/kg/min. Continues to have nasogastric tube in place and draining 800 cc over the last 24 hours. Patient is also known to have history of cardiomyopathy and LV dysfunction with ejection fraction of 40 to 45%, he is requiring intermittently diuretics/Lasix his last dose was yesterday. Remains on antibiotics in the form of Invanz mostly because of his multiple allergies to different antibiotics. Patient continues to have chronic venous stasis and swelling in the lower extremities. And seems a bit uncomfortable with abdominal distention. But no evidence of severe pain. Slightly tender to palpation WBC count today is 9.2 hemoglobin is 7.4. INR is 3.8 basic metabolic profile is normal renal profile is a bit worse today BUN is 42 creatinine up to 2.31 from 2.16 yesterday chest x-ray continues to show free air under the diaphragm, cardiomegaly, and chronic mild venous congestion. Possible pneumonitis 3 today on 11/20/2023, patient remains in the ICU, continues to have significant abdominal distention/ileus continues to have nasogastric tube in place, patient remains n.p.o., patient still requiring TPN, and intermittently on norepinephrine. Lasix was given today 40 mg IV push x 1, seems to have decent urine output in spite of marginal blood pressure. His abdominal distention remains worrisome. 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 Chest x-ray is showing mostly minimal bibasilar atelectasis, cardiomegaly, and minimal venous congestion Reason on 11/21/2023, patient remains in the ICU, patient remains on Invanz, he is supposed to get a PICC line tomorrow, however his INR is elevated, will arrange for 2 units of fresh frozen plasma and vitamin K to be given tomorrow about 6 hours before PICC line schedule placement. Pulmonary herrera the patient is doing well, asymptomatic, continues to have ileus continues to have abdominal distention but improving patient is passing gas at least. His abdominal issues are being addressed by surgery on the case. WBC count is 10.1 hemoglobin 7.8 INR is 3.8 basic metabolic profile is normal BUN is 50 creatinine 2.11 chest x- ray today continues to show free air in the upper abdomen, otherwise no significant findings Reevaluate today on 11/22/2023, patient is still in the ICU, his abdominal distention is improving, patient has had bowel movements last night, patient was started today on clear liquids, PICC line was placed for TPN, did receive fresh frozen plasma and vitamin K for placement of the PICC line, INR today is 1.7. Now the patient could be restarted back on his Coumadin. And we could potentially transfer the patient out of the ICU to a monitored bed and marcus ective/3 S. WBC count is 10.7 hemoglobin 7.7 INR is 1.7 basic metabolic profile is normal renal profile showed BUN of 52 creatinine 2.18 3 today on 11/23/2023, patient is doing well, he is on room air, sitting at the bedside chair, he is on 3 S., not in any distress, continues to have abdominal distention, no bowel movement today, but the patient is passing gas. Patient will need to go back on his Coumadin. WBC count today is 11.6 hemoglobin 7.5 basic metabolic profile is normal BUN is 53 creatinine 2.41, blood sugar is high, being addressed by internal medicine on the case. Reevaluate today on 11/24/23, patient remains on room air, not in any distress, relatively asymptomatic from the pulmonary perspective continues to have abdominal distention, continues to pass gas but no bowel movements. Patient is receiving TPN, and I believe he is already eating as recommended by surgery. WBC count is 14.5 hemoglobin 7.8 basic metabolic profile is normal BUN is 65 creatinine 2.31, renal status is being addressed by nephrology on the case Patient was reevaluated today on 11/25/2023, patient remains on room air, not in any distress, patient has no active pulmonary issues today, no cough no wheezing no shortness of breath, patient did have a bowel movement yesterday, however his abdomen remains a bit distended. Patient is being considered for rehab placement and I think that is appropriate. Hemoglobin today is 6.8, patient may benefit from a unit of packed RBCs. This will be addressed by surgery on the case. Patient is still receiving TPN and apparently has been taking some hunt ited food orally. Progress note dated November 26, 2023. 83-year-old male seen today in room 365. The patient is currently on room air. He is receiving TPN at 93 cc an hour. He also is on ertapenem. We will check a procalcitonin level on this patient. Current labs include a white count of 13.9, hemoglobin 7.3, hematocrit 26.5, and platelet count of 366,000. PT is 14.8 with an INR 1.4. Sodium 127, potassium 5.2, chlorides 98, CO2 19, anion gap 10, BUN 81, creatinine 2.68. Glucose is 277. Calcium 7.2. Magnesium is 2.2. Objective - Vital Signs Vital signs: Vital Signs Temp 98.9 F 11/26/23 08:05 Pulse 90 11/26/23 12:05 Resp 21 11/26/23 08:05 BP 107/57 11/26/23 08:05 Pulse Ox 99 11/26/23 11:53 FiO2 Intake & Output 11/25/23 11/26/23 11/26/23 18:59 06:59 18:59 Intake Total 890 20 Output Total 275 250 Balance 615 -230 Weight 121 kg Intake: IV 100 20 Ertapenem 0.5 gm In 100 Sodium Chloride 0.9% 50 ml @ 100 mls/hr IVPB DAILY [facility] Rx#:[id number] Invasive Line 5 20 Oral 480 Blood Product 310 Rc As-1 Unit 310 [id number] Output: Urine 275 250 Other: Voiding Method Indwelling Catheter Indwelling Catheter Indwelling Catheter - Exam No acute distress, oriented 3. Currently on room air. HEENT examination is grossly unremarkable. Mucous membranes are moist. No oral lesions. Neck supple. Full range of motion. No adenopathy thyromegaly or neck vein distention. Cardiovascular examination reveals regular rhythm rate. S1-S2 normal. No S3 or S4. No discernible murmur noted. Heart rate is 90 bpm. Lungs reveal mostly clear breath sounds. Minimal rhonchi. No wheezes or crackles. Breath sounds equal bilaterally. Room air saturation 98%. Abdomen soft bowel sounds. No masses or tenderness. Extremities are intact. No cyanosis clubbing or edema. Skin is without rash or lesion. Neurologic examination is brief but nonfocal. - Labs CBC & Chem 7: 11/26/23 08:16 11/26/23 08:16 Labs: Abnormal Lab Results - Last 24 Hours (Table) 11/25/23 11/25/23 11/26/23 Range/Units 14:30 18:09 00:04 WBC (3.8-10.6) k/uL RBC (4.30-5.90) m/uL Hgb (13.0-17.5) gm/dL Hct (39.0-53.0) % MCV (80.0-100.0) fL MCHC (31.0-37.0) g/dL RDW (11.5-15.5) % PT (10.0-12.5) sec INR (<1.2) Sodium (137-145) mmol/L Potassium (3.5-5.1) mmol/L Carbon Dioxide (22-30) mmol/L BUN (9-20) mg/dL Creatinine (0.66-1.25) mg/dL Glucose (74-99) mg/dL POC Glucose (mg/dL) 305 H 260 H (70-110) mg/dL Calcium (8.4-10.2) mg/dL Crossmatch See Detail 11/26/23 11/26/23 11/26/23 Range/Units 06:02 08:16 08:16 WBC (3.8-10.6) k/uL RBC (4.30-5.90) m/uL Hgb (13.0-17.5) gm/dL Hct (39.0-53.0) % MCV (80.0-100.0) fL MCHC (31.0-37.0) g/dL RDW (11.5-15.5) % PT 14.8 H (10.0-12.5) sec INR 1.4 H (<1.2) Sodium 127 L (137-145) mmol/L Potassium 5.2 H (3.5-5.1) mmol/L Carbon Dioxide 19 L (22-30) mmol/L BUN 81 H (9-20) mg/dL Creatinine 2.68 H (0.66-1.25) mg/dL Glucose 765 H* (74-99) mg/dL POC Glucose (mg/dL) 461 H (70-110) mg/dL Calcium 7.2 L (8.4-10.2) mg/dL Crossmatch 11/26/23 11/26/23 11/26/23 Range/Units 08:16 10:10 12:03 WBC 13.9 H (3.8-10.6) k/uL RBC 2.65 L (4.30-5.90) m/uL Hgb 7.3 L (13.0-17.5) gm/dL Hct 26.5 L (39.0-53.0) % MCV 100.1 H D (80.0-100.0) fL MCHC 27.6 L (31.0-37.0) g/dL RDW 15.7 H (11.5-15.5) % PT (10.0-12.5) sec INR (<1.2) Sodium (137-145) mmol/L Potassium (3.5-5.1) mmol/L Carbon Dioxide (22-30) mmol/L BUN (9-20) mg/dL Creatinine (0.66-1.25) mg/dL Glucose (74-99) mg/dL POC Glucose (mg/dL) 286 H 277 H (70-110) mg/dL Calcium (8.4-10.2) mg/dL Crossmatch Assessment and Plan Assessment: Acute abdominal distention, and bowel obstruction, secondary to colonic adenocarcinoma, status post transverse colectomy and partial omentectomy, November 13, 2023. Postoperative ileus. Suspect abdominal sepsis. Mild LV dysfunction and cardiomyopathy. Acute congestive heart failure secondary to ischemic cardiomyopathy. 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 Chronic kidney disease, stage III. Chronic atrial fibrillation. Benign essential hypertension. Hyperlipidemia. Plan: Plan dated November 26, 2023. We continue with supportive measures. Surgery still addressing his ileus. The patient did receive blood transfusions for low hemoglobin. We continue with GI DVT prophylaxis. The patient continues with TPN at 93 cc an hour. The patient also continues with ertapenem, but we will check a procalcitonin level. Labs, x-rays, medications are reviewed. Patient's overall prognosis remains guarded. We will continue to follow, make recommendations along the way. Time with Patient: Less than 30
[2023-11-26] MEDS: [UNRECOGNIZED DRUG - MIXTURE] IV SCH (14:44)
[2023-11-26 16:54] LABS: Glucose,Whole Blood 257 mg/dL (70-110)
[2023-11-26] MEDS: FUROSEMIDE 10 MG/ML 4 ML VIAL IV SCH (16:58)
[2023-11-26] MEDS: WARFARIN 2 MG TAB PO ONE (16:58)
--- NOTE | 2023-11-26 17:25 | P.PN ---
Subjective Progress Note Date: 11/26/23 patient feels better today. The patient had she had a diarrhea accident yesterday. He has not had another bowel movement today. He has minimal incisional pain. He is scheduled to have a echocardiogram done. On exam vital signs appear stable. Abdomen soft incision is clean dry intact. Status post transverse, 3 for colon cancer patient continue to receive supportive care. Objective - Vital Signs Vital signs: Vital Signs Temp 98.9 F 11/26/23 08:05 Pulse 90 11/26/23 16:15 Resp 21 11/26/23 16:00 BP 84/49 11/26/23 16:00 Pulse Ox 98 11/26/23 16:00 FiO2 Intake & Output 11/25/23 11/26/23 11/26/23 18:59 06:59 18:59 Intake Total 890 20 118 Output Total 275 250 Balance 615 -230 118 Weight 121 kg Intake: IV 100 20 Ertapenem 0.5 gm In 100 Sodium Chloride 0.9% 50 ml @ 100 mls/hr IVPB DAILY [facility] Rx#:[id number] Invasive Line 5 20 Oral 480 118 Blood Product 310 Rc As-1 Unit 310 [id number] Output: Urine 275 250 Other: Voiding Method Indwelling Catheter Indwelling Catheter Indwelling Catheter - Labs CBC & Chem 7: 11/26/23 08:16 11/26/23 08:16 Labs: Abnormal Lab Results - Last 24 Hours (Table) 11/25/23 11/25/23 11/26/23 Range/Units 14:30 18:09 00:04 WBC (3.8-10.6) k/uL RBC (4.30-5.90) m/uL Hgb (13.0-17.5) gm/dL Hct (39.0-53.0) % MCV (80.0-100.0) fL MCHC (31.0-37.0) g/dL RDW (11.5-15.5) % PT (10.0-12.5) sec INR (<1.2) Sodium (137-145) mmol/L Potassium (3.5-5.1) mmol/L Carbon Dioxide (22-30) mmol/L BUN (9-20) mg/dL Creatinine (0.66-1.25) mg/dL Glucose (74-99) mg/dL POC Glucose (mg/dL) 305 H 260 H (70-110) mg/dL Calcium (8.4-10.2) mg/dL Procalcitonin (0.02-0.09) ng/mL Crossmatch See Detail 11/26/23 11/26/23 11/26/23 Range/Units 06:02 08:16 08:16 WBC (3.8-10.6) k/uL RBC (4.30-5.90) m/uL Hgb (13.0-17.5) gm/dL Hct (39.0-53.0) % MCV (80.0-100.0) fL MCHC (31.0-37.0) g/dL RDW (11.5-15.5) % PT 14.8 H (10.0-12.5) sec INR 1.4 H (<1.2) Sodium 127 L (137-145) mmol/L Potassium 5.2 H (3.5-5.1) mmol/L Carbon Dioxide 19 L (22-30) mmol/L BUN 81 H (9-20) mg/dL Creatinine 2.68 H (0.66-1.25) mg/dL Glucose 765 H* (74-99) mg/dL POC Glucose (mg/dL) 461 H (70-110) mg/dL Calcium 7.2 L (8.4-10.2) mg/dL Procalcitonin (0.02-0.09) ng/mL Crossmatch 11/26/23 11/26/23 11/26/23 Range/Units 08:16 08:16 10:10 WBC 13.9 H (3.8-10.6) k/uL RBC 2.65 L (4.30-5.90) m/uL Hgb 7.3 L (13.0-17.5) gm/dL Hct 26.5 L (39.0-53.0) % MCV 100.1 H D (80.0-100.0) fL MCHC 27.6 L (31.0-37.0) g/dL RDW 15.7 H (11.5-15.5) % PT (10.0-12.5) sec INR (<1.2) Sodium (137-145) mmol/L Potassium (3.5-5.1) mmol/L Carbon Dioxide (22-30) mmol/L BUN (9-20) mg/dL Creatinine (0.66-1.25) mg/dL Glucose (74-99) mg/dL POC Glucose (mg/dL) 286 H (70-110) mg/dL Calcium (8.4-10.2) mg/dL Procalcitonin 0.48 H (0.02-0.09) ng/mL Crossmatch 11/26/23 11/26/23 Range/Units 12:03 16:52 WBC (3.8-10.6) k/uL RBC (4.30-5.90) m/uL Hgb (13.0-17.5) gm/dL Hct (39.0-53.0) % MCV (80.0-100.0) fL MCHC (31.0-37.0) g/dL RDW (11.5-15.5) % PT (10.0-12.5) sec INR (<1.2) Sodium (137-145) mmol/L Potassium (3.5-5.1) mmol/L Carbon Dioxide (22-30) mmol/L BUN (9-20) mg/dL Creatinine (0.66-1.25) mg/dL Glucose (74-99) mg/dL POC Glucose (mg/dL) 277 H 257 H (70-110) mg/dL Calcium (8.4-10.2) mg/dL Procalcitonin (0.02-0.09) ng/mL Crossmatch
[2023-11-27] MEDS: INSULIN DETEMIR (LEVEMIR) 100 UNIT/ML SYR SQ SCH (00:10)
[2023-11-27 00:17] LABS: Glucose,Whole Blood 259 mg/dL (70-110)
[2023-11-27 06:05] LABS: Glucose,Whole Blood 270 mg/dL (70-110)
[2023-11-27] MEDS: FUROSEMIDE 10 MG/ML 10 ML VIAL IV SCH (06:45)
[2023-11-27] MEDS: IPRATROPIUM-ALBUTEROL 3 ML NEB INHALATION SCH (08:57)
[2023-11-27] MEDS: INSULIN DETEMIR (LEVEMIR) 100 UNIT/ML SYR SQ ONE (09:15)
--- NOTE | 2023-11-27 10:01 | CA ---
Transthoracic Echo Report Name: Dajuan Valle Age: 83 Gender: M : 1940 Exam Date: 11/26/2023 17:06 Exam Location: [place] [facility] Ht (in): 71 Wt (lb): 266 Ordering Physician: Linda Junior MD Attending/Referring Phys: Md Ophthalmologist Kimmie Dneny RDCS Procedure CPT: Indications: chf Cardiac Hx: Bioprosthetic AOV Technical Quality: Fair Contrast 1: Total Dose (mL): Contrast 2: Total Dose (mL): MEASUREMENTS (Male / Female) Normal Values 2D ECHO LV Diastolic Diameter PLAX 5.2 cm 4.2 - 5.9 / 3.9 - 5.3 cm LV Systolic Diameter PLAX 4.0 cm IVS Diastolic Thickness 1.6 cm 0.6 - 1.0 / 0.6 - 0.9 cm LVPW Diastolic Thickness 1.4 cm 0.6 - 1.0 / 0.6 - 0.9 cm LV Relative Wall Thickness 0.6 RV Internal Dim ED PLAX 4.6 cm LVOT Diameter 2.3 cm LA Systolic Diameter LX 4.9 cm 3.0 - 4.0 / 2.7 - 3.8 cm LV Diastolic Volume MOD BP 95.7 cm??? 67 - 155 / 56 - 104 cm??? LV Systolic Volume MOD BP 47.2 cm??? 22 - 58 / 19 - 49 cm??? LV Ejection Fraction MOD BP 50.7 % >= 55 % LV Cardiac Index MOD BP 1607.7 cm???/min???m??? LV Diastolic Volume MOD 4C 79.4 cm??? LV Systolic Volume MOD 4C 38.0 cm??? LV Ejection Fraction MOD 4C 52.1 % LV Cardiac Index MOD 4C 1371.7 cm???/min???m??? LV Diastolic Length 4C 8.8 cm LV Systolic Length 4C 7.7 cm LV Diastolic Volume MOD 2C 117.3 cm??? LV Systolic Volume MOD 2C 57.1 cm??? LV Ejection Fraction MOD 2C 51.3 % LV Cardiac Index MOD 2C 1995.2 cm???/min???m??? LV Diastolic Length 2C 8.8 cm LV Systolic Length 2C 6.7 cm M-MODE Aortic Root Diameter MM 3.8 cm DOPPLER AV Peak Velocity 259.3 cm/s AV Peak Gradient 26.9 mmHg AV Mean Velocity 169.5 cm/s AV Mean Gradient 13.3 mmHg AV Velocity Time Integral 48.5 cm LVOT Peak Velocity 121.6 cm/s LVOT Peak Gradient 5.9 mmHg AV Area Cont Eq pk 1.9 cm??? MV Peak Velocity 191.6 cm/s MV Peak Gradient 14.7 mmHg MV Mean Velocity 91.7 cm/s MV Mean Gradient 4.5 mmHg MV Velocity Time Integral 50.5 cm MV Area PHT 2.7 cm??? MV Deceleration Time 296.6 ms TR Peak Velocity 293.9 cm/s TR Peak Gradient 34.6 mmHg Right Ventricular Systolic Press 45.0 mmHg FINDINGS Left Ventricle Left ventricular ejection fraction is estimated at 45-50 %. Left ventricular cavity size normal. Moderate concentric left ventricular hypertrophy. Mildly decreased left ventricular ejection fraction. Right Ventricle Moderate to severe right ventricular dilatation. Moderate pulmonary hypertension. Mildly reduced right ventricular global systolic function. Right Atrium Mild right atrial dilatation. Left Atrium Moderately increased left atrial diameter. Mildly increased left atrial area. Mitral Valve Moderate thickening/calcification of the anterior mitral valve leaflet. Moderate thickening/calcification of the posterior mitral valve leaflet. Mild mitral annular calcification. Mild mitral stenosis. Aortic Valve Normally functioning bioprosthetic aortic valve without stenosis with a peak velocity of 2.6 m/s, peak gradient 27 mmHg, mean gradient 13 mmHg, and estimated aortic valve area of 1.9 cm???. Tricuspid Valve Structurally normal tricuspid valve. Mild tricuspid regurgitation. Pulmonic Valve Structurally normal pulmonic valve. Trace pulmonic regurgitation. Pericardium No pericardial effusion. Aorta Mild aortic dilatation at the level of the sinuses of valsalva 38 mm CONCLUSIONS Left ventricular ejection fraction 45-50% Moderate increased left ventricular wall thickness Moderate to severe right ventricular dilation Mild right ventricular global hypokinesis RVSP 45 Moderate mitral annular calcification Mild mitral stenosis Normally functioning bioprosthetic aortic valve with peak velocity 8.6 m/s, mean gradient 13 Mild tricuspid regurgitation No pericardial effusion Previewed by: Dr. Mario Cordon DO (Electronically Signed) Final Date: 27 November 2023 10:00
[2023-11-27 11:12] LABS: Basophils % (A) 0 %; Eosinophils # (A) 0.1 k/uL (0-0.7); Eosinophils % (A) 1 %; HCT 24.7 % (39.0-53.0); HGB 7.4 gm/dL (13.0-17.5); Hypochromasia Marked; Lymphocytes # (A) 0.6 k/uL (1.0-4.8); Lymphocytes % (A) 5 %; MCH 27.9 pg (25.0-35.0); MCHC 29.9 g/dL (31.0-37.0); Mean Platelet Volume 9.5; Monocytes # (A) 1.2 k/uL (0-1.0); Monocytes % (A) 10 %; Neutrophils # (A) 10.5 k/uL (1.3-7.7); Neutrophils % (A) 83 %; Platelet Count 362 k/uL (150-450); Poikilocytosis Slight; RBC 2.65 m/uL (4.30-5.90); RDW 15.6 % (11.5-15.5); WBC 12.8 k/uL (3.8-10.6)
[2023-11-27 11:14] LABS: African American GFR (CKD) 23 (>60 ml/min/1.73 sqM); Anion Gap 9 mmol/L; Blood Urea Nitrogen 99 mg/dL (9-20); Calcium 7.1 mg/dL (8.4-10.2); Carbon Dioxide 18 mmol/L (22-30); Chloride 101 mmol/L (98-107); Glucose 208 mg/dL (74-99); Non-African American GFR(CKD) 20 (>60 ml/min/1.73 sqM); Potassium 4.3 mmol/L (3.5-5.1); Sodium 128 mmol/L (137-145)
[2023-11-27 11:16] LABS: Magnesium 2.1 mg/dL (1.6-2.3); Phosphorus 3.5 mg/dL (2.5-4.5)
[2023-11-27 11:19] LABS: INR 1.2 (<1.2)
[2023-11-27 11:20] LABS: Prothrombin Time 13.1 sec (10.0-12.5)
[2023-11-27 11:31] LABS: MCV 93.1 fL (80.0-100.0)
[2023-11-27 12:08] LABS: Glucose,Whole Blood 228 mg/dL (70-110)
--- NOTE | 2023-11-27 12:32 | P.PN ---
Subjective patient is seen for follow-up for acute kidney injury and chronic kidney disease. Currently being diuresed for volume overload. Lasix has been increased. Patient remains with significant fluid overload. Maintained on TPN urine output is low at about 500 mL for 24 hours. Patient has an indwelling Vill[place]or catheter. No complaints of chest pain or shortness of breath. Objective - Vital Signs Vital signs: Vital Signs Temp 97.7 F 11/27/23 09:15 Pulse 80 11/27/23 11:34 Resp 18 11/27/23 11:34 BP 105/62 11/27/23 09:15 Pulse Ox 96 11/27/23 09:15 FiO2 Intake & Output 11/26/23 11/27/23 11/27/23 18:59 06:59 18:59 Intake Total 118 20 118 Output Total 400 100 Balance -282 -80 118 Weight 121 kg Intake: IV 20 Invasive Line 5 20 Oral 118 118 Output: Urine 400 100 Other: Voiding Method Indwelling Catheter Indwelling Catheter Indwelling Catheter - Exam patient is awake, comfortable, no acute distress Examination of the heart S1 and S2 Examination of the lungs decreased breath sounds at the bases Abdomen is soft nontender Examination of lower extremity shows edema 2+ bilaterally with scrotal edema [employer] exam grossly intact - Labs CBC & Chem 7: 11/27/23 08:46 11/27/23 08:46 Labs: Abnormal Lab Results - Last 24 Hours (Table) 11/26/23 11/26/23 11/27/23 Range/Units 08:16 16:52 00:02 WBC (3.8-10.6) k/uL RBC (4.30-5.90) m/uL Hgb (13.0-17.5) gm/dL Hct (39.0-53.0) % MCHC (31.0-37.0) g/dL RDW (11.5-15.5) % Neutrophils # (1.3-7.7) k/uL Lymphocytes # (1.0-4.8) k/uL Monocytes # (0-1.0) k/uL PT (10.0-12.5) sec INR (<1.2) Sodium (137-145) mmol/L Carbon Dioxide (22-30) mmol/L BUN (9-20) mg/dL Creatinine (0.66-1.25) mg/dL Glucose (74-99) mg/dL POC Glucose (mg/dL) 257 H 259 H (70-110) mg/dL Calcium (8.4-10.2) mg/dL Procalcitonin 0.48 H (0.02-0.09) ng/mL 11/27/23 11/27/23 11/27/23 Range/Units 05:58 08:46 08:46 WBC 12.8 H (3.8-10.6) k/uL RBC 2.65 L (4.30-5.90) m/uL Hgb 7.4 L (13.0-17.5) gm/dL Hct 24.7 L (39.0-53.0) % MCHC 29.9 L (31.0-37.0) g/dL RDW 15.6 H (11.5-15.5) % Neutrophils # 10.5 H (1.3-7.7) k/uL Lymphocytes # 0.6 L (1.0-4.8) k/uL Monocytes # 1.2 H (0-1.0) k/uL PT (10.0-12.5) sec INR (<1.2) Sodium 128 L (137-145) mmol/L Carbon Dioxide 18 L (22-30) mmol/L BUN 99 H (9-20) mg/dL Creatinine 2.79 H (0.66-1.25) mg/dL Glucose 208 H (74-99) mg/dL POC Glucose (mg/dL) 270 H (70-110) mg/dL Calcium 7.1 L (8.4-10.2) mg/dL Procalcitonin (0.02-0.09) ng/mL 11/27/23 11/27/23 Range/Units 08:46 12:06 WBC (3.8-10.6) k/uL RBC (4.30-5.90) m/uL Hgb (13.0-17.5) gm/dL Hct (39.0-53.0) % MCHC (31.0-37.0) g/dL RDW (11.5-15.5) % Neutrophils # (1.3-7.7) k/uL Lymphocytes # (1.0-4.8) k/uL Monocytes # (0-1.0) k/uL PT 13.1 H (10.0-12.5) sec INR 1.2 H (<1.2) Sodium (137-145) mmol/L Carbon Dioxide (22-30) mmol/L BUN (9-20) mg/dL Creatinine (0.66-1.25) mg/dL Glucose (74-99) mg/dL POC Glucose (mg/dL) 228 H (70-110) mg/dL Calcium (8.4-10.2) mg/dL Procalcitonin (0.02-0.09) ng/mL Assessment and Plan Assessment: 1. Acute kidney injury ATN secondary to hypotension and urine retention. also received IV contrast on 11/17/2023. Currently being diuresed. No evidence of obstruction noted on CT of the abdomen. urine output is low and patient remains significantly volume overloaded. Consider adding dobutamine as EF is 40-45%. 2. Hyperkalemia associated with acute kidney injury and metabolic acidosis and urine retention. Also related to underlying GI bleed. improved 3. Metabolic acidosis non-gap secondary to acute kidney injury 4. Colon mass status post transverse colectomy and partial omentectomy 5. Chronic kidney disease stage IIIa with baseline creatinine around 1.4 secondary to nephrosclerosis 6. Volume overload maintained on IV Lasix 7. Partial small bowel obstruction versus moderate ileus being followed by surgery. Currently maintained on TPN. 8. Cardiomyopathy with EF of 40-45% Plan: increase Lasix Continue with midodrine discuss with cardiology regarding adding dobutamine to help with diuresis. Discussed with patient and regarding possibly starting dialysis in the next 24-48 hours if no improvement in urine output.
--- NOTE | 2023-11-27 13:16 | P.PN ---
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 His INR was elevated and he was severely anemic. He was admitted to the hospital with evidence of GI bleeding. His echocardiogram performed June 2023 revealed an ejection fraction of 40 to 45% with moderate tricuspid regurgitation, his aortic valve had a mean gradient of 6 mmHg and his mitral valve repair showed mild v alvular regurgitation. The patient denies any chest discomfort, he feels fatigue and mildly dyspneic. He has no significant peripheral edema no PND no orthopnea. He had an episode of diarrhea but no tiffanie blood. He has a prior permanent pacemaker implantation and his predominantly ventricular pacing. His current factors are positive for hyperlipidemia and hypertension he is a non- smoker, nondiabetic. He received transfusion yesterday as well as vitamin K. Medications: Carvedilol 12.5 twice daily, Farxiga 5 mg daily, Entresto 2426 twice a day, Protonix, simvastatin 40 mg daily 11/10/2023 The patient was seen and examined resting comfortably in bed with the at the bedside. He is overall feeling a bit better. Blood pressure remains low and carvedilol was decreased. Home dose of Aldactone remains on hold. We are awaiting endoscopy to be done on Sunday. Labs from this morning are pending. 11/11/2023 The patient was seen and examined sitting up in a chair. He is feeling a bit better. Hemoglobin is stable. Renal function shows some improvement. 11/12/2023 Patient examined this morning at the bedside. Patient denies chest pain or pressure. Denies SOB. Patient's Coumadin remains on hold. INR today is 1.4. 11/13/2023 Patient is status post EGD revealing 2.5 cm broad-based duodenal polyp in the second part of the duodenum, small hiatal hernia. Patient also underwent colonoscopy revealing a tight apple core ulcerated lesion in the mid transverse colon with significant lumen or narrowing status post multiple biopsies. The scope could not be advanced beyond this lesion. General surgery was consulted for evaluation and the patient is scheduled for transverse colectomy today with Dr. Brewer. Patient currently denies shortness of breath. He denies chest pain or pressure. Vital signs are stable. 11/14/2023 Patient is status post transverse colectomy and partial omentectomy. Postop day #1. Patient is evaluated today sitting up in the chair. Patient denies chest pain or pressure. He denies shortness of breath. He remains on IV fluids. He is tolerating clear liquid diet. His Coumadin remains on hold. 11/15/2023 Patient examined this morning. Patient is sitting up in the chair. Patient currently denies any chest pain or pressure. He denies any shortness of breath. Telemetry reveals paced rhythm. Potassium today 5.9. Creatinine 1.94. Patie nt states he has been having issues urinating and required straight catheterization x 2. Blood pressures are on the soft side with a recent reading of 96/52. 11/16/2023 Patient examined this morning at the bedside. Patient currently denies chest pain or pressure. He denies shortness of breath. Patient remains on a liquid diet and does not report any significant flatus. Patient's Coumadin was resumed yesterday. INR this morning 1.5. Creatinine today 2.1. 11/27/2023 Cardiology was reconsulted at the request of Dr. Junior for possibility of dobutamine infusion. Patient examined this afternoon. He is sitting up in the chair. Patient denies any chest pain or pressure. He remains on IV diuretics. He continues to remain fluid volume overloaded. Creatinine today 2.79. PHYSICAL EXAM: VITAL SIGNS: Reviewed. GENERAL: Well-developed in no acute distress. NECK: Supple. No JVD or thyromegaly LUNGS: Respirations even and unlabored. Lungs essentially clear to auscultation bilaterally, diminished at the bases. HEART: Regular rate and rhythm. S1 and S2 heard. Systolic murmur noted. EXTREMITIES: Normal range of motion. No clubbing or cyanosis. Peripheral pulses intact. 2+ bilateral lower extremity edema ASSESSMENT: 1. Acute GI bleeding with severe anemia 2. Persistent atrial fibrillation with supra therapeutic INR 3. 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 Status post permanent pacemaker implantation 6. History of hyperlipidemia 7. History of hypertension 8. Status post EGD and colonoscopy 9. Bowel obstruction secondary to transverse colon lesion,, positive for adenocarcinoma 10. Acute on chronic kidney disease 11. Hyperkalemia 12. Urinary retention requiring straight cath PLAN: Continue current cardiac medications Entresto previously discontinued secondary to hyperkalemia and hypotension. Patient is now requiring midodrine Continue IV Lasix per nephrology Initiate dobutamine drip at 5 mcg/kg/min Continue Coumadin. Pharmacy to dose. Monitor INR. Further recommendations pending patient course Nurse practitioner note has been reviewed by physician. Signing provider agrees with the documented findings, assessment, and plan of care documented by [employer] D[employer] TECHNICIAN as a scribe. Objective - Vital Signs Vital signs: Vital Signs Temp 97.7 F 11/27/23 09:15 Pulse 80 11/27/23 11:34 Resp 18 11/27/23 11:34 BP 105/62 11/27/23 09:15 Pulse Ox 96 11/27/23 09:15 FiO2 Intake & Output 11/26/23 11/27/23 11/27/23 18:59 06:59 18:59 Intake Total 118 20 118 Output Total 400 100 Balance -282 -80 118 Weight 121 kg Intake: IV 20 Invasive Line 5 20 Oral 118 118 Output: Urine 400 100 Other: Voiding Method Indwelling Catheter Indwelling Catheter Indwelling Catheter - Labs CBC & Chem 7: 11/27/23 08:46 11/27/23 08:46 Labs: Abnormal Lab Results - Last 24 Hours (Table) 11/26/23 11/26/23 11/27/23 Range/Units 08:16 16:52 00:02 WBC (3.8-10.6) k/uL RBC (4.30-5.90) m/uL Hgb (13.0-17.5) gm/dL Hct (39.0-53.0) % MCHC (31.0-37.0) g/dL RDW (11.5-15.5) % Neutrophils # (1.3-7.7) k/uL Lymphocytes # (1.0-4.8) k/uL Monocytes # (0-1.0) k/uL PT (10.0-12.5) sec INR (<1.2) Sodium (137-145) mmol/L Carbon Dioxide (22-30) mmol/L BUN (9-20) mg/dL Creatinine (0.66-1.25) mg/dL Glucose (74-99) mg/dL POC Glucose (mg/dL) 257 H 259 H (70-110) mg/dL Calcium (8.4-10.2) mg/dL Procalcitonin 0.48 H (0.02-0.09) ng/mL 11/27/23 11/27/23 11/27/23 Range/Units 05:58 08:46 08:46 WBC 12.8 H (3.8-10.6) k/uL RBC 2.65 L (4.30-5.90) m/uL Hgb 7.4 L (13.0-17.5) gm/dL Hct 24.7 L (39.0-53.0) % MCHC 29.9 L (31.0-37.0) g/dL RDW 15.6 H (11.5-15.5) % Neutrophils # 10.5 H (1.3-7.7) k/uL Lymphocytes # 0.6 L (1.0-4.8) k/uL Monocytes # 1.2 H (0-1.0) k/uL PT (10.0-12.5) sec INR (<1.2) Sodium 128 L (137-145) mmol/L Carbon Dioxide 18 L (22-30) mmol/L BUN 99 H (9-20) mg/dL Creatinine 2.79 H (0.66-1.25) mg/dL Glucose 208 H (74-99) mg/dL POC Glucose (mg/dL) 270 H (70-110) mg/dL Calcium 7.1 L (8.4-10.2) mg/dL Procalcitonin (0.02-0.09) ng/mL 11/27/23 11/27/23 Range/Units 08:46 12:06 WBC (3.8-10.6) k/uL RBC (4.30-5.90) m/uL Hgb (13.0-17.5) gm/dL Hct (39.0-53.0) % MCHC (31.0-37.0) g/dL RDW (11.5-15.5) % Neutrophils # (1.3-7.7) k/uL Lymphocytes # (1.0-4.8) k/uL Monocytes # (0-1.0) k/uL PT 13.1 H (10.0-12.5) sec INR 1.2 H (<1.2) Sodium (137-145) mmol/L Carbon Dioxide (22-30) mmol/L BUN (9-20) mg/dL Creatinine (0.66-1.25) mg/dL Glucose (74-99) mg/dL POC Glucose (mg/dL) 228 H (70-110) mg/dL Calcium (8.4-10.2) mg/dL Procalcitonin (0.02-0.09) ng/mL
[2023-11-27] MEDS: SODIUM FERRIC GLUCONAT-SUCROSE 125 MG in SODIUM CHLORIDE 0.9% 100 ML IVPB SCH (13:35)
[2023-11-27] MEDS: [UNRECOGNIZED DRUG - MIXTURE] IV SCH (13:50)
[2023-11-27] MEDS: DOBUTamine DRIP 500 MG in DEXTROSE/WATER 1 250ML.BAG IV SCH (13:57)
--- NOTE | 2023-11-27 14:38 | P.PN ---
Subjective Progress Note Date: 11/27/23 Principal diagnosis: Anemia. This is a 83-year-old male patient was transferred to the intensive care unit yesterday as the patient developed significant abdominal distention and hypotension. The patient has a colonic mass and the patient has undergone transverse colectomy and surgery was done on 11/13/2023.. For now, the patient is postop day #4. The abdomen was firm and quite distended. Immediately, a stat CAT scan of the abdomen was done and the patient was found to have pneumoperitoneum and this was suspected to be related to previous surgery. There was also nonobstructive bowel gas pattern with significant gastric distention and partial small bowel obstruction cannot be completely excluded. At that point, NG tube was inserted and immediately 600 cc of output was obtained. Abdomen is still distended although less compared to yesterday. No flatus. Bowel sounds are absent. General surgery is on the case. White cell count not elevated. Lactic acid level is low at 1.3. Note that postop, the patient's renal function remained stable. The patient has chronic stage III kidney disease and the creatinine today is up to 2.17 and a sodium levels at 134 with a potassium level of 5.5. Serum bicarb is at 17. Nephrology on the case. The patient is currently on a bicarb infusion which is running at 50 cc an hour. He has history of paroxysmal atrial fibrillation. He is on anticoagulation with warfarin. Coumadin is on hold and the patient's INR today is at 3.5. The respiratory status is stable. No significant shortness of breath. The patient is currently on 3 L of oxygen by nasal cannula with a pulse ox of 98%. Repeat chest film of the abdomen was done today that showed NG tube being in place. There is contrast in the mid and the distal colon and nonspecific bowel gas pattern and the patient's chest x-ray from today is showing cardiomegaly. NG tube is in place. There is air under the right hemidiaphragm. The patient was seen by 2 separate general surgeons and no surgical intervention is required at this point in time. Will monitor and will put the bowel to rest. The patient has likely small bowel ileus. Patient was reevaluated today on 11/19/2023, patient is status post transverse colectomy and surgery was done on 11/13/2023 for suspected colonic mass and abdominal distention he is now postoperative day #5. Patient has been in the ICU for what seems to be persistent abdominal distention and possible small bowel ileus. Being followed by surgery, does not feel reexploration is necessary at this point. Nonetheless the patient seems to be quite comfortable, abdomen is distended, he is hypotensive requiring norepinephrine at 0.07 mcg/kg/min. Continues to have nasogastric tube in place and draining 800 cc over the last 24 hours. Patient is also known to have history of cardiomyopathy and LV dysfunction with ejection fraction of 40 to 45%, he is requiring intermittently diuretics/Lasix his last dose was yesterday. Remains on antibiotics in the form of Invanz mostly because of his multiple allergies to different antibiotics. Patient continues to have chronic venous stasis and swelling in the lower extremities. And seems a bit uncomfortable with abdominal distention. But no evidence of severe pain. Slightly tender to palpation WBC count today is 9.2 hemoglobin is 7.4. INR is 3.8 basic metabolic profile is normal renal profile is a bit worse today BUN is 42 creatinine up to 2.31 from 2.16 yesterday chest x-ray continues to show free air under the diaphragm, cardiomegaly, and chronic mild venous congestion. Possible pneumonitis 3 today on 11/20/2023, patient remains in the ICU, continues to have significant abdominal distention/ileus continues to have nasogastric tube in place, patient remains n.p.o., patient still requiring TPN, and intermittently on norepinephrine. Lasix was given today 40 mg IV push x 1, seems to have decent urine output in spite of marginal blood pressure. His abdominal distention remains worrisome. 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 Chest x-ray is showing mostly minimal bibasilar atelectasis, cardiomegaly, and minimal venous congestion Reason on 11/21/2023, patient remains in the ICU, patient remains on Invanz, he is supposed to get a PICC line tomorrow, however his INR is elevated, will arrange for 2 units of fresh frozen plasma and vitamin K to be given tomorrow about 6 hours before PICC line schedule placement. Pulmonary herrera the patient is doing well, asymptomatic, continues to have ileus continues to have abdominal distention but improving patient is passing gas at least. His abdominal issues are being addressed by surgery on the case. WBC count is 10.1 hemoglobin 7.8 INR is 3.8 basic metabolic profile is normal BUN is 50 creatinine 2.11 chest x- ray today continues to show free air in the upper abdomen, otherwise no significant findings Reevaluate today on 11/22/2023, patient is still in the ICU, his abdominal distention is improving, patient has had bowel movements last night, patient was started today on clear liquids, PICC line was placed for TPN, did receive fresh frozen plasma and vitamin K for placement of the PICC line, INR today is 1.7. Now the patient could be restarted back on his Coumadin. And we could potentially transfer the patient out of the ICU to a monitored bed and marcus ective/3 S. WBC count is 10.7 hemoglobin 7.7 INR is 1.7 basic metabolic profile is normal renal profile showed BUN of 52 creatinine 2.18 3 today on 11/23/2023, patient is doing well, he is on room air, sitting at the bedside chair, he is on 3 S., not in any distress, continues to have abdominal distention, no bowel movement today, but the patient is passing gas. Patient will need to go back on his Coumadin. WBC count today is 11.6 hemoglobin 7.5 basic metabolic profile is normal BUN is 53 creatinine 2.41, blood sugar is high, being addressed by internal medicine on the case. Reevaluate today on 11/24/23, patient remains on room air, not in any distress, relatively asymptomatic from the pulmonary perspective continues to have abdominal distention, continues to pass gas but no bowel movements. Patient is receiving TPN, and I believe he is already eating as recommended by surgery. WBC count is 14.5 hemoglobin 7.8 basic metabolic profile is normal BUN is 65 creatinine 2.31, renal status is being addressed by nephrology on the case Patient was reevaluated today on 11/25/2023, patient remains on room air, not in any distress, patient has no active pulmonary issues today, no cough no wheezing no shortness of breath, patient did have a bowel movement yesterday, however his abdomen remains a bit distended. Patient is being considered for rehab placement and I think that is appropriate. Hemoglobin today is 6.8, patient may benefit from a unit of packed RBCs. This will be addressed by surgery on the case. Patient is still receiving TPN and apparently has been taking some hunt ited food orally. Progress note dated November 26, 2023. 83-year-old male seen today in room 365. The patient is currently on room air. He is receiving TPN at 93 cc an hour. He also is on ertapenem. We will check a procalcitonin level on this patient. Current labs include a white count of 13.9, hemoglobin 7.3, hematocrit 26.5, and platelet count of 366,000. PT is 14.8 with an INR 1.4. Sodium 127, potassium 5.2, chlorides 98, CO2 19, anion gap 10, BUN 81, creatinine 2.68. Glucose is 277. Calcium 7.2. Magnesium is 2.2. Progress note dated November 27, 2023. 83-year-old male seen today in room 365. Currently, the patient is on room air. The patient continues on TPN at 93 cc an hour. In addition, the patient continues on ertapenem. The patient appears to be doing relatively well. Fa codie members are at the bedside. Current laboratory data includes a white count 12.8, hemoglobin 7.4, hematocrit 24.7, and platelet count 362,000. PT 13.1 with an INR 1.2. Sodium 128, potassium 4.3, chlorides 101, CO2 18, BUN 99, creatinine 2.79. Glucose is 228. Calcium 7.1. Magnesium 2.1. Objective - Vital Signs Vital signs: Vital Signs Temp 97.7 F 11/27/23 09:15 Pulse 80 11/27/23 11:34 Resp 18 11/27/23 11:34 BP 92/59 11/27/23 11:30 Pulse Ox 97 11/27/23 11:30 FiO2 Intake & Output 11/26/23 11/27/23 11/27/23 18:59 06:59 18:59 Intake Total 118 20 118 Output Total 400 100 Balance -282 -80 118 Weight 121 kg Intake: IV 20 Invasive Line 5 20 Oral 118 118 Output: Urine 400 100 Other: Voiding Method Indwelling Catheter Indwelling Catheter Indwelling Catheter - Exam No acute distress, oriented 3. Currently on room air. HEENT examination is grossly unremarkable. Mucous membranes are moist. No oral lesions. Neck supple. Full range of motion. No adenopathy thyromegaly or neck vein distention. Cardiovascular examination reveals regular rhythm rate. S1-S2 normal. No S3 or S4. No discernible murmur noted. Heart rate is 80 bpm. Lungs reveal mostly clear breath sounds. Minimal rhonchi. No wheezes or crackles. Breath sounds equal bilaterally. Room air saturation 97 %. Abdomen soft bowel sounds. No masses or tenderness. Extremities are intact. No cyanosis clubbing or edema. Skin is without rash or lesion. Neurologic examination is brief but nonfocal. - Labs CBC & Chem 7: 11/27/23 08:46 11/27/23 08:46 Labs: Abnormal Lab Results - Last 24 Hours (Table) 11/25/23 11/26/23 11/26/23 Range/Units 14:30 08:16 16:52 WBC (3.8-10.6) k/uL RBC (4.30-5.90) m/uL Hgb (13.0-17.5) gm/dL Hct (39.0-53.0) % MCHC (31.0-37.0) g/dL RDW (11.5-15.5) % Neutrophils # (1.3-7.7) k/uL Lymphocytes # (1.0-4.8) k/uL Monocytes # (0-1.0) k/uL PT (10.0-12.5) sec INR (<1.2) Sodium (137-145) mmol/L Carbon Dioxide (22-30) mmol/L BUN (9-20) mg/dL Creatinine (0.66-1.25) mg/dL Glucose (74-99) mg/dL POC Glucose (mg/dL) 257 H (70-110) mg/dL Calcium (8.4-10.2) mg/dL Procalcitonin 0.48 H (0.02-0.09) ng/mL Crossmatch See Detail 11/27/23 11/27/23 11/27/23 Range/Units 00:02 05:58 08:46 WBC 12.8 H (3.8-10.6) k/uL RBC 2.65 L (4.30-5.90) m/uL Hgb 7.4 L (13.0-17.5) gm/dL Hct 24.7 L (39.0-53.0) % MCHC 29.9 L (31.0-37.0) g/dL RDW 15.6 H (11.5-15.5) % Neutrophils # 10.5 H (1.3-7.7) k/uL Lymphocytes # 0.6 L (1.0-4.8) k/uL Monocytes # 1.2 H (0-1.0) k/uL PT (10.0-12.5) sec INR (<1.2) Sodium (137-145) mmol/L Carbon Dioxide (22-30) mmol/L BUN (9-20) mg/dL Creatinine (0.66-1.25) mg/dL Glucose (74-99) mg/dL POC Glucose (mg/dL) 259 H 270 H (70-110) mg/dL Calcium (8.4-10.2) mg/dL Procalcitonin (0.02-0.09) ng/mL Crossmatch 11/27/23 11/27/23 11/27/23 Range/Units 08:46 08:46 12:06 WBC (3.8-10.6) k/uL RBC (4.30-5.90) m/uL Hgb (13.0-17.5) gm/dL Hct (39.0-53.0) % MCHC (31.0-37.0) g/dL RDW (11.5-15.5) % Neutrophils # (1.3-7.7) k/uL Lymphocytes # (1.0-4.8) k/uL Monocytes # (0-1.0) k/uL PT 13.1 H (10.0-12.5) sec INR 1.2 H (<1.2) Sodium 128 L (137-145) mmol/L Carbon Dioxide 18 L (22-30) mmol/L BUN 99 H (9-20) mg/dL Creatinine 2.79 H (0.66-1.25) mg/dL Glucose 208 H (74-99) mg/dL POC Glucose (mg/dL) 228 H (70-110) mg/dL Calcium 7.1 L (8.4-10.2) mg/dL Procalcitonin (0.02-0.09) ng/mL Crossmatch Assessment and Plan Assessment: Acute abdominal distention, and bowel obstruction, secondary to colonic adenocarcinoma, status post transverse colectomy and partial omentectomy, November 13, 2023. Postoperative ileus. Suspect abdominal sepsis. Mild LV dysfunction and cardiomyopathy. Acute congestive heart failure secondary to ischemic cardiomyopathy. 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 Chronic kidney disease, stage III. Chronic atrial fibrillation. Benign essential hypertension. Hyperlipidemia. Plan: Plan dated November 26, 2023. We continue with supportive measures. Surgery still addressing his ileus. The patient did receive blood transfusions for low hemoglobin. We continue with GI DVT prophylaxis. The patient continues with TPN at 93 cc an hour. The patient also continues with ertapenem, but we will check a procalcitonin level. Labs, x-rays, medications are reviewed. Patient's overall prognosis remains guarded. We will continue to follow, make recommendations along the way. Plan dated November 27, 2023. The patient stable from the pulmonary standpoint. Room air saturation is 97%. The patient's other vital signs are stable. The patient is still getting TPN at 93 cc an hour. He continues on ertapenem. The patient not getting any additional fluids. Labs, x-rays, and medications are all reviewed. A procalcitonin level was done yesterday, was 0.48. We will continue to follow make recommendations along the way. Prognosis is certainly guarded. Time with Patient: Less than 30
--- NOTE | 2023-11-27 15:59 | P.PN ---
Subjective Progress Note Date: 11/27/23 H&P Date: 11/09/23 Chief Complaint: Anemia, hypercoagulopathy This is an 83-year-old female past medical history significant for chronic persistent atrial fibrillation, CAD, hyperlipidemia, mitral valve prolapse, aortic valve replacement,PPM, cardiac ablation, cardiomyopathy, presented to the hospital with complaints of increasing generalized weakness, mild shortness of breath ;vague historian. discovered to have a hemoglobin of 6.7, INR 6.5. BUN 53, creatinine 2.28, bicarb 23 transfused with 1 unit packed RBCs as well as vitamin K in the ER. Repeat labs pending. denies nausea or vomiting but reported diarrhea dark black stools X months. Blood pressure soft, maintain O2 sats in the 90s on room air. Denies chest pain, palpitations or shortness of breath. 11/12/2023 NPO, completed prep, EGD and colonoscopy scheduled for early this afternoon. Anticoagulation remains on hold, continues on PPI. Reports no further bleeding or black, dark rectal output. Reports over the last 2 years he has lost 50 pounds, on a healthier diet. Hemoglobin with 7.6, platelet 182. renal function slowly improving, BUN 24, creatinine 1.64 denies chest pain, p alpitations or shortness of breath. 11/14/2023 status post transverse colectomy and partial omentectomy, postop day #1. Reports "sore abdomen". Anticoagulation remains on hold. Receiving IV fluid hydration .reports occasional productive cough of phlegm .sitting up in chair.not passing flatus, advanced to clear liquids. Denies nausea or vomiting. Villasenor catheter recently DC'd this morning at 0600, not yet spontaneous voiding, bladder scan pending. BUN 18, creatinine 1.82. Received 1 unit packed RBCs yesterday for hemoglobin of 7.4, hemoglobin currently 8.9. Afebrile, WBC increased to 10.7. Sodium 136, potassium 5.7, bicarb 17. Pathology pending. 11/15/2023 IV fluid hydration. Blood pressure soft. Urinary retention, straight cath x 2 ,worsening renal function, creatinine up to 1.94, nephrology consulted. Hyperkalemic, potassium 5.9. Pain controlled. Reports not passing flatus. No bowel movement. Telemetry reporting paced rhythm .anticoagulation/Coumadin resuming tonight. 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 11/16/2023 Hemoglobin remains 7.9. Continues on IV fluid hydration .Maintained on Clear Liquid Diet, nauseated this morning. Blood sugars controlled. pain controlled. Passing minimal flatus, no bowel movement. Villasenor catheter placed yesterday secondary to urinary retention .renal ultrasound reported negative for obstructive uropathy, no hydronephrosis .blood pressures soft, improving. Renal function worsening, bicarb 15, BUN 22, creatinine 2.1, potassium decreased to currently 5.7. Anticoagulation with Coumadin resumed yesterday, INR 1.5. 11/26/2023 Surgical pathology resulted on 327 reporting 6 out of 13 pericolonic lymph nodes positive for metastatic colonic adenocarcinoma. Oncology consulted. Abdomen significantly distended, reports a bowel movement a couple days ago, short of breath. Received 1 unit packed RBCs yesterday for hemoglobin of 6.8, repeat hemoglobin ordered. Maintained on TPN, hyperglycemic, glucose 765, POC glucose 461; repeat Accu-Chek reported 286. Worsening renal function, BUN 81, creatinine 2.68, bicarb 19, potassium 5.2, sodium 127. INR 1.4. Continues on midodrine, blood pressures improved this morning. Maintained on empiric Invanz for suspected abdominal sepsis. Afebrile. 11/27/2023 surgical pathology results discussed at bedside with both and patient. Oncology consult in place, recommendations pending. Blood pressures soft, on midodrine. maintained on TPN. Procalcitonin 0.48, continues on ertapenem. Continues on increased IV diuretics, positive fluid volume overload, creatinine 2.79, dobutamine drip initiated. Denies chest pain, palpitations or shortness of breath Objective - Vital Signs Vital signs: Vital Signs Temp 97.5 F L 11/27/23 15:27 Pulse 82 11/27/23 15:44 Resp 18 11/27/23 15:44 BP 99/64 11/27/23 15:27 Pulse Ox 97 11/27/23 15:27 FiO2 Intake & Output 11/26/23 11/27/23 11/27/23 18:59 06:59 18:59 Intake Total 118 20 118 Output Total 400 100 Balance -282 -80 118 Weight 121 kg Intake: IV 20 Invasive Line 5 20 Oral 118 118 Blood Product 0 Unit 0 Output: Urine 400 100 Other: Voiding Method Indwelling Catheter Indwelling Catheter Indwelling Catheter - Exam PHYSICAL EXAM: VITAL SIGNS: [As above] GENERAL: Alert and oriented x 3, lying in bed, no acute distress HEENT: Normocephalic, conjunctivae normal. eyes normal. NECK: Supple, no JVD. CARDIOVASCULAR: S1, S2 regular. Systolic murmur RESPIRATION: Unlabored equal air entry, diminished, minimal rhonchi ABDOMEN: Soft, status post surgery, distended, nontender,no guarding. Scrotal edema. Extremities: Positive edema, upper bilateral extremity dressings with weeping drainage, bilateral lower extremities Hair wrapped. NERVOUS SYSTEM: Cranial N 2-12 grossly normal. No focal deficits. Strength and sensation grossly intact. Skin: Warm and dry, no rash - Labs CBC & Chem 7: 11/27/23 08:46 11/27/23 08:46 Labs: Abnormal Lab Results - Last 24 Hours (Table) 11/25/23 11/26/23 11/26/23 Range/Units 14:30 08:16 16:52 WBC (3.8-10.6) k/uL RBC (4.30-5.90) m/uL Hgb (13.0-17.5) gm/dL Hct (39.0-53.0) % MCHC (31.0-37.0) g/dL RDW (11.5-15.5) % Neutrophils # (1.3-7.7) k/uL Lymphocytes # (1.0-4.8) k/uL Monocytes # (0-1.0) k/uL PT (10.0-12.5) sec INR (<1.2) Sodium (137-145) mmol/L Carbon Dioxide (22-30) mmol/L BUN (9-20) mg/dL Creatinine (0.66-1.25) mg/dL Glucose (74-99) mg/dL POC Glucose (mg/dL) 257 H (70-110) mg/dL Calcium (8.4-10.2) mg/dL Procalcitonin 0.48 H (0.02-0.09) ng/mL Crossmatch See Detail 04/10/2011/27/23 11/27/23 Range/Units 00:02 05:58 08:46 WBC 12.8 H (3.8-10.6) k/uL RBC 2.65 L (4.30-5.90) m/uL Hgb 7.4 L (13.0-17.5) gm/dL Hct 24.7 L (39.0-53.0) % MCHC 29.9 L (31.0-37.0) g/dL RDW 15.6 H (11.5-15.5) % Neutrophils # 10.5 H (1.3-7.7) k/uL Lymphocytes # 0.6 L (1.0-4.8) k/uL Monocytes # 1.2 H (0-1.0) k/uL PT (10.0-12.5) sec INR (<1.2) Sodium (137-145) mmol/L Carbon Dioxide (22-30) mmol/L BUN (9-20) mg/dL Creatinine (0.66-1.25) mg/dL Glucose (74-99) mg/dL POC Glucose (mg/dL) 259 H 270 H (70-110) mg/dL Calcium (8.4-10.2) mg/dL Procalcitonin (0.02-0.09) ng/mL Crossmatch 11/27/23 11/27/23 11/27/23 Range/Units 08:46 08:46 12:06 WBC (3.8-10.6) k/uL RBC (4.30-5.90) m/uL Hgb (13.0-17.5) gm/dL Hct (39.0-53.0) % MCHC (31.0-37.0) g/dL RDW (11.5-15.5) % Neutrophils # (1.3-7.7) k/uL Lymphocytes # (1.0-4.8) k/uL Monocytes # (0-1.0) k/uL PT 13.1 H (10.0-12.5) sec INR 1.2 H (<1.2) Sodium 128 L (137-145) mmol/L Carbon Dioxide 18 L (22-30) mmol/L BUN 99 H (9-20) mg/dL Creatinine 2.79 H (0.66-1.25) mg/dL Glucose 208 H (74-99) mg/dL POC Glucose (mg/dL) 228 H (70-110) mg/dL Calcium 7.1 L (8.4-10.2) mg/dL Procalcitonin (0.02-0.09) ng/mL Crossmatch Assessment and Plan Assessment: Severe anemia secondary to acute GI bleed, status post EGD and colonoscopy; Upper endoscopy revealed 2.5 cm broad-based duodenal polyp in the second part of the duodenum opposite the ampullary orifice status post snare polypectomy and almost complete polypectomy performed. Small hiatal hernia. Colonoscopy revealed tight apple core ulcerated lesion in the mid transverse colon with significant luminal narrowing status post biopsy and tattooing. Scope could not be advanced beyond the lesion. 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 There is free air immediately adjacent to the lumen compatible with recent catheter tattoo during colonoscopy. Correlation for metastasis in the liver limited due to lack of IV contrast.Circumferential duodenal wall thickening correlate for duodenitis. Cholelithiasis. Infrarenal abdominal aortic aneurysm up to 3.2 cm. Right renal cyst. Status post transverse colectomy and partial omentectomy. 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 Surgical pathology reporting 6 out of 13 pericolonic lymph nodes positive for metastatic colonic adenocarcinoma. Oncology consulted. Acute abdominal distention, bowel obstruction secondary to colonic adenocarcinoma status post transverse colectomy, partial omentectomy on 11/13/2023, on TPN Hyperglycemic Hypotension, maintained on midodrine; suspect related to abdominal sepsis, maintained on empiric Invanz Fluid volume overload, maintained on IV push diuretics Urinary retention, post operative, requiring Villasenor catheter Acute renal failure, ATN secondary to the above ,hypotension and had received IV contrast. Hyperkalemia secondary to all the above Metabolic acidosis secondary to acute renal failure Chronic kidney disease stage III A secondary to nephrosclerosis Chronic persistent atrial fibrillation, INR supra therapeutic History of mitral valve repair and aortic valve replacement Cardiomyopathy, nonischemic, EF 40 to 45% PPM Hypertension, history of Hyperlipidemia Plan: Continue on current medication regimen ,monitoring and symptomatic treatment. Coumadin as per pharmacy dosing. dobutamine drip initiated.Oncology consult in place. Diuretics as per nephrology- potential hemodialysis. CBC pending. Nutritional support with TPN. Blood sugars improving, Levemir further adjusted with close monitoring of Accu-Cheks. Close monitoring of hemoglobin, platelets, renal function with repeat labs ordered for a.m. prognosis guarded, given multiple complex medical issues. The impression and plan of care has been dictated as directed. : I performed a history and examination of this patient, discussed the same with the dictator. I agree with the dictator's note ,documented as a scribe. Any additional findings or plans will be noted.
--- NOTE | 2023-11-27 16:09 | P.PN ---
Subjective Progress Note Date: 11/27/23 CHIEF COMPLAINT: Colon obstruction HISTORY OF PRESENT ILLNESS: Patient is status post transverse colectomy and partial omentectomy on 11/13/23. Patient currently on the cardiac floor. He is weak and fatigued. He is having episodes of confusion. Appetite is poor. He did have bowel movement and flatus. Patient with worsening kidney function. Followed by nephrology and possibly starting dialysis in the next 24 to 48 hours if no improvement in urine output. Afebrile. WBC 12.8 Hgb 7.4 platelets 362 sodium is 128 potassium is 4.3 creatinine 2.79 elevated blood sugar. Hematology has ordered IV iron PHYSICAL EXAM: VITAL SIGNS: Reviewed. GENERAL: Well-developed in no acute distress. ABDOMEN: Soft. Mildly distended. Incisional dressing clean dry and intact. NEUROLOGIC: Alert and oriented. Cranial nerves II through XII grossly intact. ASSESSMENT: 1. Colon cancer status post transverse colectomy 2. Postoperative ileus 3. Symptomatic anemia PLAN: -1 unit of blood ordered for symptomatic anemia with weakness and fatigue -Continue regular diet. Discussed with . She can bring food from home -Continue TPN for nutrition support -Encourage patient to increase activity level Physician Agent note has been reviewed by physician. Signing provider agrees with the documented findings, assessment, and plan of care. Objective - Vital Signs Vital signs: Vital Signs Temp 97.7 F 11/27/23 09:15 Pulse 80 11/27/23 11:34 Resp 18 11/27/23 11:34 BP 105/62 11/27/23 09:15 Pulse Ox 96 11/27/23 09:15 FiO2 Intake & Output 11/26/23 11/27/23 11/27/23 18:59 06:59 18:59 Intake Total 118 20 118 Output Total 400 100 Balance -282 -80 118 Weight 121 kg Intake: IV 20 Invasive Line 5 20 Oral 118 118 Output: Urine 400 100 Other: Voiding Method Indwelling Catheter Indwelling Catheter Indwelling Catheter - Labs CBC & Chem 7: 11/27/23 08:46 11/27/23 08:46 Labs: Abnormal Lab Results - Last 24 Hours (Table) 11/26/23 11/26/23 11/27/23 Range/Units 08:16 16:52 00:02 WBC (3.8-10.6) k/uL RBC (4.30-5.90) m/uL Hgb (13.0-17.5) gm/dL Hct (39.0-53.0) % MCHC (31.0-37.0) g/dL RDW (11.5-15.5) % Neutrophils # (1.3-7.7) k/uL Lymphocytes # (1.0-4.8) k/uL Monocytes # (0-1.0) k/uL PT (10.0-12.5) sec INR (<1.2) Sodium (137-145) mmol/L Carbon Dioxide (22-30) mmol/L BUN (9-20) mg/dL Creatinine (0.66-1.25) mg/dL Glucose (74-99) mg/dL POC Glucose (mg/dL) 257 H 259 H (70-110) mg/dL Calcium (8.4-10.2) mg/dL Procalcitonin 0.48 H (0.02-0.09) ng/mL 11/27/23 11/27/23 11/27/23 Range/Units 05:58 08:46 08:46 WBC 12.8 H (3.8-10.6) k/uL RBC 2.65 L (4.30-5.90) m/uL Hgb 7.4 L (13.0-17.5) gm/dL Hct 24.7 L (39.0-53.0) % MCHC 29.9 L (31.0-37.0) g/dL RDW 15.6 H (11.5-15.5) % Neutrophils # 10.5 H (1.3-7.7) k/uL Lymphocytes # 0.6 L (1.0-4.8) k/uL Monocytes # 1.2 H (0-1.0) k/uL PT (10.0-12.5) sec INR (<1.2) Sodium 128 L (137-145) mmol/L Carbon Dioxide 18 L (22-30) mmol/L BUN 99 H (9-20) mg/dL Creatinine 2.79 H (0.66-1.25) mg/dL Glucose 208 H (74-99) mg/dL POC Glucose (mg/dL) 270 H (70-110) mg/dL Calcium 7.1 L (8.4-10.2) mg/dL Procalcitonin (0.02-0.09) ng/mL 11/27/23 11/27/23 Range/Units 08:46 12:06 WBC (3.8-10.6) k/uL RBC (4.30-5.90) m/uL Hgb (13.0-17.5) gm/dL Hct (39.0-53.0) % MCHC (31.0-37.0) g/dL RDW (11.5-15.5) % Neutrophils # (1.3-7.7) k/uL Lymphocytes # (1.0-4.8) k/uL Monocytes # (0-1.0) k/uL PT 13.1 H (10.0-12.5) sec INR 1.2 H (<1.2) Sodium (137-145) mmol/L Carbon Dioxide (22-30) mmol/L BUN (9-20) mg/dL Creatinine (0.66-1.25) mg/dL Glucose (74-99) mg/dL POC Glucose (mg/dL) 228 H (70-110) mg/dL Calcium (8.4-10.2) mg/dL Procalcitonin (0.02-0.09) ng/mL
[2023-11-27 17:12] LABS: Glucose,Whole Blood 236 mg/dL (70-110)
[2023-11-27] MEDS: WARFARIN 3 MG TAB PO ONE (17:18)
--- NOTE | 2023-11-27 22:54 | P.CONS ---
History of Present Illness - Reason for Consult Consult date: 11/27/23 colon cancer Requesting physician: Cony Medrano - Chief Complaint anemia, blood in stool - History of Present Illness Patient is an 83-year-old male with multiple comorbidites. Consult was placed for newly diagnosed colon adenocarcinoma. Patient initially presented to the emergency department for abnormal blood work that was noted at follow-up appointment with his lean consultant, and was told to go to the ER for low hemoglobin for further evaluation. Hgb on admission was noted at 6.7 and received 1 unit PRBCs. He had been feeling increasingly weak and dizzy prior to admission, and also was reporting dark stools. Pt is anticoagulated with coumadin for history of a-fib. His INR was noted to be 6.5 on admission, and was given dose of vitamin K. Patient underwent colonoscopy on 11/11, revealing an tightapple core ulcerated lesion in the mid transverse colon with significant luminal narrowing. The scope could not be advanced beyond the lesion. CT AP and general surgery consult was ordered at that time. CT abdomen pelvis without contrast obtained on 11/11 revealed apple core lesion in the mid transverse colon with adjacent lymph nodes which are prominent. Free air immediately adjacent to the lumen. Circumferential duodenal wall thickening and cholelithiasis. Patient underwent transverse colectomy on 11/13/2023 with obstructing tumor in the mid transverse colon noted. Pathology was positive for invasive well to moderately differentiated colonic adenocarcinoma, with benign margins and 6 out of 13 pericolonic lymph nodes positive for metastatic colonic adenocarcinoma. CBC today revealed WBC 12.8, hemoglobin 7.4, MCV 93.1, platelets 362,000. INR 1.2. Patient has received 4 units PRBCs and 1 dose FFP since admission. Iron studies on 11/16 revealed iron saturation of 3.38% and ferritin 128. Aranesp has been started by nephrology. Patient has history of CKD stage III. Creatinine 2.79, GFR 20. At todays visit spouse is providing most of HPI, as pt is somewhat lethargic. She reports patient has never had colonoscopy prior to this admission but did have recent Cologuard which was negative. She reports 60 pound weight loss over the last 1 year but was intentionally trying to lose weight. Review of Systems 10 point ROS is negative except as stated in the HPI Past Medical History Past Medical History: Atrial Fibrillation, Coronary Artery Disease (CAD), Heart Failure, Hyperlipidemia, Hypertension, Mitral Valve Prolapse (MVP), Osteoarthritis (OA), Renal Disease (CKD stage 3) Additional Past Medical History / Comment(s): pacemaker, valvular heart disease and the patient is undergoing aortic valve replacement and mitral valve repair in 2018. Anemia of chronic disease and blood loss. Ischemic cardiomyopathy with impaired left-ventricular ejection fraction of 40 to 45% based on echocardiogram that was done June 2023. The patient also has moderate tricuspid regurgitation. He has undergone previous aortic valve replacement and mitral valve repair History of Any Multi-Drug Resistant Organisms: None Reported Past Surgical History: Cardiac Ablation, Cardiac Valve Replacement, Heart Cath eterization Additional Past Surgical History / Comment(s): CARIOVERSIONS. AORTA VALVE REPLACED/MITRAL VALVE REPAIRED @ [facility] ON JANUARY [id number]. pacer, EF 30% Past Anesthesia/Blood Transfusion Reactions: No Reported Reaction Past Psychological History: No Psychological Hx Reported Smoking Status: Never smoker Past Alcohol Use History: Rare Past Drug Use History: None Reported - Past Family History Mother Family Medical History: CVA/TIA, Myocardial Infarction (VT) Father Family Medical History: Myocardial Infarction (VT) Brother(s) Family Medical History: CVA/TIA Medications and Allergies Home Medications Medication Instructions Recorded Confirmed Type Simvastatin [Zocor] 40 mg PO HS 10/26/14 11/08/23 History Empagliflozin [Jardiance] 10 mg PO DAILY 11/08/23 11/08/23 History Sacubitril/Valsartan [Entresto 24 1 tab PO BID 11/08/23 11/08/23 History mg-26 mg Tablet] carvediloL [Coreg] 12.5 mg PO BID 11/08/23 11/08/23 History Allergies Allergy/AdvReac Type Severity Reaction Status Date / Time cephalexin monohydrate Allergy Severe Rash/Hives Verified 11/13/23 14:43 [From Keflex] Penicillins Allergy Severe Rash/Hives Verified 11/13/23 14:43 propylene glycol Allergy Severe Anaphylaxis Verified 11/13/23 14:43 bacitracin Allergy Rash/Hives Verified 11/13/23 14:43 [From Neosporin ([id number])] bacitracin zinc Allergy Rash/Hives Verified 11/13/23 14:43 [From Neosporin ([id number])] chloramphenicol Allergy Rash/Hives Verified 11/13/23 14:43 [From Chloromycetin] chloramphenicol sod succ Allergy Rash/Hives Verified 11/13/23 14:43 [From Chloromycetin] ciprofloxacin [From Cipro] Allergy Rash/Hives Verified 11/13/23 14:43 ciprofloxacin HCl Allergy Rash/Hives Verified 11/13/23 14:43 [From Cipro] mercury (elemental) Allergy Rash/Hives Verified 11/13/23 14:43 neomycin Allergy Rash/Hives Verified 11/13/23 14:43 neomycin sulfate Allergy Rash/Hives Verified 11/13/23 14:43 [From Neosporin ([id number])] polymyxin B Allergy Rash/Hives Verified 11/13/23 14:43 [From Neosporin ([id number])] Physical Exam Vitals: Vital Signs Temp Pulse Pulse Resp BP Pulse Ox 11/27/23 08:57 88 18 11/27/23 04:00 98.3 F 77 30 H 94/63 95 11/27/23 00:00 98.0 F 90 28 H 114/57 97 11/26/23 21:58 90 11/26/23 21:46 90 11/26/23 20:00 97.9 F 75 26 H 109/55 96 11/26/23 16:15 90 11/26/23 16:00 99 21 84/49 98 11/26/23 15:58 92 11/26/23 12:05 90 11/26/23 11:53 92 99 11/26/23 11:20 92 19 113/59 96 Intake and Output 11/26/23 11/27/23 11/27/23 22:59 06:59 14:59 Intake Total 20 Output Total 400 100 Balance -380 -100 Intake: IV 20 Invasive Line 5 20 Output: Urine 400 100 Other: Voiding Method Indwelling Catheter Indwelling Catheter - Constitutional General appearance: no acute distress, obese - EENT ENT: hearing grossly normal - Respiratory Respiratory: bilateral: CTA - Cardiovascular Rhythm: regular Heart sounds: normal: S1, S2 - Integumentary Integumentary: no cyanotic, pale - Musculoskeletal Musculoskeletal: generalized weakness Results CBC & Chem 7: 11/27/23 08:46 11/27/23 08:46 Labs: Abnormal Lab Results - Last 24 Hours (Table) 11/26/23 11/26/23 11/26/23 Range/Units 08:16 08:16 08:16 WBC 13.9 H (3.8-10.6) k/uL RBC 2.65 L (4.30-5.90) m/uL Hgb 7.3 L (13.0-17.5) gm/dL Hct 26.5 L (39.0-53.0) % MCV 100.1 H D (80.0-100.0) fL MCHC 27.6 L (31.0-37.0) g/dL RDW 15.7 H (11.5-15.5) % PT 14.8 H (10.0-12.5) sec INR 1.4 H (<1.2) Sodium 127 L (137-145) mmol/L Potassium 5.2 H (3.5-5.1) mmol/L Carbon Dioxide 19 L (22-30) mmol/L BUN 81 H (9-20) mg/dL Creatinine 2.68 H (0.66-1.25) mg/dL Glucose 765 H* (74-99) mg/dL POC Glucose (mg/dL) (70-110) mg/dL Calcium 7.2 L (8.4-10.2) mg/dL Procalcitonin (0.02-0.09) ng/mL 11/26/23 11/26/23 11/26/23 Range/Units 08:16 10:10 12:03 WBC (3.8-10.6) k/uL RBC (4.30-5.90) m/uL Hgb (13.0-17.5) gm/dL Hct (39.0-53.0) % MCV (80.0-100.0) fL MCHC (31.0-37.0) g/dL RDW (11.5-15.5) % PT (10.0-12.5) sec INR (<1.2) Sodium (137-145) mmol/L Potassium (3.5-5.1) mmol/L Carbon Dioxide (22-30) mmol/L BUN (9-20) mg/dL Creatinine (0.66-1.25) mg/dL Glucose (74-99) mg/dL POC Glucose (mg/dL) 286 H 277 H (70-110) mg/dL Calcium (8.4-10.2) mg/dL Procalcitonin 0.48 H (0.02-0.09) ng/mL 11/26/23 11/27/23 11/27/23 Range/Units 16:52 00:02 05:58 WBC (3.8-10.6) k/uL RBC (4.30-5.90) m/uL Hgb (13.0-17.5) gm/dL Hct (39.0-53.0) % MCV (80.0-100.0) fL MCHC (31.0-37.0) g/dL RDW (11.5-15.5) % PT (10.0-12.5) sec INR (<1.2) Sodium (137-145) mmol/L Potassium (3.5-5.1) mmol/L Carbon Dioxide (22-30) mmol/L BUN (9-20) mg/dL Creatinine (0.66-1.25) mg/dL Glucose (74-99) mg/dL POC Glucose (mg/dL) 257 H 259 H 270 H (70-110) mg/dL Calcium (8.4-10.2) mg/dL Procalcitonin (0.02-0.09) ng/mL CT scan - abdomen: report reviewed CT scan - chest: report reviewed CT scan - pelvis: report reviewed Assessment and Plan (1) Colon adenocarcinoma Current Visit: Yes Status: Acute Priority: High Code(s): C18.9 - MALIGNANT NEOPLASM OF COLON, UNSPECIFIED SNOMED Code(s): 200700255 (2) Anemia Current Visit: Yes Status: Acute Priority: High Code(s): D64.9 - ANEMIA, UNSPECIFIED SNOMED Code(s): 019096740 (3) Coagulopathy Current Visit: Yes Status: Acute Priority: High Code(s): D68.9 - COAGULATION DEFECT, UNSPECIFIED SNOMED Code(s): 92124773 (4) Elevated INR Current Visit: Yes Status: Acute Priority: High Code(s): R79.1 - ABNORMAL COAGULATION PROFILE SNOMED Code(s): 053721685 Plan: Colon adenocarcinoma: Presented with low hemoglobin that was noted at cardiology f/u. Hgb on admission was noted at 6.7 and received 1 unit PRBCs. He had been feeling increasingly weak and dizzy prior to admission, and also was reporting dark stools. Pt is an ticoagulated with coumadin for history of a-fib. His INR was noted to be 6.5 on admission, and was given dose of vitamin K. Patient underwent colonoscopy on 11/11, revealing an tightapple core ulcerated lesion in the mid transverse colon with significant luminal narrowing. The scope could not be advanced beyond the lesion. CT AP and general surgery consult was ordered at that time. CT abdomen pelvis without contrast obtained on 11/11 revealed apple core lesion in the mid transverse colon with adjacent lymph nodes which are prominent. Free air immediately adjacent to the lumen. Circumferential duodenal wall thickening and cholelithiasis. Patient underwent transverse colectomy on 11/13/2023 with obstructing tumor in the mid transverse colon noted. CTA chest was negative for PE and did not note any metastatic disease with chest -Pathology was positive for invasive well to moderately differentiated colonic adenocarcinoma, with benign margins and 6 out of 13 pericolonic lymph nodes positive for metastatic colonic adenocarcinoma -Results were discussed with patient and spouse and that adjuvant chemotherpay would be recommended, but systemic treatment would be delayed at least 4-6 weeks s/p abdominal surgery to allow adequate healing time. Also, patient will also likely need rehabilitation upon discharge. Will obtain contrast imaging of abdomen pelvis if kidney function improves, if not we will proceed with PET/CT outpt Will schedule clinic follow-up within the next 4 weeks to further discuss treatment options and goals of care Iron deficiency anemia, coagulopathy: -Hgb on admission was noted at 6.7 and received 1 unit PRBCs. Pt anticoagulated with coumadin for history of a-fib. INR was noted to be 6.5 on admission, and was treated with vitamin K. INR today at 1.2 Iron studies on 11/16 revealed iron saturation 3.38, ferritin 128. Labs consistent with iron deficiency anemia. Patient has received 4 units PRBCs and 1 dose FFP since admission. Will start patient on parenteral iron, and will recheck iron studies at clinic f/u, and will provide additional supplementation as needed -Anemia initially likely related to acute blood loss related to colon malignancy. Hemoglobin has been slowly recovering with some mild drops in hemoglobin, requiring additional transfusions. Slow recovery of hgb likely r/t hypoproliferation due to underlying CKD, inflammation and bone marrow suppression due to advanced age. Aranesp has been ordered by nephrology Continue to closely monitor CBC, please transfuse for hemoglobin less than 7 or if symptomatic. attests: I have performed H&P and developed impression and plan of care for patient, discussed with dictator. I agree with dictated note, documented as a scribe
[2023-11-28 00:08] LABS: Glucose,Whole Blood 242 mg/dL (70-110)
[2023-11-28 06:12] LABS: Glucose,Whole Blood 229 mg/dL (70-110)
[2023-11-28] MEDS: INSULIN DETEMIR (LEVEMIR) 100 UNIT/ML SYR SQ SCH (06:15)
[2023-11-28 10:14] LABS: INR 1.3 (<1.2)
[2023-11-28 10:21] LABS: Basophils # (A) 0.1 k/uL (0-0.2); Basophils % (A) 0 %; Eosinophils # (A) 0.1 k/uL (0-0.7); Eosinophils % (A) 1 %; HCT 25.2 % (39.0-53.0); HGB 7.9 gm/dL (13.0-17.5); Hypochromasia Marked; Lymphocytes # (A) 0.6 k/uL (1.0-4.8); Lymphocytes % (A) 5 %; MCH 28.8 pg (25.0-35.0); MCHC 31.2 g/dL (31.0-37.0); MCV 92.1 fL (80.0-100.0); Mean Platelet Volume 8.6; Monocytes # (A) 1.3 k/uL (0-1.0); Monocytes % (A) 11 %; Neutrophils # (A) 9.8 k/uL (1.3-7.7); Neutrophils % (A) 81 %; Platelet Count 338 k/uL (150-450); Poikilocytosis Slight; RBC 2.73 m/uL (4.30-5.90); RDW 15.7 % (11.5-15.5); WBC 12.1 k/uL (3.8-10.6)
[2023-11-28 10:25] LABS: African American GFR (CKD) 21 (>60 ml/min/1.73 sqM); Anion Gap 10 mmol/L; Calcium 7.4 mg/dL (8.4-10.2); Carbon Dioxide 15 mmol/L (22-30); Chloride 100 mmol/L (98-107); Glucose 170 mg/dL (74-99); Magnesium 2.1 mg/dL (1.6-2.3); Non-African American GFR(CKD) 19 (>60 ml/min/1.73 sqM); Phosphorus 3.9 mg/dL (2.5-4.5); Potassium 4.3 mmol/L (3.5-5.1); Sodium 125 mmol/L (137-145)
[2023-11-28 10:26] LABS: Blood Urea Nitrogen 111 mg/dL (9-20)
--- NOTE | 2023-11-28 11:27 | P.PN ---
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 His INR was elevated and he was severely anemic. He was admitted to the hospital with evidence of GI bleeding. His echocardiogram performed June 2023 revealed an ejection fraction of 40 to 45% with moderate tricuspid regurgitation, his aortic valve had a mean gradient of 6 mmHg and his mitral valve repair showed mild v alvular regurgitation. The patient denies any chest discomfort, he feels fatigue and mildly dyspneic. He has no significant peripheral edema no PND no orthopnea. He had an episode of diarrhea but no tiffanie blood. He has a prior permanent pacemaker implantation and his predominantly ventricular pacing. His current factors are positive for hyperlipidemia and hypertension he is a non- smoker, nondiabetic. He received transfusion yesterday as well as vitamin K. Medications: Carvedilol 12.5 twice daily, Farxiga 5 mg daily, Entresto 2426 twice a day, Protonix, simvastatin 40 mg daily 11/10/2023 The patient was seen and examined resting comfortably in bed with the at the bedside. He is overall feeling a bit better. Blood pressure remains low and carvedilol was decreased. Home dose of Aldactone remains on hold. We are awaiting endoscopy to be done on Sunday. Labs from this morning are pending. 11/11/2023 The patient was seen and examined sitting up in a chair. He is feeling a bit better. Hemoglobin is stable. Renal function shows some improvement. 11/12/2023 Patient examined this morning at the bedside. Patient denies chest pain or pressure. Denies SOB. Patient's Coumadin remains on hold. INR today is 1.4. 11/13/2023 Patient is status post EGD revealing 2.5 cm broad-based duodenal polyp in the second part of the duodenum, small hiatal hernia. Patient also underwent colonoscopy revealing a tight apple core ulcerated lesion in the mid transverse colon with significant lumen or narrowing status post multiple biopsies. The scope could not be advanced beyond this lesion. General surgery was consulted for evaluation and the patient is scheduled for transverse colectomy today with Dr. Brewer. Patient currently denies shortness of breath. He denies chest pain or pressure. Vital signs are stable. 11/14/2023 Patient is status post transverse colectomy and partial omentectomy. Postop day #1. Patient is evaluated today sitting up in the chair. Patient denies chest pain or pressure. He denies shortness of breath. He remains on IV fluids. He is tolerating clear liquid diet. His Coumadin remains on hold. 11/15/2023 Patient examined this morning. Patient is sitting up in the chair. Patient currently denies any chest pain or pressure. He denies any shortness of breath. Telemetry reveals paced rhythm. Potassium today 5.9. Creatinine 1.94. Patie nt states he has been having issues urinating and required straight catheterization x 2. Blood pressures are on the soft side with a recent reading of 96/52. 11/16/2023 Patient examined this morning at the bedside. Patient currently denies chest pain or pressure. He denies shortness of breath. Patient remains on a liquid diet and does not report any significant flatus. Patient's Coumadin was resumed yesterday. INR this morning 1.5. Creatinine today 2.1. 11/27/2023 Cardiology was reconsulted at the request of Dr. Junior for possibility of dobutamine infusion. Patient examined this afternoon. He is sitting up in the chair. Patient denies any chest pain or pressure. He remains on IV diuretics. He continues to remain fluid volume overloaded. Creatinine today 2.79. 11/28/2023 Patient examined this morning the bedside. Patient currently denies chest pain or pressure. He states his breathing feels about the same as yesterday. Patient's creatinine today is 2.96, up from 2.79 yesterday. He remains on dobutamine at 5 mcg/kg/min. Blood pressure 91/44. Urine output over the last 24 hours is around 500 cc. PHYSICAL EXAM: VITAL SIGNS: Reviewed. GENERAL: Well-developed in no acute distress. NECK: Supple. No JVD or thyromegaly LUNGS: Respirations even and unlabored. Lungs essentially clear to auscultation bilaterally, diminished at the bases. HEART: Regular rate and rhythm. S1 and S2 heard. Systolic murmur noted. EXTREMITIES: Normal range of motion. No clubbing or cyanosis. Peripheral pulses intact. 2+ bilateral lower extremity edema ASSESSMENT: 1. Acute GI bleeding with severe anemia 2. Persistent atrial fibrillation with supra therapeutic INR 3. 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 Status post permanent pacemaker implantation 6. History of hyperlipidemia 7. History of hypertension 8. Status post EGD and colonoscopy 9. Bowel obstruction secondary to transverse colon lesion,, positive for adenocarcinoma, s/p colectomy 10. Acute on chronic kidney disease 11. Hyperkalemia 12. Urinary retention requiring straight cath PLAN: Continue current cardiac medications Entresto previously discontinued secondary to hyperkalemia and hypotension. Patient is now requiring midodrine Continue IV Lasix per nephrology Continue dobutamine drip at 5 mcg/kg/min Continue Coumadin. Pharmacy to dose. Monitor INR. Patients asking about plan moving forward and possibility of comfort care/hospice rather than continuing aggressive medical management. Recommend patient's primary care physician to discuss this further with patient and his family. Further recommendations pending patient course Nurse practitioner note has been reviewed by physician. Signing provider agrees with the documented findings, assessment, and plan of care documented by RETOUCHER as a scribe. Objective - Vital Signs Vital signs: Vital Signs Temp 97.8 F 11/28/23 08:00 Pulse 78 11/28/23 09:01 Resp 22 11/28/23 08:00 BP 91/44 11/28/23 08:00 Pulse Ox 96 11/28/23 08:50 FiO2 21 11/28/23 08:50 Intake & Output 11/27/23 11/28/23 11/28/23 18:59 06:59 18:59 Intake Total 546 250 Output Total 200 Balance 346 250 Weight 130 kg Intake: Intake, IV Titration 250 Amount DOBUTamine DRIP 500 mg In 250 Dextrose/Water 1 250ml. bag @ 5 MCG/KG/MIN 18.15 mls/hr IV .[id number] [facility] Rx #:[id number] Oral 236 Blood Product 310 Rc As-1 Unit 310 [id number] Output: Urine 200 Other: Voiding Method Indwelling Catheter Indwelling Catheter Indwelling Catheter - Labs CBC & Chem 7: 11/28/23 09:54 11/28/23 08:44 Labs: Abnormal Lab Results - Last 24 Hours (Table) 11/25/23 11/27/23 11/27/23 Range/Units 14:30 08:46 08:46 WBC 12.8 H (3.8-10.6) k/uL RBC 2.65 L (4.30-5.90) m/uL Hgb 7.4 L (13.0-17.5) gm/dL Hct 24.7 L (39.0-53.0) % MCHC 29.9 L (31.0-37.0) g/dL RDW 15.6 H (11.5-15.5) % Neutrophils # 10.5 H (1.3-7.7) k/uL Lymphocytes # 0.6 L (1.0-4.8) k/uL Monocytes # 1.2 H (0-1.0) k/uL PT 13.1 H (10.0-12.5) sec INR 1.2 H (<1.2) Sodium (137-145) mmol/L Carbon Dioxide (22-30) mmol/L BUN (9-20) mg/dL Creatinine (0.66-1.25) mg/dL Glucose (74-99) mg/dL POC Glucose (mg/dL) (70-110) mg/dL Calcium (8.4-10.2) mg/dL Crossmatch See Detail 11/27/23 11/27/23 11/28/23 Range/Units 12:06 17:10 00:06 WBC (3.8-10.6) k/uL RBC (4.30-5.90) m/uL Hgb (13.0-17.5) gm/dL Hct (39.0-53.0) % MCHC (31.0-37.0) g/dL RDW (11.5-15.5) % Neutrophils # (1.3-7.7) k/uL Lymphocytes # (1.0-4.8) k/uL Monocytes # (0-1.0) k/uL PT (10.0-12.5) sec INR (<1.2) Sodium (137-145) mmol/L Carbon Dioxide (22-30) mmol/L BUN (9-20) mg/dL Creatinine (0.66-1.25) mg/dL Glucose (74-99) mg/dL POC Glucose (mg/dL) 228 H 236 H 242 H (70-110) mg/dL Calcium (8.4-10.2) mg/dL Crossmatch 11/28/23 11/28/23 11/28/23 Range/Units 06:11 08:44 08:44 WBC (3.8-10.6) k/uL RBC (4.30-5.90) m/uL Hgb (13.0-17.5) gm/dL Hct (39.0-53.0) % MCHC (31.0-37.0) g/dL RDW (11.5-15.5) % Neutrophils # (1.3-7.7) k/uL Lymphocytes # (1.0-4.8) k/uL Monocytes # (0-1.0) k/uL PT 14.0 H (10.0-12.5) sec INR 1.3 H (<1.2) Sodium 125 L (137-145) mmol/L Carbon Dioxide 15 L (22-30) mmol/L BUN 111 H* (9-20) mg/dL Creatinine 2.96 H (0.66-1.25) mg/dL Glucose 170 H (74-99) mg/dL POC Glucose (mg/dL) 229 H (70-110) mg/dL Calcium 7.4 L (8.4-10.2) mg/dL Crossmatch 11/28/23 Range/Units 09:54 WBC 12.1 H (3.8-10.6) k/uL RBC 2.73 L (4.30-5.90) m/uL Hgb 7.9 L (13.0-17.5) gm/dL Hct 25.2 L (39.0-53.0) % MCHC (31.0-37.0) g/dL RDW 15.7 H (11.5-15.5) % Neutrophils # 9.8 H (1.3-7.7) k/uL Lymphocytes # 0.6 L (1.0-4.8) k/uL Monocytes # 1.3 H (0-1.0) k/uL PT (10.0-12.5) sec INR (<1.2) Sodium (137-145) mmol/L Carbon Dioxide (22-30) mmol/L BUN (9-20) mg/dL Creatinine (0.66-1.25) mg/dL Glucose (74-99) mg/dL POC Glucose (mg/dL) (70-110) mg/dL Calcium (8.4-10.2) mg/dL Crossmatch
--- NOTE | 2023-11-28 11:38 | P.PN ---
Subjective Progress Note Date: 11/28/23 Principal diagnosis: Anemia. This is a 83-year-old male patient was transferred to the intensive care unit yesterday as the patient developed significant abdominal distention and hypotension. The patient has a colonic mass and the patient has undergone transverse colectomy and surgery was done on 11/13/2023.. For now, the patient is postop day #4. The abdomen was firm and quite distended. Immediately, a stat CAT scan of the abdomen was done and the patient was found to have pneumoperitoneum and this was suspected to be related to previous surgery. There was also nonobstructive bowel gas pattern with significant gastric distention and partial small bowel obstruction cannot be completely excluded. At that point, NG tube was inserted and immediately 600 cc of output was obtained. Abdomen is still distended although less compared to yesterday. No flatus. Bowel sounds are absent. General surgery is on the case. White cell count not elevated. Lactic acid level is low at 1.3. Note that postop, the patient's renal function remained stable. The patient has chronic stage III kidney disease and the creatinine today is up to 2.17 and a sodium levels at 134 with a potassium level of 5.5. Serum bicarb is at 17. Nephrology on the case. The patient is currently on a bicarb infusion which is running at 50 cc an hour. He has history of paroxysmal atrial fibrillation. He is on anticoagulation with warfarin. Coumadin is on hold and the patient's INR today is at 3.5. The respiratory status is stable. No significant shortness of breath. The patient is currently on 3 L of oxygen by nasal cannula with a pulse ox of 98%. Repeat chest film of the abdomen was done today that showed NG tube being in place. There is contrast in the mid and the distal colon and nonspecific bowel gas pattern and the patient's chest x-ray from today is showing cardiomegaly. NG tube is in place. There is air under the right hemidiaphragm. The patient was seen by 2 separate general surgeons and no surgical intervention is required at this point in time. Will monitor and will put the bowel to rest. The patient has likely small bowel ileus. Patient was reevaluated today on 11/19/2023, patient is status post transverse colectomy and surgery was done on 11/13/2023 for suspected colonic mass and abdominal distention he is now postoperative day #5. Patient has been in the ICU for what seems to be persistent abdominal distention and possible small bowel ileus. Being followed by surgery, does not feel reexploration is necessary at this point. Nonetheless the patient seems to be quite comfortable, abdomen is distended, he is hypotensive requiring norepinephrine at 0.07 mcg/kg/min. Continues to have nasogastric tube in place and draining 800 cc over the last 24 hours. Patient is also known to have history of cardiomyopathy and LV dysfunction with ejection fraction of 40 to 45%, he is requiring intermittently diuretics/Lasix his last dose was yesterday. Remains on antibiotics in the form of Invanz mostly because of his multiple allergies to different antibiotics. Patient continues to have chronic venous stasis and swelling in the lower extremities. And seems a bit uncomfortable with abdominal distention. But no evidence of severe pain. Slightly tender to palpation WBC count today is 9.2 hemoglobin is 7.4. INR is 3.8 basic metabolic profile is normal renal profile is a bit worse today BUN is 42 creatinine up to 2.31 from 2.16 yesterday chest x-ray continues to show free air under the diaphragm, cardiomegaly, and chronic mild venous congestion. Possible pneumonitis 3 today on 11/20/2023, patient remains in the ICU, continues to have significant abdominal distention/ileus continues to have nasogastric tube in place, patient remains n.p.o., patient still requiring TPN, and intermittently on norepinephrine. Lasix was given today 40 mg IV push x 1, seems to have decent urine output in spite of marginal blood pressure. His abdominal distention remains worrisome. 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 Chest x-ray is showing mostly minimal bibasilar atelectasis, cardiomegaly, and minimal venous congestion Reason on 11/21/2023, patient remains in the ICU, patient remains on Invanz, he is supposed to get a PICC line tomorrow, however his INR is elevated, will arrange for 2 units of fresh frozen plasma and vitamin K to be given tomorrow about 6 hours before PICC line schedule placement. Pulmonary herrera the patient is doing well, asymptomatic, continues to have ileus continues to have abdominal distention but improving patient is passing gas at least. His abdominal issues are being addressed by surgery on the case. WBC count is 10.1 hemoglobin 7.8 INR is 3.8 basic metabolic profile is normal BUN is 50 creatinine 2.11 chest x- ray today continues to show free air in the upper abdomen, otherwise no significant findings Reevaluate today on 11/22/2023, patient is still in the ICU, his abdominal distention is improving, patient has had bowel movements last night, patient was started today on clear liquids, PICC line was placed for TPN, did receive fresh frozen plasma and vitamin K for placement of the PICC line, INR today is 1.7. Now the patient could be restarted back on his Coumadin. And we could potentially transfer the patient out of the ICU to a monitored bed and marcus ective/3 S. WBC count is 10.7 hemoglobin 7.7 INR is 1.7 basic metabolic profile is normal renal profile showed BUN of 52 creatinine 2.18 3 today on 11/23/2023, patient is doing well, he is on room air, sitting at the bedside chair, he is on 3 S., not in any distress, continues to have abdominal distention, no bowel movement today, but the patient is passing gas. Patient will need to go back on his Coumadin. WBC count today is 11.6 hemoglobin 7.5 basic metabolic profile is normal BUN is 53 creatinine 2.41, blood sugar is high, being addressed by internal medicine on the case. Reevaluate today on 11/24/23, patient remains on room air, not in any distress, relatively asymptomatic from the pulmonary perspective continues to have abdominal distention, continues to pass gas but no bowel movements. Patient is receiving TPN, and I believe he is already eating as recommended by surgery. WBC count is 14.5 hemoglobin 7.8 basic metabolic profile is normal BUN is 65 creatinine 2.31, renal status is being addressed by nephrology on the case Patient was reevaluated today on 11/25/2023, patient remains on room air, not in any distress, patient has no active pulmonary issues today, no cough no wheezing no shortness of breath, patient did have a bowel movement yesterday, however his abdomen remains a bit distended. Patient is being considered for rehab placement and I think that is appropriate. Hemoglobin today is 6.8, patient may benefit from a unit of packed RBCs. This will be addressed by surgery on the case. Patient is still receiving TPN and apparently has been taking some hunt ited food orally. Progress note dated November 26, 2023. 83-year-old male seen today in room 365. The patient is currently on room air. He is receiving TPN at 93 cc an hour. He also is on ertapenem. We will check a procalcitonin level on this patient. Current labs include a white count of 13.9, hemoglobin 7.3, hematocrit 26.5, and platelet count of 366,000. PT is 14.8 with an INR 1.4. Sodium 127, potassium 5.2, chlorides 98, CO2 19, anion gap 10, BUN 81, creatinine 2.68. Glucose is 277. Calcium 7.2. Magnesium is 2.2. Progress note dated November 27, 2023. 83-year-old male seen today in room 365. Currently, the patient is on room air. The patient continues on TPN at 93 cc an hour. In addition, the patient continues on ertapenem. The patient appears to be doing relatively well. Fa codie members are at the bedside. Current laboratory data includes a white count 12.8, hemoglobin 7.4, hematocrit 24.7, and platelet count 362,000. PT 13.1 with an INR 1.2. Sodium 128, potassium 4.3, chlorides 101, CO2 18, BUN 99, creatinine 2.79. Glucose is 228. Calcium 7.1. Magnesium 2.1. Progress note dated November 28, 2023. 83-year-old male seen today in room 365. Currently, the patient is on room air. The patient continues on TPN at 93 cc an hour, and is also receiving dobutamine according to the nurse at 5 mcg/kg/min. Current laboratory data includes a white count 12.1, hemoglobin 7.9, hematocrit 25.2, and a platelet count of 338,000. PT 14, with an INR of 1.3. Sodium 125, potassium 4.3, chlorides 100, CO2 15, anion gap 10, BUN 111, creatinine 2.96. Glucose is 170. Calcium is 7.4. Objective - Vital Signs Vital signs: Vital Signs Temp 97.8 F 11/28/23 08:00 Pulse 78 11/28/23 09:01 Resp 22 11/28/23 08:00 BP 91/44 11/28/23 08:00 Pulse Ox 96 11/28/23 08:50 FiO2 21 11/28/23 08:50 Intake & Output 11/27/23 11/28/23 11/28/23 18:59 06:59 18:59 Intake Total 546 250 Output Total 200 Balance 346 250 Weight 130 kg Intake: Intake, IV Titration 250 Amount DOBUTamine DRIP 500 mg In 250 Dextrose/Water 1 250ml. bag @ 5 MCG/KG/MIN 18.15 mls/hr IV .[id number] [facility] Rx #:[id number] Oral 236 Blood Product 310 Rc As-1 Unit 310 [id number] Output: Urine 200 Other: Voiding Method Indwelling Catheter Indwelling Catheter Indwelling Catheter - Exam No acute distress, oriented 3. Currently on room air. HEENT examination is grossly unremarkable. Mucous membranes are moist. No oral lesions. Neck supple. Full range of motion. No adenopathy thyromegaly or neck vein distention. Cardiovascular examination reveals regular rhythm rate. S1-S2 normal. No S3 or S4. No discernible murmur noted. Heart rate is 78 bpm. Lungs reveal mostly clear breath sounds. Minimal rhonchi. No wheezes or crackles. Breath sounds equal bilaterally. Room air saturation 96 %. Abdomen soft bowel sounds. No masses or tenderness. Extremities are intact. No cyanosis clubbing or edema. Skin is without rash or lesion. Neurologic examination is brief but nonfocal. - Labs CBC & Chem 7: 11/28/23 09:54 11/28/23 08:44 Labs: Abnormal Lab Results - Last 24 Hours (Table) 11/25/23 11/27/23 11/27/23 Range/Units 14:30 12:06 17:10 WBC (3.8-10.6) k/uL RBC (4.30-5.90) m/uL Hgb (13.0-17.5) gm/dL Hct (39.0-53.0) % RDW (11.5-15.5) % Neutrophils # (1.3-7.7) k/uL Lymphocytes # (1.0-4.8) k/uL Monocytes # (0-1.0) k/uL PT (10.0-12.5) sec INR (<1.2) Sodium (137-145) mmol/L Carbon Dioxide (22-30) mmol/L BUN (9-20) mg/dL Creatinine (0.66-1.25) mg/dL Glucose (74-99) mg/dL POC Glucose (mg/dL) 228 H 236 H (70-110) mg/dL Calcium (8.4-10.2) mg/dL Crossmatch See Detail 11/28/23 11/28/23 11/28/23 Range/Units 00:06 06:11 08:44 WBC (3.8-10.6) k/uL RBC (4.30-5.90) m/uL Hgb (13.0-17.5) gm/dL Hct (39.0-53.0) % RDW (11.5-15.5) % Neutrophils # (1.3-7.7) k/uL Lymphocytes # (1.0-4.8) k/uL Monocytes # (0-1.0) k/uL PT 14.0 H (10.0-12.5) sec INR 1.3 H (<1.2) Sodium (137-145) mmol/L Carbon Dioxide (22-30) mmol/L BUN (9-20) mg/dL Creatinine (0.66-1.25) mg/dL Glucose (74-99) mg/dL POC Glucose (mg/dL) 242 H 229 H (70-110) mg/dL Calcium (8.4-10.2) mg/dL Crossmatch 11/28/23 11/28/23 Range/Units 08:44 09:54 WBC 12.1 H (3.8-10.6) k/uL RBC 2.73 L (4.30-5.90) m/uL Hgb 7.9 L (13.0-17.5) gm/dL Hct 25.2 L (39.0-53.0) % RDW 15.7 H (11.5-15.5) % Neutrophils # 9.8 H (1.3-7.7) k/uL Lymphocytes # 0.6 L (1.0-4.8) k/uL Monocytes # 1.3 H (0-1.0) k/uL PT (10.0-12.5) sec INR (<1.2) Sodium 125 L (137-145) mmol/L Carbon Dioxide 15 L (22-30) mmol/L BUN 111 H* (9-20) mg/dL Creatinine 2.96 H (0.66-1.25) mg/dL Glucose 170 H (74-99) mg/dL POC Glucose (mg/dL) (70-110) mg/dL Calcium 7.4 L (8.4-10.2) mg/dL Crossmatch Assessment and Plan Assessment: Acute abdominal distention, and bowel obstruction, secondary to colonic adenocarcinoma, status post transverse colectomy and partial omentectomy, November 13, 2023. Postoperative ileus. Suspect abdominal sepsis. Mild LV dysfunction and cardiomyopathy. Acute congestive heart failure secondary to ischemic cardiomyopathy. 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 Chronic kidney disease, stage III. Chronic atrial fibrillation. Benign essential hypertension. Hyperlipidemia. Plan: Plan dated November 26, 2023. We continue with supportive measures. Surgery still addressing his ileus. The patient did receive blood transfusions for low hemoglobin. We continue with GI DVT prophylaxis. The patient continues with TPN at 93 cc an hour. The patient also continues with ertapenem, but we will check a procalcitonin level. Labs, x-rays, medications are reviewed. Patient's overall prognosis remains guarded. We will continue to follow, make recommendations along the way. Plan dated November 27, 2023. The patient stable from the pulmonary standpoint. Room air saturation is 97%. The patient's other vital signs are stable. The patient is still getting TPN at 93 cc an hour. He continues on ertapenem. The patient not getting any additional fluids. Labs, x-rays, and medications are all reviewed. A procalcitonin level was done yesterday, was 0.48. We will continue to follow make recommendations along the way. Prognosis is certainly guarded. Plan dated November 28, 2023. The patient continues on TPN at 93 cc an hour. In addition, the patient is on dobutamine at 5 mcg/kg/min. The patient is not requiring any supplemental oxygen. The patient continues on room air. Room air saturation is 96%. Labs, x-rays, and all medications are reviewed. We will continue to follow the patient, and make recommendations along the way. Overall prognosis remains very guarded. Time with Patient: Less than 30
[2023-11-28 12:04] LABS: Glucose,Whole Blood 207 mg/dL (70-110)
--- NOTE | 2023-11-28 12:18 | P.PN ---
Subjective patient is seen for follow-up for acute kidney injury and chronic kidney disease. Currently being diuresed for volume overload. Lasix has been increased. Patient remains with significant fluid overload. Maintained on TPN urine output is low at about 500 mL for 24 hours. started on dobutamine drip on 11/27/2023 No complaints of chest pain or shortness of breath. Objective - Vital Signs Vital signs: Vital Signs Temp 97.8 F 11/28/23 08:00 Pulse 72 11/28/23 12:06 Resp 22 11/28/23 08:00 BP 91/44 11/28/23 08:00 Pulse Ox 96 11/28/23 08:50 FiO2 21 11/28/23 08:50 Intake & Output 11/27/23 11/28/23 11/28/23 18:59 06:59 18:59 Intake Total 546 250 Output Total 200 Balance 346 250 Weight 130 kg 130 kg Intake: Intake, IV Titration 250 Amount DOBUTamine DRIP 500 mg In 250 Dextrose/Water 1 250ml. bag @ 5 MCG/KG/MIN 18.15 mls/hr IV .[id number] [facility] Rx #:[id number] Oral 236 Blood Product 310 Rc As-1 Unit 310 [id number] Output: Urine 200 Other: Voiding Method Indwelling Catheter Indwelling Catheter Indwelling Catheter - Exam patient is awake, comfortable, no acute distress Examination of the heart S1 and S2 Examination of the lungs decreased breath sounds at the bases Abdomen is soft nontender Examination of lower extremity shows edema 2+ bilaterally with scrotal edema BOLTER HELPER exam grossly intact - Labs CBC & Chem 7: 11/28/23 09:54 11/28/23 08:44 Labs: Abnormal Lab Results - Last 24 Hours (Table) 11/25/23 11/27/23 11/28/23 Range/Units 14:30 17:10 00:06 WBC (3.8-10.6) k/uL RBC (4.30-5.90) m/uL Hgb (13.0-17.5) gm/dL Hct (39.0-53.0) % RDW (11.5-15.5) % Neutrophils # (1.3-7.7) k/uL Lymphocytes # (1.0-4.8) k/uL Monocytes # (0-1.0) k/uL PT (10.0-12.5) sec INR (<1.2) Sodium (137-145) mmol/L Carbon Dioxide (22-30) mmol/L BUN (9-20) mg/dL Creatinine (0.66-1.25) mg/dL Glucose (74-99) mg/dL POC Glucose (mg/dL) 236 H 242 H (70-110) mg/dL Calcium (8.4-10.2) mg/dL Crossmatch See Detail 11/28/23 11/28/23 11/28/23 Range/Units 06:11 08:44 08:44 WBC (3.8-10.6) k/uL RBC (4.30-5.90) m/uL Hgb (13.0-17.5) gm/dL Hct (39.0-53.0) % RDW (11.5-15.5) % Neutrophils # (1.3-7.7) k/uL Lymphocytes # (1.0-4.8) k/uL Monocytes # (0-1.0) k/uL PT 14.0 H (10.0-12.5) sec INR 1.3 H (<1.2) Sodium 125 L (137-145) mmol/L Carbon Dioxide 15 L (22-30) mmol/L BUN 111 H* (9-20) mg/dL Creatinine 2.96 H (0.66-1.25) mg/dL Glucose 170 H (74-99) mg/dL POC Glucose (mg/dL) 229 H (70-110) mg/dL Calcium 7.4 L (8.4-10.2) mg/dL Crossmatch 11/28/23 11/28/23 Range/Units 09:54 11:56 WBC 12.1 H (3.8-10.6) k/uL RBC 2.73 L (4.30-5.90) m/uL Hgb 7.9 L (13.0-17.5) gm/dL Hct 25.2 L (39.0-53.0) % RDW 15.7 H (11.5-15.5) % Neutrophils # 9.8 H (1.3-7.7) k/uL Lymphocytes # 0.6 L (1.0-4.8) k/uL Monocytes # 1.3 H (0-1.0) k/uL PT (10.0-12.5) sec INR (<1.2) Sodium (137-145) mmol/L Carbon Dioxide (22-30) mmol/L BUN (9-20) mg/dL Creatinine (0.66-1.25) mg/dL Glucose (74-99) mg/dL POC Glucose (mg/dL) 207 H (70-110) mg/dL Calcium (8.4-10.2) mg/dL Crossmatch Assessment and Plan Assessment: 1. Acute kidney injury ATN secondary to hypotension and urine retention. also received IV contrast on 11/17/2023. Currently being diuresed. No evidence of obstruction noted on CT of the abdomen. urine output is low and patient remains significantly volume overloaded. dobutamine drip admitted on 11/27/2023 2. Hyperkalemia associated with acute kidney injury and metabolic acidosis and urine retention. Also related to underlying GI bleed. improved 3. Metabolic acidosis non-gap secondary to acute kidney injury 4. Colon mass status post transverse colectomy and partial omentectomy 5. Chronic kidney disease stage IIIa with baseline creatinine around 1.4 secondary to nephrosclerosis 6. Volume overload maintained on IV Lasix 7. Partial small bowel obstruction versus moderate ileus being followed by surgery. Currently maintained on TPN. 8. Cardiomyopathy with EF of 40-45% 9. Hypervolemic hyponatremia Plan: continue dobutamine Switch to Lasix drip [place] 1 Continue with midodrine Discussed with patient and regarding possibly starting dialysis in the next 24-48 hours if no improvement in urine output.
[2023-11-28] MEDS: TOLVAPTAN 15 MG TABLET PO ONE (13:24)
[2023-11-28] MEDS: FUROSEMIDE 100 MG in SODIUM CHLORIDE 0.9% 90 ML IV SCH (13:25)
[2023-11-28] MEDS: [UNRECOGNIZED DRUG - MIXTURE] IV SCH (13:25)
--- NOTE | 2023-11-28 15:39 | P.PN ---
Subjective Progress Note Date: 11/28/23 CHIEF COMPLAINT: Colon obstruction HISTORY OF PRESENT ILLNESS: Patient is status post transverse colectomy and partial omentectomy on 11/13/23. Patient feels slightly better today. He did receive 1 unit of blood yesterday for hemoglobin of 7.4 and feeling weak and fatigued. Patient having bowel movements and flatus. Was able to eat the food that his brought in. Afebrile. WBC 12.1 Hgb 7.9 platelets 338 INR 1.3 sodium is 125 potassium 4.3 creatinine 2.96 nephrology has started patient on a Lasix drip. They are discussing possibility of starting dialysis PHYSICAL EXAM: VITAL SIGNS: Reviewed. GENERAL: no acute distress. Generalized edema ABDOMEN: Soft. Mildly distended. nontender. Incisional dressing with small area of saturation NEUROLOGIC: Alert and oriented. Cranial nerves II through XII grossly intact. ASSESSMENT: 1. Colon cancer status post transverse colectomy 2. Postoperative ileus 3. Symptomatic anemia PLAN: -Continue regular diet. Discussed with . She can bring food from home -Continue TPN for nutrition support until oral intake increases -Encourage patient to increase activity level -Continue supportive care -Plan to remove every other staple from abdominal incision tomorrow Physician Head Batcher note has been reviewed by physician. Signing provider agrees with the documented findings, assessment, and plan of care. Objective - Vital Signs Vital signs: Vital Signs Temp 97.4 F L 11/28/23 12:00 Pulse 78 11/28/23 14:00 Resp 18 11/28/23 14:00 BP 143/60 11/28/23 12:00 Pulse Ox 93 L 11/28/23 12:00 FiO2 21 11/28/23 08:50 Intake & Output 11/27/23 11/28/23 11/28/23 18:59 06:59 18:59 Intake Total 546 250 Output Total 200 Balance 346 250 Weight 130 kg 130 kg Intake: Intake, IV Titration 250 Amount DOBUTamine DRIP 500 mg In 250 Dextrose/Water 1 250ml. bag @ 5 MCG/KG/MIN 18.15 mls/hr IV .[id number] [facility] Rx #:[id number] Oral 236 Blood Product 310 Rc As-1 Unit 310 [id number] Output: Urine 200 Other: Voiding Method Indwelling Catheter Indwelling Catheter Indwelling Catheter - Labs CBC & Chem 7: 11/28/23 09:54 11/28/23 08:44 Labs: Abnormal Lab Results - Last 24 Hours (Table) 11/25/23 11/27/23 11/28/23 Range/Units 14:30 17:10 00:06 WBC (3.8-10.6) k/uL RBC (4.30-5.90) m/uL Hgb (13.0-17.5) gm/dL Hct (39.0-53.0) % RDW (11.5-15.5) % Neutrophils # (1.3-7.7) k/uL Lymphocytes # (1.0-4.8) k/uL Monocytes # (0-1.0) k/uL PT (10.0-12.5) sec INR (<1.2) Sodium (137-145) mmol/L Carbon Dioxide (22-30) mmol/L BUN (9-20) mg/dL Creatinine (0.66-1.25) mg/dL Glucose (74-99) mg/dL POC Glucose (mg/dL) 236 H 242 H (70-110) mg/dL Calcium (8.4-10.2) mg/dL Crossmatch See Detail 11/28/23 11/28/23 11/28/23 Range/Units 06:11 08:44 08:44 WBC (3.8-10.6) k/uL RBC (4.30-5.90) m/uL Hgb (13.0-17.5) gm/dL Hct (39.0-53.0) % RDW (11.5-15.5) % Neutrophils # (1.3-7.7) k/uL Lymphocytes # (1.0-4.8) k/uL Monocytes # (0-1.0) k/uL PT 14.0 H (10.0-12.5) sec INR 1.3 H (<1.2) Sodium 125 L (137-145) mmol/L Carbon Dioxide 15 L (22-30) mmol/L BUN 111 H* (9-20) mg/dL Creatinine 2.96 H (0.66-1.25) mg/dL Glucose 170 H (74-99) mg/dL POC Glucose (mg/dL) 229 H (70-110) mg/dL Calcium 7.4 L (8.4-10.2) mg/dL Crossmatch 11/28/23 11/28/23 Range/Units 09:54 11:56 WBC 12.1 H (3.8-10.6) k/uL RBC 2.73 L (4.30-5.90) m/uL Hgb 7.9 L (13.0-17.5) gm/dL Hct 25.2 L (39.0-53.0) % RDW 15.7 H (11.5-15.5) % Neutrophils # 9.8 H (1.3-7.7) k/uL Lymphocytes # 0.6 L (1.0-4.8) k/uL Monocytes # 1.3 H (0-1.0) k/uL PT (10.0-12.5) sec INR (<1.2) Sodium (137-145) mmol/L Carbon Dioxide (22-30) mmol/L BUN (9-20) mg/dL Creatinine (0.66-1.25) mg/dL Glucose (74-99) mg/dL POC Glucose (mg/dL) 207 H (70-110) mg/dL Calcium (8.4-10.2) mg/dL Crossmatch
[2023-11-28] MEDS: WARFARIN 2 MG TAB PO ONE (18:09)
[2023-11-28 18:12] LABS: Glucose,Whole Blood 172 mg/dL (70-110)
[2023-11-28 23:56] LABS: Glucose,Whole Blood 215 mg/dL (70-110)
[2023-11-29 05:49] LABS: Glucose,Whole Blood 213 mg/dL (70-110)
--- NOTE | 2023-11-29 11:08 | P.PN ---
Subjective Progress Note Date: 11/29/23 Principal diagnosis: Anemia. This is a 83-year-old male patient was transferred to the intensive care unit yesterday as the patient developed significant abdominal distention and hypotension. The patient has a colonic mass and the patient has undergone transverse colectomy and surgery was done on 11/13/2023.. For now, the patient is postop day #4. The abdomen was firm and quite distended. Immediately, a stat CAT scan of the abdomen was done and the patient was found to have pneumoperitoneum and this was suspected to be related to previous surgery. There was also nonobstructive bowel gas pattern with significant gastric distention and partial small bowel obstruction cannot be completely excluded. At that point, NG tube was inserted and immediately 600 cc of output was obtained. Abdomen is still distended although less compared to yesterday. No flatus. Bowel sounds are absent. General surgery is on the case. White cell count not elevated. Lactic acid level is low at 1.3. Note that postop, the patient's renal function remained stable. The patient has chronic stage III kidney disease and the creatinine today is up to 2.17 and a sodium levels at 134 with a potassium level of 5.5. Serum bicarb is at 17. Nephrology on the case. The patient is currently on a bicarb infusion which is running at 50 cc an hour. He has history of paroxysmal atrial fibrillation. He is on anticoagulation with warfarin. Coumadin is on hold and the patient's INR today is at 3.5. The respiratory status is stable. No significant shortness of breath. The patient is currently on 3 L of oxygen by nasal cannula with a pulse ox of 98%. Repeat chest film of the abdomen was done today that showed NG tube being in place. There is contrast in the mid and the distal colon and nonspecific bowel gas pattern and the patient's chest x-ray from today is showing cardiomegaly. NG tube is in place. There is air under the right hemidiaphragm. The patient was seen by 2 separate general surgeons and no surgical intervention is required at this point in time. Will monitor and will put the bowel to rest. The patient has likely small bowel ileus. Patient was reevaluated today on 11/19/2023, patient is status post transverse colectomy and surgery was done on 11/13/2023 for suspected colonic mass and abdominal distention he is now postoperative day #5. Patient has been in the ICU for what seems to be persistent abdominal distention and possible small bowel ileus. Being followed by surgery, does not feel reexploration is necessary at this point. Nonetheless the patient seems to be quite comfortable, abdomen is distended, he is hypotensive requiring norepinephrine at 0.07 mcg/kg/min. Continues to have nasogastric tube in place and draining 800 cc over the last 24 hours. Patient is also known to have history of cardiomyopathy and LV dysfunction with ejection fraction of 40 to 45%, he is requiring intermittently diuretics/Lasix his last dose was yesterday. Remains on antibiotics in the form of Invanz mostly because of his multiple allergies to different antibiotics. Patient continues to have chronic venous stasis and swelling in the lower extremities. And seems a bit uncomfortable with abdominal distention. But no evidence of severe pain. Slightly tender to palpation WBC count today is 9.2 hemoglobin is 7.4. INR is 3.8 basic metabolic profile is normal renal profile is a bit worse today BUN is 42 creatinine up to 2.31 from 2.16 yesterday chest x-ray continues to show free air under the diaphragm, cardiomegaly, and chronic mild venous congestion. Possible pneumonitis 3 today on 11/20/2023, patient remains in the ICU, continues to have significant abdominal distention/ileus continues to have nasogastric tube in place, patient remains n.p.o., patient still requiring TPN, and intermittently on norepinephrine. Lasix was given today 40 mg IV push x 1, seems to have decent urine output in spite of marginal blood pressure. His abdominal distention remains worrisome. 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 Chest x-ray is showing mostly minimal bibasilar atelectasis, cardiomegaly, and minimal venous congestion Reason on 11/21/2023, patient remains in the ICU, patient remains on Invanz, he is supposed to get a PICC line tomorrow, however his INR is elevated, will arrange for 2 units of fresh frozen plasma and vitamin K to be given tomorrow about 6 hours before PICC line schedule placement. Pulmonary herrera the patient is doing well, asymptomatic, continues to have ileus continues to have abdominal distention but improving patient is passing gas at least. His abdominal issues are being addressed by surgery on the case. WBC count is 10.1 hemoglobin 7.8 INR is 3.8 basic metabolic profile is normal BUN is 50 creatinine 2.11 chest x- ray today continues to show free air in the upper abdomen, otherwise no significant findings Reevaluate today on 11/22/2023, patient is still in the ICU, his abdominal distention is improving, patient has had bowel movements last night, patient was started today on clear liquids, PICC line was placed for TPN, did receive fresh frozen plasma and vitamin K for placement of the PICC line, INR today is 1.7. Now the patient could be restarted back on his Coumadin. And we could potentially transfer the patient out of the ICU to a monitored bed and marcus ective/3 S. WBC count is 10.7 hemoglobin 7.7 INR is 1.7 basic metabolic profile is normal renal profile showed BUN of 52 creatinine 2.18 3 today on 11/23/2023, patient is doing well, he is on room air, sitting at the bedside chair, he is on 3 S., not in any distress, continues to have abdominal distention, no bowel movement today, but the patient is passing gas. Patient will need to go back on his Coumadin. WBC count today is 11.6 hemoglobin 7.5 basic metabolic profile is normal BUN is 53 creatinine 2.41, blood sugar is high, being addressed by internal medicine on the case. Reevaluate today on 11/24/23, patient remains on room air, not in any distress, relatively asymptomatic from the pulmonary perspective continues to have abdominal distention, continues to pass gas but no bowel movements. Patient is receiving TPN, and I believe he is already eating as recommended by surgery. WBC count is 14.5 hemoglobin 7.8 basic metabolic profile is normal BUN is 65 creatinine 2.31, renal status is being addressed by nephrology on the case Patient was reevaluated today on 11/25/2023, patient remains on room air, not in any distress, patient has no active pulmonary issues today, no cough no wheezing no shortness of breath, patient did have a bowel movement yesterday, however his abdomen remains a bit distended. Patient is being considered for rehab placement and I think that is appropriate. Hemoglobin today is 6.8, patient may benefit from a unit of packed RBCs. This will be addressed by surgery on the case. Patient is still receiving TPN and apparently has been taking some hunt ited food orally. Progress note dated November 26, 2023. 83-year-old male seen today in room 365. The patient is currently on room air. He is receiving TPN at 93 cc an hour. He also is on ertapenem. We will check a procalcitonin level on this patient. Current labs include a white count of 13.9, hemoglobin 7.3, hematocrit 26.5, and platelet count of 366,000. PT is 14.8 with an INR 1.4. Sodium 127, potassium 5.2, chlorides 98, CO2 19, anion gap 10, BUN 81, creatinine 2.68. Glucose is 277. Calcium 7.2. Magnesium is 2.2. Progress note dated November 27, 2023. 83-year-old male seen today in room 365. Currently, the patient is on room air. The patient continues on TPN at 93 cc an hour. In addition, the patient continues on ertapenem. The patient appears to be doing relatively well. Fa codie members are at the bedside. Current laboratory data includes a white count 12.8, hemoglobin 7.4, hematocrit 24.7, and platelet count 362,000. PT 13.1 with an INR 1.2. Sodium 128, potassium 4.3, chlorides 101, CO2 18, BUN 99, creatinine 2.79. Glucose is 228. Calcium 7.1. Magnesium 2.1. Progress note dated November 28, 2023. 83-year-old male seen today in room 365. Currently, the patient is on room air. The patient continues on TPN at 93 cc an hour, and is also receiving dobutamine according to the nurse at 5 mcg/kg/min. Current laboratory data includes a white count 12.1, hemoglobin 7.9, hematocrit 25.2, and a platelet count of 338,000. PT 14, with an INR of 1.3. Sodium 125, potassium 4.3, chlorides 100, CO2 15, anion gap 10, BUN 111, creatinine 2.96. Glucose is 170. Calcium is 7.4. Progress note dated November 29, 2023. 83-year-old male seen today in room 365. Currently, the patient is on TPN at 93 cc an hour, Lasix drip at 10 mg an hour, and dobutamine at 5 mcg/kg/min. The patient is not receiving any supplemental oxygen. His overall clinical status, is similar to yesterday's. Current laboratory data includes a glucose of 213. No additional laboratory data are seen today. Objective - Vital Signs Vital signs: Vital Signs Temp 98.2 F 11/29/23 08:00 Pulse 74 11/29/23 09:15 Resp 18 11/29/23 09:15 BP 118/72 11/29/23 08:00 Pulse Ox 97 11/29/23 09:01 FiO2 21 11/28/23 08:50 Intake & Output 11/28/23 11/29/23 11/29/23 18:59 06:59 18:59 Intake Total 250 156.834 469.295 Output Total 100 Balance 250 56.834 469.295 Weight 130 kg 133 kg Intake: Intake, IV Titration 250 156.834 229.295 Amount DOBUTamine DRIP 500 mg In 250 229.295 Dextrose/Water 1 250ml. bag @ 5 MCG/KG/MIN 18.15 mls/hr IV .[id number] [facility] Rx #:[id number] Furosemide 100 mg In 156.834 Sodium Chloride 0.9% 90 ml @ 10 MG/HR 10 mls/hr IV .Q10H [facility] Rx#: [id number] Oral 240 Output: Urine 100 Other: Voiding Method Indwelling Catheter Indwelling Catheter Indwelling Catheter - Exam No acute distress, oriented 3. Currently on room air. HEENT examination is grossly unremarkable. Mucous membranes are moist. No oral lesions. Neck supple. Full range of motion. No adenopathy thyromegaly or neck vein distention. Cardiovascular examination reveals an irregular rhythm and rate. S1-S2 normal. No S3 or S4. No discernible murmur noted. Heart rate is 74 bpm. Lungs reveal mostly clear breath sounds. Minimal rhonchi. No wheezes or crackles. Breath sounds equal bilaterally. Room air saturation 97 %. Abdomen soft bowel sounds. No masses or tenderness. Extremities are intact. No cyanosis clubbing or edema. Forearms are wrapped. Skin is without rash or lesion. Neurologic examination is brief but nonfocal. - Labs CBC & Chem 7: 11/28/23 09:54 11/28/23 08:44 Labs: Abnormal Lab Results - Last 24 Hours (Table) 11/28/23 11/28/23 11/28/23 Range/Units 08:44 11:56 18:11 Sodium 125 L (137-145) mmol/L Carbon Dioxide 15 L (22-30) mmol/L BUN 111 H* (9-20) mg/dL Creatinine 2.96 H (0.66-1.25) mg/dL Glucose 170 H (74-99) mg/dL POC Glucose (mg/dL) 207 H 172 H (70-110) mg/dL Calcium 7.4 L (8.4-10.2) mg/dL 11/28/23 11/29/23 Range/Units 23:53 05:45 Sodium (137-145) mmol/L Carbon Dioxide (22-30) mmol/L BUN (9-20) mg/dL Creatinine (0.66-1.25) mg/dL Glucose (74-99) mg/dL POC Glucose (mg/dL) 215 H 213 H (70-110) mg/dL Calcium (8.4-10.2) mg/dL Assessment and Plan Assessment: Acute abdominal distention, and bowel obstruction, secondary to colonic adenocarcinoma, status post transverse colectomy and partial omentectomy, November 13, 2023. Postoperative ileus. Suspect abdominal sepsis. Mild LV dysfunction and cardiomyopathy. Acute congestive heart failure secondary to ischemic cardiomyopathy. 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 Chronic kidney disease, stage III. Chronic atrial fibrillation. Benign essential hypertension. Hyperlipidemia. Plan: Plan dated November 26, 2023. We continue with supportive measures. Surgery still addressing his ileus. The patient did receive blood transfusions for low hemoglobin. We continue with GI DVT prophylaxis. The patient continues with TPN at 93 cc an hour. The patient also continues with ertapenem, but we will check a procalcitonin level. Labs, x-rays, medications are reviewed. Patient's overall prognosis remains guarded. We will continue to follow, make recommendations along the way. Plan dated November 27, 2023. The patient stable from the pulmonary standpoint. Room air saturation is 97%. The patient's other vital signs are stable. The patient is still getting TPN at 93 cc an hour. He continues on ertapenem. The patient not getting any additional fluids. Labs, x-rays, and medications are all reviewed. A p rocalcitonin level was done yesterday, was 0.48. We will continue to follow make recommendations along the way. Prognosis is certainly guarded. Plan dated November 28, 2023. The patient continues on TPN at 93 cc an hour. In addition, the patient is on dobutamine at 5 mcg/kg/min. The patient is not requiring any supplemental oxygen. The patient continues on room air. Room air saturation is 96%. Labs, x-rays, and all medications are reviewed. We will continue to follow the patient, and make recommendations along the way. Overall prognosis remains very guarded. Plan dated November 29, 2023. The patient continues on TPN at 93 cc an hour. In addition, the patient is on a Lasix drip at 10 mg an hour, dobutamine at 5 mcg/kg/min. The patient continues in atrial fibrillation. Labs, x-rays, medications are reviewed. We will continue to follow make recommendations along the way. The patient's overall prognosis remains guarded.
[2023-11-29 11:35] LABS: Glucose,Whole Blood 270 mg/dL (70-110)
--- NOTE | 2023-11-29 12:26 | P.PN ---
Subjective patient is seen for follow-up for acute kidney injury and chronic kidney disease. patient is maintained on dobutamine and Lasix drip with minimal urine output. is present at bedside and family has decided to proceed with hospice care. Objective - Vital Signs Vital signs: Vital Signs Temp 98.2 F 11/29/23 08:00 Pulse 77 11/29/23 11:42 Resp 18 11/29/23 11:42 BP 129/82 11/29/23 11:33 Pulse Ox 97 11/29/23 11:33 FiO2 21 11/28/23 08:50 Intake & Output 11/28/23 11/29/23 11/29/23 18:59 06:59 18:59 Intake Total 250 156.834 469.295 Output Total 100 Balance 250 56.834 469.295 Weight 130 kg 133 kg Intake: Intake, IV Titration 250 156.834 229.295 Amount DOBUTamine DRIP 500 mg In 250 229.295 Dextrose/Water 1 250ml. bag @ 5 MCG/KG/MIN 18.15 mls/hr IV .[id number] [facility] Rx #:[id number] Furosemide 100 mg In 156.834 Sodium Chloride 0.9% 90 ml @ 10 MG/HR 10 mls/hr IV .Q10H [facility] Rx#: [id number] Oral 240 Output: Urine 100 Other: Voiding Method Indwelling Catheter Indwelling Catheter Indwelling Catheter - Exam patient is awake, comfortable, no acute distress Abdomen is soft nontender Examination of lower extremity shows edema 2+ bilaterally with scrotal edema BODY DESIGN CHECKER exam grossly intact - Labs CBC & Chem 7: 11/28/23 09:54 11/28/23 08:44 Labs: Abnormal Lab Results - Last 24 Hours (Table) 11/28/23 11/28/23 11/29/23 Range/Units 18:11 23:53 05:45 POC Glucose (mg/dL) 172 H 215 H 213 H (70-110) mg/dL 11/29/23 Range/Units 11:33 POC Glucose (mg/dL) 270 H (70-110) mg/dL Assessment and Plan Assessment: 1. Acute kidney injury ATN secondary to hypotension and urine retention. also received IV contrast on 11/17/2023. No evidence of obstruction noted on CT of the abdomen. urine output is low and patient remains significantly volume overloaded. dobutamine drip started on 11/27/2023 2. Hyperkalemia associated with acute kidney injury and metabolic acidosis and urine retention. Also related to underlying GI bleed. improved 3. Metabolic acidosis non-gap secondary to acute kidney injury 4. Colon mass status post transverse colectomy and partial omentectomy 5. Chronic kidney disease stage IIIa with baseline creatinine around 1.4 secon caitlin to nephrosclerosis 6. Volume overload maintained on Lasix drip 7. Partial small bowel obstruction versus moderate ileus being followed by surgery. Currently maintained on TPN. 8. Cardiomyopathy with EF of 40-45% 9. Hypervolemic hyponatremia Plan: agree with plans for hospice care. Patient is not an ideal candidate for renal replacement therapy.
--- NOTE | 2023-11-29 14:47 | P.PN ---
Subjective Progress Note Date: 11/29/23 CHIEF COMPLAINT: Colon obstruction HISTORY OF PRESENT ILLNESS: Patient is status post transverse colectomy and partial omentectomy on 11/13/23. Patient remains on the Lasix drip and dobutamine. Minimal urine output. He did tolerate the food that his brought in. He did have a bowel movement. Denies any nausea or vomiting. Patient and family have decided to proceed with home with hospice care. Per nephrology patient is not an ideal candidate for renal replacement. PHYSICAL EXAM: VITAL SIGNS: Reviewed. GENERAL: no acute distress. Generalized edema ABDOMEN: distended. nontender. Incision clean dry and intact NEUROLOGIC: awake and alert ASSESSMENT: 1. Colon cancer status post transverse colectomy 2. Postoperative ileus 3. Symptomatic anemia that is post 1 unit of blood PLAN: -Patient and family have decided to go home with hospice -Continue regular diet Physician Fashion Coordinator note has been reviewed by physician. Signing provider agrees with the documented findings, assessment, and plan of care. I have personally seen and examined the patient, reviewed the ANIMAL EVISCERATOR /PAs history, exam and MDM and agree with the assessment and plan as written. Based on total visit time, I have performed more than 50% of the visit. As above: Patient continues to have discomfort. Plans are for hospice at this time. Anticipating discharge tomorrow. Objective - Vital Signs Vital signs: Vital Signs Temp 98.2 F 11/29/23 08:00 Pulse 77 11/29/23 11:42 Resp 18 11/29/23 11:42 BP 129/82 11/29/23 11:33 Pulse Ox 97 11/29/23 11:33 FiO2 21 11/28/23 08:50 Intake & Output 11/28/23 11/29/23 11/29/23 18:59 06:59 18:59 Intake Total 250 1187.334 469.295 Output Total 100 Balance 250 1087.334 469.295 Weight 130 kg 133 kg Intake: Intake, IV Titration 250 1187.334 229.295 Amount DOBUTamine DRIP 500 mg In 250 229.295 Dextrose/Water 1 250ml. bag @ 5 MCG/KG/MIN 18.15 mls/hr IV .[id number] [facility] Rx #:[id number] Furosemide 100 mg In 156.834 Sodium Chloride 0.9% 90 ml @ 10 MG/HR 10 mls/hr IV .Q10H [facility] Rx#: [id number] Sodium Chloride 4Meq/ml 1030.5 Vial 30 meq Calcium Gluconate 1 gm Magnesium Sulfate gm 0.5 gm Sodium Phosphate 9 mmol Sodium Acetate 18 meq In Amino Acids 5 %/Dextrose 20 % 1 ,000 ml @ 93 mls/hr IV . BY DURATION [facility] Rx#: [id number] Oral 240 Output: Urine 100 Other: Voiding Method Indwelling Catheter Indwelling Catheter Indwelling Catheter - Labs CBC & Chem 7: 11/28/23 09:54 11/28/23 08:44 Labs: Abnormal Lab Results - Last 24 Hours (Table) 11/28/23 11/28/23 11/29/23 Range/Units 18:11 23:53 05:45 POC Glucose (mg/dL) 172 H 215 H 213 H (70-110) mg/dL 11/29/23 Range/Units 11:33 POC Glucose (mg/dL) 270 H (70-110) mg/dL
--- NOTE | 2023-11-29 15:44 | P.DS ---
Providers Date of admission: 11/08/23 17:20 Expected date of discharge: 11/29/23 Attending physician: Bruno Coelho Consults: 11/12/23 15:29 Consult Physician Routine Consulting Provider: Rell Brewer Consult Reason/Comments: Colon obstruction Do you want consulting provider notified?: Already Contacted 11/15/23 17:07 Consult Physician Routine Consulting Provider: Linda Junior Consult Reason/Comments: renal failure Do you want consulting provider notified?: Yes 11/17/23 23:29 Consult Physician Routine Consulting Provider: Bruce Rajan Consult Reason/Comments: ICU management Do you want consulting provider notified?: Already Contacted 11/19/23 11:31 Consult Physician Routine Consulting Provider: Venkata Mcghee Consult Reason/Comments: possible pacemaker interrogation need Do you want consulting provider notified?: Yes 11/26/23 09:40 Consult Physician Routine Consulting Provider: Naga Simpson Consult Reason/Comments: adenoca colon,mets. Do you want consulting provider notified?: Yes 11/27/23 13:05 Consult Physician Routine Consulting Provider: Rudi Shrestha Consult Reason/Comments: CHF Do you want consulting provider notified?: Already Contacted Primary care physician: Bruno Coelho [facility] Course: Final Diagnoses: Severe anemia secondary to acute GI bleed, status post EGD and colonoscopy; Upper endoscopy revealed 2.5 cm broad-based duodenal polyp in the second part of the duodenum opposite the ampullary orifice status post snare polypectomy and almost complete polypectomy performed. Small hiatal hernia. Colonoscopy revealed tight apple core ulcerated lesion in the mid transverse colon with significant luminal narrowing status post biopsy and tattooing. Scope could not be advanced beyond the lesion. 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 There is free air immediately adjacent to the lumen compatible with recent catheter tattoo during colonoscopy. Correlation for metastasis in the liver limited due to lack of IV contrast.Circumferential duodenal wall thic kening correlate for duodenitis. Cholelithiasis. Infrarenal abdominal aortic aneurysm up to 3.2 cm. Right renal cyst. Status post transverse colectomy and partial omentectomy. 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 Surgical pathology reporting 6 out of 13 pericolonic lymph nodes positive for metastatic colonic adenocarcinoma. Oncology consulted. Acute abdominal distention, bowel obstruction secondary to colonic adenocarcinoma status post transverse colectomy, partial omentectomy on 11/13/2023, on TPN Hyperglycemic Hypotension, maintained on midodrine; suspect related to abdominal sepsis, maintained on empiric Invanz Fluid volume overload, maintained on IV push diuretics, Dobutamine drip Hypervolemic hyponatremia Urinary retention, post operative, requiring Villasenor catheter Acute renal failure, ATN secondary to the above ,hypotension and had received IV contrast. 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 discovered to have a hemoglobin of 6.7, INR 6.5. BUN 53, creatinine 2.28, bicarb 23 transfused with 1 unit packed RBCs as well as vitamin K in the ER. Repeat labs pending. denies nausea or vomiting but reported diarrhea dark black stools X months. Blood pressure soft, maintain O2 sats in the 90s on room air. Denies chest pain, palpitations or shortness of breath. 11/12/2023 NPO, completed prep, EGD and colonoscopy scheduled for early this afternoon. Anticoagulation remains on hold, continues on PPI. Reports no further bleeding or black, dark rectal output. Reports over the last 2 years he has lost 50 pounds, on a healthier diet. Hemoglobin with 7.6, platelet 182. renal function slowly improving, BUN 24, creatinine 1.64 denies chest pain, palpitations or shortness of breath. 11/14/2023 status post transverse colectomy and partial omentectomy, postop day #1. Reports "sore abdomen". Anticoagulation remains on hold. Receiving IV fluid hydration .reports occasional productive cough of phlegm .sitting up in chair.not passing flatus, advanced to clear liquids. Denies nausea or vomiting. Villasenor catheter recently DC'd this morning at 0600, not yet spontaneous voiding, bladder scan pending. BUN 18, creatinine 1.82. Received 1 unit packed RBCs yesterday for hemoglobin of 7.4, hemoglobin currently 8.9. Afebrile, WBC increased to 10.7. Sodium 136, potassium 5.7, bicarb 17. Pathology pending. 11/15/2023 IV fluid hydration. Blood pressure soft. Urinary retention, straight cath x 2 ,worsening renal function, creatinine up to 1.94, nephrology consulted. Hyperkalemic, potassium 5.9. Pain controlled. Reports not passing flatus. No bowel movement. Telemetry reporting paced rhythm .anticoagulation/Coumadin resuming tonight. 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 11/16/2023 Hemoglobin remains 7.9. Continues on IV fluid hydration .Maintained on Clear Liquid Diet, nauseated this morning. Blood sugars controlled. pain controlled. Passing minimal flatus, no bowel movement. Villasenor catheter placed yesterday secondary to urinary retention .renal ultrasound reported negative for obstructive uropathy, no hydronephrosis .blood pressures soft, improving. Renal function worsening, bicarb 15, BUN 22, creatinine 2.1, potassium decreased to currently 5.7. Anticoagulation with Coumadin resumed yesterday, INR 1.5. 11/26/2023 Surgical pathology resulted on 327 reporting 6 out of 13 pericolonic lymph nodes positive for metastatic colonic adenocarcinoma. Oncology consulted. Abdomen significantly distended, reports a bowel movement a couple days ago, short of breath. Received 1 unit packed RBCs yesterday for hemoglobin of 6.8, repeat hemoglobin ordered. Maintained on TPN, hyperglycemic, glucose 765, POC glucose 461; repeat Accu-Chek reported 286. Worsening renal function, BUN 81, creatinine 2.68, bicarb 19, potassium 5.2, sodium 127. INR 1.4. Continues on midodrine, blood pressures improved this morning. Maintained on empiric Invanz for suspected abdominal sepsis. Afebrile. 11/27/2023 surgical pathology results discussed at bedside with both and patient. Oncology consult in place, recommendations pending. Blood pressures soft, on midodrine. maintained on TPN. Procalcitonin 0.48, continues on ertapenem. Continues on increased IV diuretics, positive fluid volume overload, creatinine 2.79, dobutamine drip initiated. Denies chest pain, palpitations or shortness of breath Maintained on dobutamine and Lasix drips. Minimal urine output. Dialysis discussed. Patient and family have decided to proceed with hospice. Patient will be discharged home either later today or in the morning once hospice and DME is arranged. The impression and plan of care has been dictated as directed. : I performed a history and examination of this patient, discussed the same with the dictator. I agree with the dictator's note ,documented as a scribe. Any additional findings or plans will be noted. Patient Condition at Discharge: Stable Plan - Discharge Summary Discharge Rx Participant: Yes New Discharge Prescriptions: New Tamsulosin [Flomax] 0.4 mg PO PC-BRKFST #30 cap HYDROcodone/APAP 5-325MG [[place] 5-325] 1 each PO Q4HR PRN #18 tab PRN Reason: Pain Discontinued Simvastatin [Zocor] 40 mg PO HS Sacubitril/Valsartan [Entresto 24 mg-26 mg Tablet] 1 tab PO BID No Action Empagliflozin [Jardiance] 10 mg PO DAILY carvediloL [Coreg] 12.5 mg PO BID Discharge Medication List Empagliflozin [Jardiance] 10 mg PO DAILY 11/08/23 [History] carvediloL [Coreg] 12.5 mg PO BID 11/08/23 [History] HYDROcodone/APAP 5-325MG [[place] 5-325] 1 each PO Q4HR PRN #18 tab 11/29/23 [Rx] Tamsulosin [Flomax] 0.4 mg PO PC-BRKFST #30 cap 11/29/23 [Rx] Follow up Appointment(s)/Referral(s): [facility] [REFERRING] - 1 Week Bruno Coelho DO [Primary Care Provider] - As Needed Activity/Diet/Wound Care/Special Instructions: Home with hospice Discharge Disposition: HOME WITH HOSPICE
[2023-11-29 16:35] LABS: Glucose,Whole Blood 324 mg/dL (70-110)
--- NOTE | 2023-11-29 17:10 | P.PN ---
Subjective Progress Note Date: 11/28/23 Patient resting comfortably in bed. No acute events. Patient is more alert at today's visit. Patient is reporting he is feeling improved. Still very weak. Hemoglobin stable at 7.9. IV iron started Objective - Vital Signs Vital signs: Vital Signs Temp 98.0 F 11/28/23 20:00 Pulse 75 11/28/23 20:00 Resp 17 11/28/23 20:00 BP 101/47 11/28/23 20:00 Pulse Ox 96 11/28/23 20:00 FiO2 21 11/28/23 08:50 Intake & Output 11/28/23 11/28/23 11/29/23 06:59 18:59 06:59 Intake Total 250 250 66.167 Balance 250 250 66.167 Weight 130 kg 130 kg Intake: Intake, IV Titration 250 250 66.167 Amount DOBUTamine DRIP 500 mg In 250 250 Dextrose/Water 1 250ml. bag @ 5 MCG/KG/MIN 18.15 mls/hr IV .[id number] ALONDRA Rx #:[id number] Furosemide 100 mg In 66.167 Sodium Chloride 0.9% 90 ml @ 10 MG/HR 10 mls/hr IV .Q10H ALONDRA Rx#: [id number] Other: Voiding Method Indwelling Catheter Indwelling Catheter - Constitutional General appearance: Present: no acute distress - EENT Eyes: Present: anicteric sclerae, EOMI ENT: Present: hearing grossly normal - Respiratory Details: breathing is even and unlabored - Cardiovascular Details: skin warm and dry - Integumentary Integumentary: Present: pale. Absent: cyanotic - Musculoskeletal Musculoskeletal: Present: generalized weakness - Psychiatric Psychiatric: Present: A&O x's 3 - Labs CBC & Chem 7: 11/28/23 09:54 11/28/23 08:44 Labs: Abnormal Lab Results - Last 24 Hours (Table) 11/28/23 11/28/23 11/28/23 Range/Units 00:06 06:11 08:44 WBC (3.8-10.6) k/uL RBC (4.30-5.90) m/uL Hgb (13.0-17.5) gm/dL Hct (39.0-53.0) % RDW (11.5-15.5) % Neutrophils # (1.3-7.7) k/uL Lymphocytes # (1.0-4.8) k/uL Monocytes # (0-1.0) k/uL PT 14.0 H (10.0-12.5) sec INR 1.3 H (<1.2) Sodium (137-145) mmol/L Carbon Dioxide (22-30) mmol/L BUN (9-20) mg/dL Creatinine (0.66-1.25) mg/dL Glucose (74-99) mg/dL POC Glucose (mg/dL) 242 H 229 H (70-110) mg/dL Calcium (8.4-10.2) mg/dL 11/28/23 11/28/23 11/28/23 Range/Units 08:44 09:54 11:56 WBC 12.1 H (3.8-10.6) k/uL RBC 2.73 L (4.30-5.90) m/uL Hgb 7.9 L (13.0-17.5) gm/dL Hct 25.2 L (39.0-53.0) % RDW 15.7 H (11.5-15.5) % Neutrophils # 9.8 H (1.3-7.7) k/uL Lymphocytes # 0.6 L (1.0-4.8) k/uL Monocytes # 1.3 H (0-1.0) k/uL PT (10.0-12.5) sec INR (<1.2) Sodium 125 L (137-145) mmol/L Carbon Dioxide 15 L (22-30) mmol/L BUN 111 H* (9-20) mg/dL Creatinine 2.96 H (0.66-1.25) mg/dL Glucose 170 H (74-99) mg/dL POC Glucose (mg/dL) 207 H (70-110) mg/dL Calcium 7.4 L (8.4-10.2) mg/dL 11/28/23 Range/Units 18:11 WBC (3.8-10.6) k/uL RBC (4.30-5.90) m/uL Hgb (13.0-17.5) gm/dL Hct (39.0-53.0) % RDW (11.5-15.5) % Neutrophils # (1.3-7.7) k/uL Lymphocytes # (1.0-4.8) k/uL Monocytes # (0-1.0) k/uL PT (10.0-12.5) sec INR (<1.2) Sodium (137-145) mmol/L Carbon Dioxide (22-30) mmol/L BUN (9-20) mg/dL Creatinine (0.66-1.25) mg/dL Glucose (74-99) mg/dL POC Glucose (mg/dL) 172 H (70-110) mg/dL Calcium (8.4-10.2) mg/dL Assessment and Plan (1) Colon adenocarcinoma Current Visit: Yes Status: Acute Priority: High Code(s): C18.9 - MALIGNANT NEOPLASM OF COLON, UNSPECIFIED SNOMED Code(s): 626729967 (2) Anemia Current Visit: Yes Status: Acute Priority: High Code(s): D64.9 - ANEMIA, UNSPECIFIED SNOMED Code(s): 779562330 (3) Coagulopathy Current Visit: Yes Status: Acute Priority: High Code(s): D68.9 - COAGULATION DEFECT, UNSPECIFIED SNOMED Code(s): 17272345 (4) Elevated INR Current Visit: Yes Status: Acute Priority: High Code(s): R79.1 - ABNORMAL COAGULATION PROFILE SNOMED Code(s): 995140788 Plan: Colon adenocarcinoma: Presented with low hemoglobin that was noted at cardiology f/u. Hgb on admission was noted at 6.7 and received 1 unit PRBCs. He had been feeling increasingly w eak and dizzy prior to admission, and also was reporting dark stools. Pt is anticoagulated with coumadin for history of a-fib. His INR was noted to be 6.5 on admission, and was given dose of vitamin K. Patient underwent colonoscopy on 11/11, revealing an tightapple core ulcerated lesion in the mid transverse colon with significant luminal narrowing. The scope could not be advanced beyond the lesion. CT AP and general surgery consult was ordered at that time. CT abdomen pelvis without contrast obtained on 11/11 revealed apple core lesion in the mid transverse colon with adjacent lymph nodes which are prominent. Free air immediately adjacent to the lumen. Circumferential duodenal wall thickening and cholelithiasis. Patient underwent transverse colectomy on 11/13/2023 with obstructing tumor in the mid transverse colon noted. CTA chest was negative for PE and did not note any metastatic disease with chest -Pathology was positive for invasive well to moderately differentiated colonic adenocarcinoma, with benign margins and 6 out of 13 pericolonic lymph nodes positive for metastatic colonic adenocarcinoma -Results were discussed with patient and spouse and that adjuvant chemotherpay would be recommended, but systemic treatment would be delayed at least 4-6 weeks s/p abdominal surgery to allow adequate healing time. Also, patient will also likely need rehabilitation upon discharge. Will obtain contrast imaging of abdomen pelvis if kidney function improves, if not we will proceed with PET/CT outpt Will schedule clinic follow-up within the next 4-5 weeks to further discuss treatment options and goals of care Iron deficiency anemia, coagulopathy: -Hgb on admission was noted at 6.7 and received 1 unit PRBCs. Pt anticoagulated with coumadin for history of a-fib. INR was noted to be 6.5 on admission, and was treated with vitamin K. INR now 1.3 Iron studies on 11/16 revealed iron saturation 3.38, ferritin 128. Labs consistent with iron deficiency anemia. Patient has received 4 units PRBCs and 1 dose FFP since admission. Will start patient on parenteral iron, and will rec heck iron studies at clinic f/u, and will provide additional supplementation as needed -Anemia initially likely related to acute blood loss related to colon malignancy. Hemoglobin has been slowly recovering with some mild drops in hemoglobin, requiring additional transfusions. Slow recovery of hgb likely r/t hypoproliferation due to underlying CKD, inflammation and bone marrow suppression due to advanced age. Aranesp has been ordered by nephrology Continue to closely monitor CBC, please transfuse for hemoglobin less than 7 or if symptomatic.
[2023-11-29] MEDS: WARFARIN 2 MG TAB PO ONE (19:00)
[2023-11-30 06:24] LABS: Glucose,Whole Blood 214 mg/dL (70-110)
[2023-11-30 07:55] VITALS: BP 90/59; RESP 19; TEMP 97.7
[2023-11-30 09:19] VITALS: PULSE 80
[2023-11-30 09:46] LABS: INR 1.4 (<1.2); Prothrombin Time 14.4 sec (10.0-12.5)
[2023-11-30 09:52] LABS: African American GFR (CKD) 14 (>60 ml/min/1.73 sqM); Anion Gap 12 mmol/L; Calcium 7.4 mg/dL (8.4-10.2); Carbon Dioxide 13 mmol/L (22-30); Chloride 96 mmol/L (98-107); Glucose 170 mg/dL (74-99); Magnesium 2.1 mg/dL (1.6-2.3); Non-African American GFR(CKD) 12 (>60 ml/min/1.73 sqM); Phosphorus 5.6 mg/dL (2.5-4.5); Potassium 4.3 mmol/L (3.5-5.1); Sodium 121 mmol/L (137-145)
[2023-11-30 10:02] LABS: Blood Urea Nitrogen 132 mg/dL (9-20)
--- NOTE | 2023-11-30 10:40 | P.PN ---
Subjective patient is seen for follow-up for acute kidney injury and chronic kidney disease. is present at bedside and family has decided to proceed with hospice care. no significant shortness of breath today. Objective - Vital Signs Vital signs: Vital Signs Temp 97.7 F 11/30/23 07:50 Pulse 80 11/30/23 08:38 Resp 19 11/30/23 07:51 BP 90/59 11/30/23 04:00 Pulse Ox 99 11/30/23 08:20 FiO2 21 11/28/23 08:50 Intake & Output 11/29/23 11/30/23 11/30/23 18:59 06:59 18:59 Intake Total 952.013 1010.333 92.667 Output Total 100 Balance 053.700 2560.333 92.667 Weight 133 kg Intake: Intake, IV Titration 971.412 2041.333 92.667 Amount DOBUTamine DRIP 500 mg In 229.295 250 Dextrose/Water 1 250ml. bag @ 5 MCG/KG/MIN 18.15 mls/hr IV .[id number] ALON[facility]A Rx #:[id number] Furosemide 100 mg In 100 65.833 92.667 Sodium Chloride 0.9% 90 ml @ 10 MG/HR 10 mls/hr IV .Q10H ALONDRA Rx#: [id number] Sodium Chloride 4Meq/ml 1041.5 Vial 30 meq Calcium Gluconate 1 gm Magnesium Sulfate gm 0.5 gm Sodium Phosphate 9 mmol Sodium Acetate 18 meq Mvi, Adult No.4 with Vit K 10 ml Trace (Conc-1Ml/Dose) 1 ml In Amino Acids 5 %/ Dextrose 20 % 1,000 ml @ 93 mls/hr IV .BY DURATION ALONDRA Rx#:[id number] Oral 240 Output: Urine 100 Other: Voiding Method Indwelling Catheter Indwelling Catheter Indwelling Catheter - Exam patient is awake, comfortable, no acute distress Examination of lower extremity shows edema 2+ bilaterally with scrotal edema BOOKING PRIZER exam grossly intact - Labs CBC & Chem 7: 11/28/23 09:54 11/30/23 08:57 Labs: Abnormal Lab Results - Last 24 Hours (Table) 11/29/23 11/29/23 11/30/23 Range/Units 11:33 16:33 06:22 PT (10.0-12.5) sec INR (<1.2) Sodium (137-145) mmol/L Chloride (98-107) mmol/L Carbon Dioxide (22-30) mmol/L BUN (9-20) mg/dL Creatinine (0.66-1.25) mg/dL Glucose (74-99) mg/dL POC Glucose (mg/dL) 270 H 324 H 214 H (70-110) mg/dL Calcium (8.4-10.2) mg/dL Phosphorus (2.5-4.5) mg/dL 11/30/23 11/30/23 Range/Units 08:57 08:57 PT 14.4 H (10.0-12.5) sec INR 1.4 H (<1.2) Sodium 121 L (137-145) mmol/L Chloride 96 L (98-107) mmol/L Carbon Dioxide 13 L (22-30) mmol/L BUN 132 H* (9-20) mg/dL Creatinine 4.30 H (0.66-1.25) mg/dL Glucose 170 H (74-99) mg/dL POC Glucose (mg/dL) (70-110) mg/dL Calcium 7.4 L (8.4-10.2) mg/dL Phosphorus 5.6 H (2.5-4.5) mg/dL Assessment and Plan Assessment: 1. Acute kidney injury ATN secondary to hypotension and urine retention. also received IV contrast on 11/17/2023. No evidence of obstruction noted on CT of the abdomen. urine output is low and patient remains significantly volume overloaded. dobutamine drip started on 11/27/2023 2. Hyperkalemia associated with acute kidney injury and metabolic acidosis and urine retention. Also related to underlying GI bleed. improved 3. Metabolic acidosis non-gap secondary to acute kidney injury 4. Colon mass status post transverse colectomy and partial omentectomy 5. Chronic kidney disease stage IIIa with baseline creatinine around 1.4 second melody to nephrosclerosis 6. Volume overload maintained on Lasix drip 7. Partial small bowel obstruction versus moderate ileus being followed by surgery. Currently maintained on TPN. 8. Cardiomyopathy with EF of 40-45% 9. Hypervolemic hyponatremia Plan: agree with plans for hospice care. Patient is not an ideal candidate for renal replacement therapy.
--- NOTE | 2023-11-30 11:46 | P.PN ---
Subjective Progress Note Date: 11/30/23 Principal diagnosis: Anemia. This is a 83-year-old male patient was transferred to the intensive care unit yesterday as the patient developed significant abdominal distention and hypotension. The patient has a colonic mass and the patient has undergone transverse colectomy and surgery was done on 11/13/2023.. For now, the patient is postop day #4. The abdomen was firm and quite distended. Immediately, a stat CAT scan of the abdomen was done and the patient was found to have pneumoperitoneum and this was suspected to be related to previous surgery. There was also nonobstructive bowel gas pattern with significant gastric distention and partial small bowel obstruction cannot be completely excluded. At that point, NG tube was inserted and immediately 600 cc of output was obtained. Abdomen is still distended although less compared to yesterday. No flatus. Bowel sounds are absent. General surgery is on the case. White cell count not elevated. Lactic acid level is low at 1.3. Note that postop, the patient's renal function remained stable. The patient has chronic stage III kidney disease and the creatinine today is up to 2.17 and a sodium levels at 134 with a potassium level of 5.5. Serum bicarb is at 17. Nephrology on the case. The patient is currently on a bicarb infusion which is running at 50 cc an hour. He has history of paroxysmal atrial fibrillation. He is on anticoagulation with warfarin. Coumadin is on hold and the patient's INR today is at 3.5. The respiratory status is stable. No significant shortness of breath. The patient is currently on 3 L of oxygen by nasal cannula with a pulse ox of 98%. Repeat chest film of the abdomen was done today that showed NG tube being in place. There is contrast in the mid and the distal colon and nonspecific bowel gas pattern and the patient's chest x-ray from today is showing cardiomegaly. NG tube is in place. There is air under the right hemidiaphragm. The patient was seen by 2 separate general surgeons and no surgical intervention is required at this point in time. Will monitor and will put the bowel to rest. The patient has likely small bowel ileus. Patient was reevaluated today on 11/19/2023, patient is status post transverse colectomy and surgery was done on 11/13/2023 for suspected colonic mass and abdominal distention he is now postoperative day #5. Patient has been in the ICU for what seems to be persistent abdominal distention and possible small bowel ileus. Being followed by surgery, does not feel reexploration is necessary at this point. Nonetheless the patient seems to be quite comfortable, abdomen is distended, he is hypotensive requiring norepinephrine at 0.07 mcg/kg/min. Continues to have nasogastric tube in place and draining 800 cc over the last 24 hours. Patient is also known to have history of cardiomyopathy and LV dysfunction with ejection fraction of 40 to 45%, he is requiring intermittently diuretics/Lasix his last dose was yesterday. Remains on antibiotics in the form of Invanz mostly because of his multiple allergies to different antibiotics. Patient continues to have chronic venous stasis and swelling in the lower extremities. And seems a bit uncomfortable with abdominal distention. But no evidence of severe pain. Slightly tender to palpation WBC count today is 9.2 hemoglobin is 7.4. INR is 3.8 basic metabolic profile is normal renal profile is a bit worse today BUN is 42 creatinine up to 2.31 from 2.16 yesterday chest x-ray continues to show free air under the diaphragm, cardiomegaly, and chronic mild venous congestion. Possible pneumonitis 3 today on 11/20/2023, patient remains in the ICU, continues to have significant abdominal distention/ileus continues to have nasogastric tube in place, patient remains n.p.o., patient still requiring TPN, and intermittently on norepinephrine. Lasix was given today 40 mg IV push x 1, seems to have decent urine output in spite of marginal blood pressure. His abdominal distention remains worrisome. 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 Chest x-ray is showing mostly minimal bibasilar atelectasis, cardiomegaly, and minimal venous congestion Reason on 11/21/2023, patient remains in the ICU, patient remains on Invanz, he is supposed to get a PICC line tomorrow, however his INR is elevated, will arrange for 2 units of fresh frozen plasma and vitamin K to be given tomorrow about 6 hours before PICC line schedule placement. Pulmonary herrera the patient is doing well, asymptomatic, continues to have ileus continues to have abdominal distention but improving patient is passing gas at least. His abdominal issues are being addressed by surgery on the case. WBC count is 10.1 hemoglobin 7.8 INR is 3.8 basic metabolic profile is normal BUN is 50 creatinine 2.11 chest x- ray today continues to show free air in the upper abdomen, otherwise no significant findings Reevaluate today on 11/22/2023, patient is still in the ICU, his abdominal distention is improving, patient has had bowel movements last night, patient was started today on clear liquids, PICC line was placed for TPN, did receive fresh frozen plasma and vitamin K for placement of the PICC line, INR today is 1.7. Now the patient could be restarted back on his Coumadin. And we could potentially transfer the patient out of the ICU to a monitored bed and marcus ective/3 S. WBC count is 10.7 hemoglobin 7.7 INR is 1.7 basic metabolic profile is normal renal profile showed BUN of 52 creatinine 2.18 3 today on 11/23/2023, patient is doing well, he is on room air, sitting at the bedside chair, he is on 3 S., not in any distress, continues to have abdominal distention, no bowel movement today, but the patient is passing gas. Patient will need to go back on his Coumadin. WBC count today is 11.6 hemoglobin 7.5 basic metabolic profile is normal BUN is 53 creatinine 2.41, blood sugar is high, being addressed by internal medicine on the case. Reevaluate today on 11/24/23, patient remains on room air, not in any distress, relatively asymptomatic from the pulmonary perspective continues to have abdominal distention, continues to pass gas but no bowel movements. Patient is receiving TPN, and I believe he is already eating as recommended by surgery. WBC count is 14.5 hemoglobin 7.8 basic metabolic profile is normal BUN is 65 creatinine 2.31, renal status is being addressed by nephrology on the case Patient was reevaluated today on 11/25/2023, patient remains on room air, not in any distress, patient has no active pulmonary issues today, no cough no wheezing no shortness of breath, patient did have a bowel movement yesterday, however his abdomen remains a bit distended. Patient is being considered for rehab placement and I think that is appropriate. Hemoglobin today is 6.8, patient may benefit from a unit of packed RBCs. This will be addressed by surgery on the case. Patient is still receiving TPN and apparently has been taking some hunt ited food orally. Progress note dated November 26, 2023. 83-year-old male seen today in room 365. The patient is currently on room air. He is receiving TPN at 93 cc an hour. He also is on ertapenem. We will check a procalcitonin level on this patient. Current labs include a white count of 13.9, hemoglobin 7.3, hematocrit 26.5, and platelet count of 366,000. PT is 14.8 with an INR 1.4. Sodium 127, potassium 5.2, chlorides 98, CO2 19, anion gap 10, BUN 81, creatinine 2.68. Glucose is 277. Calcium 7.2. Magnesium is 2.2. Progress note dated November 27, 2023. 83-year-old male seen today in room 365. Currently, the patient is on room air. The patient continues on TPN at 93 cc an hour. In addition, the patient continues on ertapenem. The patient appears to be doing relatively well. Fa codie members are at the bedside. Current laboratory data includes a white count 12.8, hemoglobin 7.4, hematocrit 24.7, and platelet count 362,000. PT 13.1 with an INR 1.2. Sodium 128, potassium 4.3, chlorides 101, CO2 18, BUN 99, creatinine 2.79. Glucose is 228. Calcium 7.1. Magnesium 2.1. Progress note dated November 28, 2023. 83-year-old male seen today in room 365. Currently, the patient is on room air. The patient continues on TPN at 93 cc an hour, and is also receiving dobutamine according to the nurse at 5 mcg/kg/min. Current laboratory data includes a white count 12.1, hemoglobin 7.9, hematocrit 25.2, and a platelet count of 338,000. PT 14, with an INR of 1.3. Sodium 125, potassium 4.3, chlorides 100, CO2 15, anion gap 10, BUN 111, creatinine 2.96. Glucose is 170. Calcium is 7.4. Progress note dated November 29, 2023. 83-year-old male seen today in room 365. Currently, the patient is on TPN at 93 cc an hour, Lasix drip at 10 mg an hour, and dobutamine at 5 mcg/kg/min. The patient is not receiving any supplemental oxygen. His overall clinical status, is similar to yesterday's. Current laboratory data includes a glucose of 213. No additional laboratory data are seen today. Progress note dated November 30, 2023. 83-year-old male seen in room 365. The patient apparently will be going home with hospice, according to family members and nurses. The patient continues on room air. Currently, he is on dobutamine at 5 mcg/kg/min, Lasix drip at 10 mg an hour, and TPN at 93 cc an hour. Current labs include PT of 14.4, INR 1.4, sodium 121, potassium 4.3, chlorides 96, CO2 13, anion gap 12, BUN 132, creatinine 4.30. Glucose is 170. Phosphorus is 5.6. Objective - Vital Signs Vital signs: Vital Signs Temp 97.7 F 11/30/23 07:50 Pulse 80 11/30/23 08:38 Resp 19 11/30/23 07:51 BP 90/59 11/30/23 04:00 Pulse Ox 99 11/30/23 08:20 FiO2 21 11/28/23 08:50 Intake & Output 11/29/23 11/30/23 11/30/23 18:59 06:59 18:59 Intake Total 993.894 4852.333 92.667 Output Total 100 Balance 959.293 3611.333 92.667 Weight 133 kg Intake: Intake, IV Titration 766.367 7806.333 92.667 Amount DOBUTamine DRIP 500 mg In 229.295 250 Dextrose/Water 1 250ml. bag @ 5 MCG/KG/MIN 18.15 mls/hr IV .[id number] [facility] Rx #:[id number] Furosemide 100 mg In 100 65.833 92.667 Sodium Chloride 0.9% 90 ml @ 10 MG/HR 10 mls/hr IV .Q10H [facility] Rx#: [id number] Sodium Chloride 4Meq/ml 1041.5 Vial 30 meq Calcium Gluconate 1 gm Magnesium Sulfate gm 0.5 gm Sodium Phosphate 9 mmol Sodium Acetate 18 meq Mvi, Adult No.4 with Vit K 10 ml Trace (Conc-1Ml/Dose) 1 ml In Amino Acids 5 %/ Dextrose 20 % 1,000 ml @ 93 mls/hr IV .BY [facility] Rx#:[id number] Oral 240 Output: Urine 100 Other: Voiding Method Indwelling Catheter Indwelling Catheter Indwelling Catheter - Exam No acute distress, oriented 3. Currently on room air. HEENT examination is grossly unremarkable. Mucous membranes are moist. No oral lesions. Neck supple. Full range of motion. No adenopathy thyromegaly or neck vein distention. Cardiovascular examination reveals an irregular rhythm and rate. S1-S2 normal. No S3 or S4. No discernible murmur noted. Heart rate is 80 bpm. Lungs reveal mostly clear breath sounds. Minimal rhonchi. No wheezes or crackles. Breath sounds equal bilaterally. Room air saturation 98 %. Abdomen soft bowel sounds. No masses or tenderness. Extremities are intact. No cyanosis clubbing or edema. Forearms are wrapped. Skin is without rash or lesion. Neurologic examination is brief but nonfocal. - Labs CBC & Chem 7: 11/28/23 09:54 11/30/23 08:57 Labs: Abnormal Lab Results - Last 24 Hours (Table) 11/29/23 11/30/23 11/30/23 Range/Units 16:33 06:22 08:57 PT (10.0-12.5) sec INR (<1.2) Sodium 121 L (137-145) mmol/L Chloride 96 L (98-107) mmol/L Carbon Dioxide 13 L (22-30) mmol/L BUN 132 H* (9-20) mg/dL Creatinine 4.30 H (0.66-1.25) mg/dL Glucose 170 H (74-99) mg/dL POC Glucose (mg/dL) 324 H 214 H (70-110) mg/dL Calcium 7.4 L (8.4-10.2) mg/dL Phosphorus 5.6 H (2.5-4.5) mg/dL 11/30/23 Range/Units 08:57 PT 14.4 H (10.0-12.5) sec INR 1.4 H (<1.2) Sodium (137-145) mmol/L Chloride (98-107) mmol/L Carbon Dioxide (22-30) mmol/L BUN (9-20) mg/dL Creatinine (0.66-1.25) mg/dL Glucose (74-99) mg/dL POC Glucose (mg/dL) (70-110) mg/dL Calcium (8.4-10.2) mg/dL Phosphorus (2.5-4.5) mg/dL Assessment and Plan Assessment: Acute abdominal distention, and bowel obstruction, secondary to colonic adenocarcinoma, status post transverse colectomy and partial omentectomy, November 13, 2023. Postoperative ileus. Suspect abdominal sepsis. Mild LV dysfunction and cardiomyopathy. Acute congestive heart failure secondary to ischemic cardiomyopathy. 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 Chronic kidney disease, stage III. Chronic atrial fibrillation. Benign essential hypertension. Hyperlipidemia. Plan: Plan dated November 26, 2023. We continue with supportive measures. Surgery still addressing his ileus. The patient did receive blood transfusions for low hemoglobin. We continue with GI DVT prophylaxis. The patient continues with TPN at 93 cc an hour. The patient also continues with ertapenem, but we will check a procalcitonin level. Labs, x-rays, medications are reviewed. Patient's overall prognosis remains guarded. We will continue to follow, make recommendations along the way. Plan dated November 27, 2023. The patient stable from the pulmonary standpoint. Room air saturation is 97%. The patient's other vital signs are stable. The patient is still getting TPN at 93 cc an hour. He continues on ertapenem. The patient not getting any additional fluids. Labs, x-rays, and medications are all reviewed. A procalcitonin level was done yesterday, was 0.48. We will continue to follow make recommendations along the way. Prognosis is certainly guarded. Plan dated November 28, 2023. The patient continues on TPN at 93 cc an hour. In addition, the patient is on dobutamine at 5 mcg/kg/min. The patient is not requiring any supplemental oxygen. The patient continues on room air. Room air saturation is 96%. Labs, x-rays, and all medications are reviewed. We will continue to follow the patient, and make recommendations along the way. Overall prognosis remains very guarded. Plan dated November 29, 2023. The patient continues on TPN at 93 cc an hour. In addition, the patient is on a Lasix drip at 10 mg an hour, dobutamine at 5 mcg/kg/min. The patient continues in atrial fibrillation. Labs, x-rays, medications are reviewed. We will continue to follow make recommendations along the way. The patient's overall prognosis remains guarded. Plan dated November 30, 2023. The patient is apparently going to be going home with hospice. The patient is currently on room air. The patient continues on a Lasix drip at 10 mg an hour, TPN at 93 cc an hour, and dobutamine at 5 mcg/kg/min. Labs, x-rays, and medications are reviewed. The patient's prognosis is obviously very poor. We will continue to follow the patient, should he not be discharged. Additional recommendations and suggestions are forthcoming. Time with Patient: Less than 30
[2023-11-30 12:02] LABS: Glucose,Whole Blood 144 mg/dL (70-110)
--- NOTE | 2023-11-30 13:05 | P.PN ---
Subjective Progress Note Date: 11/30/23 CHIEF COMPLAINT: Colon obstruction HISTORY OF PRESENT ILLNESS: Patient is status post transverse colectomy and partial omentectomy on 11/13/23. Patient has no new complaints. He is being discharged home with hospice today. PHYSICAL EXAM: VITAL SIGNS: Reviewed. GENERAL: no acute distress. Generalized edema ABDOMEN: distended. nontender. Incision clean dry and intact NEUROLOGIC: awake ASSESSMENT: 1. Colon cancer status post transverse colectomy 2. Postoperative ileus 3. Symptomatic anemia that is post 1 unit of blood PLAN: -Patient and family have decided to go home with hospice -wean off TPN -continue regular diet Physician Heel Finisher note has been reviewed by physician. Signing provider agrees with the documented findings, assessment, and plan of care. Objective - Vital Signs Vital signs: Vital Signs Temp 97.7 F 11/30/23 07:50 Pulse 80 11/30/23 08:38 Resp 19 11/30/23 07:51 BP 90/59 11/30/23 04:00 Pulse Ox 99 11/30/23 08:20 FiO2 21 11/28/23 08:50 Intake & Output 11/29/23 11/30/23 11/30/23 18:59 06:59 18:59 Intake Total 572.885 3067.333 92.667 Output Total 100 Balance 900.338 3638.333 92.667 Weight 133 kg Intake: Intake, IV Titration 614.242 2527.333 92.667 Amount DOBUTamine DRIP 500 mg In 229.295 250 Dextrose/Water 1 250ml. bag @ 5 MCG/KG/MIN 18.15 mls/hr IV .[id number] [facility] Rx #:[id number] Furosemide 100 mg In 100 65.833 92.667 Sodium Chloride 0.9% 90 ml @ 10 MG/HR 10 mls/hr IV .Q10H [facility] Rx#: [id number] Sodium Chloride 4Meq/ml 1041.5 Vial 30 meq Calcium Gluconate 1 gm Magnesium Sulfate gm 0.5 gm Sodium Phosphate 9 mmol Sodium Acetate 18 meq Mvi, Adult No.4 with Vit K 10 ml Trace (Conc-1Ml/Dose) 1 ml In Amino Acids 5 %/ Dextrose 20 % 1,000 ml @ 93 mls/hr IV .BY DURATION [facility] Rx#:[id number] Oral 240 Output: Urine 100 Other: Voiding Method Indwelling Catheter Indwelling Catheter Indwelling Catheter - Labs CBC & Chem 7: 11/28/23 09:54 11/30/23 08:57 Labs: Abnormal Lab Results - Last 24 Hours (Table) 11/29/23 11/30/23 11/30/23 Range/Units 16:33 06:22 08:57 PT (10.0-12.5) sec INR (<1.2) Sodium 121 L (137-145) mmol/L Chloride 96 L (98-107) mmol/L Carbon Dioxide 13 L (22-30) mmol/L BUN 132 H* (9-20) mg/dL Creatinine 4.30 H (0.66-1.25) mg/dL Glucose 170 H (74-99) mg/dL POC Glucose (mg/dL) 324 H 214 H (70-110) mg/dL Calcium 7.4 L (8.4-10.2) mg/dL Phosphorus 5.6 H (2.5-4.5) mg/dL 11/30/23 11/30/23 Range/Units 08:57 12:00 PT 14.4 H (10.0-12.5) sec INR 1.4 H (<1.2) Sodium (137-145) mmol/L Chloride (98-107) mmol/L Carbon Dioxide (22-30) mmol/L BUN (9-20) mg/dL Creatinine (0.66-1.25) mg/dL Glucose (74-99) mg/dL POC Glucose (mg/dL) 144 H (70-110) mg/dL Calcium (8.4-10.2) mg/dL Phosphorus (2.5-4.5) mg/dL
[2023-11-30 13:33] VITALS: BMI 40.8
[2023-12-04 09:37] LABS: Glucose,Whole Blood 203 mg/dL (70-110)
== END 2023-11-30 15:20 | disposition hospice, home (50) | DRG 329 ==
LOC: EC 14:11 → 3SCARD 17:20 → 2SICU 11-17 22:12 → 3SCARD 11-23 02:14
PROVIDERS: ADMIT Family Medicine; ATTEND Family Medicine
PROC: 30233N1 Transfusion of Nonautologous Red Blood Cells into Peripheral Vein, Percutaneous Approach (ICD-10-PCS; 2023-11-08)
PROC: 0DB98ZX Excision of Duodenum, Via Natural or Artificial Opening Endoscopic, Diagnostic (ICD-10-PCS; 2023-11-13)
PROC: 0DBL8ZX Excision of Transverse Colon, Via Natural or Artificial Opening Endoscopic, Diagnostic (ICD-10-PCS; 2023-11-13)
PROC: 0DBU0ZZ Excision of Omentum, Open Approach (ICD-10-PCS; principal; 2023-11-13 08:40)
PROC: 0DBL0ZZ Excision of Transverse Colon, Open Approach (ICD-10-PCS; principal; 2023-11-13 08:40)
PROC: 0D9670Z Drainage of Stomach with Drainage Device, Via Natural or Artificial Opening (ICD-10-PCS; 2023-11-17)
PROC: 02HV33Z Insertion of Infusion Device into Superior Vena Cava, Percutaneous Approach (ICD-10-PCS; 2023-11-22)
PROC: 3E043XZ Introduction of Vasopressor into Central Vein, Percutaneous Approach (ICD-10-PCS; 2023-11-22)
PROC: 30233K1 Transfusion of Nonautologous Frozen Plasma into Peripheral Vein, Percutaneous Approach (ICD-10-PCS; 2023-11-22)
PROC: 05HD33Z Insertion of Infusion Device into Right Cephalic Vein, Percutaneous Approach (ICD-10-PCS; 2023-11-27)
DX: C18.4 Malignant neoplasm of transverse colon (principal); N17.0 Acute kidney failure with tubular necrosis; C77.2 Secondary and unspecified malignant neoplasm of intra-abdominal lymph nodes; K92.1 Melena; D62 Acute posthemorrhagic anemia; D68.9 Coagulation defect, unspecified; E87.1 Hypo-osmolality and hyponatremia; K56.7 Ileus, unspecified; I13.0 Hypertensive heart and chronic kidney disease with heart failure and stage 1 through stage 4 chronic kidney disease, or unspecified chronic kidney disease; E87.20 Acidosis, unspecified; I42.8 Other cardiomyopathies; I48.19 Other persistent atrial fibrillation; I50.22 Chronic systolic (congestive) heart failure; T81.44XA Sepsis following a procedure, initial encounter; N18.32 Chronic kidney disease, stage 3b; Z66 Do not resuscitate; Z51.5 Encounter for palliative care; I08.1 Rheumatic disorders of both mitral and tricuspid valves; D50.9 Iron deficiency anemia, unspecified; I71.43 Infrarenal abdominal aortic aneurysm, without rupture; D63.0 Anemia in neoplastic disease; Z95.3 Presence of xenogenic heart valve; D63.1 Anemia in chronic kidney disease; I95.9 Hypotension, unspecified; I25.5 Ischemic cardiomyopathy; R33.9 Retention of urine, unspecified; D13.2 Benign neoplasm of duodenum; E78.5 Hyperlipidemia, unspecified; M19.90 Unspecified osteoarthritis, unspecified site; E87.5 Hyperkalemia; Z28.310 Unvaccinated for COVID-19; Z28.21 Immunization not carried out because of patient refusal; I25.10 Atherosclerotic heart disease of native coronary artery without angina pectoris; I87.8 Other specified disorders of veins; R73.9 Hyperglycemia, unspecified; K31.7 Polyp of stomach and duodenum; K44.9 Diaphragmatic hernia without obstruction or gangrene; K80.20 Calculus of gallbladder without cholecystitis without obstruction; N28.1 Cyst of kidney, acquired; Z79.01 Long term (current) use of anticoagulants; Z79.84 Long term (current) use of oral hypoglycemic drugs; Z79.899 Other long term (current) drug therapy; Z82.49 Family history of ischemic heart disease and other diseases of the circulatory system; Z95.0 Presence of cardiac pacemaker; Z88.1 Allergy status to other antibiotic agents; Z88.0 Allergy status to penicillin
CPT/HCPCS: 36410; 36415; 36430; 36573; 43251; 45380; 45381; 71045; 71275; 74018; 74176; 76770; 76937; 80048; 80053; 82272; 82330; 82533; 82728; 83036; 83540; 83550; 83605; 83690; 83735; 84100; 84132; 84145; 84478; 85025; 85027; 85610; 85730; 86850; 86900; 86901; 86920; 87040; 88305; 88309; 88341; 88342; 93005; 93306; 94640; 94760; 96360; 99285

== ENCOUNTER → 2023-11-08 | Outpatient (CLI) | payer MEDICARE ==
[2023-11-08 12:28] LABS: HCT 21.6 % (39.0-53.0); Hypochromasia Marked; MCH 29.2 pg (25.0-35.0); MCHC 30.6 g/dL (31.0-37.0); MCV 95.4 fL (80.0-100.0); Mean Platelet Volume 7.2; Platelet Count 278 k/uL (150-450); RBC 2.26 m/uL (4.30-5.90); RDW 14.4 % (11.5-15.5); WBC 7.2 k/uL (3.8-10.6)
[2023-11-08 12:48] LABS: HGB 6.6 gm/dL (13.0-17.5)
[2023-11-08 12:51] LABS: Prothrombin Time 61.5 sec (10.0-12.5)
[2023-11-08 13:00] LABS: INR 6.3 (<1.2)
== END | disposition home or self-care (01) ==
LOC: LABWHC1 11:57
PROVIDERS: ATTEND Nurse Practitioner Adult Health
DX: I48.11 Longstanding persistent atrial fibrillation (principal)
CPT/HCPCS: 36415; 85027; 85610